=== PATIENT | male | born 1930 | race American Indian/Alaskan Native ===

== ENCOUNTER 2017-12-21 18:23 | Inpatient (IN) | payer MEDICARE ==
[2017-12-21] MEDS ORDERED: Sodium Chloride 0.9% 1,000 ML IV ONE ×2 (19:06→20:47)
--- NOTE | 2017-12-21 19:06 | C.PDOC ---
History Of Present Illness 87 year old male presents to the emergency department by his son, who reports that the patient has been more confused with a decreased appetite and not feeling well over the last few weeks. Son reports that he comes from [place] often to check on him. Time Seen by Provider: 12/21/17 19:05 Chief Complaint (Nursing): Altered Mental Status History Per: Patient, Family (son) History/Exam Limitations: None Onset/Duration Of Symptoms: Other (weeks) Current Symptoms Are (Timing): Still Present Usual Baseline: Alert Oriented Exacerbating Factor(s): Unknown Use Of Anticoag/Antiplatelets: No Decreased Ability To: Stand, Walk Severity: None Pain Scale Rating Of: 4 Recent travel outside of the [place]: No Additional History Per: Family Associated Symptoms: Confused (mildly), Not Eating, Dyspnea, Weakness ( generalized). denies: Fever, Chills, Sweating Past Medical History Reviewed: Historical Data, Nursing Documentation, Vital Signs Vital Signs: Last Vital Signs Temp 98.5 F 12/21/17 21:15 Pulse 85 12/21/17 21:15 Resp 22 12/21/17 21:15 BP 107/80 12/21/17 21:15 Pulse Ox 98 12/21/17 21:15 - Medical History PMH: Pneumothorax Surgical History: No Surg Hx Family History: States: No Known Family Hx - Social History Hx Alcohol Use: No Hx Substance Use: No - Immunization History Hx Tetanus Toxoid Vaccination: No Hx Influenza Vaccination: No Hx Pneumococcal Vaccination: No Review Of Systems Constitutional: Negative for: Fever, Chills Eyes: Negative for: Redness ENT: Negative for: Throat Pain Cardiovascular: Negative for: Chest Pain Respiratory: Positive for: Shortness of Breath, SOB with Excertion. Negative for: Wheezing Gastrointestinal: Positive for: Other (decreased appetite). Negative for: Nausea, Vomiting, Abdominal Pain, Diarrhea Genitourinary: Negative for: Dysuria Musculoskeletal: Negative for: Back Pain Neurological: Positive for: Weakness (generalized), Confusion (mild, and occasional) Psych: Negative for: Anxiety Physical Exam - Physical Exam Appears: Non-toxic, No Acute Distress, Other (cachectic, emaciated) Skin: Dry, Other (poor turgor) Head: Atraumatic, Other (buccal fat pad diminished) Eye(s): bilateral: Normal Inspection Oral Mucosa: Dry Throat: No Erythema, No Exudate Neck: Normal ROM, Supple Chest: Symmetrical, No Deformity, No Tenderness Cardiovascular: Rhythm Regular, No Murmur Respiratory: Decreased Breath Sounds, No Rales, Rhonchi (scattered, bilaterally) , No Wheezing Gastrointestinal/Abdominal: Soft, No Tenderness, No Guarding, No Rebound Back: Normal Inspection Extremity: No Tenderness, No Pedal Edema Extremity: Bilateral: Atraumatic, No Pedal Edema, Normal Color And Temperature Pulses: Left Dorsalis Pedis: Normal, Right Dorsalis Pedis: Normal Neurological/Psych: Oriented x3, Normal Speech, Normal Cognition Gait: Unsteady ED Course And Treatment - Laboratory Results Result Diagrams: 12/21/17 19:56 12/21/17 19:56 ECG: Interpreted By Me, Viewed By Me O2 Sat by Pulse Oximetry: 94 (RA) Pulse Ox Interpretation: Normal - Radiology CXR: Interpreted by Me, Viewed By Me CXR Interpretation: Yes: Infiltrates (? rll vs mass), COPD. No: Cardiomegaly, Pnemothorax Nexus Criteria: . Focal Neuro Deficit Progress Note: Plan: VBG. CT Head w/o Contrast. EKG. BNP. CMP. TSH. CBC. PTT. Prothrombin Time. CXR One View. NaCl IV Fluids. Blood Culture. Urinalysis Disposition Discussed With DrKenyon: Jesus Shea Comment: accepted the pt on his service and took over the care at 9:33 PM Doctor Will See Patient In The: Hospital Counseled Patient/Family Regarding: Studies Performed, Diagnosis - Disposition Disposition: HOSPITALIZED Disposition Time: 19:05 Condition: GUARDED Forms: [facility] (Sinhala) - POA Present On Arrival: Poor Glycemic Control - Clinical Impression Clinical Impression: Pneumonia, Severe dehydration, Hypernatremia, Cachexia, Bullous emphysema - Scribe Statement The provider has reviewed the documentation as recorded by the Scribe (Stanley Maycol) Provider Attestation: All medical record entries made by the Scribe were at my direction and personally dictated by me. I have reviewed the chart and agree that the record accurately reflects my personal performance of the history, physical exam, medical decision making, and the department course for this patient. I have also personally directed, reviewed, and agree with the discharge instructions and disposition. Decision To Admit - Pt Status Changed To: Hospital Disposition Of: Inpatient - Admit Certification Admit to Inpatient:: After my assessment, the patient will require hospitalization for at least two midnights. This is because of the severity of symptoms shown, intensity of services needed, and/or the medical risk in this patient being treated as an outpatient. - InPatient: Physician Admission Certification:: After my assessment, the patient will require hospitalization for at least two midnights. This is because of the severity of symptoms shown, intensity of services needed, and/or the medical risk in this patient being treated as an outpatient. - . Bed Request Type: Regular Patient Diagnosis: Pneumonia, Severe dehydration, Hypernatremia, Cachexia, Bullous emphysema
[2017-12-21] MEDS ORDERED: Sodium Chloride 0.9% 1,000 ML ONE ×2 (19:41→21:41)
[2017-12-21 19:55] LABS: VENOUS BLOOD GAS BASE EXCESS 3.5 mmol/L (0.0-2.0); VENOUS BLOOD GAS PCO2 47 mmHg (40-60); VENOUS BLOOD GAS PO2 21 mm/Hg (30-55)
[2017-12-21 19:59] LABS: BASO # 0.1 K/uL (0.0-0.2); BASO % 0.4 % (0.0-2.0); HEMOGLOBIN 15.3 g/dL (12.0-18.0); LYMPH # 0.4 K/uL (1.0-4.3); LYMPH % 3.2 % (20.0-40.0); MEAN CELL VOLUME 87.8 fL (80.0-94.0); MEAN CORPUSCULAR HEMOGLOBIN 28.6 pg (27.0-31.0); MEAN CORPUSCULAR HGB CONC 32.5 g/dL (33.0-37.0); MEAN PLATELET VOLUME 9.2 fL (7.2-11.7); MONO # 0.5 K/uL (0.0-0.8); NEUT # 11.9 K/uL (1.8-7.0); NEUT % 92.4 % (50.0-75.0); NRBC % 0.1 % (0.0-2.0); PLATELET COUNT 229 K/uL (130-400); RBC 5.37 Mil/uL (4.40-5.90); RED CELL DISTRIBUTION WIDTH 14.3 % (11.5-14.5); WHITE BLOOD COUNT 12.9 K/uL (4.8-10.8)
[2017-12-21 20:14] LABS: ALB/GLOB RATIO 0.8 (1.0-2.1); ALBUMIN 3.8 g/dL (3.5-5.0); CALCIUM 10.5 mg/dl (8.6-10.4)
[2017-12-21 20:35] LABS: ANISOCYTOSIS SLIGHT; BANDS 6 % (0-2); HYPOCHROMIC SLIGHT; LYMPHOCYTE 2 % (20-40); MONOCYTE 4 % (0-10); NEUTROPHIL 88 % (50-75); OVALOCYTES SLIGHT; PLATELET ESTIMATE NORMAL (NORMAL); POIKILOCYTOSIS SLIGHT; TOTAL CELLS COUNTED 100
[2017-12-21 20:40] LABS: LARGE PLATELETS PRESENT
[2017-12-21 20:47] LABS: INR 1.3; PROTHROMBIN TIME 14.2 SECONDS (9.7-12.2)
[2017-12-21] MEDS ORDERED: Piperacillin/Tazobact 3.375 gm 100 ML IVPB STA (21:27)
[2017-12-21] MEDS ORDERED: Piperacillin/Tazobact 3.375 gm 100 ML IVPB ONE (21:41)
[2017-12-21] MEDS ORDERED: Dextrose 5%/0.45% NS 1,000 ML IV SCH (23:15)
--- NOTE | 2017-12-22 06:04 | CT ---
Date of service: 12/21/2017 PROCEDURE: CT HEAD WITHOUT CONTRAST. HISTORY: change mental status COMPARISON: None available. TECHNIQUE: Axial computed tomography images were obtained through the head/brain without intravenous contrast. Radiation dose: Total exam DLP = 836.17 mGy-cm. This CT exam was performed using one or more of the following dose reduction techniques: Automated exposure control, adjustment of the mA and/or kV according to patient size, and/or use of iterative reconstruction technique. FINDINGS: HEMORRHAGE: No intracranial hemorrhage. BRAIN: No mass effect or edema. Moderate volume and moderate white matter changes likely due to chronic microvascular ischemic disease. VENTRICLES: Unremarkable. No hydrocephalus. CALVARIUM: Unremarkable. PARANASAL SINUSES: Unremarkable as visualized. No significant inflammatory changes. MASTOID AIR CELLS: Unremarkable as visualized. No inflammatory changes. OTHER FINDINGS: None. IMPRESSION: No evidence of acute intracranial hemorrhage intracranial collection mass effect or midline shift. Volume loss and chronic microvascular white matter ischemic disease. Preliminary report was submitted by virtual Radiology.
--- NOTE | 2017-12-22 06:35 | CT ---
Date of service: 12/21/2017 PROCEDURE: CT Chest without contrast HISTORY: poss rll mass COMPARISON: Comparison is made with the previous study dated 08/13/2012 TECHNIQUE: Contiguous axial images were obtained through the chest without intravenous contrast enhancement. Sagittal and coronal reconstructions were performed. Radiation dose (DLP): 187.98 mGy-cm. This CT exam was performed using one or more of the following dose reduction techniques: Automated exposure control, adjustment of the mA and/or kV according to patient size, and/or use of iterative reconstruction technique. FINDINGS: LUNGS: Severe tello lobar emphysema is noted. There are scattered nodular opacities in the right middle and lower lobe likely represent acute infectious process. There is focal airspace consolidation at the right lung base may represent a pneumonia. The possibility of neoplasm is less likely but not totally excluded. Again noted is left lung base nodule measures 8.5 millimeter likely benign. [id number] bronchiectasis at the lower lobes is again noted. Bilateral central bronchiectasis is also noted. 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 That aortic arch and descending aorta are also ectatic. Normal sized heart. The main pulmonary artery is enlarged. No lymphadenopathy. PLEURA: No evidence of pleural effusion or pneumothorax. BONES: No fracture. No destructive lesion. UPPER ABDOMEN: Grossly unremarkable. OTHER FINDINGS: Dilated mid and distal esophagus with diffuse wall thickening is also noted. IMPRESSION: Severe emphysema predominant in the upper lobe. Nodular opacities and airspace consolidation at the right middle and lower lobe likely represent infectious process and pneumonia. The possibility of neoplasm at the right lung base is less likely but not totally excluded and follow-up exam is recommended. Additional findings as described above.
[2017-12-22 07:32] LABS: BASO % 0.2 % (0.0-2.0); EOS % 0.2 % (0.0-4.0); HEMOGLOBIN 13.4 g/dL (12.0-18.0); LYMPH # 0.6 K/uL (1.0-4.3); LYMPH % 5.2 % (20.0-40.0); MEAN CELL VOLUME 87.4 fL (80.0-94.0); MEAN CORPUSCULAR HEMOGLOBIN 28.8 pg (27.0-31.0); MEAN CORPUSCULAR HGB CONC 32.9 g/dL (33.0-37.0); MEAN PLATELET VOLUME 9.3 fL (7.2-11.7); MONO # 0.5 K/uL (0.0-0.8); MONO % 4.3 % (0.0-10.0); NEUT # 9.9 K/uL (1.8-7.0); NEUT % 90.1 % (50.0-75.0); PLATELET COUNT 189 K/uL (130-400); RBC 4.64 Mil/uL (4.40-5.90); RED CELL DISTRIBUTION WIDTH 14.5 % (11.5-14.5)
[2017-12-22 07:40] LABS: ALB/GLOB RATIO 0.8 (1.0-2.1); ALBUMIN 3.4 g/dL (3.5-5.0); CALCIUM 9.9 mg/dl (8.6-10.4)
[2017-12-22 08:38] LABS: LYMPHOCYTE 5 % (20-40); MONOCYTE 4 % (0-10); NEUTROPHIL 91 % (50-75); TOTAL CELLS COUNTED 100
[2017-12-22 08:39] LABS: PLATELET ESTIMATE NORMAL (NORMAL)
--- NOTE | 2017-12-22 08:47 | RAD ---
Date of service: 12/21/2017 PROCEDURE: CHEST RADIOGRAPH, 1 VIEW HISTORY: AMS COMPARISON: 08/12/2012. FINDINGS: LUNGS: The lungs are hyperinflated and there is peribronchial thickening with chronic changes in both lungs. There is masslike consolidation in the right lower lobe. PLEURA: No pneumothorax or pleural fluid seen. CARDIOVASCULAR: Normal. OSSEOUS STRUCTURES: No significant abnormalities. VISUALIZED UPPER ABDOMEN: Normal. OTHER FINDINGS: None. IMPRESSION: Masslike consolidation in the right lower lobe which may represent pneumonia however mass cannot be excluded. Follow-up to resolution is advised. COPD.
[2017-12-22] MEDS: Albuterol-Ipratrop 3 mg / 0.5 (3 ml) UD INH SCH ×4 (10:17→19:00)
--- NOTE | 2017-12-22 11:43 | CP.PCM.CON ---
History of Present Illness - History of Present Illness History of Present Illness: 87 year old male presents to the emergency department by his son, who reports that the patient has been more confused with a decreased appetite and not feeling well over the last few weeks. Lives alone, has lost unspecified amount of weight. Afebrile but has had dry chronic cough x few weeks Poor historian, unclear about meds Has chronic hypotension Being treated for right pneumonia, dehydration. Has hypernatremia No known CKD Review of Systems - Constitutional Constitutional: Lethargy, Weight Loss, Weakness - EENT Eyes: absent: As Per HPI, Blind Spots, Blurred Vision, Change in Vision, Decreased Night Vision, Diplopia, Discharge, Dry Eye, Exophthalmos, Floaters, Irritation, Itchy Eyes, Loss of Peripheral Vision, Pain, Photophobia, Requires Corrective Lenses, Sees Flashes, Spots in Vision, Tunnel Vision, Other Visual Disturbances, Loss of Vision, Other Ears: absent: As Per HPI, Decreased Hearing, Ear Discharge, Ear Pain, Tinnitus, Abnormal Hearing, Disequilibrium, Dizziness, Other Nose/Mouth/Throat: absent: As Per HPI, Epistaxis, Nasal Congestion, Nasal Discharge, Nasal Obstruction, Nasal Trauma, Nose Pain, Post Nasal Drip, Sinus Pain, Sinus Pressure, Bleeding Gums, Change in Voice, Dental Pain, Dry Mouth, Dysphagia, Halitosis, Hoarsness, Lip Swelling, Mouth Lesions, Mouth Pain, Odynophagia, Sore Throat, Throat Swelling, Tongue Swelling, Facial Pain, Neck Pain, Neck Mass, Other - Cardiovascular Cardiovascular: Dyspnea on Exertion - Respiratory Respiratory: Cough, Dyspnea on Exertion - Gastrointestinal Gastrointestinal: Early Satiety, Nausea - Genitourinary Genitourinary: Change in Urinary Stream, Voiding Freq/Small Amts - Musculoskeletal Musculoskeletal: Muscle Cramps, Muscle Weakness, Myalgias - Neurological Neurological: Confusion, Weakness Past Patient History - Past Medical History & Family History Past Medical History?: Yes Past Family History: Reviewed and not pertinent - Past Social History Smoking Status: Former Smoker Chewing Tobacco Use: No Cigar Use: No Drugs: Denies Home Situation {Lives}: Alone - CARDIAC Hx Cardiac Disorders: Yes Hx Hypotension: Yes - PULMONARY Hx Respiratory Disorders: Yes Other/Comment: hx pneumothorax - NEUROLOGICAL Hx Neurological Disorder: No - HEENT Hx HEENT Problems: No - RENAL Hx Chronic Kidney Disease: No - ENDOCRINE/METABOLIC Hx Endocrine Disorders: No - HEMATOLOGICAL/ONCOLOGICAL Hx Blood Disorders: No - INTEGUMENTARY Hx Dermatological Problems: No - MUSCULOSKELETAL/RHEUMATOLOGICAL Hx Musculoskeletal Disorders: No Hx Falls: Yes (june 2014) - GASTROINTESTINAL Hx Gastrointestinal Disorders: No - GENITOURINARY/GYNECOLOGICAL Hx Genitourinary Disorders: No - PSYCHIATRIC Hx Psychophysiologic Disorder: No Hx Substance Use: No - SURGICAL HISTORY Hx Surgeries: No - ANESTHESIA Hx Anesthesia: No Hx Anesthesia Reactions: No Hx Malignant Hyperthermia: No Has any member of the family had a problem w/ anesthesia?: No Meds Allergies/Adverse Reactions: Allergies Allergy/AdvReac Type Severity Reaction Status Date / Time No Known Allergies Allergy Unverified 12/21/17 18:48 - Medications Medications: Current Medications Albuterol/Ipratropium (Duoneb 3 Mg/0.5 Mg (3 Ml) Ud) 3 ml INH RQ4 GAURANG Last Admin: 12/22/17 10:17 Dose: 3 ml Heparin Sodium (Porcine) (Heparin) 5,000 units SC Q8 GAURANG Ceftriaxone Sodium 1 gm/ (Sodium Chloride) 100 mls @ 100 mls/hr IVPB DAILY GAURANG PRN Reason: Protocol Last Admin: 12/22/17 09:08 Dose: 100 mls/hr Dextrose/Sodium Chloride (Dextrose 5%/0.45% Ns 1000 Ml) 1,000 mls @ 80 mls/hr IV .[id number] GAURANG Montelukast Sodium (Singulair) 10 mg PO HS GAURANG Physical Exam - Constitutional Appears: No Acute Distress, Confused, Chronically Ill - Head Exam Head Exam: ATRAUMATIC, NORMAL INSPECTION - Eye Exam Eye Exam: EOMI, Normal appearance - Neck Exam Neck exam: Positive for: Normal Inspection. Negative for: Tenderness - Respiratory Exam Respiratory Exam: Clear to Auscultation Bilateral, NORMAL BREATHING PATTERN - Cardiovascular Exam Cardiovascular Exam: REGULAR RHYTHM, +S1 - GI/Abdominal Exam GI & Abdominal Exam: Soft. absent: Tenderness - Extremities Exam Extremities exam: Positive for: normal inspection. Negative for: tenderness - Neurological Exam Neurological exam: Altered, CN II-XII Intact - Skin Skin Exam: Dry, Warm Results - Vital Signs Recent Vital Signs: Last Vital Signs Temp 98.5 F 12/22/17 08:11 Pulse 65 12/22/17 10:20 Resp 18 12/22/17 08:11 BP 107/74 12/22/17 08:11 Pulse Ox 97 12/22/17 08:11 - Labs Result Diagrams: 12/22/17 07:01 12/22/17 07:01 Labs: Laboratory Results - last 24 hr 12/21/17 12/21/17 12/21/17 19:50 19:56 19:56 WBC 12.9 H RBC 5.37 Hgb 15.3 Hct 47.2 MCV 87.8 MCH 28.6 MCHC 32.5 L RDW 14.3 Plt Count 229 MPV 9.2 Neut % (Auto) 92.4 H Lymph % (Auto) 3.2 L Drew % (Auto) 4.0 Eos % (Auto) 0.0 Baso % (Auto) 0.4 Neut # (Auto) 11.9 H Lymph # (Auto) 0.4 L Drew # (Auto) 0.5 Eos # (Auto) 0.0 Baso # (Auto) 0.1 Neutrophils % (Manual) 88 H Band Neutrophils % 6 H Lymphocytes % (Manual) 2 L Monocytes % (Manual) 4 Platelet Estimate Normal Large Platelets Present RBC Morphology Hypochromasia (manual) Slight Poikilocytosis (manual Slight Anisocytosis (manual) Slight Ovalocytes Slight PT INR APTT pO2 21 L VBG pH 7.40 VBG pCO2 47 VBG HCO3 26.0 VBG Total CO2 30.5 H VBG O2 Sat (Calc) 35.2 L VBG Base Excess 3.5 H VBG Potassium 5.4 H Sodium 154.0 H 158 H Chloride 114.0 H 111 H Glucose 129 H Lactate 3.5 H Liter Flow 3.0 FiO2 33.0 Potassium 3.9 Carbon Dioxide 29 Anion Gap 22 H BUN 66 H Creatinine 1.5 Est GFR ( Amer) 54 Est GFR (Non-Af Amer) 44 Random Glucose 141 H Calcium 10.5 H Total Bilirubin 1.4 H AST 36 ALT 33 Alkaline Phosphatase 93 NT-Pro-B Natriuret Pep 478 Total Protein 8.5 H Albumin 3.8 Globulin 4.7 H Albumin/Globulin Ratio 0.8 L TSH 3rd Generation 2.71 Venous Blood Potassium 5.4 H 12/21/17 12/22/17 12/22/17 20:23 07:01 07:01 WBC 11.0 H RBC 4.64 Hgb 13.4 Hct 40.6 MCV 87.4 MCH 28.8 MCHC 32.9 L RDW 14.5 Plt Count 189 MPV 9.3 Neut % (Auto) 90.1 H Lymph % (Auto) 5.2 L Drew % (Auto) 4.3 Eos % (Auto) 0.2 Baso % (Auto) 0.2 Neut # (Auto) 9.9 H Lymph # (Auto) 0.6 L Drew # (Auto) 0.5 Eos # (Auto) 0.0 Baso # (Auto) 0.0 Neutrophils % (Manual) 91 H Band Neutrophils % Lymphocytes % (Manual) 5 L Monocytes % (Manual) 4 Platelet Estimate Normal Large Platelets RBC Morphology Normal Hypochromasia (manual) Poikilocytosis (manual Anisocytosis (manual) Ovalocytes PT 14.2 H INR 1.3 APTT 36 H pO2 VBG pH VBG pCO2 VBG HCO3 VBG Total CO2 VBG O2 Sat (Calc) VBG Base Excess VBG Potassium Sodium 158 H Chloride 115 H Glucose Lactate Liter Flow FiO2 Potassium 4.2 Carbon Dioxide 30 Anion Gap 17 BUN 59 H Creatinine 1.5 Est GFR ( Amer) 54 Est GFR (Non-Af Amer) 44 Random Glucose 151 H Calcium 9.9 Total Bilirubin 1.1 AST 28 ALT 29 Alkaline Phosphatase 80 NT-Pro-B Natriuret Pep Total Protein 7.8 Albumin 3.4 L Globulin 4.4 H Albumin/Globulin Ratio 0.8 L TSH 3rd Generation Venous Blood Potassium Assessment & Plan (1) Acute pneumonia Status: Acute (2) Emphysema lung Status: Acute (3) Prerenal azotemia Status: Acute (4) Hypernatremia Status: Acute (5) Pneumonia Status: Acute (6) Severe dehydration Status: Acute - Assessment and Plan (Free Text) Plan: Would correct hypernatremia with D5W fluids as BP stable check urine lytes IV ABs for pneumonia Eventually repeat imaging to evaluate for underlying malignancy Repeat chemistries Renal US
[2017-12-22] MEDS ORDERED: Dextrose 5%/0.45% NS 1,000 ML IV SCH (11:45)
--- NOTE | 2017-12-22 11:55 | CT ---
Date of service: 12/22/2017 PROCEDURE: CT Chest without contrast HISTORY: infiltrate COMPARISON: CT chest dated 12/21/2017. TECHNIQUE: Contiguous axial images were obtained through the chest without intravenous contrast enhancement. Sagittal and coronal reconstructions were performed. Radiation dose (DLP): 180.2 mGy-cm. This CT exam was performed using one or more of the following dose reduction techniques: Automated exposure control, adjustment of the mA and/or kV according to patient size, and/or use of iterative reconstruction technique. FINDINGS: LUNGS: Severe tello lobar emphysema with scattered large bullae. Scattered nodular densities in the right upper, middle and lower lobe pulmonary grossly similar distribution. Slight worsening of right lower lobe atelectatic/ consolidative changes with similar superimposed scarring/fibrotic changes. Slight worsening of left lower lobe atelectatic changes. Stable 5 mm left lower lobe nodule. Visualized airway clear. MEDIASTINUM: Stable ectasia of the ascending thoracic aorta measuring up to 4.2 cm at the level of the pulmonary artery. Normal sized heart. Coronary arterial and valvular calcifications. Main pulmonary artery unremarkable. No vascular congestion. No lymphadenopathy. PLEURA: No pleural fluid. No pneumothorax. BONES: No fracture. No destructive lesion. UPPER ABDOMEN: Distended gallbladder with minimal cholelithiasis. Punctate left upper pole calculus. Left renal parapelvic cysts redemonstrated. OTHER FINDINGS: None. IMPRESSION: Slight worsening of right lower lobe atelectatic/consolidative changes with similar superimposed scarring/fibrotic changes. Slight worsening of left lower lobe atelectatic changes. No other significant interval changes.
--- NOTE | 2017-12-22 14:55 | CP.PCM.HP ---
History of Present Illness - History of Present Illness History of Present Illness: 87 year old male admitted thru the [facility] ER complaining of cough, shortness of breath, weight loss, and confusion. Evaluation in the Er reveals pneumonia, dehyration, and hypernatremia. Patient is somewhat confured in all three spheres. Present on Admission - Present on Admission Any Indicators Present on Admission: No History of DVT/PE: No History of Uncontrolled Diabetes: No Urinary Catheter: No Decubitus Ulcer Present: No History Surgical Site Infection Following: None Review of Systems - Review of Systems Systems not reviewed;Unavailable: Altered Mental Status - Constitutional Constitutional: Fatigue, Weakness - EENT Ears: Tinnitus Nose/Mouth/Throat: Dry Mouth - Cardiovascular Cardiovascular: Rapid Heart Rate - Respiratory Respiratory: Cough, Chest Congestion - Gastrointestinal Gastrointestinal: Constipation - Musculoskeletal Musculoskeletal: Arthralgias - Integumentary Integumentary: Dry Skin - Neurological Neurological: Numbness, Memory Loss - Psychiatric Psychiatric: Change in Appetite Past Patient History - Tetanus Immunizations Tetanus Immunization: >10 years Ago - Past Medical History & Family History Past Medical History?: Yes Past Family History: Reviewed and not pertinent - Past Social History Smoking Status: Former Smoker Chewing Tobacco Use: No Cigar Use: No Drugs: Denies Home Situation {Lives}: Alone - CARDIAC Hx Cardiac Disorders: Yes Hx Hypotension: Yes - PULMONARY Hx Respiratory Disorders: Yes Hx Emphysema: Yes Hx Pulmonary Embolism: Yes Other/Comment: hx pneumothorax - NEUROLOGICAL Hx Neurological Disorder: No Hx Dizziness: Yes - HEENT Hx HEENT Problems: No Hx Sinusitis: Yes - RENAL Hx Chronic Kidney Disease: No - ENDOCRINE/METABOLIC Hx Endocrine Disorders: No - HEMATOLOGICAL/ONCOLOGICAL Hx Blood Disorders: No - INTEGUMENTARY Hx Dermatological Problems: No - MUSCULOSKELETAL/RHEUMATOLOGICAL Hx Musculoskeletal Disorders: Yes Hx Arthritis: Yes Hx Back Pain: Yes Hx Falls: Yes (june 2014) - GASTROINTESTINAL Hx Gastrointestinal Disorders: Yes Hx Constipation: Yes - GENITOURINARY/GYNECOLOGICAL Hx Genitourinary Disorders: No - PSYCHIATRIC Hx Psychophysiologic Disorder: No Hx Substance Use: No - SURGICAL HISTORY Hx Surgeries: No - ANESTHESIA Hx Anesthesia: No Hx Anesthesia Reactions: No Hx Malignant Hyperthermia: No Has any member of the family had a problem w/ anesthesia?: No Meds Allergies/Adverse Reactions: Allergies Allergy/AdvReac Type Severity Reaction Status Date / Time No Known Allergies Allergy Unverified 12/21/17 18:48 Physical Exam - Constitutional Appears: Cachectic - Head Exam Head Exam: NORMOCEPHALIC - Eye Exam Eye Exam: PERRL Pupil Exam: NORMAL ACCOMODATION - ENT Exam ENT Exam: Mucous Membranes Dry - Neck Exam Neck exam: Positive for: Normal Inspection - Respiratory Exam Respiratory Exam: Decreased Breath Sounds - Cardiovascular Exam Cardiovascular Exam: Tachycardia - GI/Abdominal Exam GI & Abdominal Exam: Normal Bowel Sounds - Rectal Exam Rectal Exam: Deferred - Exam Exam: NORMAL INSPECTION - Extremities Exam Extremities exam: Positive for: pedal pulses present - Back Exam Back exam: vertebral tenderness - Neurological Exam Neurological exam: Altered - Psychiatric Exam Psychiatric exam: Depressed - Skin Skin Exam: Dry Results - Vital Signs Recent Vital Signs: Last Vital Signs Temp 98.5 F 12/22/17 08:11 Pulse 65 12/22/17 10:20 Resp 18 12/22/17 08:11 BP 107/74 12/22/17 08:11 Pulse Ox 97 12/22/17 08:11 - Labs Result Diagrams: 12/22/17 07:01 12/22/17 07:01 Labs: Laboratory Results - last 24 hr 12/21/17 12/21/17 12/21/17 18:40 19:50 19:56 WBC RBC Hgb Hct MCV MCH MCHC RDW Plt Count MPV Neut % (Auto) Lymph % (Auto) [place] % (Auto) Eos % (Auto) Baso % (Auto) Neut # (Auto) Lymph # (Auto) [place] # (Auto) Eos # (Auto) Baso # (Auto) Neutrophils % (Manual) Band Neutrophils % Lymphocytes % (Manual) Monocytes % (Manual) Platelet Estimate Large Platelets RBC Morphology Hypochromasia (manual) Poikilocytosis (manual Anisocytosis (manual) Ovalocytes PT INR APTT pO2 21 L VBG pH 7.40 VBG pCO2 47 VBG HCO3 26.0 VBG Total CO2 30.5 H VBG O2 Sat (Calc) 35.2 L VBG Base Excess 3.5 H VBG Potassium 5.4 H Sodium 154.0 H 158 H Chloride 114.0 H 111 H Glucose 129 H Lactate 3.5 H Liter Flow 3.0 FiO2 33.0 Potassium 3.9 Carbon Dioxide 29 Anion Gap 22 H BUN 66 H Creatinine 1.5 Est GFR ( Amer) 54 Est GFR (Non-Af Amer) 44 POC Glucose (mg/dL) 155 H Random Glucose 141 H Calcium 10.5 H Total Bilirubin 1.4 H AST 36 ALT 33 Alkaline Phosphatase 93 NT-Pro-B Natriuret Pep 478 Total Protein 8.5 H Albumin 3.8 Globulin 4.7 H Albumin/Globulin Ratio 0.8 L TSH 3rd Generation 2.71 Venous Blood Potassium 5.4 H 12/21/17 12/21/17 12/22/17 19:56 20:23 07:01 WBC 12.9 H 11.0 H RBC 5.37 4.64 Hgb 15.3 13.4 Hct 47.2 40.6 MCV 87.8 87.4 MCH 28.6 28.8 MCHC 32.5 L 32.9 L RDW 14.3 14.5 Plt Count 229 189 MPV 9.2 9.3 Neut % (Auto) 92.4 H 90.1 H Lymph % (Auto) 3.2 L 5.2 L [place] % (Auto) 4.0 4.3 Eos % (Auto) 0.0 0.2 Baso % (Auto) 0.4 0.2 Neut # (Auto) 11.9 H 9.9 H Lymph # (Auto) 0.4 L 0.6 L [place] # (Auto) 0.5 0.5 Eos # (Auto) 0.0 0.0 Baso # (Auto) 0.1 0.0 Neutrophils % (Manual) 88 H 91 H Band Neutrophils % 6 H Lymphocytes % (Manual) 2 L 5 L Monocytes % (Manual) 4 4 Platelet Estimate Normal Normal Large Platelets Present RBC Morphology Normal Hypochromasia (manual) Slight Poikilocytosis (manual Slight Anisocytosis (manual) Slight Ovalocytes Slight PT 14.2 H INR 1.3 APTT 36 H pO2 VBG pH VBG pCO2 VBG HCO3 VBG Total CO2 VBG O2 Sat (Calc) VBG Base Excess VBG Potassium Sodium Chloride Glucose Lactate Liter Flow FiO2 Potassium Carbon Dioxide Anion Gap BUN Creatinine Est GFR ( Amer) Est GFR (Non-Af Amer) POC Glucose (mg/dL) Random Glucose Calcium Total Bilirubin AST ALT Alkaline Phosphatase NT-Pro-B Natriuret Pep Total Protein Albumin Globulin Albumin/Globulin Ratio TSH 3rd Generation Venous Blood Potassium 12/22/17 07:01 WBC RBC Hgb Hct MCV MCH MCHC RDW Plt Count MPV Neut % (Auto) Lymph % (Auto) [place] % (Auto) Eos % (Auto) Baso % (Auto) Neut # (Auto) Lymph # (Auto) [place] # (Auto) Eos # (Auto) Baso # (Auto) Neutrophils % (Manual) Band Neutrophils % Lymphocytes % (Manual) Monocytes % (Manual) Platelet Estimate Large Platelets RBC Morphology Hypochromasia (manual) Poikilocytosis (manual Anisocytosis (manual) Ovalocytes PT INR APTT pO2 VBG pH VBG pCO2 VBG HCO3 VBG Total CO2 VBG O2 Sat (Calc) VBG Base Excess VBG Potassium Sodium 158 H Chloride 115 H Glucose Lactate Liter Flow FiO2 Potassium 4.2 Carbon Dioxide 30 Anion Gap 17 BUN 59 H Creatinine 1.5 Est GFR ( Amer) 54 Est GFR (Non-Af Amer) 44 POC Glucose (mg/dL) Random Glucose 151 H Calcium 9.9 Total Bilirubin 1.1 AST 28 ALT 29 Alkaline Phosphatase 80 NT-Pro-B Natriuret Pep Total Protein 7.8 Albumin 3.4 L Globulin 4.4 H Albumin/Globulin Ratio 0.8 L TSH 3rd Generation Venous Blood Potassium Assessment & Plan (1) Acute pneumonia Status: Acute (2) Cachexia Status: Acute (3) Emphysema lung Status: Acute (4) Hypernatremia Status: Acute (5) Prerenal azotemia Status: Acute (6) Severe dehydration Status: Acute
--- NOTE | 2017-12-22 15:04 | US ---
Date of service: 12/22/2017 PROCEDURE: Ultrasound of the Kidneys HISTORY: adia COMPARISON: Correlation is made to CT scan of the chest performed earlier the same day. TECHNIQUE: Sonogram of the kidneys. FINDINGS: RIGHT KIDNEY: Measures: 9.6 x 3.5 x 3.5 cm. Normal in size, contour and echogenicity. No stone, solid mass lesion or hydronephrosis visualized. LEFT KIDNEY: Measures: 9.8 x 5.2 x 5.3 cm. Cystic structures near the renal hilum that do not appear to connect to the renal pelvis. Normal in size, contour and echogenicity. No stone, solid mass lesion or hydronephrosis visualized. OTHER FINDINGS: Cholelithiasis without gallbladder wall thickening/edema or pericholecystic. IMPRESSION: Unremarkable renal sonogram. Probable left parapelvic cysts. Cholelithiasis without evidence of acute cholecystitis as seen on recent CT scan.
[2017-12-22] MEDS: Digoxin 250 mcg (0.25 mg) Tab PO SCH (17:19)
[2017-12-22 17:29] LABS: ABG ALLEN TEST P; ARTERIAL BLOOD GAS HCO3 21.7 mmol/L (21-28); ARTERIAL BLOOD GAS O2 SAT 99.9 % (95-98); ARTERIAL BLOOD GAS PCO2 27 mm/Hg (35-45); ARTERIAL BLOOD GAS PH 7.45 (7.35-7.45); ARTERIAL BLOOD GAS PO2 123 mm/Hg (80-100); ARTERIAL BLOOD GAS TCO2 19.6 mmol/L (22-28)
[2017-12-22 21:40] LABS: URINE BILIRUBIN NEGATIVE (NEGATIVE); URINE BLOOD NEGATIVE (NEGATIVE); URINE CLARITY Hazy (Clear); URINE COLOR Yellow (YELLOW); URINE GLUCOSE (UA) NORMAL (Normal); URINE LEUKOCYTE ESTERASE NEG Leu/uL (Negative); URINE PROTEIN NEGATIVE (NEGATIVE); URINE UROBILINOGEN NORMAL mg/dL (0.2-1.0)
--- NOTE | 2017-12-22 23:12 | CP.PCM.PN ---
Subjective - Date & Time of Evaluation Date of Evaluation: 12/22/17 Time of Evaluation: 18:35 - Subjective Subjective: Patient more responsive. He is on antibiotic therapy. Patient being followed by Dr Wilson. Abdominal ultrasound requested. Objective - Vital Signs/Intake and Output Vital Signs (last 24 hours): Temp Pulse Resp BP Pulse Ox 97.5 F L 77 20 101/68 100 12/22/17 15:00 12/22/17 15:00 12/22/17 15:00 12/22/17 15:00 12/22/17 15:00 Intake and Output: 12/22/17 12/23/17 18:59 06:59 Intake Total 620 Balance 620 - Medications Medications: Current Medications Albuterol Sulfate (Albuterol 0.083% Inhal Martha (2.5 Mg/3 Ml) Ud) 2.5 mg INH RQ6 [facility] Albuterol/Ipratropium (Duoneb 3 Mg/0.5 Mg (3 Ml) Ud) 3 ml INH RQ4 [facility] Last Admin: 12/22/17 19:00 Dose: 3 ml Digoxin (Lanoxin) 0.25 mg PO DAILY@1800 [facility] Last Admin: 12/22/17 17:19 Dose: 0.25 mg Heparin Sodium (Porcine) (Heparin) 5,000 units SC Q8 [facility] Last Admin: 12/22/17 21:39 Dose: 5,000 units Ceftriaxone Sodium 1 gm/ (Sodium Chloride) 100 mls @ 100 mls/hr IVPB DAILY [facility] PRN Reason: Protocol Last Admin: 12/22/17 09:08 Dose: 100 mls/hr Dextrose (Dextrose 5% In Water) 500 mls @ 125 mls/hr IV .Q4H [facility] Last Admin: 12/22/17 19:30 Dose: 125 mls/hr Montelukast Sodium (Singulair) 10 mg PO HS [facility] Last Admin: 12/22/17 21:39 Dose: 10 mg - Labs Labs: 12/22/17 07:01 12/22/17 07:01 PT 14.2 SECONDS (9.7-12.2) H 12/21/17 20:23 INR 1.3 12/21/17 20:23 APTT 36 SECONDS (21-34) H 12/21/17 20:23 - Constitutional Appears: Cachectic - Head Exam Head Exam: NORMAL INSPECTION - Eye Exam Eye Exam: Normal appearance Pupil Exam: NORMAL ACCOMODATION - ENT Exam ENT Exam: Mucous Membranes Dry - Neck Exam Neck Exam: Normal Inspection - Respiratory Exam Respiratory Exam: Decreased Breath Sounds - Cardiovascular Exam Cardiovascular Exam: REGULAR RHYTHM - GI/Abdominal Exam GI & Abdominal Exam: Normal Bowel Sounds - Rectal Exam Rectal Exam: Deferred - Exam Exam: NORMAL INSPECTION - Back Exam Back Exam: NORMAL INSPECTION - Neurological Exam Neurological Exam: Awake - Psychiatric Exam Psychiatric exam: Depressed - Skin Skin Exam: Dry Assessment and Plan (1) Acute pneumonia Status: Acute (2) Cachexia Status: Acute (3) Emphysema lung Status: Acute (4) Hypernatremia Status: Acute (5) Prerenal azotemia Status: Acute (6) Severe dehydration Status: Acute
--- NOTE | 2017-12-22 23:58 | CP.PCM.CON ---
History of Present Illness - History of Present Illness History of Present Illness: 87 years old male was brought to the ED because he was found to be lethargic by his son. The patient has a poor appetite for the past one week. There no history of fever, cough, diarrhea. He is known to have a COPD. He is a former heavy cigarette smoker. In the ED, a CXR and chest CT revealed a RLL consolidation. A CT scan of the brain was essentially unremarkable. His serum Na +, Cl-, BUN and creatinine were elevated, compatible with a severe dehydration. His ECG revealed a sinus tachycardia, with non-specific ST-T wave change. He was given IV Rocephin and IV fluid with improvement of his mental status. He is now alert, oriented, and in no respiratory distress. Review of Systems - Constitutional Constitutional: Anorexia, Lethargy, Weakness - Musculoskeletal Musculoskeletal: Muscle Weakness - Neurological Neurological: Confusion, Weakness Past Patient History - Tetanus Immunizations Tetanus Immunization: >10 years Ago - Past Medical History & Family History Past Medical History?: Yes Past Family History: Reviewed and not pertinent - Past Social History Smoking Status: Former Smoker Chewing Tobacco Use: No Cigar Use: No Drugs: Denies Home Situation {Lives}: Alone - CARDIAC Hx Cardiac Disorders: Yes Hx Hypotension: Yes - PULMONARY Hx Respiratory Disorders: Yes Hx Emphysema: Yes Hx Pulmonary Embolism: Yes Other/Comment: hx pneumothorax - NEUROLOGICAL Hx Neurological Disorder: No Hx Dizziness: Yes - HEENT Hx HEENT Problems: No Hx Sinusitis: Yes - RENAL Hx Chronic Kidney Disease: No - ENDOCRINE/METABOLIC Hx Endocrine Disorders: No - HEMATOLOGICAL/ONCOLOGICAL Hx Blood Disorders: No - INTEGUMENTARY Hx Dermatological Problems: No - MUSCULOSKELETAL/RHEUMATOLOGICAL Hx Musculoskeletal Disorders: Yes Hx Arthritis: Yes Hx Back Pain: Yes Hx Falls: Yes (june 2014) - GASTROINTESTINAL Hx Gastrointestinal Disorders: Yes Hx Constipation: Yes - GENITOURINARY/GYNECOLOGICAL Hx Genitourinary Disorders: No - PSYCHIATRIC Hx Psychophysiologic Disorder: No Hx Substance Use: No - SURGICAL HISTORY Hx Surgeries: No - ANESTHESIA Hx Anesthesia: No Hx Anesthesia Reactions: No Hx Malignant Hyperthermia: No Has any member of the family had a problem w/ anesthesia?: No Meds Allergies/Adverse Reactions: Allergies Allergy/AdvReac Type Severity Reaction Status Date / Time No Known Allergies Allergy Unverified 12/21/17 18:48 - Medications Medications: Current Medications Albuterol Sulfate (Albuterol 0.083% Inhal Martha (2.5 Mg/3 Ml) Ud) 2.5 mg INH RQ6 [facility] Albuterol/Ipratropium (Duoneb 3 Mg/0.5 Mg (3 Ml) Ud) 3 ml INH RQ4 [facility] Last Admin: 12/22/17 19:00 Dose: 3 ml Digoxin (Lanoxin) 0.25 mg PO DAILY@1800 [facility] Last Admin: 12/22/17 17:19 Dose: 0.25 mg Heparin Sodium (Porcine) (Heparin) 5,000 units SC Q8 [facility] Last Admin: 12/22/17 21:39 Dose: 5,000 units Ceftriaxone Sodium 1 gm/ (Sodium Chloride) 100 mls @ 100 mls/hr IVPB DAILY [facility] PRN Reason: Protocol Last Admin: 12/22/17 09:08 Dose: 100 mls/hr Dextrose (Dextrose 5% In Water) 500 mls @ 125 mls/hr IV .Q4H [facility] Last Admin: 12/22/17 19:30 Dose: 125 mls/hr Montelukast Sodium (Singulair) 10 mg PO HS [facility] Last Admin: 12/22/17 21:39 Dose: 10 mg Physical Exam - Constitutional Appears: No Acute Distress, Chronically Ill - Head Exam Head Exam: NORMAL INSPECTION - Eye Exam Eye Exam: Normal appearance Pupil Exam: NORMAL ACCOMODATION - ENT Exam ENT Exam: Normal Exam - Neck Exam Neck exam: Positive for: Normal Inspection - Respiratory Exam Respiratory Exam: Rhonchi Additional comments: Rhonchi heard at the right base. - Cardiovascular Exam Cardiovascular Exam: Tachycardia, REGULAR RHYTHM - GI/Abdominal Exam GI & Abdominal Exam: Normal Bowel Sounds, Soft - Rectal Exam Rectal Exam: Deferred - Exam External exam: NORMAL EXTERNAL EXAM - Extremities Exam Extremities exam: Positive for: normal inspection - Back Exam Back exam: NORMAL INSPECTION - Neurological Exam Neurological exam: Alert, Oriented x3 - Psychiatric Exam Psychiatric exam: Anxious - Skin Skin Exam: Dry, Intact, Warm Results - Vital Signs Recent Vital Signs: Last Vital Signs Temp 97.5 F L 12/22/17 15:00 Pulse 77 12/22/17 15:00 Resp 20 12/22/17 15:00 BP 101/68 12/22/17 15:00 Pulse Ox 100 12/22/17 15:00 - Labs Result Diagrams: 12/22/17 07:01 12/22/17 07:01 Labs: Laboratory Results - last 24 hr 12/21/17 12/22/17 12/22/17 18:40 07:01 07:01 WBC 11.0 H RBC 4.64 Hgb 13.4 Hct 40.6 MCV 87.4 MCH 28.8 MCHC 32.9 L RDW 14.5 Plt Count 189 MPV 9.3 Neut % (Auto) 90.1 H Lymph % (Auto) 5.2 L [place] % (Auto) 4.3 Eos % (Auto) 0.2 Baso % (Auto) 0.2 Neut # (Auto) 9.9 H Lymph # (Auto) 0.6 L [place] # (Auto) 0.5 Eos # (Auto) 0.0 Baso # (Auto) 0.0 Neutrophils % (Manual) 91 H Lymphocytes % (Manual) 5 L Monocytes % (Manual) 4 Platelet Estimate Normal RBC Morphology Normal Puncture Site pCO2 pO2 HCO3 ABG pH ABG Total CO2 ABG O2 Saturation ABG Base Excess ABG Hemoglobin ABG Carboxyhemoglobin POC ABG HHb (Measured) ABG Methemoglobin Jakob Test Hgb O2 Saturation Liter Flow Sodium 158 H Potassium 4.2 Chloride 115 H Carbon Dioxide 30 Anion Gap 17 BUN 59 H Creatinine 1.5 Est GFR ( Amer) 54 Est GFR (Non-Af Amer) 44 POC Glucose (mg/dL) 155 H Random Glucose 151 H Calcium 9.9 Total Bilirubin 1.1 AST 28 ALT 29 Alkaline Phosphatase 80 Total Protein 7.8 Albumin 3.4 L Globulin 4.4 H Albumin/Globulin Ratio 0.8 L Urine Color Urine Clarity Urine pH Ur Specific [place] Urine Protein Urine Glucose (UA) Urine Ketones Urine Blood Urine Nitrate Urine Bilirubin Urine Urobilinogen Ur Leukocyte Esterase Urine WBC (Auto) Urine RBC (Auto) 12/22/17 12/22/17 17:25 21:26 WBC RBC Hgb Hct MCV MCH MCHC RDW Plt Count MPV Neut % (Auto) Lymph % (Auto) [place] % (Auto) Eos % (Auto) Baso % (Auto) Neut # (Auto) Lymph # (Auto) [place] # (Auto) Eos # (Auto) Baso # (Auto) Neutrophils % (Manual) Lymphocytes % (Manual) Monocytes % (Manual) Platelet Estimate RBC Morphology Puncture Site /lr pCO2 27 L pO2 123 H HCO3 21.7 ABG pH 7.45 ABG Total CO2 19.6 L ABG O2 Saturation 99.9 H ABG Base Excess -4.1 L ABG Hemoglobin 11.0 L ABG Carboxyhemoglobin 2.0 H POC ABG HHb (Measured) 0.1 ABG Methemoglobin 1.1 Jakob Test P Hgb O2 Saturation 96.8 Liter Flow 2.0 Sodium Potassium Chloride Carbon Dioxide Anion Gap BUN Creatinine Est GFR ( Amer) Est GFR (Non-Af Amer) POC Glucose (mg/dL) Random Glucose Calcium Total Bilirubin AST ALT Alkaline Phosphatase Total Protein Albumin Globulin Albumin/Globulin Ratio Urine Color Yellow Urine Clarity Hazy Urine pH 5.0 Ur Specific [place] 1.018 Urine Protein Negative Urine Glucose (UA) Normal Urine Ketones Negative Urine Blood Negative Urine Nitrate Negative Urine Bilirubin Negative Urine Urobilinogen Normal Ur Leukocyte Esterase Neg Urine WBC (Auto) 1 Urine RBC (Auto) 3 Assessment & Plan (1) Acute pneumonia Assessment and Plan: To continue IV antibiotics. Status: Acute (2) Severe dehydration Assessment and Plan: With Hypernatremia and prerenal azotemia. To continue IV hydration with D5W. Status: Acute (3) Sinus tachycardia Assessment and Plan: secondary to pneumonia and severe dehydration. Status: Acute
[2017-12-23] MEDS: Albuterol 0.083% Inhal Sol (2.5 mg/3 mL) UD INH SCH ×4 (01:15→19:51)
[2017-12-23] MEDS: Albuterol-Ipratrop 3 mg / 0.5 (3 ml) UD INH SCH (01:16)
--- NOTE | 2017-12-23 07:28 | CP.PCM.CON ---
History of Present Illness - History of Present Illness History of Present Illness: CONSULTR DICTATED B/L CEREBRAL DYSFUNCTION - ELECTROLYTE IMBALANCE DEHYDRATION BLOOD WORK UP HYDRATION EMPIRICAL ANTIBIOTICS EEG/ECHO/MRI BRAIN DVT PROPHYLAXIS Past Patient History - Tetanus Immunizations Tetanus Immunization: >10 years Ago - Past Medical History & Family History Past Medical History?: Yes Past Family History: Reviewed and not pertinent - Past Social History Smoking Status: Former Smoker Chewing Tobacco Use: No Cigar Use: No Drugs: Denies Home Situation {Lives}: Alone - CARDIAC Hx Cardiac Disorders: Yes Hx Hypotension: Yes - PULMONARY Hx Respiratory Disorders: Yes Hx Emphysema: Yes Hx Pulmonary Embolism: Yes Other/Comment: hx pneumothorax - NEUROLOGICAL Hx Neurological Disorder: No Hx Dizziness: Yes - HEENT Hx HEENT Problems: No Hx Sinusitis: Yes - RENAL Hx Chronic Kidney Disease: No - ENDOCRINE/METABOLIC Hx Endocrine Disorders: No - HEMATOLOGICAL/ONCOLOGICAL Hx Blood Disorders: No - INTEGUMENTARY Hx Dermatological Problems: No - MUSCULOSKELETAL/RHEUMATOLOGICAL Hx Musculoskeletal Disorders: Yes Hx Arthritis: Yes Hx Back Pain: Yes Hx Falls: Yes (june 2014) - GASTROINTESTINAL Hx Gastrointestinal Disorders: Yes Hx Constipation: Yes - GENITOURINARY/GYNECOLOGICAL Hx Genitourinary Disorders: No - PSYCHIATRIC Hx Psychophysiologic Disorder: No Hx Substance Use: No - SURGICAL HISTORY Hx Surgeries: No - ANESTHESIA Hx Anesthesia: No Hx Anesthesia Reactions: No Hx Malignant Hyperthermia: No Has any member of the family had a problem w/ anesthesia?: No Meds Allergies/Adverse Reactions: Allergies Allergy/AdvReac Type Severity Reaction Status Date / Time No Known Allergies Allergy Unverified 12/21/17 18:48 - Medications Medications: Current Medications Albuterol Sulfate (Albuterol 0.083% Inhal Martha (2.5 Mg/3 Ml) Ud) 2.5 mg INH RQ6 [facility] Last Admin: 12/23/17 01:15 Dose: 2.5 mg Digoxin (Lanoxin) 0.25 mg PO DAILY@1800 [facility] Last Admin: 12/22/17 17:19 Dose: 0.25 mg Heparin Sodium (Porcine) (Heparin) 5,000 units SC Q8 [facility] Last Admin: 12/23/17 05:38 Dose: 5,000 units Ceftriaxone Sodium 1 gm/ (Sodium Chloride) 100 mls @ 100 mls/hr IVPB DAILY [facility] PRN Reason: Protocol Last Admin: 12/22/17 09:08 Dose: 100 mls/hr Dextrose (Dextrose 5% In Water) 500 mls @ 125 mls/hr IV .Q4H [facility] Last Admin: 12/23/17 03:41 Dose: 125 mls/hr Montelukast Sodium (Singulair) 10 mg PO HS [facility] Last Admin: 12/22/17 21:39 Dose: 10 mg Results - Vital Signs Recent Vital Signs: Last Vital Signs Temp 97.8 F 12/23/17 00:06 Pulse 73 12/23/17 00:06 Resp 20 12/23/17 00:06 BP 100/64 12/23/17 00:06 Pulse Ox 99 12/23/17 00:06 - Labs Result Diagrams: 12/22/17 07:01 12/22/17 07:01 Labs: Laboratory Results - last 24 hr 12/21/17 12/22/17 12/22/17 18:40 07:01 07:01 WBC 11.0 H RBC 4.64 Hgb 13.4 Hct 40.6 MCV 87.4 MCH 28.8 MCHC 32.9 L RDW 14.5 Plt Count 189 MPV 9.3 Neut % (Auto) 90.1 H Lymph % (Auto) 5.2 L [place] % (Auto) 4.3 Eos % (Auto) 0.2 Baso % (Auto) 0.2 Neut # (Auto) 9.9 H Lymph # (Auto) 0.6 L [place] # (Auto) 0.5 Eos # (Auto) 0.0 Baso # (Auto) 0.0 Neutrophils % (Manual) 91 H Lymphocytes % (Manual) 5 L Monocytes % (Manual) 4 Platelet Estimate Normal RBC Morphology Normal Puncture Site pCO2 pO2 HCO3 ABG pH ABG Total CO2 ABG O2 Saturation ABG Base Excess ABG Hemoglobin ABG Carboxyhemoglobin POC ABG HHb (Measured) ABG Methemoglobin Jakob Test Hgb O2 Saturation Liter Flow Sodium 158 H Potassium 4.2 Chloride 115 H Carbon Dioxide 30 Anion Gap 17 BUN 59 H Creatinine 1.5 Est GFR ( Amer) 54 Est GFR (Non-Af Amer) 44 POC Glucose (mg/dL) 155 H Random Glucose 151 H Calcium 9.9 Total Bilirubin 1.1 AST 28 ALT 29 Alkaline Phosphatase 80 Total Protein 7.8 Albumin 3.4 L Globulin 4.4 H Albumin/Globulin Ratio 0.8 L Urine Color Urine Clarity Urine pH Ur Specific [place] Urine Protein Urine Glucose (UA) Urine Ketones Urine Blood Urine Nitrate Urine Bilirubin Urine Urobilinogen Ur Leukocyte Esterase Urine WBC (Auto) Urine RBC (Auto) 12/22/17 12/22/17 17:25 21:26 WBC RBC Hgb Hct MCV MCH MCHC RDW Plt Count MPV Neut % (Auto) Lymph % (Auto) [place] % (Auto) Eos % (Auto) Baso % (Auto) Neut # (Auto) Lymph # (Auto) [place] # (Auto) Eos # (Auto) Baso # (Auto) Neutrophils % (Manual) Lymphocytes % (Manual) Monocytes % (Manual) Platelet Estimate RBC Morphology Puncture Site /lr pCO2 27 L pO2 123 H HCO3 21.7 ABG pH 7.45 ABG Total CO2 19.6 L ABG O2 Saturation 99.9 H ABG Base Excess -4.1 L ABG Hemoglobin 11.0 L ABG Carboxyhemoglobin 2.0 H POC ABG HHb (Measured) 0.1 ABG Methemoglobin 1.1 Jakob Test P Hgb O2 Saturation 96.8 Liter Flow 2.0 Sodium Potassium Chloride Carbon Dioxide Anion Gap BUN Creatinine Est GFR ( Amer) Est GFR (Non-Af Amer) POC Glucose (mg/dL) Random Glucose Calcium Total Bilirubin AST ALT Alkaline Phosphatase Total Protein Albumin Globulin Albumin/Globulin Ratio Urine Color Yellow Urine Clarity Hazy Urine pH 5.0 Ur Specific [place] 1.018 Urine Protein Negative Urine Glucose (UA) Normal Urine Ketones Negative Urine Blood Negative Urine Nitrate Negative Urine Bilirubin Negative Urine Urobilinogen Normal Ur Leukocyte Esterase Neg Urine WBC (Auto) 1 Urine RBC (Auto) 3
[2017-12-23 07:29] LABS: BASO % 0.4 % (0.0-2.0); EOS # 0.1 K/uL (0.0-0.7); EOS % 1.3 % (0.0-4.0); HEMOGLOBIN 12.3 g/dL (12.0-18.0); LYMPH # 0.5 K/uL (1.0-4.3); LYMPH % 5.3 % (20.0-40.0); MEAN CELL VOLUME 87.2 fL (80.0-94.0); MEAN CORPUSCULAR HGB CONC 33.2 g/dL (33.0-37.0); MEAN PLATELET VOLUME 10.2 fL (7.2-11.7); MONO # 0.3 K/uL (0.0-0.8); MONO % 3.8 % (0.0-10.0); NEUT % 89.2 % (50.0-75.0); NRBC % 0.2 % (0.0-2.0); PLATELET COUNT 158 K/uL (130-400); RBC 4.26 Mil/uL (4.40-5.90); RED CELL DISTRIBUTION WIDTH 14.2 % (11.5-14.5)
--- NOTE | 2017-12-23 07:43 | CP.PCM.PN ---
Subjective - Date & Time of Evaluation Date of Evaluation: 12/23/17 Time of Evaluation: 07:42 - Subjective Subjective: seen and examined. chart reviewed renal US unremarkable son at bedside, discussed pt's condition with him poor appetite and intake also c/o "spitting out black stuff" periodically over the last month no n/v/d/sob/cp/dizziness/headache/f/c Objective - Vital Signs/Intake and Output Vital Signs (last 24 hours): Temp Pulse Resp BP Pulse Ox 97.7 F 60 20 109/74 99 12/23/17 07:00 12/23/17 07:00 12/23/17 07:00 12/23/17 07:00 12/23/17 07:00 - Medications Medications: Current Medications Albuterol Sulfate (Albuterol 0.083% Inhal Martha (2.5 Mg/3 Ml) Ud) 2.5 mg INH RQ6 [facility] Last Admin: 12/23/17 07:28 Dose: 2.5 mg Digoxin (Lanoxin) 0.25 mg PO DAILY@1800 [facility] Last Admin: 12/22/17 17:19 Dose: 0.25 mg Heparin Sodium (Porcine) (Heparin) 5,000 units SC Q8 [facility] Last Admin: 12/23/17 05:38 Dose: 5,000 units Ceftriaxone Sodium 1 gm/ (Sodium Chloride) 100 mls @ 100 mls/hr IVPB DAILY [facility] PRN Reason: Protocol Last Admin: 12/22/17 09:08 Dose: 100 mls/hr Dextrose (Dextrose 5% In Water) 500 mls @ 125 mls/hr IV .Q4H [facility] Last Admin: 12/23/17 03:41 Dose: 125 mls/hr Montelukast Sodium (Singulair) 10 mg PO HS [facility] Last Admin: 12/22/17 21:39 Dose: 10 mg - Labs Labs: 12/23/17 07:04 12/22/17 07:01 PT 14.2 SECONDS (9.7-12.2) H 12/21/17 20:23 INR 1.3 12/21/17 20:23 APTT 36 SECONDS (21-34) H 12/21/17 20:23 - Constitutional Appears: Non-toxic, No Acute Distress, Unkempt, Cachectic, Chronically Ill - Head Exam Head Exam: NORMAL INSPECTION - Eye Exam Eye Exam: Normal appearance, PERRL - ENT Exam ENT Exam: Mucous Membranes Dry, Normal Exam - Neck Exam Neck Exam: Normal Inspection - Respiratory Exam Respiratory Exam: Clear to Ausculation Bilateral, NORMAL BREATHING PATTERN - Cardiovascular Exam Cardiovascular Exam: REGULAR RHYTHM, RRR - GI/Abdominal Exam GI & Abdominal Exam: Soft, Normal Bowel Sounds - Extremities Exam Extremities Exam: Normal Inspection - Neurological Exam Neurological Exam: Alert, Awake, Oriented x3 - Psychiatric Exam Psychiatric exam: Normal Affect, Normal Mood - Skin Skin Exam: Dry, Warm Assessment and Plan (1) Acute pneumonia Status: Acute (2) Hypernatremia Status: Acute (3) Prerenal azotemia Status: Acute (4) Severe dehydration Status: Acute - Assessment and Plan (Free Text) Assessment: maintain hypotonic fluids encourage po intake consider GI eval antibiotics and supportive care
[2017-12-23 08:07] LABS: ALB/GLOB RATIO 0.8 (1.0-2.1); ALT/SGPT 22 U/L (21-72); AST/SGOT 18 U/L (17-59); BLOOD UREA NITROGEN 37 mg/dL (9-20); CALCIUM 9.3 mg/dl (8.6-10.4); GFR AFRICAN-AMERICAN > 60; GFR NON-AFRICAN AMERICAN > 60
--- NOTE | 2017-12-23 08:38 | CON ---
DATE: 12/22/2017 HISTORY OF PRESENT ILLNESS: This is an 87-year-old male, an ex-smoker with history of ASHD and poor nutrition, now admitted with altered mental status. He was confused and has not been feeling well over the last week or so. He was now admitted with fever, chills, weakness, cough, poor eating, shortness of breath, mucoid sputum, and weakness. There has been no hemoptysis, no seizures but he has lost considerable amount of weight and his mobility has been poor. He lives alone and used walker for walking at home. SOCIAL HISTORY: He is an ex-smoker and has used alcohol . ALLERGIES: NO HISTORY OF REPORTED ALLERGY TO MEDICATION. PAST MEDICAL HISTORY: No past history of TB on skin testing. His past history includes respiratory insufficiency, pneumonia, pneumothorax, renal impairment, and periods of confusional states. FAMILY HISTORY: Unremarkable reported. REVIEW OF SYSTEMS: GASTROINTESTINAL: Poor eating and weight loss. NEUROLOGY: AMS. CARDIORESPIRATORY: Dyspnea and weakness, and not feeling well. No significant chest pain but history of pneumothorax in the past. RENAL: History of renal insufficiency. MUSCULOSKELETAL: General weakness and arthralgia. MEDICATION: He has been on antiplatelet agent at home in addition to his medications. PHYSICAL EXAMINATION: GENERAL: He is emaciated and weak. There is no active distress. There is diminished muscle mass. He is alert, speaks slowly and confoundingly. VITAL SIGNS: He is now afebrile with blood pressure of 101/68, pulse 77, respirations 20, hemoglobin oxygen saturations 100% on nasal cannula of 2 liters of oxygen. HEENT: Unremarkable. NECK: Supple and wasting of the muscles. Lymph nodes, nil. Thyroid unremarkable. Trachea, fair. HEART: Regular. No gallop rhythm. LUNGS: Diminished breath sounds over the lung bases, more so over the right lung base and occasional rhonchi bilaterally. ABDOMEN: Soft. EXTREMITIES: Legs, no edema. Deep tendon reflexes present. Motor: General weakness present. LABORATORY DATA: White count is 12,900, hemoglobin 15.3, platelet count 229,000. Neutrophils 88 yesterday and 91 today and . INR is 1.3. Venous blood culture . Serum sodium 158, potassium 3.9, chloride 111. Carbon dioxide 29, anion gap 22, BUN 66, creatinine 1.5. Glucose 155, calcium 10.5, total protein 8.5, albumin 3.8. Chest x-ray shows hyperinflation and emphysematous changes on both sides with prominent bronchovascular markings and hyperaeration over both lung laughlin with streaky shadows and infiltrate of the right lobe. There is no pneumothorax or pleural fluid on chest x-ray. IMPRESSION: Respiratory insufficiency, emphysema, possible pneumonitis, dehydration, hypernatremia, and hypercalcemia. PLAN: The patient was previously seen by Renal, Cardiology, and Infectious Disease consult. Agree with the current plan and recommend no IV fluids, bronchodilators, DVT prophylaxis, and antibiotics. Further testing to evaluate hypercalcemia and sputum testing for cultural stands as well as cytology and radiological testing from bronchodilators. Orders have been written for inhalation therapy and follow with [facility] and radiology contract consultant. Jaya Pettit MD
[2017-12-23 08:53] LABS: TOTAL CELLS COUNTED 100
[2017-12-23 09:05] LABS: MONOCYTE 3 % (0-10); NEUTROPHIL 90 % (50-75); PLATELET ESTIMATE NORMAL (NORMAL)
[2017-12-23 09:06] LABS: EOSINOPHIL 1 % (0-4); LYMPHOCYTE 6 % (20-40)
[2017-12-23 09:07] LABS: GIANT PLATELETS PRESENT; LARGE PLATELETS PRESENT
[2017-12-23] MEDS ORDERED: Potassium Chloride 20 mEq/15 ml LIQ UD PO ONE (12:00)
[2017-12-23 12:10] LABS: PROLACTIN 8.8 ng/mL (3.7-17.9)
[2017-12-23 12:23] LABS: FREE T4 1.76 ng/dL (0.78-2.19)
--- NOTE | 2017-12-23 12:35 | CP.PCM.CON ---
History of Present Illness - History of Present Illness History of Present Illness: 87 year old male presents to the emergency department by his son, who reports that the patient has been more confused with a decreased appetite and not feeling well over the last few weeks. Lives alone, has lost unspecified amount of weight. appears severely cachectic NAD Afebrile but has had dry chronic cough x few weeks Has chronic hypotension Being treated for right pneumonia, dehydration. Has hypernatremia No known CKD Review of Systems - Constitutional Constitutional: Lethargy, Weight Loss, Weakness - EENT Eyes: absent: As Per HPI, Blind Spots, Blurred Vision, Change in Vision, Decreased Night Vision, Diplopia, Discharge, Dry Eye, Exophthalmos, Floaters, Irritation, Itchy Eyes, Loss of Peripheral Vision, Pain, Photophobia, Requires Corrective Lenses, Sees Flashes, Spots in Vision, Tunnel Vision, Other Visual Disturbances, Loss of Vision, Other Ears: absent: As Per HPI, Decreased Hearing, Ear Discharge, Ear Pain, Tinnitus, Abnormal Hearing, Disequilibrium, Dizziness, Other Nose/Mouth/Throat: absent: As Per HPI, Epistaxis, Nasal Congestion, Nasal Discharge, Nasal Obstruction, Nasal Trauma, Nose Pain, Post Nasal Drip, Sinus Pain, Sinus Pressure, Bleeding Gums, Change in Voice, Dental Pain, Dry Mouth, Dysphagia, Halitosis, Hoarsness, Lip Swelling, Mouth Lesions, Mouth Pain, Odynophagia, Sore Throat, Throat Swelling, Tongue Swelling, Facial Pain, Neck Pain, Neck Mass, Other - Cardiovascular Cardiovascular: Dyspnea on Exertion - Respiratory Respiratory: Cough, Dyspnea on Exertion - Gastrointestinal Gastrointestinal: Early Satiety, Nausea - Genitourinary Genitourinary: Change in Urinary Stream, Voiding Freq/Small Amts - Musculoskeletal Musculoskeletal: Muscle Cramps, Muscle Weakness, Myalgias - Neurological Neurological: Confusion, Weakness Past Patient History - Tetanus Immunizations Tetanus Immunization: >10 years Ago - Past Medical History & Family History Past Medical History?: Yes Past Family History: Reviewed and not pertinent - Past Social History Smoking Status: Former Smoker Chewing Tobacco Use: No Cigar Use: No Drugs: Denies Home Situation {Lives}: Alone - CARDIAC Hx Cardiac Disorders: Yes Hx Hypotension: Yes - PULMONARY Hx Chronic Obstructive Pulmonary Disease (COPD): Yes - NEUROLOGICAL Hx Neurological Disorder: No Hx Dizziness: Yes - HEENT Hx HEENT Problems: No Hx Sinusitis: Yes - RENAL Hx Chronic Kidney Disease: No - ENDOCRINE/METABOLIC Hx Endocrine Disorders: No - HEMATOLOGICAL/ONCOLOGICAL Hx Blood Disorders: No - INTEGUMENTARY Hx Dermatological Problems: No - MUSCULOSKELETAL/RHEUMATOLOGICAL Hx Musculoskeletal Disorders: Yes Hx Arthritis: Yes Hx Back Pain: Yes Hx Falls: Yes (june 2014) - GASTROINTESTINAL Hx Gastrointestinal Disorders: Yes Hx Constipation: Yes - GENITOURINARY/GYNECOLOGICAL Hx Genitourinary Disorders: No - PSYCHIATRIC Hx Psychophysiologic Disorder: No Hx Substance Use: No - SURGICAL HISTORY Hx Surgeries: No - ANESTHESIA Hx Anesthesia: No Hx Anesthesia Reactions: No Hx Malignant Hyperthermia: No Has any member of the family had a problem w/ anesthesia?: No Meds Allergies/Adverse Reactions: Allergies Allergy/AdvReac Type Severity Reaction Status Date / Time No Known Allergies Allergy Unverified 12/21/17 18:48 - Medications Medications: Current Medications Albuterol Sulfate (Albuterol 0.083% Inhal Martha (2.5 Mg/3 Ml) Ud) 2.5 mg INH RQ6 [facility] Last Admin: 12/23/17 07:28 Dose: 2.5 mg Digoxin (Lanoxin) 0.25 mg PO DAILY@1800 [facility] Last Admin: 12/22/17 17:19 Dose: 0.25 mg Heparin Sodium (Porcine) (Heparin) 5,000 units SC Q8 [facility] Last Admin: 12/23/17 05:38 Dose: 5,000 units Ceftriaxone Sodium 1 gm/ (Sodium Chloride) 100 mls @ 100 mls/hr IVPB DAILY [facility] PRN Reason: Protocol Last Admin: 12/23/17 09:40 Dose: 100 mls/hr Dextrose (Dextrose 5% In Water) 500 mls @ 125 mls/hr IV .Q4H [facility] Last Admin: 12/23/17 07:45 Dose: 125 mls/hr Montelukast Sodium (Singulair) 10 mg PO HS [facility] Last Admin: 12/22/17 21:39 Dose: 10 mg Physical Exam - Constitutional Appears: Confused, Cachectic, Chronically Ill - Head Exam Head Exam: NORMOCEPHALIC - Eye Exam Eye Exam: PERRL. absent: Scleral icterus - ENT Exam ENT Exam: Mucous Membranes Dry - Neck Exam Neck exam: Negative for: Lymphadenopathy - Respiratory Exam Respiratory Exam: Decreased Breath Sounds - Cardiovascular Exam Cardiovascular Exam: REGULAR RHYTHM, +S1, +S2 - GI/Abdominal Exam GI & Abdominal Exam: Diminished Bowel Sounds, Soft. absent: Tenderness - Rectal Exam Rectal Exam: Deferred - Exam Exam: NORMAL INSPECTION - Extremities Exam Extremities exam: Positive for: pedal pulses present. Negative for: calf tenderness, pedal edema, tenderness - Back Exam Back exam: absent: CVA tenderness (L), CVA tenderness (R) - Neurological Exam Neurological exam: Alert, Altered, CN II-XII Intact, Motor Sensory Deficit - Psychiatric Exam Psychiatric exam: Depressed - Skin Skin Exam: Dry Results - Vital Signs Recent Vital Signs: Last Vital Signs Temp 97.7 F 12/23/17 07:00 Pulse 60 12/23/17 07:00 Resp 20 12/23/17 07:00 BP 109/74 12/23/17 07:00 Pulse Ox 99 12/23/17 07:00 - Labs Result Diagrams: 12/23/17 07:04 12/23/17 07:04 Labs: Laboratory Results - last 24 hr 12/22/17 12/22/17 12/23/17 17:25 21:26 06:24 WBC RBC Hgb Hct MCV MCH MCHC RDW Plt Count MPV Neut % (Auto) Lymph % (Auto) [place] % (Auto) Eos % (Auto) Baso % (Auto) Neut # (Auto) Lymph # (Auto) [place] # (Auto) Eos # (Auto) Baso # (Auto) Neutrophils % (Manual) Lymphocytes % (Manual) Monocytes % (Manual) Eosinophils % (Manual) Platelet Estimate Large Platelets Giant Platelets ESR Puncture Site /lr pCO2 27 L pO2 123 H HCO3 21.7 ABG pH 7.45 ABG Total CO2 19.6 L ABG O2 Saturation 99.9 H ABG Base Excess -4.1 L ABG Hemoglobin 11.0 L ABG Carboxyhemoglobin 2.0 H POC ABG HHb (Measured) 0.1 ABG Methemoglobin 1.1 Jakob Test P Hgb O2 Saturation 96.8 Liter Flow 2.0 Sodium Potassium Chloride Carbon Dioxide Anion Gap BUN Creatinine Est GFR ( Amer) Est GFR (Non-Af Amer) Random Glucose Hemoglobin A1c 6.0 Calcium Phosphorus Magnesium Total Bilirubin AST ALT Alkaline Phosphatase Ammonia Total Protein Albumin Globulin Albumin/Globulin Ratio Carcinoembryonic Ag Prostate Specific Ag Free T4 Prolactin Urine Color Yellow Urine Clarity Hazy Urine pH 5.0 Ur Specific [place] 1.018 Urine Protein Negative Urine Glucose (UA) Normal Urine Ketones Negative Urine Blood Negative Urine Nitrate Negative Urine Bilirubin Negative Urine Urobilinogen Normal Ur Leukocyte Esterase Neg Urine WBC (Auto) 1 Urine RBC (Auto) 3 12/23/17 12/23/17 12/23/17 07:04 07:04 11:27 WBC 9.0 RBC 4.26 L Hgb 12.3 Hct 37.1 MCV 87.2 MCH 29.0 MCHC 33.2 RDW 14.2 Plt Count 158 MPV 10.2 Neut % (Auto) 89.2 H Lymph % (Auto) 5.3 L [place] % (Auto) 3.8 Eos % (Auto) 1.3 Baso % (Auto) 0.4 Neut # (Auto) 8.0 H Lymph # (Auto) 0.5 L [place] # (Auto) 0.3 Eos # (Auto) 0.1 Baso # (Auto) 0.0 Neutrophils % (Manual) 90 H Lymphocytes % (Manual) 6 L Monocytes % (Manual) 3 Eosinophils % (Manual) 1 Platelet Estimate Normal Large Platelets Present Giant Platelets Present ESR 73 H Puncture Site pCO2 pO2 HCO3 ABG pH ABG Total CO2 ABG O2 Saturation ABG Base Excess ABG Hemoglobin ABG Carboxyhemoglobin POC ABG HHb (Measured) ABG Methemoglobin Jakob Test Hgb O2 Saturation Liter Flow Sodium 149 H Potassium 3.1 L Chloride 109 H Carbon Dioxide 29 Anion Gap 14 BUN 37 H Creatinine 1.0 Est GFR ( Amer) > 60 Est GFR (Non-Af Amer) > 60 Random Glucose 158 H Hemoglobin A1c Calcium 9.3 Phosphorus 2.5 Magnesium 2.4 H Total Bilirubin 0.6 AST 18 ALT 22 Alkaline Phosphatase 74 Ammonia < 9 L Total Protein 6.9 Albumin 3.0 L Globulin 3.9 Albumin/Globulin Ratio 0.8 L Carcinoembryonic Ag Prostate Specific Ag Free T4 Prolactin Urine Color Urine Clarity Urine pH Ur Specific [place] Urine Protein Urine Glucose (UA) Urine Ketones Urine Blood Urine Nitrate Urine Bilirubin Urine Urobilinogen Ur Leukocyte Esterase Urine WBC (Auto) Urine RBC (Auto) 12/23/17 12/23/17 11:27 11:27 WBC RBC Hgb Hct MCV MCH MCHC RDW Plt Count MPV Neut % (Auto) Lymph % (Auto) [place] % (Auto) Eos % (Auto) Baso % (Auto) Neut # (Auto) Lymph # (Auto) [place] # (Auto) Eos # (Auto) Baso # (Auto) Neutrophils % (Manual) Lymphocytes % (Manual) Monocytes % (Manual) Eosinophils % (Manual) Platelet Estimate Large Platelets Giant Platelets ESR Puncture Site pCO2 pO2 HCO3 ABG pH ABG Total CO2 ABG O2 Saturation ABG Base Excess ABG Hemoglobin ABG Carboxyhemoglobin POC ABG HHb (Measured) ABG Methemoglobin Jakob Test Hgb O2 Saturation Liter Flow Sodium Potassium Chloride Carbon Dioxide Anion Gap BUN Creatinine Est GFR ( Amer) Est GFR (Non-Af Amer) Random Glucose Hemoglobin A1c Calcium Phosphorus Magnesium Total Bilirubin AST ALT Alkaline Phosphatase Ammonia Total Protein Albumin Globulin Albumin/Globulin Ratio Carcinoembryonic Ag 3.5 H Prostate Specific Ag 2.01 Free T4 1.76 Prolactin 8.8 Urine Color Urine Clarity Urine pH Ur Specific [place] Urine Protein Urine Glucose (UA) Urine Ketones Urine Blood Urine Nitrate Urine Bilirubin Urine Urobilinogen Ur Leukocyte Esterase Urine WBC (Auto) Urine RBC (Auto) Assessment & Plan (1) Acute pneumonia Status: Acute (2) Bullous emphysema Status: Acute (3) Cachexia Status: Acute (4) Emphysema lung Status: Acute (5) Hypernatremia Status: Acute (6) Pneumonia Status: Acute (7) Prerenal azotemia Status: Acute (8) Severe dehydration Status: Acute - Assessment and Plan (Free Text) Assessment: await cultures malignancy work up IV antibiotics ordered
--- NOTE | 2017-12-23 12:44 | MRI ---
Date of service: 12/23/2017 PROCEDURE: MRI BRAIN WITHOUT CONTRAST HISTORY: structural Vs Vascular COMPARISON: Noncontrast head CT from 12/21/2017. TECHNIQUE: Multiplanar, multisequence MR images of the brain were obtained without intravenous contrast enhancement. FINDINGS: HEMORRHAGE: None DWI: No evidence of an acute or early subacute infarction. BRAIN PARENCHYMA: There are moderate chronic microangiopathic changes. There are prominent perivascular spaces in the basal ganglia the There is no mass, mass effect or abnormal extra-axial fluid collection. There is no territorial infarction. The midline sagittal structures are normal. VENTRICLES: There is moderate age-related global parenchymal volume loss and proportionate enlargement of the ventricles and cortical sulci. CRANIUM: There is normal bone marrow signal pattern. ORBITS: Grossly unremarkable. PARANASAL SINUSES/MASTOIDS: Predominantly clear. VASCULAR SYSTEM: There are normal signal voids in the larger intracranial arteries. OTHER FINDINGS: None. IMPRESSION: No acute intracranial abnormality. Moderate chronic microangiopathic changes and moderate age-related global parenchymal volume loss.
[2017-12-23 13:37] LABS: HEPATITIS B SURFACE AG Negative (NEGATIVE)
[2017-12-23 13:43] LABS: HEPATITIS A IGM NEGATIVE (NEGATIVE); HEPATITIS B CORE AB NEGATIVE (NEGATIVE)
[2017-12-23 13:55] LABS: HEPATITIS C ANTIBODY NEGATIVE (NEGATIVE)
--- NOTE | 2017-12-23 15:45 | CP.PCM.CON ---
History of Present Illness - History of Present Illness History of Present Illness: GI Fellow PGY4, Consult note. Jesus Pierre is a very pleasant AAM with history of COPD presenting with RLL PNA and we have been asked to see the patient for upper GI problems. Patient is with family at bedside in NAD and HDS. Patients appears very thin and weak. Family reports he has had significant weightloss over the last month. He is not eating much and complains of early satiety with only a few ounces of food. They deny that he has difficulty swallowing food or that he is vomiting, however, they do say he has been having coughing fits that lead to a "black" sputum production. PMHx - see above PSHx - Bowel surgery ~40yrs ago FMHx - unknown SocHx - Previous smoker. Rarely uses EtOH. Lives at home with . Son, Jesus , is POA. 12pt ROS completed and negative except for above. Past Patient History - Tetanus Immunizations Tetanus Immunization: >10 years Ago - Past Medical History & Family History Past Medical History?: Yes Past Family History: Reviewed and not pertinent - Past Social History Smoking Status: Former Smoker Chewing Tobacco Use: No Cigar Use: No Drugs: Denies Home Situation {Lives}: Alone - CARDIAC Hx Cardiac Disorders: Yes - PULMONARY Hx Chronic Obstructive Pulmonary Disease (COPD): Yes - NEUROLOGICAL Hx Neurological Disorder: No Hx Dizziness: Yes - HEENT Hx HEENT Problems: No Hx Sinusitis: Yes - RENAL Hx Chronic Kidney Disease: No - ENDOCRINE/METABOLIC Hx Endocrine Disorders: No - HEMATOLOGICAL/ONCOLOGICAL Hx Blood Disorders: No - INTEGUMENTARY Hx Dermatological Problems: No - MUSCULOSKELETAL/RHEUMATOLOGICAL Hx Arthritis: Yes - GASTROINTESTINAL Hx Gastrointestinal Disorders: Yes Hx Constipation: Yes - GENITOURINARY/GYNECOLOGICAL Hx Genitourinary Disorders: No - PSYCHIATRIC Hx Psychophysiologic Disorder: No Hx Substance Use: No - SURGICAL HISTORY Hx Surgeries: No - ANESTHESIA Hx Anesthesia: No Hx Anesthesia Reactions: No Hx Malignant Hyperthermia: No Has any member of the family had a problem w/ anesthesia?: No Meds Allergies/Adverse Reactions: Allergies Allergy/AdvReac Type Severity Reaction Status Date / Time No Known Allergies Allergy Unverified 12/21/17 18:48 - Medications Medications: Current Medications Albuterol Sulfate (Albuterol 0.083% Inhal Martha (2.5 Mg/3 Ml) Ud) 2.5 mg INH RQ6 [facility] Last Admin: 12/23/17 13:47 Dose: Not Given Digoxin (Lanoxin) 0.25 mg PO DAILY@1800 [facility] Last Admin: 12/22/17 17:19 Dose: 0.25 mg Heparin Sodium (Porcine) (Heparin) 5,000 units SC Q8 [facility] Last Admin: 12/23/17 14:24 Dose: 5,000 units Ceftriaxone Sodium 1 gm/ (Sodium Chloride) 100 mls @ 100 mls/hr IVPB DAILY [facility] PRN Reason: Protocol Last Admin: 12/23/17 09:40 Dose: 100 mls/hr Dextrose (Dextrose 5% In Water) 500 mls @ 125 mls/hr IV .Q4H [facility] Last Admin: 12/23/17 15:28 Dose: 125 mls/hr Montelukast Sodium (Singulair) 10 mg PO HS [facility] Last Admin: 12/22/17 21:39 Dose: 10 mg Physical Exam - Constitutional Appears: Non-toxic, No Acute Distress, Cachectic, Chronically Ill - Head Exam Head Exam: ATRAUMATIC Additional comments: Temporal wasting - Eye Exam Eye Exam: EOMI, Normal appearance - ENT Exam ENT Exam: Mucous Membranes Moist, Normal Exam - Respiratory Exam Respiratory Exam: Clear to Auscultation Bilateral, Rhonchi, NORMAL BREATHING PATTERN. absent: Wheezes - Cardiovascular Exam Cardiovascular Exam: REGULAR RHYTHM, +S1, +S2 - GI/Abdominal Exam GI & Abdominal Exam: Normal Bowel Sounds, Soft. absent: Distended, Organomegaly , Tenderness - Rectal Exam Rectal Exam: NORMAL INSPECTION - Extremities Exam Extremities exam: Positive for: normal inspection - Neurological Exam Neurological exam: Alert, CN II-XII Intact, Oriented x3 - Psychiatric Exam Psychiatric exam: Depressed, Flat Affect, Normal Mood - Skin Skin Exam: Dry, Intact Results - Vital Signs Recent Vital Signs: Last Vital Signs Temp 97.7 F 12/23/17 07:00 Pulse 60 12/23/17 07:00 Resp 20 12/23/17 07:00 BP 109/74 12/23/17 07:00 Pulse Ox 99 12/23/17 07:00 - Labs Result Diagrams: 12/23/17 07:04 12/23/17 07:04 Labs: Laboratory Results - last 24 hr 12/22/17 12/22/17 12/23/17 17:25 21:26 06:24 WBC RBC Hgb Hct MCV MCH MCHC RDW Plt Count MPV Neut % (Auto) Lymph % (Auto) [place] % (Auto) Eos % (Auto) Baso % (Auto) Neut # (Auto) Lymph # (Auto) [place] # (Auto) Eos # (Auto) Baso # (Auto) Neutrophils % (Manual) Lymphocytes % (Manual) Monocytes % (Manual) Eosinophils % (Manual) Platelet Estimate Large Platelets Giant Platelets ESR Puncture Site /lr pCO2 27 L pO2 123 H HCO3 21.7 ABG pH 7.45 ABG Total CO2 19.6 L ABG O2 Saturation 99.9 H ABG Base Excess -4.1 L ABG Hemoglobin 11.0 L ABG Carboxyhemoglobin 2.0 H POC ABG HHb (Measured) 0.1 ABG Methemoglobin 1.1 Jakob Test P Hgb O2 Saturation 96.8 Liter Flow 2.0 Sodium Potassium Chloride Carbon Dioxide Anion Gap BUN Creatinine Est GFR ( Amer) Est GFR (Non-Af Amer) Random Glucose Hemoglobin A1c 6.0 Calcium Phosphorus Magnesium Total Bilirubin AST ALT Alkaline Phosphatase Ammonia Total Protein Albumin Globulin Albumin/Globulin Ratio Carcinoembryonic Ag Prostate Specific Ag Homocysteine Free T4 TSH 3rd Generation Prolactin Urine Color Yellow Urine Clarity Hazy Urine pH 5.0 Ur Specific [place] 1.018 Urine Protein Negative Urine Glucose (UA) Normal Urine Ketones Negative Urine Blood Negative Urine Nitrate Negative Urine Bilirubin Negative Urine Urobilinogen Normal Ur Leukocyte Esterase Neg Urine WBC (Auto) 1 Urine RBC (Auto) 3 Hepatitis A IgM Ab Hep Bs Antigen Hep B Core IgM Ab Hepatitis C Antibody HIV 1&2 Antibody Screen 12/23/17 12/23/17 12/23/17 07:04 07:04 11:27 WBC 9.0 RBC 4.26 L Hgb 12.3 Hct 37.1 MCV 87.2 MCH 29.0 MCHC 33.2 RDW 14.2 Plt Count 158 MPV 10.2 Neut % (Auto) 89.2 H Lymph % (Auto) 5.3 L [place] % (Auto) 3.8 Eos % (Auto) 1.3 Baso % (Auto) 0.4 Neut # (Auto) 8.0 H Lymph # (Auto) 0.5 L [place] # (Auto) 0.3 Eos # (Auto) 0.1 Baso # (Auto) 0.0 Neutrophils % (Manual) 90 H Lymphocytes % (Manual) 6 L Monocytes % (Manual) 3 Eosinophils % (Manual) 1 Platelet Estimate Normal Large Platelets Present Giant Platelets Present ESR 73 H Puncture Site pCO2 pO2 HCO3 ABG pH ABG Total CO2 ABG O2 Saturation ABG Base Excess ABG Hemoglobin ABG Carboxyhemoglobin POC ABG HHb (Measured) ABG Methemoglobin Jakob Test Hgb O2 Saturation Liter Flow Sodium 149 H Potassium 3.1 L Chloride 109 H Carbon Dioxide 29 Anion Gap 14 BUN 37 H Creatinine 1.0 Est GFR ( Amer) > 60 Est GFR (Non-Af Amer) > 60 Random Glucose 158 H Hemoglobin A1c Calcium 9.3 Phosphorus 2.5 Magnesium 2.4 H Total Bilirubin 0.6 AST 18 ALT 22 Alkaline Phosphatase 74 Ammonia < 9 L Total Protein 6.9 Albumin 3.0 L Globulin 3.9 Albumin/Globulin Ratio 0.8 L Carcinoembryonic Ag Prostate Specific Ag Homocysteine Free T4 TSH 3rd Generation Prolactin Urine Color Urine Clarity Urine pH Ur Specific [place] Urine Protein Urine Glucose (UA) Urine Ketones Urine Blood Urine Nitrate Urine Bilirubin Urine Urobilinogen Ur Leukocyte Esterase Urine WBC (Auto) Urine RBC (Auto) Hepatitis A IgM Ab Hep Bs Antigen Hep B Core IgM Ab Hepatitis C Antibody HIV 1&2 Antibody Screen 12/23/17 12/23/17 12/23/17 11:27 11:27 12:52 WBC RBC Hgb Hct MCV MCH MCHC RDW Plt Count MPV Neut % (Auto) Lymph % (Auto) [place] % (Auto) Eos % (Auto) Baso % (Auto) Neut # (Auto) Lymph # (Auto) [place] # (Auto) Eos # (Auto) Baso # (Auto) Neutrophils % (Manual) Lymphocytes % (Manual) Monocytes % (Manual) Eosinophils % (Manual) Platelet Estimate Large Platelets Giant Platelets ESR Puncture Site pCO2 pO2 HCO3 ABG pH ABG Total CO2 ABG O2 Saturation ABG Base Excess ABG Hemoglobin ABG Carboxyhemoglobin POC ABG HHb (Measured) ABG Methemoglobin Jakob Test Hgb O2 Saturation Liter Flow Sodium Potassium Chloride Carbon Dioxide Anion Gap BUN Creatinine Est GFR ( Amer) Est GFR (Non-Af Amer) Random Glucose Hemoglobin A1c Calcium Phosphorus Magnesium Total Bilirubin AST ALT Alkaline Phosphatase Ammonia Total Protein Albumin Globulin Albumin/Globulin Ratio Carcinoembryonic Ag 3.5 H Prostate Specific Ag 2.01 Homocysteine 9.1 Free T4 1.76 TSH 3rd Generation 2.34 Prolactin 8.8 Urine Color Urine Clarity Urine pH Ur Specific [place] Urine Protein Urine Glucose (UA) Urine Ketones Urine Blood Urine Nitrate Urine Bilirubin Urine Urobilinogen Ur Leukocyte Esterase Urine WBC (Auto) Urine RBC (Auto) Hepatitis A IgM Ab Hep Bs Antigen Hep B Core IgM Ab Hepatitis C Antibody HIV 1&2 Antibody Screen Negative 12/23/17 12:52 WBC RBC Hgb Hct MCV MCH MCHC RDW Plt Count MPV Neut % (Auto) Lymph % (Auto) [place] % (Auto) Eos % (Auto) Baso % (Auto) Neut # (Auto) Lymph # (Auto) [place] # (Auto) Eos # (Auto) Baso # (Auto) Neutrophils % (Manual) Lymphocytes % (Manual) Monocytes % (Manual) Eosinophils % (Manual) Platelet Estimate Large Platelets Giant Platelets ESR Puncture Site pCO2 pO2 HCO3 ABG pH ABG Total CO2 ABG O2 Saturation ABG Base Excess ABG Hemoglobin ABG Carboxyhemoglobin POC ABG HHb (Measured) ABG Methemoglobin Jakob Test Hgb O2 Saturation Liter Flow Sodium Potassium Chloride Carbon Dioxide Anion Gap BUN Creatinine Est GFR ( Amer) Est GFR (Non-Af Amer) Random Glucose Hemoglobin A1c Calcium Phosphorus Magnesium Total Bilirubin AST ALT Alkaline Phosphatase Ammonia Total Protein Albumin Globulin Albumin/Globulin Ratio Carcinoembryonic Ag Prostate Specific Ag Homocysteine Free T4 TSH 3rd Generation Prolactin Urine Color Urine Clarity Urine pH Ur Specific [place] Urine Protein Urine Glucose (UA) Urine Ketones Urine Blood Urine Nitrate Urine Bilirubin Urine Urobilinogen Ur Leukocyte Esterase Urine WBC (Auto) Urine RBC (Auto) Hepatitis A IgM Ab Negative Hep Bs Antigen Negative Hep B Core IgM Ab Negative Hepatitis C Antibody Negative HIV 1&2 Antibody Screen Assessment & Plan - Assessment and Plan (Free Text) Assessment: 87M with history of COPD presenting with RLL PNA and progressive weightloss. #Weight loss #Severe Malnutrition #RLL PNA #COPD Plan: -Afeb, HDS -Continue supportive care -CT imaging reviewed, noted diffuse thickening of distal esophagus. -Concern for malignancy is high especially lung CA given smoking history, emphysema, ?hemoptysis. -Obtain AFP, CA-199 -Defer further malignancy work up to primary, i.e. CT abd/pelv -EGD in AM to assess for cause of early satiety, weight loss. -NPO past midnight -Possibility of PEG tube in the future if needed, defer to primary team on guiding discussions. - Date & Time Date: 12/23/17 Time: 16:07
--- NOTE | 2017-12-23 16:00 | NM ---
Date of service: 12/23/2017 PROCEDURE: Whole Body Bone Scan HISTORY: underlying malignancy COMPARISON: None available. TECHNIQUE: Following administration of 23.5 Mi of Tc MDP multiplanar whole body images were obtained. FINDINGS: Evidence for bony metastatic disease: Not identified, however, prominent retained radiodense at extend within the urinary bladder obscures the inferior and mid sacrum as well as the bilateral superior pubic rami. Degenerative uptake: None. Physiologic uptake: Normal physiologic activity in the kidneys. Other findings: Inferior dextroscoliotic lumbar spinal deformity. IMPRESSION: No nuclear evidence of bony metastatic disease.
[2017-12-23] MEDS: Digoxin 250 mcg (0.25 mg) Tab PO SCH (17:22)
--- NOTE | 2017-12-23 19:07 | CON ---
PROCEDURE DATE: 12/23/2017 PATIENT'S ROOM NO: 357, bed B. ATTENDING PHYSICIAN: Jesus Shea MD. REASON FOR THE CONSULTATION: Change in mental status. CHIEF COMPLAINT: The patient was brought in by his son stating that he is confused and poor intake of fluid and food. From a neurological point of view, I was called in to evaluate him for his change in mental status. HISTORY OF PRESENT ILLNESS: Mr. Jesus Pierre is an 87-year-old right-handed -[place] male who was brought in to [facility] by his son stating he is confused at home and poor intake of food. No history of fall. No history of trauma. No history of involuntary movement have been documented as far as history from the patient. PAST MEDICAL HISTORY: Hypertension, cardiac arrhythmias, COPD. ALLERGIES: NO KNOWN ALLERGIES. PERSONAL HISTORY: Not available at present. REVIEW OF SYSTEMS: A 12-point system being reviewed from neuro, change in mental status. MEDICATION: Albuterol, ceftriaxone, IV fluid, heparin, Lanoxin, Singulair. PHYSICAL EXAMINATION: VITAL SIGNS: Blood pressure 100/64, mean arterial pressure of 76, respiratory rate 18, temperature 97.8, pulse rate 73 and regular. NECK: Supple. No carotid bruits. HEART: Sounds regular. CHEST: Fair air entry. EXTREMITIES: No edema in legs. NEUROLOGICAL EXAMINATION: Mental status examination: He is awake, alert, oriented to person and place, stating he is in the hospital. He does not know the name of the hospital. He does not know the year. However, he knows the name of the President. He follows one-step command with significant right and left confusion. He could not able to follow three-step commands. Speech is intact. Cranial nerve examination: Responds to visual threat. Pupils reactive to light. Extraocular movement markedly decreased in all direction. No facial sensory deficit. No facial asymmetry. Hearing is normal. Tongue is midline. Good gag. Motor examination: He could able to lift both upper extremities against gravity. No asterixis. Mild sensory tremor noted. He was able to lift both the lower extremities against gravity. The patient shows significant distal more than proximal muscle atrophy. No fasciculation noted at rest. Deep tendon reflexes are absent. Plantars are upgoing on both sides. Sensory examination. The patient was not able to appreciate position sense in his feet. Coordination: [id number] test, he tried to reach his target. Gait is deferred at this time. WORKUP: CT of the head significant atrophy with small vessel disease. BLOOD WORKUP: WBC 11, hemoglobin 13.4, hematocrit 40.6, platelets 189. PT 14.2, INR 1.3, PTT 36. ABG, pH 7.45, pO2 of 123 with a pCO2 of 27, bicarbonate 19.6, oxygen saturation 19.9, sodium 158, potassium 4.2, chloride 115, bicarbonate 30, anion gap 17, BUN 59, creatinine 1.5, glucose 151, total protein 3.4, globulin 4.4, TSH 2.71, urine negative. CONCLUSION: Mr. Jesus Pierre has been presenting with, as per neurological examination, bilateral cerebral dysfunction, which probably his baseline, which may be superimposed with significant electrolyte imbalance consistent with metabolic encephalopathy. 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 However, other possible causes including new stroke process versus seizures should be ruled out. RECOMMENDATION: 1. MRI of the brain to rule out any structural cause. 2. EEG to rule out any electrographic seizures. 3. Cardiac cath to rule out any vegetation. 4. Correct the electrolytes. 5. Correct the hydration. 6. Blood workup also recommended for his dementia. The patient will be followed closely with you. Elian Kyle MD
--- NOTE | 2017-12-23 21:30 | PN ---
DATE: 12/23/2017 SUBJECTIVE: The patient is in bed. His family is by his bedside. The patient is alert. PHYSICAL EXAMINATION: GENERAL: The patient is not in acute distress at rest. VITAL SIGNS: Afebrile with blood pressure 108/74, pulse 60, respirations 20, hemoglobin oxygen saturation of 99% on O2 via nasal cannula at 2 L per minute. HEART: Regular. There is no gallop rhythm. LUNGS: Diminished breath sounds over the lung bases. Rhonchi decreased. ABDOMEN: Soft. EXTREMITIES: Legs, no edema. LABORATORY DATA: CEA is 3.5. White count is 9000, hemoglobin 12.3, platelet count 158,000, neutrophils 90%. Sed rate is 73. ABGs on FiO2 of 2 L per minute via nasal cannula shows pH of 7.45, pCO2 of 27, pO2 of 123, bicarb 22. Hemoglobin oxygen saturation of 100%. Serum sodium now 149, potassium 3.1, chloride 109, BUN 37, creatinine 1, blood glucose 158, magnesium 2.4, ammonia level less than 9. Homocysteine level is 9.1. Free thyroxine 1.76 and TSH . Prolactin 8.8. The patient was seen by Dr. Olivo, the Infectious Disease specialist; Dr. Momin, Renal specialist; Dr. Stinson, the tuber machine operator helper; and Dr. Kyle, the neurologist. IMPRESSION: Respiratory insufficiency, exacerbation of chronic obstructive pulmonary disease, pneumonitis, arthritis, cachexia with weight loss and anorexia, sepsis on admission with history of fever. PLAN: To continue with the current management including bronchodilators, hydration to improve renal insufficiency, and continue with antibiotics and oxygen therapy. Jaya Pettit MD
--- NOTE | 2017-12-23 21:33 | CARD ---
APPROVED REPORT Date of service: 12/21/2017 EKG Measurement Heart [id number] <Conclusion> Sinus tachycardia Right atrial enlargement T wave abnormality, consider inferior ischemia Abnormal ECG
--- NOTE | 2017-12-23 23:07 | CP.PCM.PN ---
Subjective - Date & Time of Evaluation Date of Evaluation: 12/23/17 Time of Evaluation: 19:25 - Subjective Subjective: Patient more responsive and less confused. Patient evaluated by Dr Olivo. Diagnosis of pneumonia. Patient also evaluated by Wilver. GI consult requested with Dr Paez. Objective - Vital Signs/Intake and Output Vital Signs (last 24 hours): Temp Pulse Resp BP Pulse Ox 97.9 F 66 20 98/63 L 97 12/23/17 15:00 12/23/17 15:00 12/23/17 15:00 12/23/17 15:00 12/23/17 15:00 Intake and Output: 12/23/17 12/24/17 18:59 06:59 Intake Total 800 Balance 800 - Medications Medications: Current Medications Albuterol Sulfate (Albuterol 0.083% Inhal Martha (2.5 Mg/3 Ml) Ud) 2.5 mg INH RQ6 [facility] Last Admin: 12/23/17 19:51 Dose: 2.5 mg Digoxin (Lanoxin) 0.25 mg PO DAILY@1800 [facility] Last Admin: 12/23/17 17:22 Dose: 0.25 mg Heparin Sodium (Porcine) (Heparin) 5,000 units SC Q8 [facility] Last Admin: 12/23/17 21:52 Dose: 5,000 units Ceftriaxone Sodium 1 gm/ (Sodium Chloride) 100 mls @ 100 mls/hr IVPB DAILY [facility] PRN Reason: Protocol Last Admin: 12/23/17 09:40 Dose: 100 mls/hr Dextrose (Dextrose 5% In Water) 500 mls @ 125 mls/hr IV .Q4H [facility] Last Admin: 12/23/17 20:00 Dose: 125 mls/hr Montelukast Sodium (Singulair) 10 mg PO HS [facility] Last Admin: 12/23/17 21:53 Dose: 10 mg Potassium Chloride (Potassium Chloride Oral Soln) 20 meq PO DAILY [facility] - Labs Labs: 12/23/17 07:04 12/23/17 07:04 PT 14.2 SECONDS (9.7-12.2) H 12/21/17 20:23 INR 1.3 12/21/17 20:23 APTT 36 SECONDS (21-34) H 12/21/17 20:23 - Constitutional Appears: Cachectic - Head Exam Head Exam: NORMOCEPHALIC - Eye Exam Eye Exam: Normal appearance Pupil Exam: NORMAL ACCOMODATION - ENT Exam ENT Exam: Normal Exam - Neck Exam Neck Exam: Normal Inspection - Respiratory Exam Respiratory Exam: Decreased Breath Sounds - Cardiovascular Exam Cardiovascular Exam: REGULAR RHYTHM - GI/Abdominal Exam GI & Abdominal Exam: Normal Bowel Sounds - Rectal Exam Rectal Exam: Deferred - Exam Exam: NORMAL INSPECTION - Extremities Exam Extremities Exam: Tenderness - Back Exam Back Exam: NORMAL INSPECTION - Neurological Exam Neurological Exam: Awake - Psychiatric Exam Psychiatric exam: Depressed - Skin Skin Exam: Dry Assessment and Plan (1) Acute pneumonia Status: Acute (2) Cachexia Status: Acute (3) Emphysema lung Status: Acute (4) Hypernatremia Status: Acute (5) Prerenal azotemia Status: Acute (6) Severe dehydration Status: Acute
--- NOTE | 2017-12-23 23:55 | CP.PCM.PN ---
Subjective - Date & Time of Evaluation Date of Evaluation: 12/23/17 Time of Evaluation: 13:00 - Subjective Subjective: Patient feels better, with less productive cough, no fever, but still with a poor appetite. Being evaluated by GI for dysphagia, Hypernatremia and pre-renal azotemia improves. Objective - Vital Signs/Intake and Output Vital Signs (last 24 hours): Temp Pulse Resp BP Pulse Ox 98.1 F 67 20 114/73 99 12/23/17 23:47 12/23/17 23:47 12/23/17 23:47 12/23/17 23:47 12/23/17 23:47 Intake and Output: 12/23/17 12/24/17 18:59 06:59 Intake Total 800 Balance 800 - Medications Medications: Current Medications Albuterol Sulfate (Albuterol 0.083% Inhal Martha (2.5 Mg/3 Ml) Ud) 2.5 mg INH RQ6 [facility] Last Admin: 12/23/17 19:51 Dose: 2.5 mg Digoxin (Lanoxin) 0.25 mg PO DAILY@1800 [facility] Last Admin: 12/23/17 17:22 Dose: 0.25 mg Heparin Sodium (Porcine) (Heparin) 5,000 units SC Q8 [facility] Last Admin: 12/23/17 21:52 Dose: 5,000 units Ceftriaxone Sodium 1 gm/ (Sodium Chloride) 100 mls @ 100 mls/hr IVPB DAILY [facility] PRN Reason: Protocol Last Admin: 12/23/17 09:40 Dose: 100 mls/hr Dextrose (Dextrose 5% In Water) 500 mls @ 125 mls/hr IV .Q4H [facility] Last Admin: 12/23/17 20:00 Dose: 125 mls/hr Montelukast Sodium (Singulair) 10 mg PO HS [facility] Last Admin: 12/23/17 21:53 Dose: 10 mg Potassium Chloride (Potassium Chloride Oral Soln) 20 meq PO DAILY [facility] - Labs Labs: 12/23/17 07:04 12/23/17 07:04 PT 14.2 SECONDS (9.7-12.2) H 12/21/17 20:23 INR 1.3 12/21/17 20:23 APTT 36 SECONDS (21-34) H 12/21/17 20:23 - Constitutional Appears: No Acute Distress, Cachectic, Chronically Ill - Head Exam Head Exam: NORMOCEPHALIC - Eye Exam Eye Exam: Normal appearance Pupil Exam: NORMAL ACCOMODATION - ENT Exam ENT Exam: Normal Exam - Neck Exam Neck Exam: Normal Inspection - Respiratory Exam Respiratory Exam: Rhonchi - Cardiovascular Exam Cardiovascular Exam: REGULAR RHYTHM - GI/Abdominal Exam GI & Abdominal Exam: Soft, Normal Bowel Sounds - Rectal Exam Rectal Exam: Deferred - Extremities Exam Extremities Exam: Normal Inspection - Back Exam Back Exam: NORMAL INSPECTION - Neurological Exam Neurological Exam: Alert, Awake, Oriented x3 - Psychiatric Exam Psychiatric exam: Anxious - Skin Skin Exam: Dry, Intact, Normal Color, Warm Assessment and Plan (1) Acute pneumonia Assessment & Plan: To continue IV antibiotic Status: Acute (2) Severe dehydration Assessment & Plan: To continue IV and PO hydration. Status: Acute (3) Sinus tachycardia Status: Resolved
[2017-12-24] MEDS: Albuterol 0.083% Inhal Sol (2.5 mg/3 mL) UD INH SCH ×4 (01:23→19:45)
[2017-12-24 06:44] LABS: BASO % 0.1 % (0.0-2.0); EOS # 0.2 K/uL (0.0-0.7); EOS % 1.8 % (0.0-4.0); HEMOGLOBIN 12.1 g/dL (12.0-18.0); LYMPH # 0.4 K/uL (1.0-4.3); LYMPH % 4.1 % (20.0-40.0); MEAN CELL VOLUME 86.8 fL (80.0-94.0); MEAN CORPUSCULAR HEMOGLOBIN 28.5 pg (27.0-31.0); MEAN CORPUSCULAR HGB CONC 32.8 g/dL (33.0-37.0); MEAN PLATELET VOLUME 9.7 fL (7.2-11.7); MONO # 0.4 K/uL (0.0-0.8); NEUT # 7.9 K/uL (1.8-7.0); NRBC % 0.1 % (0.0-2.0); PLATELET COUNT 164 K/uL (130-400); RBC 4.24 Mil/uL (4.40-5.90); WHITE BLOOD COUNT 8.8 K/uL (4.8-10.8)
[2017-12-24 08:37] LABS: ANISOCYTOSIS SLIGHT; BANDS 1 % (0-2); BASOPHIL 1 % (0-2); EOSINOPHIL 3 % (0-4); LYMPHOCYTE 5 % (20-40); MONOCYTE 1 % (0-10); NEUTROPHIL 89 % (50-75); PLATELET ESTIMATE NORMAL (NORMAL); TOTAL CELLS COUNTED 100
[2017-12-24 08:38] LABS: BURR CELLS SLIGHT; LARGE PLATELETS PRESENT; OVALOCYTES SLIGHT; POIKILOCYTOSIS SLIGHT
--- NOTE | 2017-12-24 09:38 | PN ---
DATE: 12/24/2017 TIME OF EVALUATION: 7 o'clock a.m. 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 PHYSICAL EXAMINATION: GENERAL: The patient is sleepy, arousable calling his name. He moves all four extremities. His examination is not changed compared to my yesterday's exam. VITAL SIGNS: Blood pressure 114/73, mean arterial pressure of 86, respiratory rate 18, temperature of 98.1. The patient's MRI has been reviewed showed significant small vessel disease, all related to his increasing risk factors. The patient was seen by other consultants. The patient is under workup for his underlying disease. The patient should be evaluated by regional coordinator and his regional coordinator status should be improved by diet. The patient will be followed closely with you. Elian Kyle MD
[2017-12-24] MEDS ORDERED: Potassium Chloride 20 mEq/15 ml LIQ UD PO SCH (10:00)
[2017-12-24] MEDS ORDERED: Propofol 10 mg/ml Inj (20 ML) ONE (10:10)
--- NOTE | 2017-12-24 12:09 | CARD ---
APPROVED REPORT Date of service: 12/24/2017 EXAM: Two-dimensional and M-mode echocardiogram with Doppler and color Doppler. Other Information Quality : Technically LimitedRhythm : NSR INDICATION PNEUMONIA RISK FACTORS Hyperlipidemia M-Mode DIMENSIONS RVDd2.19 (2.1-3.2cm)Left Atrium (MM)4.14 (2.5-4.0cm) IVSd1.13 (0.7-1.1cm)Aortic Root3.75 (2.2-3.7cm) LVDd3.63 (4.0-5.6cm)Aortic Cusp Exc.2.54 (1.5-2.0cm) PWd1.09 (0.7-1.1cm)FS (%) 42 % LVDs2.11 (2.0-3.8cm)LVEF (%)74 (>50%) Mitral Valve E/A ratio0.0 TDI E/Lateral E'0.0E/Medial E'0.0 Tricuspid Valve TR Peak [id number] Peak Gr.[id number] LEFT VENTRICLE The left ventricle is normal size. There is borderline concentric left ventricular hypertrophy. Left ventricle systolic function is normal. The Ejection Fraction is 65-70%. There is normal LV segmental wall motion. No inflow Doppler of the mitral valve There is no ventricular septal defect visualized. RIGHT VENTRICLE The right ventricle is normal size. The right ventricular systolic function is normal. ATRIA The left atrium is mildly dilated. The right atrium size is normal. AORTIC VALVE The aortic valve is tri-cuspid. The aortic valve is normal in structure. No aortic regurgitation is present. There is no aortic valvular stenosis. MITRAL VALVE The mitral valve is normal in structure. There is no evidence of mitral valve prolapse. There is no mitral valve regurgitation noted. TRICUSPID VALVE The tricuspid valve is normal in structure. There is trace tricuspid regurgitation. Right ventricular systolic pressure is estimated at less than 30 mmHg. There is no pulmonary hypertension. PULMONIC VALVE The pulmonic valve is not well visualized. GREAT VESSELS The aortic root is normal in size. The ascending aorta is normal in size. The IVC is normal in size and collapses >50% with inspiration. PERICARDIAL EFFUSION There is no pericardial effusion. <Conclusion> There is borderline concentric left ventricular hypertrophy. Left ventricle systolic function is normal. The Ejection Fraction is 65-70%. Technically difficult and incomplete study.
--- NOTE | 2017-12-24 13:11 | CP.PCM.PN ---
Subjective - Date & Time of Evaluation Date of Evaluation: 12/24/17 Time of Evaluation: 13:06 - Subjective Subjective: Trying to eat more no nausea, vomiting, CPs, SOB, diarrhea, HAs Hypernatremia , azotemia improved bone scan neg for mets renal US- no hydro Objective - Vital Signs/Intake and Output Vital Signs (last 24 hours): Temp Pulse Resp BP Pulse Ox 98.4 F 64 12 99/69 L 100 12/24/17 10:45 12/24/17 11:15 12/24/17 11:15 12/24/17 11:15 12/24/17 11:15 Intake and Output: 12/24/17 12/24/17 06:59 18:59 Intake Total 1100 Balance 1100 - Medications Medications: Current Medications Albuterol Sulfate (Albuterol 0.083% Inhal Martha (2.5 Mg/3 Ml) Ud) 2.5 mg INH RQ6 [facility] Last Admin: 12/24/17 07:29 Dose: 2.5 mg Digoxin (Lanoxin) 0.25 mg PO DAILY@1800 [facility] Last Admin: 12/23/17 17:22 Dose: 0.25 mg Heparin Sodium (Porcine) (Heparin) 5,000 units SC Q8 [facility] Last Admin: 12/24/17 07:09 Dose: Not Given Ceftriaxone Sodium 1 gm/ (Sodium Chloride) 100 mls @ 100 mls/hr IVPB DAILY [facility] PRN Reason: Protocol Last Admin: 12/24/17 11:39 Dose: 100 mls/hr Dextrose (Dextrose 5% In Water) 500 mls @ 125 mls/hr IV .Q4H [facility] Last Admin: 12/24/17 11:39 Dose: Not Given Montelukast Sodium (Singulair) 10 mg PO HS [facility] Last Admin: 12/23/17 21:53 Dose: 10 mg Potassium Chloride (Potassium Chloride Oral Soln) 20 meq PO DAILY [facility] Last Admin: 12/24/17 09:18 Dose: Not Given - Labs Labs: 12/24/17 06:34 12/24/17 06:34 PT 14.2 SECONDS (9.7-12.2) H 12/21/17 20:23 INR 1.3 12/21/17 20:23 APTT 36 SECONDS (21-34) H 12/21/17 20:23 - Constitutional Appears: Cachectic, Chronically Ill - Head Exam Head Exam: ATRAUMATIC, NORMAL INSPECTION - Eye Exam Eye Exam: EOMI, Normal appearance - Neck Exam Neck Exam: Normal Inspection. absent: Tenderness - Respiratory Exam Respiratory Exam: Clear to Ausculation Bilateral, NORMAL BREATHING PATTERN - Cardiovascular Exam Cardiovascular Exam: REGULAR RHYTHM, +S1 - GI/Abdominal Exam GI & Abdominal Exam: Soft. absent: Tenderness - Extremities Exam Extremities Exam: Normal Inspection. absent: Tenderness - Neurological Exam Neurological Exam: Alert, CN II-XII Intact - Skin Skin Exam: Dry, Warm Assessment and Plan (1) Acute pneumonia Status: Acute (2) Emphysema lung Status: Acute (3) Prerenal azotemia Status: Resolved (4) Hypernatremia Status: Resolved (5) Pneumonia Status: Acute (6) Severe dehydration Status: Acute - Assessment and Plan (Free Text) Plan: Change to d51/2NS with KCL Continue GI workup follow up katherin
[2017-12-24] MEDS: Potassium Ch 20mEq in D5-1/2NS 1,000 ML IV SCH (13:38)
[2017-12-24] MEDS ORDERED: Iohexol 240 (50 ml) PO ONE (14:00)
[2017-12-24] MEDS ORDERED: Iodixanol 320 MG/ML 100 ML BOTTLE IV ONE (15:17)
--- NOTE | 2017-12-24 16:47 | CT ---
Date of service: 12/24/2017 PROCEDURE: CT Abdomen and Pelvis with contrast HISTORY: Elevated CA19-9, excessive wt loss. COMPARISON: None. TECHNIQUE: Contrast dose: 100 mL Visipaque 320 Radiation dose: Total exam DLP = 343.1 mGy-cm. This CT exam was performed using one or more of the following dose reduction techniques: Automated exposure control, adjustment of the mA and/or kV according to patient size, and/or use of iterative reconstruction technique. FINDINGS: LOWER THORAX: Bilateral lower lobe infiltrates. LIVER: Too small to characterize hypodensities. For example, 1.0 cm left hepatic dome hypodensity (series 3, image 18), 5 mm left hepatic dome hypodensity series 3, image 20) and 4 mm right hepatic lobe hypodensity (series 3, image 34). No gross lesion or ductal dilatation. GALLBLADDER AND BILE DUCTS: Unremarkable. PANCREAS: Unremarkable. No gross lesion or ductal dilatation. SPLEEN: Unremarkable. ADRENALS: Unremarkable. No mass. KIDNEYS AND URETERS: Unremarkable. No hydronephrosis. No solid mass. 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 No aortic aneurysm. BOWEL: Prominent amount of retained colonic stool with dilated, thick walled rectum measuring up to 9.5 cm. No obstruction. No gross mural thickening. APPENDIX: No findings to suggest acute appendicitis. PERITONEUM: Unremarkable. No free fluid. No free air. LYMPH NODES: Unremarkable. No enlarged lymph nodes. BLADDER: Unremarkable. REPRODUCTIVE: Unremarkable. BONES: No acute fracture. Multilevel degenerative changes. OTHER FINDINGS: None. IMPRESSION: Bilateral lower lobe infiltrates. Prominent amount of retained colonic stool with dilated, thick walled rectum measuring 9.5 cm consistent with fecal impaction. Given thick-walled appearance, stercoral colitis cannot be excluded. Nonspecific hypodensities in the liver, the largest of which measures up to 1.0 cm and is seen in the left hepatic dome. 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 Additional findings as above.
--- NOTE | 2017-12-24 17:18 | CP.PCM.PN ---
Subjective - Date & Time of Evaluation Date of Evaluation: 12/24/17 Time of Evaluation: 09:00 - Subjective Subjective: weak and cachectic afeb nad Objective - Vital Signs/Intake and Output Vital Signs (last 24 hours): Temp Pulse Resp BP Pulse Ox 98.4 F 64 12 99/69 L 100 12/24/17 10:45 12/24/17 11:15 12/24/17 11:15 12/24/17 11:15 12/24/17 11:15 Intake and Output: 12/24/17 12/24/17 06:59 18:59 Intake Total 1575 Balance 1575 - Medications Medications: Current Medications Albuterol Sulfate (Albuterol 0.083% Inhal Martha (2.5 Mg/3 Ml) Ud) 2.5 mg INH RQ6 [facility] Last Admin: 12/24/17 13:31 Dose: 2.5 mg Digoxin (Lanoxin) 0.25 mg PO DAILY@1800 [facility] Last Admin: 12/23/17 17:22 Dose: 0.25 mg Heparin Sodium (Porcine) (Heparin) 5,000 units SC Q8 [facility] Last Admin: 12/24/17 13:27 Dose: Not Given Ceftriaxone Sodium 1 gm/ (Sodium Chloride) 100 mls @ 100 mls/hr IVPB DAILY [facility] PRN Reason: Protocol Last Admin: 12/24/17 11:39 Dose: 100 mls/hr Potassium Chloride/Dextrose/Sod Cl (Potassium Chl 20 Meq In D5-1/2ns) 1,000 mls @ 75 mls/hr IV .[id number] [facility] Last Admin: 12/24/17 13:38 Dose: 75 mls/hr Montelukast Sodium (Singulair) 10 mg PO HS [facility] Last Admin: 12/23/17 21:53 Dose: 10 mg - Labs Labs: 12/24/17 06:34 12/24/17 06:34 PT 14.2 SECONDS (9.7-12.2) H 12/21/17 20:23 INR 1.3 12/21/17 20:23 APTT 36 SECONDS (21-34) H 12/21/17 20:23 - Constitutional Appears: Non-toxic, Cachectic, Chronically Ill - Head Exam Head Exam: NORMOCEPHALIC - Eye Exam Eye Exam: PERRL - ENT Exam ENT Exam: Mucous Membranes Dry - Neck Exam Neck Exam: absent: Lymphadenopathy - Respiratory Exam Respiratory Exam: Decreased Breath Sounds, Prolonged Expiratory Phase, Rhonchi - Cardiovascular Exam Cardiovascular Exam: REGULAR RHYTHM - GI/Abdominal Exam GI & Abdominal Exam: Distended, Soft - Rectal Exam Rectal Exam: Deferred - Exam Exam: NORMAL INSPECTION Assessment and Plan (1) Acute pneumonia Status: Acute (2) Bullous emphysema Status: Acute (3) Cachexia Status: Acute (4) Emphysema lung Status: Acute (5) Hypernatremia Status: Resolved (6) Pneumonia Status: Acute (7) Prerenal azotemia Status: Resolved (8) Severe dehydration Status: Acute - Assessment and Plan (Free Text) Assessment: IV rx reordered
[2017-12-24] MEDS: Digoxin 250 mcg (0.25 mg) Tab PO SCH (17:19)
[2017-12-24 17:20] VITALS: PULSE 78
--- NOTE | 2017-12-24 18:18 | PN ---
DATE: 12/24/2017 SUBJECTIVE: The patient is alert and oriented. Feels much better today. PHYSICAL EXAMINATION: VITAL SIGNS: He is afebrile with blood pressure 100/68, pulse 64, respirations 12, hemoglobin oxygen saturation on FiO2 of 2 L via nasal cannula is 100%. GENERAL: He is not in acute distress. HEART: Regular. There is no gallop rhythm. LUNGS: Diminished breath sounds. Rhonchi decreased. Diminished breath sounds over the lung bases are improving. ABDOMEN: Soft. EXTREMITIES: Legs, no edema. LABORATORY DATA: White count is now 8800, hemoglobin 12.1, and platelet count of 164. Neutrophils are 89%. Serum sodium 144, potassium 3.7, chloride 106, carbon dioxide 29, BUN 19, magnesium 2.2. CA19-9 antigen is 58.8. PSA 2. Homocysteine 9.1. Workup is in progress. The patient was seen by Infectious Disease, Neurology, Cardiology and bone density technician as well as renal specialist. IMPRESSION: Respiratory insufficiency, exacerbation of chronic obstructive pulmonary disease, emphysema, sepsis, electrolyte imbalance and dehydration with renal insufficiency, arthritis. PLAN: To continue with the current medications and improve nutrition. Jaya Pettit MD
--- NOTE | 2017-12-24 22:50 | CP.PCM.PN ---
Subjective - Date & Time of Evaluation Date of Evaluation: 12/24/17 Time of Evaluation: 13:25 - Subjective Subjective: Patient more responsive, He underwent endoscopy which could not br completed because of difficulty with passing the scope. Will request ENT consult. Objective - Vital Signs/Intake and Output Vital Signs (last 24 hours): Temp Pulse Resp BP Pulse Ox 98.4 F 64 12 99/69 L 100 12/24/17 10:45 12/24/17 11:15 12/24/17 11:15 12/24/17 11:15 12/24/17 11:15 Intake and Output: 12/24/17 12/25/17 18:59 06:59 Intake Total 1575 Balance 1575 - Medications Medications: Current Medications Albuterol Sulfate (Albuterol 0.083% Inhal Martha (2.5 Mg/3 Ml) Ud) 2.5 mg INH RQ6 [facility] Last Admin: 12/24/17 19:45 Dose: 2.5 mg Digoxin (Lanoxin) 0.25 mg PO DAILY@1800 [facility] Last Admin: 12/24/17 17:19 Dose: 0.25 mg Heparin Sodium (Porcine) (Heparin) 5,000 units SC Q8 [facility] Last Admin: 12/24/17 21:23 Dose: 5,000 units Ceftriaxone Sodium 1 gm/ (Sodium Chloride) 100 mls @ 100 mls/hr IVPB DAILY [facility] PRN Reason: Protocol Last Admin: 12/24/17 11:39 Dose: 100 mls/hr Potassium Chloride/Dextrose/Sod Cl (Potassium Chl 20 Meq In D5-1/2ns) 1,000 mls @ 75 mls/hr IV .[id number] [facility] Last Admin: 12/24/17 13:38 Dose: 75 mls/hr Montelukast Sodium (Singulair) 10 mg PO HS [facility] Last Admin: 12/24/17 21:23 Dose: 10 mg - Labs Labs: 12/24/17 06:34 12/24/17 06:34 PT 14.2 SECONDS (9.7-12.2) H 12/21/17 20:23 INR 1.3 12/21/17 20:23 APTT 36 SECONDS (21-34) H 12/21/17 20:23 - Constitutional Appears: Chronically Ill - Head Exam Head Exam: NORMOCEPHALIC - Eye Exam Eye Exam: Normal appearance Pupil Exam: NORMAL ACCOMODATION - ENT Exam ENT Exam: Normal Exam - Neck Exam Neck Exam: Normal Inspection - Respiratory Exam Respiratory Exam: Decreased Breath Sounds - Cardiovascular Exam Cardiovascular Exam: Tachycardia - GI/Abdominal Exam GI & Abdominal Exam: Hyperactive Bowel Sounds - Rectal Exam Rectal Exam: Deferred - Exam Exam: NORMAL INSPECTION - Back Exam Back Exam: NORMAL INSPECTION - Neurological Exam Neurological Exam: Oriented x3 - Psychiatric Exam Psychiatric exam: Depressed - Skin Skin Exam: Dry Assessment and Plan (1) Acute pneumonia Status: Acute (2) Cachexia Status: Acute (3) Emphysema lung Status: Acute (4) Hypernatremia Status: Resolved (5) Prerenal azotemia Status: Resolved (6) Severe dehydration Status: Acute
--- NOTE | 2017-12-25 00:08 | CP.PCM.PN ---
Subjective - Date & Time of Evaluation Date of Evaluation: 12/24/17 Time of Evaluation: 20:30 - Subjective Subjective: Upper endoscopy was unsuccessful because of inability to pass the scope. Patient remains weak, with poor appetite. Objective - Vital Signs/Intake and Output Vital Signs (last 24 hours): Temp Pulse Resp BP Pulse Ox 98.4 F 64 12 99/69 L 100 12/24/17 10:45 12/24/17 11:15 12/24/17 11:15 12/24/17 11:15 12/24/17 11:15 Intake and Output: 12/24/17 12/25/17 18:59 06:59 Intake Total 1575 600 Balance 1575 600 - Medications Medications: Current Medications Albuterol Sulfate (Albuterol 0.083% Inhal Martha (2.5 Mg/3 Ml) Ud) 2.5 mg INH RQ6 [facility] Last Admin: 12/24/17 19:45 Dose: 2.5 mg Digoxin (Lanoxin) 0.25 mg PO DAILY@1800 [facility] Last Admin: 12/24/17 17:19 Dose: 0.25 mg Heparin Sodium (Porcine) (Heparin) 5,000 units SC Q8 [facility] Last Admin: 12/24/17 21:23 Dose: 5,000 units Ceftriaxone Sodium 1 gm/ (Sodium Chloride) 100 mls @ 100 mls/hr IVPB DAILY [facility] PRN Reason: Protocol Last Admin: 12/24/17 11:39 Dose: 100 mls/hr Potassium Chloride/Dextrose/Sod Cl (Potassium Chl 20 Meq In D5-1/2ns) 1,000 mls @ 75 mls/hr IV .[id number] [facility] Last Admin: 12/24/17 13:38 Dose: 75 mls/hr Montelukast Sodium (Singulair) 10 mg PO HS [facility] Last Admin: 12/24/17 21:23 Dose: 10 mg - Labs Labs: 12/24/17 06:34 12/24/17 06:34 PT 14.2 SECONDS (9.7-12.2) H 12/21/17 20:23 INR 1.3 12/21/17 20:23 APTT 36 SECONDS (21-34) H 12/21/17 20:23 - Constitutional Appears: No Acute Distress, Chronically Ill - Head Exam Head Exam: NORMOCEPHALIC - Eye Exam Eye Exam: Normal appearance Pupil Exam: NORMAL ACCOMODATION - ENT Exam ENT Exam: Normal Exam - Neck Exam Neck Exam: Normal Inspection - Respiratory Exam Respiratory Exam: Rhonchi - Cardiovascular Exam Cardiovascular Exam: REGULAR RHYTHM - GI/Abdominal Exam GI & Abdominal Exam: Soft, Normal Bowel Sounds - Rectal Exam Rectal Exam: Deferred - Exam Exam: NORMAL INSPECTION - Extremities Exam Extremities Exam: Normal Inspection - Back Exam Back Exam: NORMAL INSPECTION - Neurological Exam Neurological Exam: Alert, Awake - Psychiatric Exam Psychiatric exam: Anxious - Skin Skin Exam: Dry, Intact, Warm Assessment and Plan (1) Acute pneumonia Assessment & Plan: To continue IV antibiotic. Status: Acute (2) Severe dehydration Assessment & Plan: Improving with IV hydration. Status: Acute (3) Sinus tachycardia Status: Resolved (4) Dysphagia Assessment & Plan: ENT evaluation. Status: Acute
[2017-12-25] MEDS: Albuterol 0.083% Inhal Sol (2.5 mg/3 mL) UD INH SCH ×4 (01:06→19:21)
[2017-12-25] MEDS: Potassium Ch 20mEq in D5-1/2NS 1,000 ML IV SCH ×3 (02:35→16:16)
[2017-12-25 07:34] LABS: BASO % 0.1 % (0.0-2.0); EOS # 0.1 K/uL (0.0-0.7); HEMOGLOBIN 11.5 g/dL (12.0-18.0); LYMPH # 0.3 K/uL (1.0-4.3); LYMPH % 3.8 % (20.0-40.0); MEAN CELL VOLUME 85.9 fL (80.0-94.0); MEAN CORPUSCULAR HGB CONC 33.8 g/dL (33.0-37.0); MEAN PLATELET VOLUME 9.4 fL (7.2-11.7); MONO # 0.2 K/uL (0.0-0.8); MONO % 2.9 % (0.0-10.0); NEUT # 7.4 K/uL (1.8-7.0); NEUT % 92.2 % (50.0-75.0); PLATELET COUNT 174 K/uL (130-400); RBC 3.96 Mil/uL (4.40-5.90); RED CELL DISTRIBUTION WIDTH 14.3 % (11.5-14.5); WHITE BLOOD COUNT 8.1 K/uL (4.8-10.8)
--- NOTE | 2017-12-25 07:54 | CP.PCM.PN ---
Subjective - Date & Time of Evaluation Date of Evaluation: 12/25/17 Time of Evaluation: 07:52 - Subjective Subjective: GI Fellow PGY4, Progress note. No complaints. Denies abdominal pain, chest pain, BMs, N/V. 12pt ROS completed and negative except for above. Objective - Vital Signs/Intake and Output Vital Signs (last 24 hours): Temp Pulse Resp BP Pulse Ox 98.5 F 65 20 96/63 L 100 12/25/17 00:00 12/25/17 00:00 12/25/17 00:00 12/25/17 00:00 12/25/17 00:00 Intake and Output: 12/25/17 12/25/17 06:59 18:59 Intake Total 1200 Output Total 300 Balance 900 - Medications Medications: Current Medications Albuterol Sulfate (Albuterol 0.083% Inhal Martha (2.5 Mg/3 Ml) Ud) 2.5 mg INH RQ6 [facility] Last Admin: 12/25/17 07:26 Dose: 2.5 mg Digoxin (Lanoxin) 0.25 mg PO DAILY@1800 [facility] Last Admin: 12/24/17 17:19 Dose: 0.25 mg Heparin Sodium (Porcine) (Heparin) 5,000 units SC Q8 [facility] Last Admin: 12/25/17 05:35 Dose: 5,000 units Ceftriaxone Sodium 1 gm/ (Sodium Chloride) 100 mls @ 100 mls/hr IVPB DAILY [facility] PRN Reason: Protocol Last Admin: 12/24/17 11:39 Dose: 100 mls/hr Potassium Chloride/Dextrose/Sod Cl (Potassium Chl 20 Meq In D5-1/2ns) 1,000 mls @ 75 mls/hr IV .[id number] [facility] Last Admin: 12/25/17 04:55 Dose: 75 mls/hr Montelukast Sodium (Singulair) 10 mg PO HS [facility] Last Admin: 12/24/17 21:23 Dose: 10 mg - Labs Labs: 12/25/17 07:20 12/24/17 06:34 PT 14.2 SECONDS (9.7-12.2) H 12/21/17 20:23 INR 1.3 12/21/17 20:23 APTT 36 SECONDS (21-34) H 12/21/17 20:23 - Constitutional Appears: Non-toxic, No Acute Distress, Cachectic, Chronically Ill - Head Exam Head Exam: ATRAUMATIC - Eye Exam Eye Exam: Normal appearance - ENT Exam ENT Exam: Mucous Membranes Moist - Respiratory Exam Respiratory Exam: Clear to Ausculation Bilateral, NORMAL BREATHING PATTERN. absent: Wheezes - Cardiovascular Exam Cardiovascular Exam: REGULAR RHYTHM, +S1, +S2 - GI/Abdominal Exam GI & Abdominal Exam: Soft, Diminished Bowel Sounds. absent: Tenderness - Extremities Exam Extremities Exam: Normal Inspection - Neurological Exam Neurological Exam: Alert, Awake, Oriented x3 - Psychiatric Exam Psychiatric exam: Depressed, Flat Affect, Normal Mood - Skin Skin Exam: Dry, Normal Color Assessment and Plan - Assessment and Plan (Free Text) Assessment: 87M with history of COPD presenting with RLL PNA and progressive weightloss. #Weight loss #Severe Malnutrition #RLL PNA #Celiac artery stenosis #Fecal impaction #Liver mass, unspecified #COPD Plan: -Afeb, HDS -Continue supportive care -CT imaging reviewed, noted diffuse thickening of distal esophagus. -CT abd/pelv noted for ?fecal impaction with dilated rectum and thickened wall. Also, ?arcuate ligament syndrome. Liver masses noted. No obvious pancreatic mass. -EGD 12/24 aborted due to significant upper esophageal stricture -Concern for malignancy is high. CEA mildly elevated. CA199 55. -Recommend ENT for upper esophageal stenosis for better visualization of lesion. -Recommend Vascular surgery consult for celiac stenosis. -Barium swallow eval today. -Colonoscopy tomorrow. -Bowel prep and enema today. -Clear liquids for now. NPO past midnight -Possibility of PEG tube in the future if needed, defer to primary team on guiding discussions.
[2017-12-25] MEDS ORDERED: Bisacodyl 5mg EC Tab PO ONE ×3 (07:57→18:00)
[2017-12-25] MEDS ORDERED: Peg-Electrolyte Oral Soln 4L (Golytely) PO ONE (08:00)
[2017-12-25 08:01] LABS: COMPLEMENT C4 32.1 mg/dL (14.0-44.0)
[2017-12-25 08:08] LABS: ALB/GLOB RATIO 0.8 (1.0-2.1); ALBUMIN 2.7 g/dL (3.5-5.0); ALT/SGPT 19 U/L (21-72); AST/SGOT 16 U/L (17-59); BLOOD UREA NITROGEN 11 mg/dL (9-20); CALCIUM 8.9 mg/dl (8.6-10.4); GFR AFRICAN-AMERICAN > 60; GFR NON-AFRICAN AMERICAN > 60
[2017-12-25 08:54] LABS: LYMPHOCYTE 2 % (20-40); MONOCYTE 1 % (0-10); NEUTROPHIL 97 % (50-75); TOTAL CELLS COUNTED 100
[2017-12-25 08:55] LABS: PLATELET ESTIMATE NORMAL (NORMAL)
--- NOTE | 2017-12-25 09:05 | EEG ---
DATE: 12/24/2017 This is a 16-channel electroencephalogram of awake and drowsy adult. During the study, photic stimulation was performed. Hyperventilation was not performed. The resting electroencephalogram consists of 20 to 30 microvolt low-amplitude 7 to 8 Hz low alpha mixed with high theta activities noted. Intermittent frontal and temporal muscle artifact contaminated the background rhythm. This activity is followed with generalized 2 to 3 Hz delta activities seen, which is consistent with early drowsiness. The photic stimulation did not evoke driving response noted at 2 to 20 Hz. IMPRESSION: This is a normal electroencephalogram for his age. During the study, neither electroencephalographic paroxysmal activities nor focal slowing noted. Elian Kyle MD
--- NOTE | 2017-12-25 09:29 | CP.PCM.PN ---
Subjective - Date & Time of Evaluation Date of Evaluation: 12/25/17 Time of Evaluation: 09:26 - Subjective Subjective: c/o dry cough EGD unsuccessful Lytes acceptable but phos low CT abdomen, pelvis not diagnostic still eating poorly Objective - Vital Signs/Intake and Output Vital Signs (last 24 hours): Temp Pulse Resp BP Pulse Ox 97.8 F 68 20 98/65 L 98 12/25/17 08:00 12/25/17 08:00 12/25/17 08:00 12/25/17 08:00 12/25/17 08:00 Intake and Output: 12/25/17 12/25/17 06:59 18:59 Intake Total 1200 Output Total 300 Balance 900 - Medications Medications: Current Medications Albuterol Sulfate (Albuterol 0.083% Inhal Martha (2.5 Mg/3 Ml) Ud) 2.5 mg INH RQ6 [facility] Last Admin: 12/25/17 07:26 Dose: 2.5 mg Bisacodyl (Dulcolax) 10 mg PO ONCE ONE Stop: 12/25/17 14:01 Digoxin (Lanoxin) 0.25 mg PO DAILY@1800 [facility] Last Admin: 12/24/17 17:19 Dose: 0.25 mg Heparin Sodium (Porcine) (Heparin) 5,000 units SC Q8 [facility] Last Admin: 12/25/17 05:35 Dose: 5,000 units Ceftriaxone Sodium 1 gm/ (Sodium Chloride) 100 mls @ 100 mls/hr IVPB DAILY [facility] PRN Reason: Protocol Last Admin: 12/24/17 11:39 Dose: 100 mls/hr Potassium Chloride/Dextrose/Sod Cl (Potassium Chl 20 Meq In D5-1/2ns) 1,000 mls @ 75 mls/hr IV .[id number] [facility] Last Admin: 12/25/17 04:55 Dose: 75 mls/hr Montelukast Sodium (Singulair) 10 mg PO HS [facility] Last Admin: 12/24/17 21:23 Dose: 10 mg - Labs Labs: 12/25/17 07:20 12/25/17 07:20 PT 14.2 SECONDS (9.7-12.2) H 12/21/17 20:23 INR 1.3 12/21/17 20:23 APTT 36 SECONDS (21-34) H 07/22/18 20:23 - Constitutional Appears: No Acute Distress, Cachectic, Chronically Ill - Head Exam Head Exam: ATRAUMATIC, NORMAL INSPECTION - Eye Exam Eye Exam: EOMI, Normal appearance - Neck Exam Neck Exam: Normal Inspection. absent: Tenderness - Respiratory Exam Respiratory Exam: Clear to Ausculation Bilateral, NORMAL BREATHING PATTERN - Cardiovascular Exam Cardiovascular Exam: REGULAR RHYTHM, +S1 - GI/Abdominal Exam GI & Abdominal Exam: Soft. absent: Tenderness - Extremities Exam Extremities Exam: Normal Inspection. absent: Tenderness - Neurological Exam Neurological Exam: Awake, CN II-XII Intact - Skin Skin Exam: Dry, Warm Assessment and Plan (1) Acute pneumonia Status: Acute (2) Emphysema lung Status: Acute (3) Prerenal azotemia Status: Resolved (4) Hypernatremia Status: Resolved (5) Pneumonia Status: Acute (6) Severe dehydration Status: Acute - Assessment and Plan (Free Text) Plan: continue IV fluids replete phos GI workup
[2017-12-25] MEDS: Potassium & Sodium Phosphate PO SCH ×3 (10:15→17:50)
--- NOTE | 2017-12-25 14:00 | CT ---
Date of service: 12/25/2017 PROCEDURE: CT NECK WITHOUT CONTRAST HISTORY: stenosis during endoscopy COMPARISON: None. TECHNIQUE: CT of the neck without intravenous contrast. Coronal and sagittal reformats generated. Radiation dose: DLP 402.21 mGy-cm This CT exam was performed using one or more of the following dose reduction techniques: Automated exposure control, adjustment of the mA and/or kV according to patient size, and/or use of iterative reconstruction technique. FINDINGS: Please note this examination is limited in the absence of intravenous contrast. NASOPHARYNX: Within normal limits. SUPRAHYOID NECK: There is no bulky mass in the oropharynx, oral cavity, parapharyngeal space and retropharyngeal space. INFRAHYOID NECK: Unremarkable larynx, hypopharynx, and supraglottic space. Vocal cords intact.There is layering debris in the posterior hypopharynx. MASS: None. GLANDS: Parotid and submandibular glands unremarkable. Normal size thyroid gland, without nodule. LYMPH NODES: Normal. No lymphadenopathy. CERVICAL SPINE: No fracture or focal lesion. OTHER FINDINGS: Extensive centrilobular emphysema in the visualized lungs. There is layering debris in the trachea. IMPRESSION: Limited examination in the absence of intravenous contrast. Please note evaluation of the esophagus not possible in the absence of oral contrast on CT examination. Allowing for this, layering debris identified in the hypopharynx. No other significant abnormality.
[2017-12-25] MEDS ORDERED: Lidocaine 2% Jelly (Uro-Jet) TOP ONE ×2 (15:00→15:15)
[2017-12-25] MEDS ORDERED: Lidocaine 4% (Laryng-O-Jet) Kit MM ONE (15:15)
[2017-12-25] MEDS: Digoxin 250 mcg (0.25 mg) Tab PO SCH (17:49)
--- NOTE | 2017-12-25 18:04 | PN ---
DATE: 12/25/2017 SUBJECTIVE: The patient is alert this morning, oriented, afebrile. PHYSICAL EXAMINATION: VITAL SIGNS: Blood pressure 98/64, pulse 58, respirations 20, hemoglobin oxygen saturation of 98%. GENERAL: The patient is not in distress. HEART: Regular. There is no gallop rhythm. LUNGS: Diminished breath sounds over lung bases. Rhonchi decreased. ABDOMEN: Soft. EXTREMITIES: Legs, no edema. I have ordered serum protein electrophoresis and discussed with the renal specialist to exclude the possibility of paraproteinemia or myeloma in view of low back pain, renal insufficiency, and anemia. IMPRESSION: Respiratory insufficiency, emphysema, chronic obstructive pulmonary disease exacerbation, pneumonitis, arthralgia, poor nutritional status, electrolyte imbalance, dehydration. PLAN: To continue with the current medication and follow up with the consultants. Serum protein electrophoresis ordered. aJya Pettit MD
--- NOTE | 2017-12-25 18:25 | CP.PCM.PN ---
Subjective - Date & Time of Evaluation Date of Evaluation: 12/25/17 Time of Evaluation: 08:00 - Subjective Subjective: No complaints. Denies abdominal pain, chest pain, BMs, N/V. 12pt ROS completed and negative except for above. Objective - Vital Signs/Intake and Output Vital Signs (last 24 hours): Temp Pulse Resp BP Pulse Ox 98.3 F 83 20 110/78 96 12/25/17 16:00 12/25/17 16:00 12/25/17 16:00 12/25/17 16:00 12/25/17 16:00 Intake and Output: 12/25/17 12/25/17 06:59 18:59 Intake Total 1200 525 Output Total 300 Balance 900 525 - Medications Medications: Current Medications Albuterol Sulfate (Albuterol 0.083% Inhal Martha (2.5 Mg/3 Ml) Ud) 2.5 mg INH RQ6 [facility] Last Admin: 12/25/17 13:20 Dose: 2.5 mg Digoxin (Lanoxin) 0.25 mg PO DAILY@1800 [facility] Last Admin: 12/25/17 17:49 Dose: Not Given Ceftriaxone Sodium 1 gm/ (Sodium Chloride) 100 mls @ 100 mls/hr IVPB DAILY [facility] PRN Reason: Protocol Last Admin: 12/25/17 10:12 Dose: 100 mls/hr Potassium Chloride/Dextrose/Sod Cl (Potassium Chl 20 Meq In D5-1/2ns) 1,000 mls @ 75 mls/hr IV .[id number] [facility] Last Admin: 12/25/17 16:16 Dose: Not Given Montelukast Sodium (Singulair) 10 mg PO HS [facility] Last Admin: 12/24/17 21:23 Dose: 10 mg Nystatin (Nystatin Oral Susp) 5 ml PO QID [facility] Potassium Phos/Sodium Phos (Neutra-Phos) 1 pkt PO TID [facility] Stop: 12/27/17 23:59 Last Admin: 12/25/17 17:50 Dose: Not Given - Labs Labs: 12/25/17 07:20 12/25/17 07:20 PT 14.2 SECONDS (9.7-12.2) H 12/21/17 20:23 INR 1.3 12/21/17 20:23 APTT 36 SECONDS (21-34) H 12/21/17 20:23 - Constitutional Appears: Non-toxic, Cachectic, Chronically Ill - Head Exam Head Exam: NORMOCEPHALIC - Eye Exam Eye Exam: PERRL - ENT Exam ENT Exam: Mucous Membranes Dry - Neck Exam Neck Exam: absent: Lymphadenopathy - Respiratory Exam Respiratory Exam: Decreased Breath Sounds - Cardiovascular Exam Cardiovascular Exam: REGULAR RHYTHM - GI/Abdominal Exam GI & Abdominal Exam: Distended - Rectal Exam Rectal Exam: Deferred - Exam Exam: NORMAL INSPECTION Assessment and Plan (1) Acute pneumonia Status: Acute (2) Bullous emphysema Status: Acute (3) Cachexia Status: Acute (4) Emphysema lung Status: Acute (5) Hypernatremia Status: Resolved (6) Pneumonia Status: Acute (7) Prerenal azotemia Status: Resolved (8) Severe dehydration Status: Acute - Assessment and Plan (Free Text) Assessment: cont rx as per Dr Montanez IV rx no new positive cultures
[2017-12-25] MEDS: Nystatin 100,000 Units/ml Oral Susp 5 ml UD PO SCH ×2 (19:16→22:35)
--- NOTE | 2017-12-25 22:10 | CP.PCM.CON ---
History of Present Illness - History of Present Illness History of Present Illness: Cardiothoracic Surgery Consult Note for Dr. Pearson 87M w/ PMH of COPD and tobacco abuse, came into the ED with the son because of increased weakness, decreased appetite, and weight loss >10 pounds over the last few weeks. He is tolerating a liquid diet. Pt complained of cough with black sputum production that was further worked up by GI. CT scan of head and neck showed esophageal thickening and CT of the Abd/Pel showed possible liver mass. EGD was attempted but aborted due to an upper esophageal stricture. He is currently stable with no complaints. Denies any f/c, n/v/d, SOB, CP, dysphagia, rectal bleeding, or abdominal pain. PMH: see above PSH: Perforated ulcer 40 years ago ALL: NKDA Soc: social alcohol drinker, smokes cigarettes, denies ilicit drug usage Review of Systems - Constitutional Constitutional: Weight Loss, Weakness. absent: Chills, Fever - EENT Eyes: absent: Blurred Vision, Change in Vision Ears: absent: Ear Discharge, Ear Pain Nose/Mouth/Throat: Dysphagia, Sore Throat. absent: Hoarsness, Odynophagia, Throat Swelling, Neck Pain, Neck Mass - Cardiovascular Cardiovascular: absent: Chest Pain, Dyspnea - Respiratory Respiratory: Cough, Chest Congestion, Change in Mucous Color. absent: Dyspnea - Gastrointestinal Gastrointestinal: absent: Abdominal Pain, Diarrhea, Nausea, Vomiting - Genitourinary Genitourinary: absent: Difficulty Urinating, Dysuria - Musculoskeletal Musculoskeletal: absent: Back Pain, Neck Pain - Integumentary Integumentary: absent: Bleeding Lesions, Changing Lesions - Neurological Neurological: absent: Confusion, Dizziness - Psychiatric Psychiatric: absent: Anxiety, Depression Past Patient History - Tetanus Immunizations Tetanus Immunization: >10 years Ago - Past Medical History & Family History Past Medical History?: Yes Past Family History: Reviewed and not pertinent - Past Social History Smoking Status: Former Smoker Chewing Tobacco Use: No Cigar Use: No Drugs: Denies Home Situation {Lives}: Alone - CARDIAC Hx Cardiac Disorders: Yes - PULMONARY Hx Chronic Obstructive Pulmonary Disease (COPD): Yes - NEUROLOGICAL Hx Neurological Disorder: No Hx Dizziness: Yes - HEENT Hx HEENT Problems: No Hx Sinusitis: Yes - RENAL Hx Chronic Kidney Disease: No - ENDOCRINE/METABOLIC Hx Endocrine Disorders: No - HEMATOLOGICAL/ONCOLOGICAL Hx Blood Disorders: No - INTEGUMENTARY Hx Dermatological Problems: No - MUSCULOSKELETAL/RHEUMATOLOGICAL Hx Arthritis: Yes - GASTROINTESTINAL Hx Gastrointestinal Disorders: Yes Hx Constipation: Yes - GENITOURINARY/GYNECOLOGICAL Hx Genitourinary Disorders: No - PSYCHIATRIC Hx Psychophysiologic Disorder: No Hx Substance Use: No - SURGICAL HISTORY Hx Surgeries: No - ANESTHESIA Hx Anesthesia: No Hx Anesthesia Reactions: No Hx Malignant Hyperthermia: No Has any member of the family had a problem w/ anesthesia?: No Meds Allergies/Adverse Reactions: Allergies Allergy/AdvReac Type Severity Reaction Status Date / Time No Known Allergies Allergy Unverified 12/21/17 18:48 - Medications Medications: Current Medications Albuterol Sulfate (Albuterol 0.083% Inhal Martha (2.5 Mg/3 Ml) Ud) 2.5 mg INH RQ6 [facility] Last Admin: 12/25/17 19:21 Dose: 2.5 mg Ceftriaxone Sodium 1 gm/ (Sodium Chloride) 100 mls @ 100 mls/hr IVPB DAILY [facility] PRN Reason: Protocol Last Admin: 12/25/17 10:12 Dose: 100 mls/hr Potassium Chloride/Dextrose/Sod Cl (Potassium Chl 20 Meq In D5-1/2ns) 1,000 mls @ 75 mls/hr IV .[id number] [facility] Last Admin: 12/25/17 16:16 Dose: Not Given Montelukast Sodium (Singulair) 10 mg PO HS [facility] Last Admin: 12/24/17 21:23 Dose: 10 mg Nystatin (Nystatin Oral Susp) 5 ml PO QID [facility] Last Admin: 12/25/17 19:16 Dose: Not Given Potassium Phos/Sodium Phos (Neutra-Phos) 1 pkt PO TID [facility] Stop: 12/27/17 23:59 Last Admin: 12/25/17 17:50 Dose: Not Given Physical Exam - Constitutional Appears: No Acute Distress, Cachectic - Head Exam Head Exam: ATRAUMATIC, NORMAL INSPECTION, NORMOCEPHALIC - ENT Exam ENT Exam: Mucous Membranes Dry - Neck Exam Neck exam: Negative for: Tenderness - Respiratory Exam Respiratory Exam: Clear to Auscultation Bilateral, NORMAL BREATHING PATTERN - Cardiovascular Exam Cardiovascular Exam: REGULAR RHYTHM, +S1, +S2 - GI/Abdominal Exam GI & Abdominal Exam: Normal Bowel Sounds, Soft. absent: Tenderness - Rectal Exam Rectal Exam: Deferred - Neurological Exam Neurological exam: Alert - Psychiatric Exam Psychiatric exam: Normal Affect, Normal Mood - Skin Skin Exam: Dry, Intact, Normal Color, Warm Results - Vital Signs Recent Vital Signs: Last Vital Signs Temp 98.3 F 12/25/17 16:00 Pulse 83 12/25/17 16:00 Resp 20 12/25/17 16:00 BP 110/78 12/25/17 16:00 Pulse Ox 96 12/25/17 16:00 - Labs Result Diagrams: 12/25/17 07:20 12/25/17 07:20 Labs: Laboratory Results - last 24 hr 12/23/17 12/25/17 12/25/17 11:27 05:19 07:20 WBC 8.1 RBC 3.96 L Hgb 11.5 L Hct 34.0 L MCV 85.9 MCH 29.0 MCHC 33.8 RDW 14.3 Plt Count 174 MPV 9.4 Neut % (Auto) 92.2 H Lymph % (Auto) 3.8 L Gonzales % (Auto) 2.9 Eos % (Auto) 1.0 Baso % (Auto) 0.1 Neut # (Auto) 7.4 H Lymph # (Auto) 0.3 L Gonzales # (Auto) 0.2 Eos # (Auto) 0.1 Baso # (Auto) 0.0 Neutrophils % (Manual) 97 H Lymphocytes % (Manual) 2 L Monocytes % (Manual) 1 Platelet Estimate Normal RBC Morphology Normal ESR 47 H Sodium Potassium Chloride Carbon Dioxide Anion Gap BUN Creatinine Est GFR ( Amer) Est GFR (Non-Af Amer) Random Glucose Calcium Phosphorus Magnesium Total Bilirubin AST ALT Alkaline Phosphatase Total Protein Albumin Globulin Albumin/Globulin Ratio Serum Immunofixation Not detected Rheumatoid Arth Interp Complement C3 Complement C4 Ur L.pneumophila Ag Negative 12/25/17 12/25/17 12/25/17 07:20 07:20 07:20 WBC RBC Hgb Hct MCV MCH MCHC RDW Plt Count MPV Neut % (Auto) Lymph % (Auto) Gonzales % (Auto) Eos % (Auto) Baso % (Auto) Neut # (Auto) Lymph # (Auto) Gonzales # (Auto) Eos # (Auto) Baso # (Auto) Neutrophils % (Manual) Lymphocytes % (Manual) Monocytes % (Manual) Platelet Estimate RBC Morphology ESR Sodium 141 Potassium 4.1 Chloride 106 Carbon Dioxide 27 Anion Gap 12 BUN 11 Creatinine 0.7 L Est GFR ( Amer) > 60 Est GFR (Non-Af Amer) > 60 Random Glucose 83 Calcium 8.9 Phosphorus 2.3 L Magnesium 2.1 Total Bilirubin 0.5 AST 16 L ALT 19 L Alkaline Phosphatase 71 Total Protein 6.0 L Albumin 2.7 L Globulin 3.3 Albumin/Globulin Ratio 0.8 L Serum Immunofixation Rheumatoid Arth Interp Negative Complement C3 90.0 Complement C4 32.1 Ur L.pneumophila Ag Assessment & Plan - Assessment and Plan (Free Text) Assessment: 87M w/ possible esophageal mass/malignancy 2/2 weakness, weight loss, early satiety Plan: Continue following GI recommendations - pending colonoscopy, barium swallow, evaluation of liver mass Investigate etiology of esophageal stricture to determine further work up Will f/u with ENT regarding any type of surgical intervention Further recs per Dr. Lili Christina PGY1
--- NOTE | 2017-12-25 22:15 | CP.PCM.PN ---
Subjective - Date & Time of Evaluation Date of Evaluation: 12/25/17 Time of Evaluation: 15:10 - Subjective Subjective: Patient has cough after infestion of food or liquids. He was evaluated by Dr Llanos who feels patient has some form of esophogeal stricture. Consult requested with Dr Pearson. Objective - Vital Signs/Intake and Output Vital Signs (last 24 hours): Temp Pulse Resp BP Pulse Ox 98.3 F 83 20 110/78 96 12/25/17 16:00 12/25/17 16:00 12/25/17 16:00 12/25/17 16:00 12/25/17 16:00 Intake and Output: 12/25/17 12/26/17 18:59 06:59 Intake Total 525 Balance 525 - Medications Medications: Current Medications Albuterol Sulfate (Albuterol 0.083% Inhal Martha (2.5 Mg/3 Ml) Ud) 2.5 mg INH RQ6 [facility] Last Admin: 12/25/17 19:21 Dose: 2.5 mg Ceftriaxone Sodium 1 gm/ (Sodium Chloride) 100 mls @ 100 mls/hr IVPB DAILY [facility] PRN Reason: Protocol Last Admin: 12/25/17 10:12 Dose: 100 mls/hr Potassium Chloride/Dextrose/Sod Cl (Potassium Chl 20 Meq In D5-1/2ns) 1,000 mls @ 75 mls/hr IV .[id number] [facility] Last Admin: 12/25/17 16:16 Dose: Not Given Montelukast Sodium (Singulair) 10 mg PO HS [facility] Last Admin: 12/24/17 21:23 Dose: 10 mg Nystatin (Nystatin Oral Susp) 5 ml PO QID [facility] Last Admin: 12/25/17 19:16 Dose: Not Given Potassium Phos/Sodium Phos (Neutra-Phos) 1 pkt PO TID [facility] Stop: 12/27/17 23:59 Last Admin: 12/25/17 17:50 Dose: Not Given - Labs Labs: 12/25/17 07:20 12/25/17 07:20 PT 14.2 SECONDS (9.7-12.2) H 12/21/17 20:23 INR 1.3 12/21/17 20:23 APTT 36 SECONDS (21-34) H 12/21/17 20:23 - Constitutional Appears: Chronically Ill - Head Exam Head Exam: NORMOCEPHALIC - Eye Exam Eye Exam: Normal appearance Pupil Exam: NORMAL ACCOMODATION - ENT Exam ENT Exam: Normal Exam - Neck Exam Neck Exam: Normal Inspection - Respiratory Exam Respiratory Exam: Decreased Breath Sounds - Cardiovascular Exam Cardiovascular Exam: REGULAR RHYTHM - GI/Abdominal Exam GI & Abdominal Exam: Normal Bowel Sounds - Rectal Exam Rectal Exam: Deferred - Exam Exam: NORMAL INSPECTION - Extremities Exam Extremities Exam: Normal Inspection - Back Exam Back Exam: NORMAL INSPECTION - Neurological Exam Neurological Exam: Awake - Psychiatric Exam Psychiatric exam: Depressed - Skin Skin Exam: Dry Assessment and Plan (1) Acute pneumonia Status: Acute (2) Cachexia Status: Acute (3) Emphysema lung Status: Acute (4) Hypernatremia Status: Resolved (5) Prerenal azotemia Status: Resolved (6) Severe dehydration Status: Acute
[2017-12-26] MEDS: Albuterol 0.083% Inhal Sol (2.5 mg/3 mL) UD INH SCH ×4 (02:37→20:12)
[2017-12-26] MEDS: Potassium Ch 20mEq in D5-1/2NS 1,000 ML IV SCH ×2 (05:00→09:32)
--- NOTE | 2017-12-26 07:22 | CP.PCM.PN ---
Subjective - Date & Time of Evaluation Date of Evaluation: 12/26/17 Time of Evaluation: :18 - Subjective Subjective: Cardiothoracic Surgery Progress Note for Dr. Pearson 87M seen and evaluated this morning at bedside. No acute events overnight. Patient has been refusing NGT and when asked about possible PEG tube, patient refused that as well. He is tolerating liquids but complains of dysphagia with liquids. No BM or passing flatus. Admits to weakness. Needs help getting out of bed. Denies f/c, n/v/d, SOB, CP, or urinary symptoms. Objective - Vital Signs/Intake and Output Vital Signs (last 24 hours): Temp Pulse Resp BP Pulse Ox 97.9 F 117 H 20 108/70 95 12/26/17 00:00 12/26/17 00:00 12/26/17 00:00 12/26/17 00:00 12/26/17 00:00 Intake and Output: 12/26/17 12/26/17 06:59 18:59 Intake Total 1270 Output Total 1 Balance 1269 - Medications Medications: Current Medications Albuterol Sulfate (Albuterol 0.083% Inhal Martha (2.5 Mg/3 Ml) Ud) 2.5 mg INH RQ6 [facility] Last Admin: 12/26/17 02:37 Dose: 2.5 mg Ceftriaxone Sodium 1 gm/ (Sodium Chloride) 100 mls @ 100 mls/hr IVPB DAILY [facility] PRN Reason: Protocol Last Admin: 12/25/17 10:12 Dose: 100 mls/hr Potassium Chloride/Dextrose/Sod Cl (Potassium Chl 20 Meq In D5-1/2ns) 1,000 mls @ 75 mls/hr IV .[id number] [facility] Last Admin: 12/25/17 16:16 Dose: Not Given Montelukast Sodium (Singulair) 10 mg PO HS [facility] Last Admin: 12/25/17 22:35 Dose: 10 mg Nystatin (Nystatin Oral Susp) 5 ml PO QID [facility] Last Admin: 12/25/17 22:35 Dose: 5 ml Potassium Phos/Sodium Phos (Neutra-Phos) 1 pkt PO TID [facility] Stop: 12/27/17 23:59 Last Admin: 12/25/17 17:50 Dose: Not Given - Labs Labs: 12/25/17 07:20 12/25/17 07:20 PT 14.2 SECONDS (9.7-12.2) H 12/21/17 20:23 INR 1.3 12/21/17 20:23 APTT 36 SECONDS (21-34) H 12/21/17 20:23 - Constitutional Appears: Non-toxic, No Acute Distress, Cachectic - Head Exam Head Exam: ATRAUMATIC, NORMAL INSPECTION, NORMOCEPHALIC - Respiratory Exam Respiratory Exam: Clear to Ausculation Bilateral, NORMAL BREATHING PATTERN - Cardiovascular Exam Cardiovascular Exam: REGULAR RHYTHM, +S1, +S2. absent: Murmur - GI/Abdominal Exam GI & Abdominal Exam: Soft, Normal Bowel Sounds. 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 Lili Christina PGY1
--- NOTE | 2017-12-26 08:16 | CP.PCM.PN ---
Subjective - Date & Time of Evaluation Date of Evaluation: 12/26/17 Time of Evaluation: 08:13 - Subjective Subjective: GI Fellow PGY4, progress note. No complaints this AM. No overnight events. Unable to pass NGT, patient very intolerant of procedure after only a few cm passed in the nose. Admits passing gas. Denies abdominal pain. Refusing enema. 12pt ROS completed and negative except for above. Objective - Vital Signs/Intake and Output Vital Signs (last 24 hours): Temp Pulse Resp BP Pulse Ox 97.9 F 117 H 20 108/70 95 12/26/17 00:00 12/26/17 00:00 12/26/17 00:00 12/26/17 00:00 12/26/17 00:00 Intake and Output: 12/26/17 12/26/17 06:59 18:59 Intake Total 1270 Output Total 1 Balance 1269 - Medications Medications: Current Medications Albuterol Sulfate (Albuterol 0.083% Inhal Martha (2.5 Mg/3 Ml) Ud) 2.5 mg INH RQ6 [facility] Last Admin: 12/26/17 07:40 Dose: 2.5 mg Ceftriaxone Sodium 1 gm/ (Sodium Chloride) 100 mls @ 100 mls/hr IVPB DAILY [facility] PRN Reason: Protocol Last Admin: 12/25/17 10:12 Dose: 100 mls/hr Potassium Chloride/Dextrose/Sod Cl (Potassium Chl 20 Meq In D5-1/2ns) 1,000 mls @ 75 mls/hr IV .[id number] [facility] Last Admin: 12/25/17 16:16 Dose: Not Given Montelukast Sodium (Singulair) 10 mg PO HS [facility] Last Admin: 12/25/17 22:35 Dose: 10 mg Nystatin (Nystatin Oral Susp) 5 ml PO QID [facility] Last Admin: 12/25/17 22:35 Dose: 5 ml Potassium Phos/Sodium Phos (Neutra-Phos) 1 pkt PO TID [facility] Stop: 12/27/17 23:59 Last Admin: 12/25/17 17:50 Dose: Not Given - Labs Labs: 12/25/17 07:20 12/25/17 07:20 PT 14.2 SECONDS (9.7-12.2) H 12/21/17 20:23 INR 1.3 12/21/17 20:23 APTT 36 SECONDS (21-34) H 12/21/17 20:23 - Constitutional Appears: Non-toxic, No Acute Distress, Cachectic, Chronically Ill - Head Exam Head Exam: ATRAUMATIC - Eye Exam Eye Exam: Normal appearance - ENT Exam ENT Exam: Mucous Membranes Moist, Normal Exam - Respiratory Exam Respiratory Exam: Rhonchi, NORMAL BREATHING PATTERN. absent: Wheezes Additional comments: Crackling cough - Cardiovascular Exam Cardiovascular Exam: REGULAR RHYTHM, +S1, +S2 - GI/Abdominal Exam GI & Abdominal Exam: Soft, Normal Bowel Sounds. absent: Tenderness - Extremities Exam Extremities Exam: Normal Inspection - Neurological Exam Neurological Exam: Alert, Awake, CN II-XII Intact - Psychiatric Exam Psychiatric exam: Flat Affect, Normal Mood - Skin Skin Exam: Dry, Normal Color Assessment and Plan - Assessment and Plan (Free Text) Assessment: 87M with history of COPD presenting with RLL PNA and progressive weightloss. #Weight loss - likely multifactorial (Esophageal stricture, ?underlying malignancy, median arcuate ligament syndrome?) #Esophageal stricture #Severe Malnutrition #RLL PNA, aspiration #Celiac artery stenosis #Fecal impaction #Liver mass, unspecified #COPD #Thrush Plan: -Afeb, HDS -Continue supportive care -CT imaging reviewed, noted diffuse thickening of distal esophagus. -CT abd/pelv noted for ?fecal impaction with dilated rectum and thickened wall. Also, ?arcuate ligament syndrome. Liver masses noted. No obvious pancreatic mass. -EGD 12/24 aborted due to significant upper esophageal stricture -Flex laryngoscopy 12/25/17 did not show obvious mass, but secretion pooling observed. -Concern for malignancy is high. CEA mildly elevated. [id number]. -Recommend Vascular surgery consult for celiac stenosis. -Barium swallow eval today. -Nystatin swish and spit for thrush -Patient is unable to tolerate PO diet and so far unable to place NG tube. -Possibility of PEG tube in the future if needed, defer to primary team on guiding discussions. This would likely have to be surgical as we cannot traverse the esophageal stricture. -Patient is resistant to treatment and son is adamant about all treatments pursued. -Overall poor prognosis
[2017-12-26 08:33] LABS: ALB/GLOB RATIO 0.7 (1.0-2.1); ALBUMIN 2.6 g/dL (3.5-5.0); ALT/SGPT 24 U/L (21-72); AST/SGOT 19 U/L (17-59); BLOOD UREA NITROGEN 11 mg/dL (9-20); CALCIUM 8.9 mg/dl (8.6-10.4); GFR AFRICAN-AMERICAN > 60; GFR NON-AFRICAN AMERICAN > 60
[2017-12-26] MEDS: Nystatin 100,000 Units/ml Oral Susp 5 ml UD PO SCH ×4 (10:30→21:08)
[2017-12-26] MEDS: Potassium & Sodium Phosphate PO SCH ×3 (10:30→17:50)
--- NOTE | 2017-12-26 11:47 | PROCN ---
DATE OF PROCEDURE: 12/25/2017 DESCRIPTION OF PROCEDURE: The patient was placed in seated position. Nose was decongested using Afrin. Flexible laryngoscope was inserted into the nasal cavity, passed through the nasopharynx, oropharynx and hypopharynx. The pharyngeal pan, base of tongue, vallecula, epiglottis, AE folds, false cords, true cords, arytenoids were brought into view, pulling of secretion was noted posteriorly. No other masses or lesions were noted. No erythema was noted. The scope was removed. The patient tolerated the procedure well. The patient was noted to have an EGD attempted; however, the scope could not get passed the level of the cricopharyngeus secondary to possible stenosis. At this point, the patient is coughing every time he takes any kind of p.o. There is chance that he may be aspirating. My recommendations is a cardiothoracic consult to check to see if we can do direct esophagoscopy and address any kind of stenosis possibly that he may have. If no one in the hospital can do that, then he needs an open G-tube in order to get nutrition and have his dysphagia addressed as an outpatient by Cardiothoracic Surgery. He has a CT neck pending to make sure there is no masses or lesions in the neck causing this problem. Anjel Llanos MD [facility]
[2017-12-26 11:53] LABS: BASO % 0.1 % (0.0-2.0); EOS % 0.1 % (0.0-4.0); LYMPH # 0.3 K/uL (1.0-4.3); LYMPH % 1.9 % (20.0-40.0); MEAN CELL VOLUME 86.4 fL (80.0-94.0); MEAN CORPUSCULAR HEMOGLOBIN 28.6 pg (27.0-31.0); MEAN CORPUSCULAR HGB CONC 33.1 g/dL (33.0-37.0); MONO # 0.6 K/uL (0.0-0.8); MONO % 3.1 % (0.0-10.0); NEUT # 17.1 K/uL (1.8-7.0); NEUT % 94.8 % (50.0-75.0); PLATELET COUNT 185 K/uL (130-400); RBC 4.18 Mil/uL (4.40-5.90); RED CELL DISTRIBUTION WIDTH 14.3 % (11.5-14.5)
[2017-12-26] MEDS ORDERED: Barium Sulfate for Susp 96% w/w 176g Bottle PR ONE (12:18)
[2017-12-26 12:27] LABS: ANISOCYTOSIS SLIGHT; BANDS 8 % (0-2); LYMPHOCYTE 1 % (20-40); MONOCYTE 2 % (0-10); NEUTROPHIL 89 % (50-75); PLATELET ESTIMATE NORMAL (NORMAL); POIKILOCYTOSIS SLIGHT; TOTAL CELLS COUNTED 100
[2017-12-26 12:34] LABS: FREE T4 1.38 ng/dL (0.78-2.19)
--- NOTE | 2017-12-26 13:08 | CP.PCM.PN ---
Subjective - Date & Time of Evaluation Date of Evaluation: 12/26/17 Time of Evaluation: 13:05 - Subjective Subjective: Went for barium swallow- patient intolerant of procedure Still eats poorly Lytes improved with IV fluids Phos repleted HTN low- maintained with fluids Objective - Vital Signs/Intake and Output Vital Signs (last 24 hours): Temp Pulse Resp BP Pulse Ox 100.2 F H 89 20 86/62 L 100 12/26/17 08:32 12/26/17 08:32 12/26/17 08:32 12/26/17 08:32 12/26/17 08:32 Intake and Output: 12/26/17 12/26/17 06:59 18:59 Intake Total 1270 Output Total 1 Balance 1269 - Medications Medications: Current Medications Albuterol Sulfate (Albuterol 0.083% Inhal Martha (2.5 Mg/3 Ml) Ud) 2.5 mg INH RQ6 [facility] Last Admin: 12/26/17 07:40 Dose: 2.5 mg Ceftriaxone Sodium 1 gm/ (Sodium Chloride) 100 mls @ 100 mls/hr IVPB DAILY [facility] PRN Reason: Protocol Last Admin: 12/26/17 10:30 Dose: 100 mls/hr Potassium Chloride/Dextrose/Sod Cl (Potassium Chl 20 Meq In D5-1/2ns) 1,000 mls @ 75 mls/hr IV .[id number] [facility] Last Admin: 12/26/17 09:32 Dose: 75 mls/hr Montelukast Sodium (Singulair) 10 mg PO HS [facility] Last Admin: 12/25/17 22:35 Dose: 10 mg Nystatin (Nystatin Oral Susp) 5 ml PO QID [facility] Last Admin: 12/26/17 10:30 Dose: 5 ml Potassium Phos/Sodium Phos (Neutra-Phos) 1 pkt PO TID [facility] Stop: 12/27/17 23:59 Last Admin: 12/26/17 10:30 Dose: 1 pkt - Labs Labs: 12/26/17 11:46 12/26/17 06:36 PT 14.2 SECONDS (9.7-12.2) H 12/21/17 20:23 INR 1.3 12/21/17 20:23 APTT 36 SECONDS (21-34) H 12/21/17 20:23 - Constitutional Appears: No Acute Distress, Cachectic, Chronically Ill - Head Exam Head Exam: ATRAUMATIC, NORMAL INSPECTION - Eye Exam Eye Exam: EOMI, Normal appearance - Neck Exam Neck Exam: Normal Inspection. absent: Tenderness - Respiratory Exam Respiratory Exam: Clear to Ausculation Bilateral, NORMAL BREATHING PATTERN - Cardiovascular Exam Cardiovascular Exam: REGULAR RHYTHM, +S1 - GI/Abdominal Exam GI & Abdominal Exam: Soft. absent: Tenderness - Extremities Exam Extremities Exam: Normal Inspection. absent: Tenderness - Neurological Exam Neurological Exam: Awake, CN II-XII Intact - Skin Skin Exam: Dry, Warm Assessment and Plan (1) Acute pneumonia Status: Acute (2) Emphysema lung Status: Acute (3) Prerenal azotemia Status: Resolved (4) Hypernatremia Status: Resolved (5) Pneumonia Status: Acute (6) Severe dehydration Status: Acute - Assessment and Plan (Free Text) Plan: treat pneumonia Same IV fluids periodically follow up lytes GI workup as allowed
--- NOTE | 2017-12-26 13:49 | RAD ---
Date of service: 12/26/2017 PROCEDURE: Esophagram HISTORY: Esophageal stricture COMPARISON: Not available TECHNIQUE: A front desk worker radiograph of the chest demonstrates extensive bilateral pulmonary opacities. There is a localized air-filled structure just beneath the aortic arch measuring roughly 2.5 cm in diameter. This corresponds to a distended portion of the esophagus seen on CT chest examination of 12/22/2017. FINDINGS: An attempt at esophagography was unsuccessful. The patient was unable to drank barium suspension through a straw for the examination. An esophagram could not be performed. IMPRESSION: Unsuccessful attempt at esophagram.
--- NOTE | 2017-12-26 14:11 | CP.PCM.PN ---
Subjective - Date & Time of Evaluation Date of Evaluation: 12/26/17 Time of Evaluation: 14:04 - Subjective Subjective: Progress note-Thoracic surgery consultation: Reason for consultation": Dysphagia(food sticking to upper chest) and mirta loss (?) Requested by Progress notes and imging studies reviewed(ct chest without contrast, ct abd and pelvis). I have discussed with his son from [place] in terms of w/u plan. 87 yo male smoker admitted with hx of recent wt loss associated with dysphagia. He is maasively emaciated with severe temporal wasting and is mostly skin. However, he is alert and able to give hx of his illness. W/U so far: ct of abd and pelvis: some live nodules. Ba swallow this am: unstatisfactory-aborted study due to inability to swallow. Ct of head and neck: basically negitve other than some layering of debis in the hypophaynx. ct of chset: Esophageal lesion at tracheal bifuracation area with dialted proximal esophagus,-poor study due to lack of conibtrast materials. Endoscopy by gi: no able to negotiate proximal stenosis at 25 cm. Ca-19.9 and CEA levels- elevated. 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 Repeat ct of chest with contrast material(IV+Oral)-Have the pt swallow before scheduled study on the floor(d/w Iva). Repeat enodscopy with pediatirc scope after dilitation and bx of masss. TPN Will consider open feeding gastrostomy tube. Staging w/u including PET. d/w Dr Colbert and Iva. Objective - Vital Signs/Intake and Output Vital Signs (last 24 hours): Temp Pulse Resp BP Pulse Ox 100.2 F H 89 20 86/62 L 100 12/26/17 08:32 12/26/17 08:32 12/26/17 08:32 12/26/17 08:32 12/26/17 08:32 Intake and Output: 12/26/17 12/26/17 06:59 18:59 Intake Total 1270 Output Total 1 Balance 1269 - Medications Medications: Current Medications Albuterol Sulfate (Albuterol 0.083% Inhal Martha (2.5 Mg/3 Ml) Ud) 2.5 mg INH RQ6 GAURANG Last Admin: 12/26/17 13:31 Dose: Not Given Ceftriaxone Sodium 1 gm/ (Sodium Chloride) 100 mls @ 100 mls/hr IVPB DAILY [facility]ANG PRN Reason: Protocol Last Admin: 12/26/17 10:30 Dose: 100 mls/hr Potassium Chloride/Dextrose/Sod Cl (Potassium Chl 20 Meq In D5-1/2ns) 1,000 mls @ 75 mls/hr IV .[id number] [facility]ANG Last Admin: 12/26/17 09:32 Dose: 75 mls/hr Montelukast Sodium (Singulair) 10 mg PO HS [facility] Last Admin: 12/25/17 22:35 Dose: 10 mg Nystatin (Nystatin Oral Susp) 5 ml PO QID [facility]ANG Last Admin: 12/26/17 10:30 Dose: 5 ml Potassium Phos/Sodium Phos (Neutra-Phos) 1 pkt PO TID [facility] Stop: 12/27/17 23:59 Last Admin: 12/26/17 10:30 Dose: 1 pkt - Labs Labs: 12/26/17 11:46 12/26/17 06:36 PT 14.2 SECONDS (9.7-12.2) H 12/21/17 20:23 INR 1.3 12/21/17 20:23 APTT 36 SECONDS (21-34) H 12/21/17 20:23
--- NOTE | 2017-12-26 15:37 | RAD ---
Date of service: 12/26/2017 HISTORY: verify right PICC COMPARISON: Chest radiograph dated 12/21/2017. FINDINGS: LUNGS: New in left perihilar and left basilar infiltrates. Stable right midlung and right basilar patchy opacities. Diffuse emphysematous changes. PLEURA: No significant pleural effusion identified, no pneumothorax apparent. CARDIOVASCULAR: Normal. OSSEOUS STRUCTURES: Unchanged. VISUALIZED UPPER ABDOMEN: Normal. OTHER FINDINGS: Right upper extremity PICC with catheter tip in the SVC. IMPRESSION: New right upper extremity PICC in satisfactory position. New left perihilar and left basilar infiltrates. No other significant interval change.
[2017-12-26] MEDS ORDERED: Vancomycin 500mg/D5W 100 ml 500 MG/100 ML BAG IVPB SCH (16:15)
--- NOTE | 2017-12-26 16:17 | CP.PCM.PN ---
Subjective - Date & Time of Evaluation Date of Evaluation: 12/26/17 Time of Evaluation: 08:00 - Subjective Subjective: events noted discussed on rounds Objective - Vital Signs/Intake and Output Vital Signs (last 24 hours): Temp Pulse Resp BP Pulse Ox 100.2 F H 89 20 86/62 L 100 12/26/17 08:32 12/26/17 08:32 12/26/17 08:32 12/26/17 08:32 12/26/17 08:32 Intake and Output: 12/26/17 12/26/17 06:59 18:59 Intake Total 1270 Output Total 1 Balance 1269 - Medications Medications: Current Medications Albuterol Sulfate (Albuterol 0.083% Inhal Martha (2.5 Mg/3 Ml) Ud) 2.5 mg INH RQ6 [facility]ANG Last Admin: 12/26/17 13:31 Dose: Not Given Potassium Chloride/Dextrose/Sod Cl (Potassium Chl 20 Meq In D5-1/2ns) 1,000 mls @ 75 mls/hr IV .[id number] [facility] Last Admin: 12/26/17 09:32 Dose: 75 mls/hr Piperacillin Sod/Tazobactam (Sod 3.375 gm/ Sodium Chloride) 100 mls @ 200 mls/ hr IVPB Q8H [facility] PRN Reason: Protocol Vancomycin HCl/Dextrose (Vancocin) 500 mg in 100 mls @ 100 mls/hr IVPB Q12H [facility] PRN Reason: Protocol Stop: 12/31/17 16:16 Montelukast Sodium (Singulair) 10 mg PO HS [facility] Last Admin: 12/25/17 22:35 Dose: 10 mg Nystatin (Nystatin Oral Susp) 5 ml PO QID [facility] Last Admin: 12/26/17 14:24 Dose: 5 ml Potassium Phos/Sodium Phos (Neutra-Phos) 1 pkt PO TID [facility] Stop: 12/27/17 23:59 Last Admin: 12/26/17 14:25 Dose: 1 pkt - Labs Labs: 12/26/17 11:46 12/26/17 06:36 PT 14.2 SECONDS (9.7-12.2) H 12/21/17 20:23 INR 1.3 12/21/17 20:23 APTT 36 SECONDS (21-34) H 12/21/17 20:23 - Constitutional Appears: Non-toxic, Chronically Ill - Head Exam Head Exam: NORMOCEPHALIC - Eye Exam Eye Exam: PERRL - ENT Exam ENT Exam: Normal External Ear Exam - Neck Exam Neck Exam: absent: Lymphadenopathy - Respiratory Exam Respiratory Exam: Decreased Breath Sounds - Cardiovascular Exam Cardiovascular Exam: REGULAR RHYTHM - GI/Abdominal Exam GI & Abdominal Exam: Distended, Soft Assessment and Plan (1) Acute pneumonia Status: Acute (2) Bullous emphysema Status: Acute (3) Cachexia Status: Acute (4) Emphysema lung Status: Acute (5) Hypernatremia Status: Resolved (6) Pneumonia Status: Acute (7) Prerenal azotemia Status: Resolved (8) Severe dehydration Status: Acute - Assessment and Plan (Free Text) Assessment: ct of chset: Esophageal lesion at tracheal bifuracation area with dialted proximal esophagus,-poor study due to lack of conibtrast materials. Endoscopy by gi: no able to negotiate proximal stenosis at 25 cm. Ca-19.9 and CEA levels- elevated. 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 renew iv rx
--- NOTE | 2017-12-26 16:25 | CP.PCM.PN ---
Subjective - Date & Time of Evaluation Date of Evaluation: 12/26/17 Time of Evaluation: 08:00 - Subjective Subjective: fever tachy congested iv antibiotics changed iv fluids increased sen by surgery overall poor prognosis Objective - Vital Signs/Intake and Output Vital Signs (last 24 hours): Temp Pulse Resp BP Pulse Ox 100.2 F H 89 20 86/62 L 100 12/26/17 08:32 12/26/17 08:32 12/26/17 08:32 12/26/17 08:32 12/26/17 08:32 Intake and Output: 12/26/17 12/26/17 06:59 18:59 Intake Total 1270 Output Total 1 Balance 1269 - Medications Medications: Current Medications Albuterol Sulfate (Albuterol 0.083% Inhal Martha (2.5 Mg/3 Ml) Ud) 2.5 mg INH RQ6 GAURANG Last Admin: 12/26/17 13:31 Dose: Not Given Potassium Chloride/Dextrose/Sod Cl (Potassium Chl 20 Meq In D5-1/2ns) 1,000 mls @ 75 mls/hr IV .[id number] [facility]ANG Last Admin: 12/26/17 09:32 Dose: 75 mls/hr Piperacillin Sod/Tazobactam (Sod 3.375 gm/ Sodium Chloride) 100 mls @ 200 mls/ hr IVPB Q8H [facility]ANG PRN Reason: Protocol Vancomycin HCl/Dextrose (Vancocin) 500 mg in 100 mls @ 100 mls/hr IVPB Q12H [facility] PRN Reason: Protocol Stop: 12/31/17 16:16 Montelukast Sodium (Singulair) 10 mg PO HS [facility] Last Admin: 12/25/17 22:35 Dose: 10 mg Nystatin (Nystatin Oral Susp) 5 ml PO QID [facility] Last Admin: 12/26/17 14:24 Dose: 5 ml Potassium Phos/Sodium Phos (Neutra-Phos) 1 pkt PO TID [facility] Stop: 12/27/17 23:59 Last Admin: 12/26/17 14:25 Dose: 1 pkt - Labs Labs: 12/26/17 11:46 12/26/17 06:36 PT 14.2 SECONDS (9.7-12.2) H 12/21/17 20:23 INR 1.3 12/21/17 20:23 APTT 36 SECONDS (21-34) H 12/21/17 20:23 Assessment and Plan (1) Acute pneumonia Status: Acute (2) Bullous emphysema Status: Acute (3) Cachexia Status: Acute (4) Emphysema lung Status: Acute (5) Hypernatremia Status: Resolved (6) Pneumonia Status: Acute (7) Prerenal azotemia Status: Resolved (8) Severe dehydration Status: Acute
--- NOTE | 2017-12-26 16:48 | RAD ---
Date of service: 12/26/2017 HISTORY: febrile r/o aspiration pneumonia COMPARISON: Chest radiograph performed approximately a 1.5 hours prior. FINDINGS: LUNGS: Stable bilateral perihilar and bibasilar opacities. Diffuse, extensive emphysematous changes with bullous changes in the upper/mid lungs. PLEURA: No significant pleural effusion identified, no pneumothorax apparent. CARDIOVASCULAR: Cardiomediastinal silhouette unchanged. OSSEOUS STRUCTURES: Unchanged. VISUALIZED UPPER ABDOMEN: Normal. OTHER FINDINGS: Right upper extremity PICC, unchanged. IMPRESSION: No active disease.
[2017-12-26] MEDS: Piperacillin/Tazobact 3.375 GM in Sodium Chloride 100 ML IVPB SCH (17:52)
[2017-12-26] MEDS: Vancomycin 1 gm/NS 200 ml 1 GM/200 ML BAG IVPB SCH (18:41)
[2017-12-26] MEDS ORDERED: Iohexol 240 (50 ml) PO ONE (18:45)
[2017-12-26] MEDS ORDERED: Iodixanol 320 mg/ml 150 ml Bottle IV ONE (18:46)
--- NOTE | 2017-12-26 21:47 | PN ---
DATE: 12/26/2017 SUBJECTIVE: The patient is alert and oriented. He is afebrile. PHYSICAL EXAMINATION: VITAL SIGNS: He was afebrile in the morning with a temperature of 98 and now axillary temperature is 102 Fahrenheit. In the morning, temperature was taken orally. Pulse 88, respiration 20, blood pressure 108/70. Hemoglobin oxygen saturation of 100%. GENERAL: The patient is not in acute distress. HEART: Regular with no gallop rhythm. LUNGS: Diminished breath sounds over the lung bases. Rhonchi decreased. ABDOMEN: Soft. EXTREMITIES: Legs, no edema. LABORATORY DATA: White count is 18,000, hemoglobin 12, and platelet count 185,000; neutrophils 95%. Serum sodium 141, potassium 4, chloride 105, CO2 of 27, BUN 11, and creatinine 0.9. Serum albumin is 2.6, total protein is 6.1. Complement C3 is 90, C4 is 32. Urine legionella antigen was negative. Chest x-ray shows hyperinflation and now shows bilateral infiltrates consistent with pneumonia, most likely aspiration pneumonia because thorax was much more clearer. The patient has trouble swallowing. 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 PLAN: To continue with the current medications. We will treat the patient in terms of antibiotic therapy and IV fluids for correction of electrolyte imbalance and to maintain her blood pressure. We will discuss with ID. Jaya Pettit MD
--- NOTE | 2017-12-26 22:24 | CP.PCM.PN ---
Subjective - Date & Time of Evaluation Date of Evaluation: 12/26/17 Time of Evaluation: 13:25 - Subjective Subjective: Patient is alert and responsive. With Dr Pearson and Mr Ignacio's son present, I explained to the patient our finding of an esophageal lesion which is causing recurrent cough when he eats or drinks. We feel he needs a peg to support nourishment. He will also need an endoscopy with a pediatric scope in an attempt to releave the stricture. i will also order a PET scan. Objective - Vital Signs/Intake and Output Vital Signs (last 24 hours): Temp Pulse Resp BP Pulse Ox 97.5 F L 68 20 105/64 94 L 12/26/17 16:37 12/26/17 16:37 12/26/17 16:37 12/26/17 16:37 12/26/17 16:37 Intake and Output: 12/26/17 12/27/17 18:59 06:59 Intake Total 675 Balance 675 - Medications Medications: Current Medications Albuterol Sulfate (Albuterol 0.083% Inhal Martha (2.5 Mg/3 Ml) Ud) 2.5 mg INH RQ6 [facility]ANG Last Admin: 12/26/17 20:12 Dose: Not Given Potassium Chloride/Dextrose/Sod Cl (Potassium Chl 20 Meq In D5-1/2ns) 1,000 mls @ 75 mls/hr IV .[id number] [facility] Last Admin: 12/26/17 09:32 Dose: 75 mls/hr Piperacillin Sod/Tazobactam (Sod 3.375 gm/ Sodium Chloride) 100 mls @ 200 mls/ hr IVPB Q8H [facility] PRN Reason: Protocol Last Admin: 12/26/17 17:52 Dose: 200 mls/hr Vancomycin/Sodium Chloride (Vancomycin 1 Gm/Ns 200 Ml) 1 gm in 200 mls @ 166.6 mls/hr IVPB Q12H [facility]ANG PRN Reason: Protocol Stop: 12/31/17 18:01 Last Admin: 12/26/17 18:41 Dose: 166.6 mls/hr Montelukast Sodium (Singulair) 10 mg PO HS [facility] Last Admin: 12/26/17 21:08 Dose: 10 mg Nystatin (Nystatin Oral Susp) 5 ml PO QID [facility] Last Admin: 12/26/17 21:08 Dose: 5 ml Potassium Phos/Sodium Phos (Neutra-Phos) 1 pkt PO TID [facility]ANG Stop: 12/27/17 23:59 Last Admin: 12/26/17 17:50 Dose: 1 pkt - Labs Labs: 12/26/17 11:46 12/26/17 06:36 PT 14.2 SECONDS (9.7-12.2) H 12/21/17 20:23 INR 1.3 12/21/17 20:23 APTT 36 SECONDS (21-34) H 12/21/17 20:23 - Constitutional Appears: Cachectic - Head Exam Head Exam: NORMAL INSPECTION - Eye Exam Eye Exam: Normal appearance Pupil Exam: NORMAL ACCOMODATION - ENT Exam ENT Exam: Normal Exam - Neck Exam Neck Exam: Normal Inspection - Respiratory Exam Respiratory Exam: Decreased Breath Sounds - Cardiovascular Exam Cardiovascular Exam: REGULAR RHYTHM - GI/Abdominal Exam GI & Abdominal Exam: Normal Bowel Sounds - Rectal Exam Rectal Exam: Deferred - Exam Exam: NORMAL INSPECTION - Extremities Exam Extremities Exam: Normal Inspection - Back Exam Back Exam: NORMAL INSPECTION - Neurological Exam Neurological Exam: Oriented x3 - Psychiatric Exam Psychiatric exam: Depressed - Skin Skin Exam: Dry Assessment and Plan (1) Acute pneumonia Status: Acute (2) Cachexia Status: Acute (3) Emphysema lung Status: Acute (4) Hypernatremia Status: Resolved (5) Prerenal azotemia Status: Resolved (6) Severe dehydration Status: Acute
[2017-12-27] MEDS: Piperacillin/Tazobact 3.375 GM in Sodium Chloride 100 ML IVPB SCH ×3 (01:30→17:30)
[2017-12-27] MEDS: Albuterol 0.083% Inhal Sol (2.5 mg/3 mL) UD INH SCH ×4 (02:34→20:19)
[2017-12-27] MEDS: Potassium Ch 20mEq in D5-1/2NS 1,000 ML IV SCH ×2 (03:30→07:55)
[2017-12-27] MEDS: Vancomycin 1 gm/NS 200 ml 1 GM/200 ML BAG IVPB SCH ×2 (05:00→18:44)
[2017-12-27 07:00] LABS: BASO % 0.2 % (0.0-2.0); EOS # 0.1 K/uL (0.0-0.7); EOS % 0.5 % (0.0-4.0); HEMOGLOBIN 11.1 g/dL (12.0-18.0); LYMPH # 0.3 K/uL (1.0-4.3); LYMPH % 1.8 % (20.0-40.0); MEAN CELL VOLUME 86.5 fL (80.0-94.0); MEAN CORPUSCULAR HEMOGLOBIN 28.5 pg (27.0-31.0); MEAN CORPUSCULAR HGB CONC 32.9 g/dL (33.0-37.0); MONO # 0.4 K/uL (0.0-0.8); MONO % 2.4 % (0.0-10.0); NEUT % 95.1 % (50.0-75.0); PLATELET COUNT 168 K/uL (130-400); RBC 3.91 Mil/uL (4.40-5.90); RED CELL DISTRIBUTION WIDTH 14.3 % (11.5-14.5); WHITE BLOOD COUNT 15.8 K/uL (4.8-10.8)
[2017-12-27 07:53] LABS: BLOOD UREA NITROGEN 12 mg/dL (9-20); CALCIUM 8.8 mg/dl (8.6-10.4); GFR AFRICAN-AMERICAN > 60; GFR NON-AFRICAN AMERICAN > 60; URIC ACID 3.7 mg/dL (3.5-8.5)
[2017-12-27 08:59] LABS: ANISOCYTOSIS SLIGHT; BANDS 5 % (0-2); BURR CELLS SLIGHT; EOSINOPHIL 1 % (0-4); HYPOCHROMIC SLIGHT; LYMPHOCYTE 1 % (20-40); MONOCYTE 2 % (0-10); NEUTROPHIL 91 % (50-75); PLATELET ESTIMATE NORMAL (NORMAL); POIKILOCYTOSIS SLIGHT; POLYCHROMIC SLIGHT; TOTAL CELLS COUNTED 100
[2017-12-27 09:00] LABS: LARGE PLATELETS PRESENT; OVALOCYTES SLIGHT; TOXIC GRANULATION PRESENT
--- NOTE | 2017-12-27 09:28 | CT ---
Date of service: 12/26/2017 PROCEDURE: CT NECK WITH CONTRAST HISTORY: DIFFICULTY SWALLOWING COMPARISON: Comparison is made with the previous noncontrast study dated 12/25/2017 TECHNIQUE: CT of the neck with intravenous contrast. Coronal and sagittal reformats generated. Intravenous contrast dose: 100 cc of Visipaque 320 Radiation dose: DLP 3002.82 mGy-cm This CT exam was performed using one or more of the following dose reduction techniques: Automated exposure control, adjustment of the mA and/or kV according to patient size, and/or use of iterative reconstruction technique. FINDINGS: NASOPHARYNX: Distended nasopharynx noted without CT evidence of discrete mass or acute pathology. SUPRAHYOID NECK: Fluid and food debris is noted in the upper payroll digestive tract especially in the hypopharynx and piriform sinuses as well as in the supraglottic region. No definite evidence of mass lesion in the suprahyoid neck. INFRAHYOID NECK: No evidence of mass lesion larynx, hypopharynx, and supraglottic space. Vocal cords intact. Distended the air or digestive tract in the infrahyoid neck. Distended proximal esophagus. Fluid and food debris is also noted in the mildly distended proximal trachea. MASS: Suspicious for focal stricture or mass at the mid esophagus. GLANDS: Parotid and submandibular glands unremarkable. Normal size thyroid gland, without nodule. LYMPH NODES: Normal. No lymphadenopathy. CERVICAL SPINE: No fracture or focal lesion. VASCULAR STRUCTURES: Unremarkable. OTHER FINDINGS: Severe emphysematous changes at the lung apices There is questionable filling defect in the left subclavian and axillary vein and the possibility of DVT cannot be excluded. IMPRESSION: Moderately distended upper aerodigestive tract contains fluid and food debris . The possibility of mass or stricture in the mid or distal esophagus should be excluded. Fluid and debris in the trachea noted and the possibility of fistula and/or recent aspiration should be also considered. Further assessment and correlation with video functional swallow study and esophagram is suggested. Additional findings as described above. Preliminary report was submitted by [facility].
[2017-12-27] MEDS: Potassium & Sodium Phosphate PO SCH ×4 (10:00→19:24)
[2017-12-27] MEDS: Nystatin 100,000 Units/ml Oral Susp 5 ml UD PO SCH ×5 (10:00→22:40)
--- NOTE | 2017-12-27 10:29 | CT ---
Date of service: 12/26/2017 PROCEDURE: CT Chest, Abdomen and Pelvis with intravenous contrast HISTORY: R/O esophageal tumor COMPARISON: Comparison is made with the previous CT of the chest without contrast dated 12/22/[address] of the abdomen dated 12/24/2017. Comparison is also made to the previous CT of the chest with contrast dated 08/13/2012 TECHNIQUE: IV dose administered: 100 cc of Visipaque 320. The same dose of IV contrast was used for the CT of the neck which was obtained concurrently and reported separately. Radiation dose: Total exam DLP = 325.48 mGy-cm. This CT exam was performed using one or more of the following dose reduction techniques: Automated exposure control, adjustment of the mA and/or kV according to patient size, and/or use of iterative reconstruction technique. FINDINGS: CT CHEST WITH CONTRAST: LUNGS: There are severe emphysematous changes. There are foci of airspace consolidation at the lingula and in both lower lobes and small opacities also noted at the right middle lobe associated with nodular opacities. Findings likely represent aspiration. The differential consideration includes less likely multifocal pneumonia. There is a fluid and food debris is noted in the trachea and main bronchus likely from recent aspiration. MEDIASTINUM: There is right-sided PICC line in place. . The thoracic aorta is tortuous and ectatic. 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 The main pulmonary artery is mildly enlarged. The heart is mildly enlarged. Mildly dilated mid esophagus noted. The possibility of distal esophageal stricture or mass cannot be excluded. Given the patient's finding of fluid and debris in the airway and large aspiration in the lungs the possibility of gastroesophageal reflux or mass or stricture in the esophagus should be excluded. Further assessment of the esophagus is recommended. LYMPH NODES: Mild mediastinal lymphadenopathy is noted more prominent at the pre terri and AP window PLEURA: Small left and trace right pleural effusions BONES: Unremarkable. OTHER FINDINGS: The thyroid gland is normal in size. CT ABDOMEN AND PELVIS: LIVER: Unremarkable. No gross lesion or ductal dilatation. GALLBLADDER AND BILE DUCTS: Unremarkable. PANCREAS: Unremarkable. No gross lesion or ductal dilatation. SPLEEN: Unremarkable. ADRENALS: Unremarkable. No mass. KIDNEYS AND URETERS: Unremarkable. No hydronephrosis. No solid mass. 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 BOWEL: Diffuse colonic diverticulosis are seen without evidence of diverticulitis. No evidence of high-grade bowel obstruction. No evidence of intestinal pneumatosis. APPENDIX: No evidence of appendicitis. PERITONEUM: Unremarkable. No free fluid. No free air. LYMPH NODES: No evidence of significant retroperitoneal lymphadenopathy. BLADDER: The urinary bladder is mildly displaced anteriorly by enlarged prostate and distended rectum. REPRODUCTIVE: Moderately enlarged prostate. BONES: No acute fracture. Advanced degenerative changes are noted. OTHER FINDINGS: None. IMPRESSION: Findings highly suspicious for aspiration as described above. The possibility of stricture or mass at the mid esophagus should be excluded. Further assessment of the esophagus and swallow function is suggested. 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 Scattered airspace consolidation and infiltrates in the mid and lower lungs highly suspicious for aspiration. Severe emphysematous changes. No CT evidence of acute pathology in the abdomen and pelvis. 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 Preliminary report was submitted by [facility].
[2017-12-27] MEDS ORDERED: Potassium Ch 20mEq in D5-1/2NS 1,000 ML IV SCH (11:23)
--- NOTE | 2017-12-27 11:48 | PN ---
DATE: 12/27/2017 LOCATION: 357 SUBJECTIVE: This is an 87-year-old male seen and examined in rounds early this morning without significant clinical changes with very poor oral intake with intermittent period of cough and choking on fluid intake. The entire chart is reviewed including but not limited to the most recent lab and radiology study results, current and the previous medication list, current and the previous medical events. Case discussed with the staff at length. Today's labs still pending, but the patient reported to have leukocytosis with normal hemoglobin and hematocrit with low albumin and low total protein with increased CEA level to 55.8. Official CT scan of the neck, abdomen, chest, and pelvis still pending. This case was discussed at length with Dr. Llanos, the solutions consultant on the case. The patient denied any actual chest pain but intermittent period of shortness of breath. No reported chills or fever. PHYSICAL EXAMINATION: GENERAL: An 87-year-old male, afebrile with pulse of 90, respiratory rate 20-22 with blood pressure of 110/64. HEENT: Showed pale dry oral mucous membranes. Nonicteric sclerae. LUNGS: A few scattered crepitation. Decreased air entry at bases. HEART: Positive S1 and S2. ABDOMEN: Soft with mild generalized tenderness. No mass or organomegaly. No rebound tenderness or guarding. EXTREMITIES: Without significant clubbing, cyanosis, or edema. NEUROLOGIC: No reported new neurological deficits, sensory or motor. No reported focal deficits. IMPRESSION: 1. Partial proximal esophageal web with obstruction. 2. Pneumonia. 3. Known history of emphysema. 4. Malnutrition with hypoalbuminemia, hypoproteinemia. 5. Electrolyte imbalance. 6. Excessive with elevated CA19-9. The possibility of pancreatic cancer was raised. 7. 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 SUGGESTIONS: 1. Agree with your plan. 2. workup. 3. Antireflux measure. 4. The patient may need surgically inserted gastrostomy tube. Vasquez Orourke MD
[2017-12-27 15:58] LABS: ABG ALLEN TEST PO; ARTERIAL BLOOD GAS HCO3 25.6 mmol/L (21-28); ARTERIAL BLOOD GAS PCO2 33 mm/Hg (35-45); ARTERIAL BLOOD GAS PH 7.48 (7.35-7.45); ARTERIAL BLOOD GAS PO2 38 mm/Hg (80-100); ARTERIAL BLOOD GAS TCO2 25.6 mmol/L (22-28)
--- NOTE | 2017-12-27 17:56 | CP.PCM.PN ---
Subjective - Date & Time of Evaluation Date of Evaluation: 12/27/17 Time of Evaluation: 17:53 - Subjective Subjective: Surgery: Dr. Pearson Pt seen and examined. No acute events overnight. Unable to tolerate PO intake Objective - Vital Signs/Intake and Output Vital Signs (last 24 hours): Temp Pulse Resp BP Pulse Ox 99.6 F 92 H 20 106/67 98 12/27/17 17:04 12/27/17 17:20 12/27/17 17:04 12/27/17 17:04 12/27/17 17:04 Intake and Output: 12/27/17 12/27/17 06:59 18:59 Intake Total 710 625 Output Total 1 Balance 709 625 - Medications Medications: Current Medications Albuterol Sulfate (Albuterol 0.083% Inhal Martha (2.5 Mg/3 Ml) Ud) 2.5 mg INH RQ6 [facility] Last Admin: 12/27/17 02:34 Dose: 2.5 mg Budesonide (Pulmicort Respules) 0.5 mg INH RQ12 [facility] Piperacillin Sod/Tazobactam (Sod 3.375 gm/ Sodium Chloride) 100 mls @ 200 mls/ hr IVPB Q8H [facility] PRN Reason: Protocol Last Admin: 12/27/17 08:04 Dose: 200 mls/hr Vancomycin/Sodium Chloride (Vancomycin 1 Gm/Ns 200 Ml) 1 gm in 200 mls @ 166.6 mls/hr IVPB Q12H [facility] PRN Reason: Protocol Stop: 12/31/17 18:01 Last Admin: 12/27/17 05:00 Dose: 166.6 mls/hr Potassium Chloride/Dextrose/Sod Cl (Potassium Chl 20 Meq In D5-1/2ns) 1,000 mls @ 75 mls/hr IV .[id number] [facility] Stop: 12/27/17 18:30 Last Admin: 12/27/17 11:23 Dose: 75 mls/hr Multivitamins/Vitamin C 10 ml/Chromium/Copper/Manganese/Zinc 1 ml/ Amino Acids 1,011 mls @ 65 mls/hr IV .[id number] ONE Stop: 12/28/17 09:33 Chromium/Copper/Manganese/Zinc (1 ml/ Amino Acids) 1,001 mls @ 65 mls/hr IV .[id number] ONE Stop: 12/29/17 00:53 Methylprednisolone (Solu-Medrol) 40 mg IVP QID [facility] Montelukast Sodium (Singulair) 10 mg PO HS [facility] Last Admin: 12/26/17 21:08 Dose: 10 mg Nystatin (Nystatin Oral Susp) 5 ml PO QID [facility] Last Admin: 12/27/17 14:35 Dose: 5 ml Potassium Phos/Sodium Phos (Neutra-Phos) 1 pkt PO TID [facility] Stop: 12/27/17 23:59 Last Admin: 12/27/17 14:35 Dose: 1 pkt - Labs Labs: 12/27/17 06:46 12/27/17 06:46 PT 14.2 SECONDS (9.7-12.2) H 12/21/17 20:23 INR 1.3 12/21/17 20:23 APTT 36 SECONDS (21-34) H 12/21/17 20:23 - Constitutional Appears: Non-toxic, Cachectic, Chronically Ill - Head Exam Head Exam: ATRAUMATIC, NORMOCEPHALIC - Eye Exam Eye Exam: EOMI - Neck Exam Neck Exam: Full ROM - Respiratory Exam Respiratory Exam: NORMAL BREATHING PATTERN. absent: Accessory Muscle Use, Respiratory Distress - GI/Abdominal Exam GI & Abdominal Exam: Soft. absent: Tenderness - Extremities Exam Extremities Exam: absent: Calf Tenderness, Pedal Edema - Neurological Exam Neurological Exam: Alert, Awake, Oriented x3 Assessment and Plan - Assessment and Plan (Free Text) Assessment: 87M w. esophageal mass -ABGs noted -recommend PFTs -will need PET scan -will continue to follow closely -d/w attending Billitis PGY4
[2017-12-27] MEDS ORDERED: PPN #1 IV ONE (18:00)
[2017-12-27] MEDS ORDERED: MethylPREDNISolone 40 mg Vial IVP SCH (18:00)
--- NOTE | 2017-12-27 18:02 | CT ---
Date of service: 12/27/2017 PROCEDURE: CT Chest without contrast HISTORY: acute hypoxia COMPARISON: Comparison is made to the previous study dated 12/26/2017 TECHNIQUE: Contiguous axial images were obtained through the chest without intravenous contrast enhancement. Sagittal and coronal reconstructions were performed. Radiation dose (DLP): mGy-cm. This CT exam was performed using one or more of the following dose reduction techniques: Automated exposure control, adjustment of the mA and/or kV according to patient size, and/or use of iterative reconstruction technique. FINDINGS: LUNGS: Again noted is severe emphysema. Again seen are large opacities at the left lower lobe left lingula and right lower lobe suspicious for aspiration. The right lower lobe opacity appears smaller compared to the previous exam. Scattered nodular opacities are also noted. MEDIASTINUM: No significant interval change in the thoracic aorta since the previous exam. 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 The heart is mildly enlarged. Mildly enlarged main pulmonary artery. PLEURA: Trace bilateral pleural effusion is again noted. BONES: No significant interval change in the osseous structures. UPPER ABDOMEN: Grossly unremarkable. OTHER FINDINGS: None. IMPRESSION: Interval decrease in the size of the right lower lobe opacities since the previous exam. Otherwise no significant interval change. Findings are again suspicious for aspiration.
--- NOTE | 2017-12-27 18:18 | RAD ---
Date of service: 12/27/2017 HISTORY: r/o pneumo COMPARISON: Comparison is made with 12/26/2017 FINDINGS: LUNGS: Severe emphysema is again noted. Patchy opacities at the lungs have improved since the previous exam. PLEURA: No significant pleural effusion identified, no pneumothorax apparent. CARDIOVASCULAR: Normal. OSSEOUS STRUCTURES: No significant abnormalities. VISUALIZED UPPER ABDOMEN: Normal. OTHER FINDINGS: Right-sided PICC line is again seen in place. IMPRESSION: Severe emphysema. No definite evidence of large pneumothorax. However if clinically warranted further assessment by CT may be obtained. Interval improvement in the bilateral lung opacities.
--- NOTE | 2017-12-27 18:27 | PCM.RRT ---
INTERPRETIVE PROGRAM COORDINATOR Nurses Assessment - Situation Date: 12/27/17 Time INTERPRETIVE PROGRAM COORDINATOR was called: 15:38 INTERPRETIVE PROGRAM COORDINATOR Responder Arrival Time:: 15:42 INTERPRETIVE PROGRAM COORDINATOR Location:: 3T Med/Oncology Room Number: 357B INTERPRETIVE PROGRAM COORDINATOR Reason for Call: O2 Saturation below 90% INTERPRETIVE PROGRAM COORDINATOR Called By: RN - IV IV Inserted during INTERPRETIVE PROGRAM COORDINATOR?: No IV Fluids Initiated During INTERPRETIVE PROGRAM COORDINATOR?: NO. patient has ongoing D5 0.45 NS with 20 meq potassium chloride at 75 ml/hr through right upper arm picc line - Respiratory INTERPRETIVE PROGRAM COORDINATOR Delivery Method: Non Rebreather @% Oxygen Flow Rate: 15 Received Nebulizer Treatments: No Was the Patient Ventilated with Bag/Mask 100% O2?: (no, patient placed on BIPAP 12/6 60% FIO2) Secretions Suctioned?: No Was the Patient Intubated?: No Was the Patient Placed on a Ventilator?: No - Ventilator Settings FIO2 (% Oxygen): 80 - Medication Medications Administered During INTERPRETIVE PROGRAM COORDINATOR: Solumedrol 125mg IVP STAT - Diagnostic Test Ordered EKG: No Chest X-Ray: Yes (PORTABLE STAT) CT Scan: Yes (chest w/o contrast) CPR started during INTERPRETIVE PROGRAM COORDINATOR?: No - Vital Signs Vital Signs: Rapid Response Vital Sign Blood Pressure 107/75 Pulse Rate 92 Respiratory Rate 22 Temperature 98.0 F Oxygen Saturation 77 - Nitish Coma Scale Coma Scale Eye Opening: Spontaneous Coma Scale Motor: Obeys Commands Movement Coma Scale Verbal: Oriented Coma Scale Total: 15 - Time INTERPRETIVE PROGRAM COORDINATOR Ended Time INTERPRETIVE PROGRAM COORDINATOR Ended: 16:27 - Vital Signs at end of INTERPRETIVE PROGRAM COORDINATOR Vital Signs at end of INTERPRETIVE PROGRAM COORDINATOR: Rapid Response End Vital Sign Blood Pressure 110/77 Pulse Rate 92 Respiratory Rate 18 Temperature 97.9 F O2 Sat by Pulse Oximetry 98 - Recommendations Notifications: Attending Physician, Consultations, Family or Designated Caregiver - Respiratory Oxygen Delivery Method: Non Rebreather @% Oxygen Flow Rate: 15 - Constitutional Appears: Cachectic, Chronically Ill - Head Head Exam: ATRAUMATIC, NORMAL INSPECTION, NORMOCEPHALIC - Eyes Eye Exam: EOMI, Normal appearance, PERRL - Respiratory Exam Respiratory Exam: Accessory Muscle Use, Wheezes - Cardiovascular Exam Cardiovascular Exam: REGULAR RHYTHM, +S1, +S2 - GI/Abdominal Exam GI & Abdominal Exam: Soft, Normal Bowel Sounds. absent: Hyperactive Bowel Sounds - Neurological Exam Neurological Exam: Alert, Awake, CN II-XII Intact, Normal Gait, Oriented x3 - Extremities Exam Extremities Exam: Full ROM Plan - Assessment of Findings&Treatment Plan 87 year old male with a past medical history of COPD and right lower lobe pneumonia who was admitted for Pneumonia, Severe dehydration, Hypernatremia, Cachexia, Bullous emphysema. INTERPRETIVE PROGRAM COORDINATOR was called due to low oxygen saturation the 70' s. Plan: -IV solumedrol 125mg STAT( given during the INTERPRETIVE PROGRAM COORDINATOR) -ABG (shock panel) -Bipap -Accucheck -ICU consulted. -IV Solumedrol 40 mg QID Disposition: Patient was initially placed on BIPAP 12/6 with FiO2 OF 60% with oxygen saturation at 80. Bipap settings changed to 16/6 with FiO2:80%. Patient 's O2 Saturation increased to 94%. PMD Dr. Shea was made aware of the INTERPRETIVE PROGRAM COORDINATOR by Dr. Helen Loza. [employer] Dr. Pettit was made aware of the INTERPRETIVE PROGRAM COORDINATOR by Resident Dr. Lennon Patient was stabilized.
--- NOTE | 2017-12-27 18:35 | CP.PCM.CON ---
History of Present Illness - History of Present Illness History of Present Illness: 87 y/o male w/ PMH of COPD and tobacco abuse presents to [facility] with increased weakness, decreased appetite, and weight loss, (+)dysphagia with liquid diet, CT chest reveals (+) esophageal thickening and liver mass. Recent EGD was attempted but aborted due to an upper esophageal stricture. Today, patient developed acute hypoxic respiratory failure with oxygen requirement of more than 80% place don bi-pap. PMH: as above PSH: Perforated ulcer 40 years ago ALL: NKDA Soc: social alcohol drinker, smokes cigarettes, denies ilicit drug usage Review of Systems - Review of Systems Review of Systems: dyspnea Past Patient History - Tetanus Immunizations Tetanus Immunization: >10 years Ago - Past Medical History & Family History Past Medical History?: Yes Past Family History: Reviewed and not pertinent - Past Social History Smoking Status: Former Smoker Chewing Tobacco Use: No Cigar Use: No Drugs: Denies Home Situation {Lives}: Alone - CARDIAC Hx Cardiac Disorders: Yes - PULMONARY Hx Chronic Obstructive Pulmonary Disease (COPD): Yes - NEUROLOGICAL Hx Neurological Disorder: No Hx Dizziness: Yes - HEENT Hx HEENT Problems: No Hx Sinusitis: Yes - RENAL Hx Chronic Kidney Disease: No - ENDOCRINE/METABOLIC Hx Endocrine Disorders: No - HEMATOLOGICAL/ONCOLOGICAL Hx Blood Disorders: No - INTEGUMENTARY Hx Dermatological Problems: No - MUSCULOSKELETAL/RHEUMATOLOGICAL Hx Arthritis: Yes - GASTROINTESTINAL Hx Gastrointestinal Disorders: Yes Hx Constipation: Yes - GENITOURINARY/GYNECOLOGICAL Hx Genitourinary Disorders: No - PSYCHIATRIC Hx Psychophysiologic Disorder: No Hx Substance Use: No - SURGICAL HISTORY Hx Surgeries: No - ANESTHESIA Hx Anesthesia: No Hx Anesthesia Reactions: No Hx Malignant Hyperthermia: No Has any member of the family had a problem w/ anesthesia?: No Meds Allergies/Adverse Reactions: Allergies Allergy/AdvReac Type Severity Reaction Status Date / Time No Known Allergies Allergy Unverified 12/21/17 18:48 - Medications Medications: Current Medications Albuterol Sulfate (Albuterol 0.083% Inhal Martha (2.5 Mg/3 Ml) Ud) 2.5 mg INH RQ6 [facility] Last Admin: 12/27/17 02:34 Dose: 2.5 mg Budesonide (Pulmicort Respules) 0.5 mg INH RQ12 [facility] Piperacillin Sod/Tazobactam (Sod 3.375 gm/ Sodium Chloride) 100 mls @ 200 mls/ hr IVPB Q8H [facility] PRN Reason: Protocol Last Admin: 12/27/17 17:30 Dose: 200 mls/hr Vancomycin/Sodium Chloride (Vancomycin 1 Gm/Ns 200 Ml) 1 gm in 200 mls @ 166.6 mls/hr IVPB Q12H [facility] PRN Reason: Protocol Stop: 12/31/17 18:01 Last Admin: 12/27/17 05:00 Dose: 166.6 mls/hr Multivitamins/Vitamin C 10 ml/Chromium/Copper/Manganese/Zinc 1 ml/ Amino Acids 1,011 mls @ 65 mls/hr IV .[id number] ONE Stop: 12/28/17 09:33 Chromium/Copper/Manganese/Zinc (1 ml/ Amino Acids) 1,001 mls @ 65 mls/hr IV .[id number] ONE Stop: 12/29/17 00:53 Methylprednisolone (Solu-Medrol) 40 mg IVP QID [facility] Last Admin: 12/27/17 17:54 Dose: 40 mg Montelukast Sodium (Singulair) 10 mg PO HS [facility] Last Admin: 12/26/17 21:08 Dose: 10 mg Nystatin (Nystatin Oral Susp) 5 ml PO QID [facility] Last Admin: 12/27/17 17:54 Dose: 5 ml Potassium Phos/Sodium Phos (Neutra-Phos) 1 pkt PO TID [facility] Stop: 12/27/17 23:59 Last Admin: 12/27/17 18:18 Dose: 1 pkt Physical Exam - Constitutional Appears: In Acute Distress, Cachectic, Chronically Ill - Head Exam Head Exam: ATRAUMATIC, NORMAL INSPECTION - Eye Exam Pupil Exam: NORMAL ACCOMODATION - ENT Exam ENT Exam: Mucous Membranes Dry - Respiratory Exam Respiratory Exam: Rhonchi, NORMAL BREATHING PATTERN - Cardiovascular Exam Cardiovascular Exam: REGULAR RHYTHM, +S1, +S2, +S4, Systolic Murmur - GI/Abdominal Exam GI & Abdominal Exam: Normal Bowel Sounds, Soft - Extremities Exam Extremities exam: Positive for: normal inspection Results - Vital Signs Recent Vital Signs: Last Vital Signs Temp 99.6 F 12/27/17 17:04 Pulse 92 H 12/27/17 17:20 Resp 20 12/27/17 17:04 BP 106/67 12/27/17 17:04 Pulse Ox 98 12/27/17 17:04 - Labs Result Diagrams: 12/27/17 06:46 12/27/17 06:46 Labs: Laboratory Results - last 24 hr 12/26/17 12/27/17 12/27/17 06:36 06:46 06:46 WBC 15.8 H RBC 3.91 L Hgb 11.1 L Hct 33.8 L MCV 86.5 MCH 28.5 MCHC 32.9 L RDW 14.3 Plt Count 168 MPV 10.0 Neut % (Auto) 95.1 H Lymph % (Auto) 1.8 L [place] % (Auto) 2.4 Eos % (Auto) 0.5 Baso % (Auto) 0.2 Neut # (Auto) 15.0 H Lymph # (Auto) 0.3 L [place] # (Auto) 0.4 Eos # (Auto) 0.1 Baso # (Auto) 0.0 Neutrophils % (Manual) 91 H Band Neutrophils % 5 H Lymphocytes % (Manual) 1 L Monocytes % (Manual) 2 Eosinophils % (Manual) 1 Toxic Granulation Present Platelet Estimate Normal Large Platelets Present Polychromasia Slight Hypochromasia (manual) Slight Poikilocytosis (manual Slight Anisocytosis (manual) Slight Ovalocytes Slight Marcial Cells Slight Puncture Site pCO2 pO2 HCO3 ABG pH ABG Total CO2 ABG O2 Saturation ABG Base Excess Jakob Test ABG Potassium A-a O2 Difference Respiratory Index Glucose Lactate FiO2 Crit Value Called To Crit Value Called By Crit Value Read Back Blood Gas Notified Time Sodium 140 Potassium 3.9 Chloride 106 Carbon Dioxide 26 Anion Gap 12 BUN 12 Creatinine 0.7 L Est GFR ( Amer) > 60 Est GFR (Non-Af Amer) > 60 POC Glucose (mg/dL) Random Glucose 81 Uric Acid 3.7 Calcium 8.8 Total Protein (PEP) 5.7 L Arterial Blood Potassium Vancomycin Trough 12/27/17 12/27/17 12/27/17 15:45 15:57 17:51 WBC RBC Hgb Hct MCV MCH MCHC RDW Plt Count MPV Neut % (Auto) Lymph % (Auto) [place] % (Auto) Eos % (Auto) Baso % (Auto) Neut # (Auto) Lymph # (Auto) [place] # (Auto) Eos # (Auto) Baso # (Auto) Neutrophils % (Manual) Band Neutrophils % Lymphocytes % (Manual) Monocytes % (Manual) Eosinophils % (Manual) Toxic Granulation Platelet Estimate Large Platelets Polychromasia Hypochromasia (manual) Poikilocytosis (manual Anisocytosis (manual) Ovalocytes [place] Cells Puncture Site Lr pCO2 33 L pO2 38 L* HCO3 25.6 ABG pH 7.48 H ABG Total CO2 25.6 ABG O2 Saturation 81.0 L ABG Base Excess 1.6 Jakob Test Po ABG Potassium 3.7 A-a O2 Difference 634.0 Respiratory Index 16.7 Glucose 91 Lactate 1.4 FiO2 100.0 Crit Value Called To Dr marcos Crit Value Called By Chauncey Crit Value Read Back Y Blood Gas Notified Time 1556 Sodium 139.0 Potassium Chloride 107.0 Carbon Dioxide Anion Gap BUN Creatinine Est GFR ( Amer) Est GFR (Non-Af Amer) POC Glucose (mg/dL) 100 Random Glucose Uric Acid Calcium Total Protein (PEP) Arterial Blood Potassium 3.7 Vancomycin Trough 11.3 H Assessment & Plan - Assessment and Plan (Free Text) Assessment: -Severe emphysematous lung disease with large bullae: continue bronchodilators, solumedrol and xoygen supplementation to keep spo2 b/w 89-92% -Acute hypoxia: suspect patient had acute VQ mismatch 2nd atelectasis 2nd aspiration: consider high flow with pulmonary toilet, continue empirical abx --NPO -continue dvt/pud ppx Prognosis: Patient's prognosis is poor given esopageal stricture, and severe emphysematous lung disease with large bullae and poor lung reserve. -PAtient will benefit from close monitoring until FiO2 requirement decreases to less than 50% -d/w medicine resident assembly person. - Date & Time Date: 12/27/17 Time: 18:40
[2017-12-27] MEDS: Budesonide 0.5 mg/2 ml Inhal Susp UD INH SCH (20:19)
--- NOTE | 2017-12-27 21:33 | CP.PCM.PN ---
Subjective - Date & Time of Evaluation Date of Evaluation: 12/27/17 Time of Evaluation: 16:05 - Subjective Subjective: Patient PO2 fell to the 72 and an MACHINE MADE SHOE UNIT WORKER was called and patient was placed on BIPAP which help him respond. He was transfered to ICU. Patient develops cough afer ingesting any liquid . Will ask Dr Paez to repeat endoscopy with pediatric scope. Objective - Vital Signs/Intake and Output Vital Signs (last 24 hours): Temp Pulse Resp BP Pulse Ox 99.6 F 93 H 24 106/67 98 12/27/17 17:04 12/27/17 20:20 12/27/17 21:04 12/27/17 17:04 12/27/17 17:04 Intake and Output: 12/27/17 12/28/17 18:59 06:59 Intake Total 625 Balance 625 - Medications Medications: Current Medications Albuterol Sulfate (Albuterol 0.083% Inhal Martha (2.5 Mg/3 Ml) Ud) 2.5 mg INH RQ6 [facility] Last Admin: 12/27/17 20:19 Dose: 2.5 mg Budesonide (Pulmicort Respules) 0.5 mg INH RQ12 [facility] Last Admin: 12/27/17 20:19 Dose: Not Given Piperacillin Sod/Tazobactam (Sod 3.375 gm/ Sodium Chloride) 100 mls @ 200 mls/ hr IVPB Q8H [facility] PRN Reason: Protocol Last Admin: 12/27/17 17:30 Dose: 200 mls/hr Vancomycin/Sodium Chloride (Vancomycin 1 Gm/Ns 200 Ml) 1 gm in 200 mls @ 166.6 mls/hr IVPB Q12H [facility] PRN Reason: Protocol Stop: 12/31/17 18:01 Last Admin: 12/27/17 18:44 Dose: 166.6 mls/hr Multivitamins/Vitamin C 10 ml/Chromium/Copper/Manganese/Zinc 1 ml/ Amino Acids 1,011 mls @ 65 mls/hr IV .[id number] ONE Stop: 12/28/17 09:33 Last Admin: 12/27/17 18:50 Dose: 65 mls/hr Chromium/Copper/Manganese/Zinc (1 ml/ Amino Acids) 1,001 mls @ 65 mls/hr IV .[id number] ONE Stop: 12/29/17 00:53 Methylprednisolone (Solu-Medrol) 40 mg IVP Q12 [facility] Montelukast Sodium (Singulair) 10 mg PO HS [facility] Last Admin: 12/26/17 21:08 Dose: 10 mg Nystatin (Nystatin Oral Susp) 5 ml PO QID [facility] Last Admin: 12/27/17 19:25 Dose: Not Given Potassium Phos/Sodium Phos (Neutra-Phos) 1 pkt PO TID [facility] Stop: 12/27/17 23:59 Last Admin: 12/27/17 19:24 Dose: Not Given - Labs Labs: 12/27/17 06:46 12/27/17 06:46 PT 14.2 SECONDS (9.7-12.2) H 12/21/17 20:23 INR 1.3 12/21/17 20:23 APTT 36 SECONDS (21-34) H 12/21/17 20:23 - Constitutional Appears: In Acute Distress - Head Exam Head Exam: NORMOCEPHALIC - Eye Exam Eye Exam: Normal appearance Pupil Exam: NORMAL ACCOMODATION - ENT Exam ENT Exam: Normal Exam - Neck Exam Neck Exam: Normal Inspection - Respiratory Exam Respiratory Exam: Decreased Breath Sounds - Cardiovascular Exam Cardiovascular Exam: REGULAR RHYTHM - GI/Abdominal Exam GI & Abdominal Exam: Normal Bowel Sounds - Rectal Exam Rectal Exam: Deferred - Exam Exam: NORMAL INSPECTION - Extremities Exam Extremities Exam: Normal Inspection - Back Exam Back Exam: NORMAL INSPECTION - Neurological Exam Neurological Exam: Awake - Psychiatric Exam Psychiatric exam: Depressed - Skin Skin Exam: Dry Assessment and Plan (1) Acute pneumonia Status: Acute (2) Cachexia Status: Acute (3) Emphysema lung Status: Acute (4) Hypernatremia Status: Resolved (5) Prerenal azotemia Status: Resolved (6) Severe dehydration Status: Acute
[2017-12-27] MEDS: MethylPREDNISolone 40 mg Vial IVP SCH (22:13)
[2017-12-28] MEDS: Piperacillin/Tazobact 3.375 GM in Sodium Chloride 100 ML IVPB SCH ×3 (00:40→17:54)
[2017-12-28] MEDS: Albuterol 0.083% Inhal Sol (2.5 mg/3 mL) UD INH SCH ×4 (01:03→19:42)
[2017-12-28 06:43] LABS: HEMOGLOBIN 12.3 g/dL (12.0-18.0); MEAN CELL VOLUME 86.6 fL (80.0-94.0); MEAN CORPUSCULAR HEMOGLOBIN 28.8 pg (27.0-31.0); MEAN CORPUSCULAR HGB CONC 33.3 g/dL (33.0-37.0); RBC 4.27 Mil/uL (4.40-5.90); RED CELL DISTRIBUTION WIDTH 14.2 % (11.5-14.5); WHITE BLOOD COUNT 10.5 K/uL (4.8-10.8)
[2017-12-28] MEDS: Vancomycin 1 gm/NS 200 ml 1 GM/200 ML BAG IVPB SCH ×2 (07:40→19:33)
[2017-12-28 07:51] LABS: BLOOD UREA NITROGEN 19 mg/dL (9-20); CALCIUM 8.8 mg/dl (8.6-10.4); GFR AFRICAN-AMERICAN > 60; GFR NON-AFRICAN AMERICAN > 60
--- NOTE | 2017-12-28 08:36 | CP.PCM.PN ---
Subjective - Date & Time of Evaluation Date of Evaluation: 12/28/17 Time of Evaluation: 08:34 - Subjective Subjective: Patient seen and examined at bedside. Patient encouraged to cough (unable to expectorate). tolerating high flow Objective - Vital Signs/Intake and Output Vital Signs (last 24 hours): Temp Pulse Resp BP Pulse Ox 97.4 F L 89 30 H 122/82 93 L 12/28/17 05:00 12/28/17 07:30 12/28/17 07:30 12/28/17 07:27 12/28/17 07:30 Intake and Output: 12/28/17 12/28/17 06:59 18:59 Intake Total 455 65 Output Total 450 50 Balance 5 15 - Medications Medications: Current Medications Albuterol Sulfate (Albuterol 0.083% Inhal Martha (2.5 Mg/3 Ml) Ud) 2.5 mg INH RQ6 [facility] Last Admin: 12/28/17 07:20 Dose: 2.5 mg Budesonide (Pulmicort Respules) 0.5 mg INH RQ12 [facility] Last Admin: 12/27/17 20:19 Dose: Not Given Piperacillin Sod/Tazobactam (Sod 3.375 gm/ Sodium Chloride) 100 mls @ 200 mls/ hr IVPB Q8H [facility] PRN Reason: Protocol Last Admin: 12/28/17 00:40 Dose: 200 mls/hr Vancomycin/Sodium Chloride (Vancomycin 1 Gm/Ns 200 Ml) 1 gm in 200 mls @ 166.6 mls/hr IVPB Q12H [facility] PRN Reason: Protocol Stop: 12/31/17 18:01 Last Admin: 12/28/17 07:40 Dose: 166.6 mls/hr Multivitamins/Vitamin C 10 ml/Chromium/Copper/Manganese/Zinc 1 ml/ Amino Acids 1,011 mls @ 65 mls/hr IV .[id number] ONE Stop: 12/28/17 09:33 Last Admin: 12/27/17 18:50 Dose: 65 mls/hr Chromium/Copper/Manganese/Zinc (1 ml/ Amino Acids) 1,001 mls @ 65 mls/hr IV .[id number] ONE Stop: 12/29/17 00:53 Methylprednisolone (Solu-Medrol) 40 mg IVP Q12 [facility] Last Admin: 12/27/17 22:13 Dose: 40 mg Montelukast Sodium (Singulair) 10 mg PO HS [facility] Last Admin: 12/27/17 22:44 Dose: Not Given Nystatin (Nystatin Oral Susp) 5 ml PO QID [facility] Last Admin: 12/27/17 22:40 Dose: 5 ml - Labs Labs: 12/28/17 06:38 12/28/17 06:37 PT 14.2 SECONDS (9.7-12.2) H 12/21/17 20:23 INR 1.3 12/21/17 20:23 APTT 36 SECONDS (21-34) H 12/21/17 20:23 Assessment and Plan - Assessment and Plan (Free Text) Assessment: -Severe emphysematous lung disease with large bullae: continue bronchodilators, solumedrol and xoygen supplementation to keep spo2 b/w 89-92% -Acute hypoxia: suspect patient had acute VQ mismatch 2nd atelectasis 2nd aspiration: continue high flow with pulmonary toilet, continue empirical abx --NPO, dysphagia eval, PPN -continue dvt/pud ppx -continue to monitor
[2017-12-28 08:55] LABS: ALB/GLOB RATIO 0.8 (1.0-2.1); ALBUMIN 2.7 g/dL (3.5-5.0); ALT/SGPT 22 U/L (21-72); AST/SGOT 33 U/L (17-59); BILIRUBIN,DIRECT 0.4 mg/dL (0.0-0.4)
--- NOTE | 2017-12-28 09:08 | CP.PCM.PN ---
Subjective - Date & Time of Evaluation Date of Evaluation: 12/28/17 Time of Evaluation: 09:02 - Subjective Subjective: Cardiothoracic Surgery Progress Note for Dr. Pearson 87M seen and evaluated this morning at bedside. Pt was satting in the 70s% on floors and transferred to ICU. Currently satting 92% on nonrebreather. Unable to tolerate PO. States he is feeling better now. No current complaints. Denies f /c, n/v/d, CP. Objective - Vital Signs/Intake and Output Vital Signs (last 24 hours): Temp Pulse Resp BP Pulse Ox 97.4 F L 89 30 H 122/82 93 L 12/28/17 05:00 12/28/17 07:30 12/28/17 07:30 12/28/17 07:27 12/28/17 07:30 Intake and Output: 12/28/17 12/28/17 06:59 18:59 Intake Total 455 65 Output Total 450 50 Balance 5 15 - Medications Medications: Current Medications Albuterol Sulfate (Albuterol 0.083% Inhal Martha (2.5 Mg/3 Ml) Ud) 2.5 mg INH RQ6 [facility] Last Admin: 12/28/17 07:20 Dose: 2.5 mg Budesonide (Pulmicort Respules) 0.5 mg INH RQ12 [facility] Last Admin: 12/27/17 20:19 Dose: Not Given Piperacillin Sod/Tazobactam (Sod 3.375 gm/ Sodium Chloride) 100 mls @ 200 mls/ hr IVPB Q8H [facility] PRN Reason: Protocol Last Admin: 12/28/17 00:40 Dose: 200 mls/hr Vancomycin/Sodium Chloride (Vancomycin 1 Gm/Ns 200 Ml) 1 gm in 200 mls @ 166.6 mls/hr IVPB Q12H [facility] PRN Reason: Protocol Stop: 12/31/17 18:01 Last Admin: 12/28/17 07:40 Dose: 166.6 mls/hr Multivitamins/Vitamin C 10 ml/Chromium/Copper/Manganese/Zinc 1 ml/ Amino Acids 1,011 mls @ 65 mls/hr IV .[id number] ONE Stop: 12/28/17 09:33 Last Admin: 12/27/17 18:50 Dose: 65 mls/hr Chromium/Copper/Manganese/Zinc (1 ml/ Amino Acids) 1,001 mls @ 65 mls/hr IV .[id number] ONE Stop: 12/29/17 00:53 Methylprednisolone (Solu-Medrol) 40 mg IVP Q12 ON LICENSE OF [facility] Last Admin: 12/27/17 22:13 Dose: 40 mg Montelukast Sodium (Singulair) 10 mg PO HS [facility] Last Admin: 12/27/17 22:44 Dose: Not Given Nystatin (Nystatin Oral Susp) 5 ml PO QID [facility] Last Admin: 12/27/17 22:40 Dose: 5 ml - Labs Labs: 12/28/17 06:38 12/28/17 06:37 PT 14.2 SECONDS (9.7-12.2) H 12/21/17 20:23 INR 1.3 12/21/17 20:23 APTT 36 SECONDS (21-34) H 12/21/17 20:23 - Constitutional Appears: Non-toxic, Cachectic - Head Exam Head Exam: ATRAUMATIC, NORMAL INSPECTION, NORMOCEPHALIC - Respiratory Exam Respiratory Exam: Prolonged Expiratory Phase. absent: Accessory Muscle Use, Wheezes - Cardiovascular Exam Cardiovascular Exam: REGULAR RHYTHM, +S1, +S2. absent: Murmur - GI/Abdominal Exam GI & Abdominal Exam: Soft, Normal Bowel Sounds. absent: Tenderness - Neurological Exam Neurological Exam: Alert, Awake Assessment and Plan - Assessment and Plan (Free Text) Assessment: 87M w/ upper esophageal mass/stricture Plan: Continue following GI recs - pending repeat EGD w/ pediatric scope and to determine etiology of malignancy Will need PET scan Recommend PFTs Pt refusing open G-tube Will continue to follow Further recs per Dr. Lili Christina PGY1
[2017-12-28] MEDS ORDERED: PPN #2 IV ONE (09:30)
[2017-12-28] MEDS: MethylPREDNISolone 40 mg Vial IVP SCH ×2 (09:56→21:20)
[2017-12-28] MEDS: Nystatin 100,000 Units/ml Oral Susp 5 ml UD PO SCH ×4 (10:06→21:23)
[2017-12-28] MEDS: Budesonide 0.5 mg/2 ml Inhal Susp UD INH SCH ×2 (10:14→19:42)
--- NOTE | 2017-12-28 13:53 | PN ---
DATE: 12/28/2017 LOCATION: ICU 21. SUBJECTIVE: This is an 87-year-old male seen and examined in the intensive care unit, was on nonbreathers at L per minute, without reported active bleeding, significant chest pain, chills, or fever. No reported palpitation this morning. The entire chart is reviewed including but not limited to the most recent lab and radiology study results, current and the previous medication list, current and the previous medical events. Today's lab showed normal CBC with blood glucose level of 154. The patient had yesterday chest CAT scan, official report and films were reviewed. PHYSICAL EXAMINATION: GENERAL: An 87-year-old male. VITAL SIGNS: Afebrile with pulse of 86, respiratory rate of 20 to 24 with blood pressure of 124/78. HEENT: Showed pale, dry oral mucous membrane. Nonicteric sclerae. LUNGS: A few scattered crepitation. Decreased air entry at bases. HEART: Positive S1 and S2. ABDOMEN: Soft. Bowel sounds are present but hypoactive with slight generalized tenderness. No mass or organomegaly. No rebound tenderness. EXTREMITIES: Without significant clubbing or cyanosis but edematous mild changes in the lower extremities. NEUROLOGIC: No new reported neurological deficits, sensory or motor. IMPRESSION: 1. 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 2. Aspiration pneumonia. 3. Known history of emphysema. 4. Malnutrition with hypoalbuminemia. 5. Increased CA19-9 raising the possibility of possible pancreatic cancer. 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 7. Possible fecal impaction by radiology study results. 8. Respiratory insufficiency, most likely secondary to above. SUGGESTIONS: 1. Agree with your plan. 2. Surgically inserted gastrostomy tube for nutritional support and avoid any high risk of recurrent aspiration. 3. Proton pump inhibitors IV. 4. The patient will need thoracic surgical consultation. Further recommendation to follow. Vasquez Orourke MD
--- NOTE | 2017-12-28 14:18 | CP.PCM.PN ---
Subjective - Date & Time of Evaluation Date of Evaluation: 12/28/17 Time of Evaluation: 09:00 - Subjective Subjective: transferred to ICU for hypoxemia satting better now in NAD Objective - Vital Signs/Intake and Output Vital Signs (last 24 hours): Temp Pulse Resp BP Pulse Ox 97.4 F L 67 27 H 116/83 100 12/28/17 05:00 12/28/17 13:30 12/28/17 13:53 12/28/17 13:27 12/28/17 13:30 Intake and Output: 12/28/17 12/28/17 06:59 18:59 Intake Total 455 65 Output Total 450 50 Balance 5 15 - Medications Medications: Current Medications Albuterol Sulfate (Albuterol 0.083% Inhal Martha (2.5 Mg/3 Ml) Ud) 2.5 mg INH RQ6 [facility] Last Admin: 12/28/17 13:53 Dose: 2.5 mg Budesonide (Pulmicort Respules) 0.5 mg INH RQ12 [facility] Last Admin: 12/28/17 10:14 Dose: 0.5 mg Heparin Sodium (Porcine) (Heparin) 5,000 units SC Q12 [facility] Last Admin: 12/28/17 10:22 Dose: 5,000 units Piperacillin Sod/Tazobactam (Sod 3.375 gm/ Sodium Chloride) 100 mls @ 200 mls/ hr IVPB Q8H [facility] PRN Reason: Protocol Last Admin: 12/28/17 09:23 Dose: 200 mls/hr Vancomycin/Sodium Chloride (Vancomycin 1 Gm/Ns 200 Ml) 1 gm in 200 mls @ 166.6 mls/hr IVPB Q12H [facility] PRN Reason: Protocol Stop: 12/31/17 18:01 Last Admin: 12/28/17 07:40 Dose: 166.6 mls/hr Chromium/Copper/Manganese/Zinc (1 ml/ Amino Acids) 1,001 mls @ 65 mls/hr IV .[id number] ONE Stop: 12/29/17 00:53 Last Admin: 12/28/17 09:23 Dose: 65 mls/hr Chromium/Copper/Manganese/Zinc (1 ml/ Amino Acids) 1,001 mls @ 65 mls/hr IV .[id number] ONE Stop: 12/29/17 09:23 Chromium/Copper/Manganese/ (Seleni/Zn 1 ml/ Amino Acids) 1,001 mls @ 65 mls/hr IV .[id number] [facility] Stop: 12/29/17 18:00 Fat Emulsion Intravenous (Intralipid 20%) 500 mls @ 48 mls/hr IV MWF@1800 [facility] Stop: 01/03/18 18:01 Methylprednisolone (Solu-Medrol) 40 mg IVP Q12 [facility] Last Admin: 12/28/17 09:56 Dose: 40 mg Montelukast Sodium (Singulair) 10 mg PO HS [facility] Last Admin: 12/27/17 22:44 Dose: Not Given Nystatin (Nystatin Oral Susp) 5 ml PO QID [facility] Last Admin: 12/28/17 10:06 Dose: 5 ml Pantoprazole Sodium (Protonix Inj) 40 mg IVP DAILY [facility] Last Admin: 12/28/17 10:21 Dose: 40 mg - Labs Labs: 12/28/17 06:38 12/28/17 06:37 PT 14.2 SECONDS (9.7-12.2) H 12/21/17 20:23 INR 1.3 12/21/17 20:23 APTT 36 SECONDS (21-34) H 12/21/17 20:23 - Constitutional Appears: Cachectic, Chronically Ill - Head Exam Head Exam: NORMOCEPHALIC - Eye Exam Eye Exam: absent: Scleral icterus - ENT Exam ENT Exam: Mucous Membranes Dry - Neck Exam Neck Exam: absent: Lymphadenopathy - Respiratory Exam Respiratory Exam: Decreased Breath Sounds - Cardiovascular Exam Cardiovascular Exam: REGULAR RHYTHM - GI/Abdominal Exam GI & Abdominal Exam: Distended - Rectal Exam Rectal Exam: Deferred - Exam Exam: NORMAL INSPECTION - Extremities Exam Extremities Exam: absent: Pedal Edema - Back Exam Back Exam: absent: CVA tenderness (L), CVA tenderness (R) - Neurological Exam Neurological Exam: Awake Assessment and Plan (1) Acute pneumonia Status: Acute (2) Bullous emphysema Status: Acute (3) Cachexia Status: Acute (4) Emphysema lung Status: Acute (5) Hypernatremia Status: Resolved (6) Pneumonia Status: Acute (7) Prerenal azotemia Status: Resolved (8) Severe dehydration Status: Acute (9) MRSA (methicillin resistant staph aureus) culture positive Status: Acute - Assessment and Plan (Free Text) Assessment: cont iv antibiotics + MRSA sputum supportive care thoracic surg following
[2017-12-28] MEDS ORDERED: PPN #3 IV ONE (18:00)
[2017-12-29] MEDS: Albuterol 0.083% Inhal Sol (2.5 mg/3 mL) UD INH SCH ×4 (01:12→19:33)
[2017-12-29] MEDS: Piperacillin/Tazobact 3.375 GM in Sodium Chloride 100 ML IVPB SCH ×3 (01:35→16:08)
[2017-12-29 05:44] LABS: BASO % 0.2 % (0.0-2.0); HEMOGLOBIN 10.4 g/dL (12.0-18.0); LYMPH # 0.2 K/uL (1.0-4.3); LYMPH % 1.1 % (20.0-40.0); MEAN CELL VOLUME 85.8 fL (80.0-94.0); MEAN CORPUSCULAR HGB CONC 33.8 g/dL (33.0-37.0); MEAN PLATELET VOLUME 9.4 fL (7.2-11.7); MONO # 0.4 K/uL (0.0-0.8); MONO % 2.4 % (0.0-10.0); NEUT # 15.8 K/uL (1.8-7.0); NEUT % 96.3 % (50.0-75.0); PLATELET COUNT 202 K/uL (130-400); RBC 3.59 Mil/uL (4.40-5.90); WHITE BLOOD COUNT 16.4 K/uL (4.8-10.8)
[2017-12-29] MEDS: Vancomycin 1 gm/NS 200 ml 1 GM/200 ML BAG IVPB SCH (06:00)
[2017-12-29 06:20] LABS: ALB/GLOB RATIO 0.7 (1.0-2.1); ALBUMIN 2.3 g/dL (3.5-5.0); ALT/SGPT 42 U/L (21-72); AST/SGOT 48 U/L (17-59); BLOOD UREA NITROGEN 27 mg/dL (9-20); CALCIUM 8.4 mg/dl (8.6-10.4); GFR AFRICAN-AMERICAN > 60; GFR NON-AFRICAN AMERICAN > 60
[2017-12-29] MEDS: Budesonide 0.5 mg/2 ml Inhal Susp UD INH SCH ×2 (07:25→19:33)
[2017-12-29 08:14] LABS: ABG ALLEN TEST PO; ARTERIAL BLOOD GAS HCO3 23.5 mmol/L (21-28); ARTERIAL BLOOD GAS HEMOGLOBIN 10.4 g/dL (11.7-17.4); ARTERIAL BLOOD GAS O2 SAT 97.1 % (95-98); ARTERIAL BLOOD GAS PCO2 29 mm/Hg (35-45); ARTERIAL BLOOD GAS PH 7.47 (7.35-7.45); ARTERIAL BLOOD GAS PO2 69 mm/Hg (80-100)
[2017-12-29 08:23] LABS: ANISOCYTOSIS SLIGHT; BANDS 3 % (0-2); HYPOCHROMIC SLIGHT; LYMPHOCYTE 2 % (20-40); MONOCYTE 1 % (0-10); NEUTROPHIL 94 % (50-75); PLATELET ESTIMATE NORMAL (NORMAL); POIKILOCYTOSIS SLIGHT; TOTAL CELLS COUNTED 100
[2017-12-29 08:24] LABS: BURR CELLS SLIGHT; OVALOCYTES SLIGHT
--- NOTE | 2017-12-29 08:38 | RAD ---
Date of service: 12/29/2017 HISTORY: eval left lung COMPARISON: 12/27/2017 FINDINGS: The right PICC line terminates at the cavoatrial junction. LUNGS: The right lung is well inflated and clear. There is persistent low long lung volume on the left with no significant interval change in airspace disease in the upper lobe and lingula. The shift of mediastinal to the left. PLEURA: No significant pleural effusion identified, no pneumothorax apparent. CARDIOVASCULAR: Persistent moderate cardiomegaly. OSSEOUS STRUCTURES: No significant abnormalities. VISUALIZED UPPER ABDOMEN: Normal. OTHER FINDINGS: None. IMPRESSION: No change in persistent low lung volume on the left with airspace disease in the left lung which may represent pneumonia. Clear right lung.
[2017-12-29] MEDS: MethylPREDNISolone 40 mg Vial IVP SCH (09:30)
[2017-12-29] MEDS: Nystatin 100,000 Units/ml Oral Susp 5 ml UD PO SCH ×4 (09:30→21:29)
[2017-12-29] MEDS ORDERED: PPN#4 IV SCH (09:30)
--- NOTE | 2017-12-29 09:57 | CP.PCM.PN ---
Subjective - Date & Time of Evaluation Date of Evaluation: 12/29/17 Time of Evaluation: 09:54 - Subjective Subjective: events noted; transferred to ICU; possibly had aspirated UO- 980 ml renal function stable K, phos low- to get Kphos IV supplements possible candidate for PEG lethargic now, cannot obtain ROS Objective - Vital Signs/Intake and Output Vital Signs (last 24 hours): Temp Pulse Resp BP Pulse Ox 97.4 F L 51 L 20 101/64 100 12/29/17 04:00 12/29/17 06:09 12/29/17 08:01 12/29/17 06:09 12/29/17 06:09 Intake and Output: 12/29/17 12/29/17 06:59 18:59 Intake Total 915 Output Total 500 Balance 415 - Medications Medications: Current Medications Albuterol Sulfate (Albuterol 0.083% Inhal Martha (2.5 Mg/3 Ml) Ud) 2.5 mg INH RQ6 [facility] Last Admin: 12/29/17 07:26 Dose: 2.5 mg Budesonide (Pulmicort Respules) 0.5 mg INH RQ12 [facility] Last Admin: 12/29/17 07:25 Dose: 0.5 mg Heparin Sodium (Porcine) (Heparin) 5,000 units SC Q12 [facility] Last Admin: 12/29/17 09:29 Dose: 5,000 units Piperacillin Sod/Tazobactam (Sod 3.375 gm/ Sodium Chloride) 100 mls @ 200 mls/ hr IVPB Q8H [facility] PRN Reason: Protocol Last Admin: 12/29/17 09:30 Dose: 200 mls/hr Vancomycin/Sodium Chloride (Vancomycin 1 Gm/Ns 200 Ml) 1 gm in 200 mls @ 166.6 mls/hr IVPB Q12H [facility] PRN Reason: Protocol Stop: 12/31/17 18:01 Last Admin: 12/29/17 06:00 Dose: 166.6 mls/hr Chromium/Copper/Manganese/ (Seleni/Zn 1 ml/ Amino Acids) 1,001 mls @ 65 mls/hr IV .[id number] [facility] Stop: 12/29/17 18:00 Last Admin: 12/29/17 09:30 Dose: 65 mls/hr Fat Emulsion Intravenous (Intralipid 20%) 500 mls @ 48 mls/hr IV MWF@1800 [facility] Stop: 01/03/18 18:01 Multivitamins/Vitamin C 10 ml/Chromium/Copper/Manganese/Zinc 1 ml/ Amino Acids 1,011 mls @ 65 mls/hr IV .[id number] ONE Stop: 12/30/17 09:33 Chromium/Copper/Manganese/Zinc (1 ml/ Amino Acids) 1,001 mls @ 65 mls/hr IV .[id number] ONE Stop: 12/31/17 00:53 Methylprednisolone (Solu-Medrol) 40 mg IVP Q12 [facility] Last Admin: 12/29/17 09:30 Dose: 40 mg Montelukast Sodium (Singulair) 10 mg PO HS [facility] Last Admin: 12/28/17 21:23 Dose: Not Given Nystatin (Nystatin Oral Susp) 5 ml PO QID [facility] Last Admin: 12/29/17 09:30 Dose: 5 ml Pantoprazole Sodium (Protonix Inj) 40 mg IVP DAILY [facility] Last Admin: 12/29/17 09:30 Dose: 40 mg - Labs Labs: 12/29/17 05:35 12/29/17 05:35 PT 14.2 SECONDS (9.7-12.2) H 12/21/17 20:23 INR 1.3 12/21/17 20:23 APTT 36 SECONDS (21-34) H 12/21/17 20:23 - Constitutional Appears: Confused, Cachectic, Chronically Ill - Head Exam Head Exam: ATRAUMATIC, NORMAL INSPECTION - Eye Exam Eye Exam: EOMI, Normal appearance - Neck Exam Neck Exam: Normal Inspection. absent: Tenderness - Respiratory Exam Respiratory Exam: Rhonchi, NORMAL BREATHING PATTERN - Cardiovascular Exam Cardiovascular Exam: REGULAR RHYTHM, +S1 - GI/Abdominal Exam GI & Abdominal Exam: Soft. absent: Tenderness - Extremities Exam Extremities Exam: Normal Inspection. absent: Tenderness - Neurological Exam Neurological Exam: Altered - Skin Skin Exam: Dry, Warm Assessment and Plan (1) Acute pneumonia Status: Acute (2) Emphysema lung Status: Acute (3) Prerenal azotemia Status: Resolved (4) Hypernatremia Status: Resolved (5) Pneumonia Status: Acute (6) Severe dehydration Status: Acute - Assessment and Plan (Free Text) Plan: PPN Replete K , phos IV IV ABs Consider PEG
--- NOTE | 2017-12-29 10:39 | CP.PCM.PN ---
Subjective - Date & Time of Evaluation Date of Evaluation: 12/29/17 Time of Evaluation: 10:32 - Subjective Subjective: Pt s/e ct with contrast: 2cm long mass at the level of terri-with proximal dilatation of esophagus (reviewed with Dr. Donald). Awaiting endoscopy and bx. In ICU for probable aspiration. 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 Awaiting endoscopy and bx. Continue supportive care. Objective - Vital Signs/Intake and Output Vital Signs (last 24 hours): Temp Pulse Resp BP Pulse Ox 97.7 F 51 L 31 H 104/63 95 12/29/17 09:00 12/29/17 10:00 12/29/17 10:00 12/29/17 09:09 12/29/17 10:00 Intake and Output: 12/29/17 12/29/17 06:59 18:59 Intake Total 915 310 Output Total 500 Balance 415 310 - Medications Medications: Current Medications Albuterol Sulfate (Albuterol 0.083% Inhal Martha (2.5 Mg/3 Ml) Ud) 2.5 mg INH RQ6 [facility] Last Admin: 12/29/17 07:26 Dose: 2.5 mg Budesonide (Pulmicort Respules) 0.5 mg INH RQ12 [facility] Last Admin: 12/29/17 07:25 Dose: 0.5 mg Heparin Sodium (Porcine) (Heparin) 5,000 units SC Q12 [facility] Last Admin: 12/29/17 09:29 Dose: 5,000 units Piperacillin Sod/Tazobactam (Sod 3.375 gm/ Sodium Chloride) 100 mls @ 200 mls/ hr IVPB Q8H [facility] PRN Reason: Protocol Last Admin: 12/29/17 09:30 Dose: 200 mls/hr Vancomycin/Sodium Chloride (Vancomycin 1 Gm/Ns 200 Ml) 1 gm in 200 mls @ 166.6 mls/hr IVPB Q12H [facility] PRN Reason: Protocol Stop: 12/31/17 18:01 Last Admin: 12/29/17 06:00 Dose: 166.6 mls/hr Chromium/Copper/Manganese/ (Seleni/Zn 1 ml/ Amino Acids) 1,001 mls @ 65 mls/hr IV .[id number] [facility] Stop: 12/29/17 18:00 Last Admin: 12/29/17 09:30 Dose: 65 mls/hr Fat Emulsion Intravenous (Intralipid 20%) 500 mls @ 48 mls/hr IV MWF@1800 [facility] Stop: 01/03/18 18:01 Multivitamins/Vitamin C 10 ml/Chromium/Copper/Manganese/Zinc 1 ml/ Amino Acids 1,011 mls @ 65 mls/hr IV .[id number] ONE Stop: 12/30/17 09:33 Chromium/Copper/Manganese/Zinc (1 ml/ Amino Acids) 1,001 mls @ 65 mls/hr IV .[id number] [facility] Stop: 12/31/17 00:53 Potassium Phosphate 15 mmole/ (Sodium Chloride) 255 mls @ 63 mls/hr IV ONCE ONE Stop: 12/29/17 15:02 Methylprednisolone (Solu-Medrol) 40 mg IVP DAILY [facility] Montelukast Sodium (Singulair) 10 mg PO HS [facility] Last Admin: 12/28/17 21:23 Dose: Not Given Nystatin (Nystatin Oral Susp) 5 ml PO QID [facility] Last Admin: 12/29/17 09:30 Dose: 5 ml Pantoprazole Sodium (Protonix Inj) 40 mg IVP DAILY [facility] Last Admin: 12/29/17 09:30 Dose: 40 mg - Labs Labs: 12/29/17 05:35 12/29/17 05:35 PT 14.2 SECONDS (9.7-12.2) H 12/21/17 20:23 INR 1.3 12/21/17 20:23 APTT 36 SECONDS (21-34) H 12/21/17 20:23
[2017-12-29] MEDS ORDERED: Potassium Phosphate 15 MMOLE in Sodium Chloride 0.9% 250 ML IV ONE (11:00)
--- NOTE | 2017-12-29 11:10 | CP.CCUPN ---
<Booker Mcintosh - Last Filed: 12/29/17 17:24> CCU Subjective - Physician Review Subjective (Free Text): Booker Mcintosh DO PGY-1, ICU progress note for Dr. Magana Pt seen and examined at bedside. Pt reports that he feels like he cannot bring up the phlegm that he producing. No acute events overnight. Pt had a bowel movement yesterday, which was normal. Pt is produced 500 mL of clear urine via condom catheter. Pt was afebrile overnight. Pt denies fever, lightheadedness, dizziness, headache, visual changes, chest pain, sob, palpitations, abdominal pain, n/v/d. Pt is receiving high flow O2 (15L/min at 30% fio2) A 12-point ROS was reviewed and is otherwise unremarkable CCU Objective - Vital Signs / Intake & Output Vital Signs (Last 4 hours): Vital Signs Temp Pulse Resp BP Pulse Ox 12/29/17 11:00 49 L 20 95 12/29/17 10:09 49 L 23 95/56 L 93 L 12/29/17 10:00 51 L 31 H 95 12/29/17 09:09 53 L 25 H 104/63 100 12/29/17 09:00 97.7 F 50 L 21 99 12/29/17 08:09 107/69 12/29/17 08:01 20 12/29/17 08:00 47 L 20 97 Intake and Output (Last 8hrs): Intake & Output 12/28/17 12/29/17 12/29/17 22:59 06:59 14:59 Intake Total 520 655 375 Output Total 320 300 Balance 200 355 375 Weight 55.338 kg Intake: Intake, IV Amount 520 655 375 2nd port R PICC 200 50 Right PICC 520 455 325 Output: Urine 320 300 Condom 320 300 Other: # Voids Condom 1 1 - Physical Exam Head: Positive for: Atraumatic, Normocephalic, Other (temporal wasting) Pupils: Positive for: PERRL Extroacular Muscles: Positive for: EOMI Conjunctiva: Positive for: Normal Mouth: Positive for: Moist Mucous Membranes Neck: Positive for: Normal Range of Motion Respiratory/Chest: Positive for: Decreased Breath Sounds (bilaterally), Rhonchi (in lower lung bases). Negative for: Respiratory Distress, Accessory Muscle Use Cardiovascular: Positive for: Regular Rate and Rhythm, Normal S1, S2. Negative for: Murmurs, Rub, Gallop Abdomen: Positive for: Normal Bowel Sounds (in all 4 quadrants). Negative for: Tenderness, Distention Upper Extremity: Positive for: Normal Inspection, Other ((+) right picc line) Lower Extremity: Positive for: Normal Inspection Neurological: Positive for: GCS=15, CN II-XII Intact Skin: Positive for: Warm, Dry Psychiatric: Positive for: Alert. Negative for: Oriented x 3 (oriented to person, place, but not time.) Other physical findings (Free Text): (+) cachexia with temporal wasting - Medications Active Medications: Active Medications Generic Name Dose Route Start Last Admin Trade Name Freq PRN Reason Stop Dose Admin Albuterol Sulfate 2.5 mg 12/22/17 20:00 12/29/17 07:26 Albuterol 0.083% Inhal Martha (2.5 Mg/3 Ml) Ud INH 2.5 mg RQ6 GAURANG Administration Budesonide 0.5 mg 12/27/17 20:00 12/29/17 07:25 Pulmicort Respules INH 0.5 mg RQ12 GAURANG Administration Heparin Sodium (Porcine) 5,000 units 12/28/17 10:00 12/29/17 09:29 Heparin SC 5,000 units Q12 GAURANG Administration Piperacillin Sod/Tazobactam 100 mls @ 200 mls/hr 12/26/17 17:00 12/29/17 09: 30 Sod 3.375 gm/ Sodium Chloride IVPB 200 mls/hr Q8H GAURANG Administration Protocol Vancomycin/Sodium Chloride 1 gm in 200 mls @ 166.6 mls/hr 12/26/17 18:00 06:00 Vancomycin 1 Gm/Ns 200 Ml IVPB 12/31/17 18:01 166.6 mls/hr Q12H GAURANG Administration Protocol Chromium/Copper/Manganese/ 1,001 mls @ 65 mls/hr 12/29/17 09:30 12/29/17 09: 30 Seleni/Zn 1 ml/ Amino Acids IV 12/29/17 18:00 65 mls/hr .[id number] GAURANG Administration Fat Emulsion Intravenous 500 mls @ 48 mls/hr 12/29/17 18:00 Intralipid 20% IV 01/03/18 18:01 MWF@1800 GAURANG Multivitamins/Vitamin C 10 ml/ 1,011 mls @ 65 mls/hr 12/29/17 18:00 Chromium/Copper/Manganese/ IV 12/30/17 09:33 Zinc 1 ml/ Amino Acids .[id number] ONE Chromium/Copper/Manganese/Zinc 1,001 mls @ 65 mls/hr 12/30/17 09:30 1 ml/ Amino Acids IV 12/31/17 00:53 .[id number] ONE Potassium Phosphate 15 mmole/ 255 mls @ 63 mls/hr 12/29/17 11:00 Sodium Chloride IV 12/29/17 15:02 ONCE ONE Methylprednisolone 40 mg 12/30/17 10:00 Solu-Medrol IVP DAILY GAURANG Montelukast Sodium 10 mg 12/22/17 22:00 12/28/17 21:23 Singulair PO Not Given HS GAURANG Nystatin 5 ml 12/25/17 18:00 12/29/17 09:30 Nystatin Oral Susp PO 5 ml QID GAURANG Administration Pantoprazole Sodium 40 mg 12/28/17 10:00 12/29/17 09:30 Protonix Inj IVP 40 mg DAILY GAURANG Administration - Patient Studies Lab Studies: Microbiology Studies 12/27/17 Unknown MRSA Culture (Admit) - Final Nose MRSA DETECTED 12/26/17 08:46 Gram Stain - Final Sputum Sputum Culture - Final Methicillin Resistant S Aureus Lab Studies 12/29/17 12/29/17 12/29/17 Range/Units 09:27 08:11 05:35 WBC (4.8-10.8) K/uL RBC (4.40-5.90) Mil/uL Hgb (12.0-18.0) g/dL Hct (35.0-51.0) % MCV (80.0-94.0) fL MCH (27.0-31.0) pg MCHC (33.0-37.0) g/dL RDW (11.5-14.5) % Plt Count (130-400) K/uL MPV (7.2-11.7) fL Neut % (Auto) (50.0-75.0) % Lymph % (Auto) (20.0-40.0) % [place] % (Auto) (0.0-10.0) % Eos % (Auto) (0.0-4.0) % Baso % (Auto) (0.0-2.0) % Neut # (Auto) (1.8-7.0) K/uL Lymph # (Auto) (1.0-4.3) K/uL [place] # (Auto) (0.0-0.8) K/uL Eos # (Auto) (0.0-0.7) K/uL Baso # (Auto) (0.0-0.2) K/uL Neutrophils % (Manual) (50-75) % Band Neutrophils % (0-2) % Lymphocytes % (Manual) (20-40) % Monocytes % (Manual) (0-10) % Platelet Estimate (NORMAL) Hypochromasia (manual) Poikilocytosis (manual Anisocytosis (manual) Ovalocytes Marcial Cells Puncture Site Rra pCO2 29 L (35-45) mm/Hg pO2 69 L (80-100) mm/Hg HCO3 23.5 (21-28) mmol/L ABG pH 7.47 H (7.35-7.45) ABG Total CO2 22.0 (22-28) mmol/L ABG O2 Saturation 97.1 (95-98) % ABG Base Excess -1.8 (-2.0-3.0) mmol/L ABG Hemoglobin 10.4 L (11.7-17.4) g/dL ABG Carboxyhemoglobin 1.9 H (0.5-1.5) % POC ABG HHb (Measured) 2.8 (0.0-5.0) % ABG Methemoglobin 1.3 (0.0-3.0) % Jakob Test Po A-a O2 Difference 94.0 mm/Hg Respiratory Index 1.4 Hgb O2 Saturation 94.0 L (95.0-98.0) % FiO2 28.0 % Sodium 138 (132-148) mmol/L Potassium 3.5 L (3.6-5.2) mmol/L Chloride 107 (98-107) mmol/L Carbon Dioxide 22 (22-30) mmol/L Anion Gap 13 (10-20) BUN 27 H (9-20) mg/dL Creatinine 0.7 L (0.8-1.5) mg/dL Est GFR ( Amer) > 60 Est GFR (Non-Af Amer) > 60 POC Glucose (mg/dL) (65-110) mg/dL Random Glucose 145 H (75-110) mg/dL Calcium 8.4 L (8.6-10.4) mg/dl Phosphorus 2.2 L (2.5-4.5) mg/dL Magnesium 1.9 (1.6-2.3) mg/dL Total Bilirubin 0.4 (0.2-1.3) mg/dL AST 48 (17-59) U/L ALT 42 (21-72) U/L Alkaline Phosphatase 56 (38-126) U/L Total Protein 5.6 L (6.3-8.3) g/dL Albumin 2.3 L (3.5-5.0) g/dL Globulin 3.3 (2.2-3.9) gm/dL Albumin/Globulin Ratio 0.7 L (1.0-2.1) Vancomycin Peak 20.7 L (30.0-40.0) ug/mL Vancomycin Trough (5.0-10.0) ug/mL 12/29/17 12/29/17 12/28/17 Range/Units 05:35 05:35 23:46 WBC 16.4 H D (4.8-10.8) K/uL RBC 3.59 L (4.40-5.90) Mil/uL Hgb 10.4 L (12.0-18.0) g/dL Hct 30.8 L (35.0-51.0) % MCV 85.8 (80.0-94.0) fL MCH 29.0 (27.0-31.0) pg MCHC 33.8 (33.0-37.0) g/dL RDW 14.0 (11.5-14.5) % Plt Count 202 (130-400) K/uL MPV 9.4 (7.2-11.7) fL Neut % (Auto) 96.3 H (50.0-75.0) % Lymph % (Auto) 1.1 L (20.0-40.0) % [place] % (Auto) 2.4 (0.0-10.0) % Eos % (Auto) 0.0 (0.0-4.0) % Baso % (Auto) 0.2 (0.0-2.0) % Neut # (Auto) 15.8 H (1.8-7.0) K/uL Lymph # (Auto) 0.2 L (1.0-4.3) K/uL [place] # (Auto) 0.4 (0.0-0.8) K/uL Eos # (Auto) 0.0 (0.0-0.7) K/uL Baso # (Auto) 0.0 (0.0-0.2) K/uL Neutrophils % (Manual) 94 H (50-75) % Band Neutrophils % 3 H (0-2) % Lymphocytes % (Manual) 2 L (20-40) % Monocytes % (Manual) 1 (0-10) % Platelet Estimate Normal (NORMAL) Hypochromasia (manual) Slight Poikilocytosis (manual Slight Anisocytosis (manual) Slight Ovalocytes Slight Lyman Cells Slight Puncture Site pCO2 (35-45) mm/Hg pO2 (80-100) mm/Hg HCO3 (21-28) mmol/L ABG pH (7.35-7.45) ABG Total CO2 (22-28) mmol/L ABG O2 Saturation (95-98) % ABG Base Excess (-2.0-3.0) mmol/L ABG Hemoglobin (11.7-17.4) g/dL ABG Carboxyhemoglobin (0.5-1.5) % POC ABG HHb (Measured) (0.0-5.0) % ABG Methemoglobin (0.0-3.0) % Jakob Test A-a O2 Difference mm/Hg Respiratory Index Hgb O2 Saturation (95.0-98.0) % FiO2 % Sodium (132-148) mmol/L Potassium (3.6-5.2) mmol/L Chloride (98-107) mmol/L Carbon Dioxide (22-30) mmol/L Anion Gap (10-20) BUN (9-20) mg/dL Creatinine (0.8-1.5) mg/dL Est GFR ( Amer) Est GFR (Non-Af Amer) POC Glucose (mg/dL) 164 H (65-110) mg/dL Random Glucose (75-110) mg/dL Calcium (8.6-10.4) mg/dl Phosphorus (2.5-4.5) mg/dL Magnesium (1.6-2.3) mg/dL Total Bilirubin (0.2-1.3) mg/dL AST (17-59) U/L ALT (21-72) U/L Alkaline Phosphatase (38-126) U/L Total Protein (6.3-8.3) g/dL Albumin (3.5-5.0) g/dL Globulin (2.2-3.9) gm/dL Albumin/Globulin Ratio (1.0-2.1) Vancomycin Peak (30.0-40.0) ug/mL Vancomycin Trough 13.4 H (5.0-10.0) ug/mL 12/28/17 12/28/17 12/28/17 Range/Units 18:37 17:42 11:17 WBC (4.8-10.8) K/uL RBC (4.40-5.90) Mil/uL Hgb (12.0-18.0) g/dL Hct (35.0-51.0) % MCV (80.0-94.0) fL MCH (27.0-31.0) pg MCHC (33.0-37.0) g/dL RDW (11.5-14.5) % Plt Count (130-400) K/uL MPV (7.2-11.7) fL Neut % (Auto) (50.0-75.0) % Lymph % (Auto) (20.0-40.0) % [place] % (Auto) (0.0-10.0) % Eos % (Auto) (0.0-4.0) % Baso % (Auto) (0.0-2.0) % Neut # (Auto) (1.8-7.0) K/uL Lymph # (Auto) (1.0-4.3) K/uL [place] # (Auto) (0.0-0.8) K/uL Eos # (Auto) (0.0-0.7) K/uL Baso # (Auto) (0.0-0.2) K/uL Neutrophils % (Manual) (50-75) % Band Neutrophils % (0-2) % Lymphocytes % (Manual) (20-40) % Monocytes % (Manual) (0-10) % Platelet Estimate (NORMAL) Hypochromasia (manual) Poikilocytosis (manual Anisocytosis (manual) Ovalocytes Lyman Cells Puncture Site pCO2 (35-45) mm/Hg pO2 (80-100) mm/Hg HCO3 (21-28) mmol/L ABG pH (7.35-7.45) ABG Total CO2 (22-28) mmol/L ABG O2 Saturation (95-98) % ABG Base Excess (-2.0-3.0) mmol/L ABG Hemoglobin (11.7-17.4) g/dL ABG Carboxyhemoglobin (0.5-1.5) % POC ABG HHb (Measured) (0.0-5.0) % ABG Methemoglobin (0.0-3.0) % Jakob Test A-a O2 Difference mm/Hg Respiratory Index Hgb O2 Saturation (95.0-98.0) % FiO2 % Sodium (132-148) mmol/L Potassium (3.6-5.2) mmol/L Chloride (98-107) mmol/L Carbon Dioxide (22-30) mmol/L Anion Gap (10-20) BUN (9-20) mg/dL Creatinine (0.8-1.5) mg/dL Est GFR ( Amer) Est GFR (Non-Af Amer) POC Glucose (mg/dL) 161 H 149 H (65-110) mg/dL Random Glucose (75-110) mg/dL Calcium (8.6-10.4) mg/dl Phosphorus (2.5-4.5) mg/dL Magnesium (1.6-2.3) mg/dL Total Bilirubin (0.2-1.3) mg/dL AST (17-59) U/L ALT (21-72) U/L Alkaline Phosphatase (38-126) U/L Total Protein (6.3-8.3) g/dL Albumin (3.5-5.0) g/dL Globulin (2.2-3.9) gm/dL Albumin/Globulin Ratio (1.0-2.1) Vancomycin Peak (30.0-40.0) ug/mL Vancomycin Trough 18.4 H (5.0-10.0) ug/mL Laboratory Results - last 24 hr 12/28/17 12/28/1712/28/18 11:17 17:42 18:37 WBC RBC Hgb Hct MCV MCH MCHC RDW Plt Count MPV Neut % (Auto) Lymph % (Auto) [place] % (Auto) Eos % (Auto) Baso % (Auto) Neut # (Auto) Lymph # (Auto) [place] # (Auto) Eos # (Auto) Baso # (Auto) Neutrophils % (Manual) Band Neutrophils % Lymphocytes % (Manual) Monocytes % (Manual) Platelet Estimate Hypochromasia (manual) Poikilocytosis (manual Anisocytosis (manual) Ovalocytes Lyman Cells Puncture Site pCO2 pO2 HCO3 ABG pH ABG Total CO2 ABG O2 Saturation ABG Base Excess ABG Hemoglobin ABG Carboxyhemoglobin POC ABG HHb (Measured) ABG Methemoglobin Jakob Test A-a O2 Difference Respiratory Index Hgb O2 Saturation FiO2 Sodium Potassium Chloride Carbon Dioxide Anion Gap BUN Creatinine Est GFR ( Amer) Est GFR (Non-Af Amer) POC Glucose (mg/dL) 149 H 161 H Random Glucose Calcium Phosphorus Magnesium Total Bilirubin AST ALT Alkaline Phosphatase Total Protein Albumin Globulin Albumin/Globulin Ratio Vancomycin Peak Vancomycin Trough 18.4 H 12/28/17 12/29/17 12/29/17 23:46 05:35 05:35 WBC 16.4 H D RBC 3.59 L Hgb 10.4 L Hct 30.8 L MCV 85.8 MCH 29.0 MCHC 33.8 RDW 14.0 Plt Count 202 MPV 9.4 Neut % (Auto) 96.3 H Lymph % (Auto) 1.1 L [place] % (Auto) 2.4 Eos % (Auto) 0.0 Baso % (Auto) 0.2 Neut # (Auto) 15.8 H Lymph # (Auto) 0.2 L [place] # (Auto) 0.4 Eos # (Auto) 0.0 Baso # (Auto) 0.0 Neutrophils % (Manual) 94 H Band Neutrophils % 3 H Lymphocytes % (Manual) 2 L Monocytes % (Manual) 1 Platelet Estimate Normal Hypochromasia (manual) Slight Poikilocytosis (manual Slight Anisocytosis (manual) Slight Ovalocytes Slight Marcial Cells Slight Puncture Site pCO2 pO2 HCO3 ABG pH ABG Total CO2 ABG O2 Saturation ABG Base Excess ABG Hemoglobin ABG Carboxyhemoglobin POC ABG HHb (Measured) ABG Methemoglobin Jakob Test A-a O2 Difference Respiratory Index Hgb O2 Saturation FiO2 Sodium Potassium Chloride Carbon Dioxide Anion Gap BUN Creatinine Est GFR ( Amer) Est GFR (Non-Af Amer) POC Glucose (mg/dL) 164 H Random Glucose Calcium Phosphorus Magnesium Total Bilirubin AST ALT Alkaline Phosphatase Total Protein Albumin Globulin Albumin/Globulin Ratio Vancomycin Peak Vancomycin Trough 13.4 H 12/29/17 12/29/17 12/29/17 05:35 08:11 09:27 WBC RBC Hgb Hct MCV MCH MCHC RDW Plt Count MPV Neut % (Auto) Lymph % (Auto) [place] % (Auto) Eos % (Auto) Baso % (Auto) Neut # (Auto) Lymph # (Auto) [place] # (Auto) Eos # (Auto) Baso # (Auto) Neutrophils % (Manual) Band Neutrophils % Lymphocytes % (Manual) Monocytes % (Manual) Platelet Estimate Hypochromasia (manual) Poikilocytosis (manual Anisocytosis (manual) Ovalocytes Lyman Cells Puncture Site Rra pCO2 29 L pO2 69 L HCO3 23.5 ABG pH 7.47 H ABG Total CO2 22.0 ABG O2 Saturation 97.1 ABG Base Excess -1.8 ABG Hemoglobin 10.4 L ABG Carboxyhemoglobin 1.9 H POC ABG HHb (Measured) 2.8 ABG Methemoglobin 1.3 Jakob Test Po A-a O2 Difference 94.0 Respiratory Index 1.4 Hgb O2 Saturation 94.0 L FiO2 28.0 Sodium 138 Potassium 3.5 L Chloride 107 Carbon Dioxide 22 Anion Gap 13 BUN 27 H Creatinine 0.7 L Est GFR ( Amer) > 60 Est GFR (Non-Af Amer) > 60 POC Glucose (mg/dL) Random Glucose 145 H Calcium 8.4 L Phosphorus 2.2 L Magnesium 1.9 Total Bilirubin 0.4 AST 48 ALT 42 Alkaline Phosphatase 56 Total Protein 5.6 L Albumin 2.3 L Globulin 3.3 Albumin/Globulin Ratio 0.7 L Vancomycin Peak 20.7 L Vancomycin Trough Fingerstick Blood Sugar Results: 164 Review of Systems - Review of Systems All systems: reviewed and no additional remarkable complaints except (as per HPI ) Critical Care Progress Note - Extremities/Vascular Does the Patient have a Central Venous Catheter?: Yes Insertion Site: right upper arm picc line - Prophylaxis GI Prophylaxis GI: PPI - Prophylaxis DVT Prophylaxis DVT: Heparin SQ - Nutrition Nutrition: Nutrition Category Date Time Status NPO Diet [DIET] Diets 12/27/17 Breakfast Active Assessment/Plan - Assessment and Plan (Free Text) Assessment: This is an 87 year old AA male with PMHx of COPD, severe emphysematous disease with large bullae, RLL pneumonia who presented on 12/22 with complaints of cough , sob, weight loss, confusion and was found to have hypernatremia at 158, dehydration and pneumonia. Pt was admitted and treated on the medical floor for pneumonia and hypernatremia. On 12/27, SYSTEM DESIGNER was called for low oxygen saturations (in the 70s) and pt was placed on BPAP at 80 fio2, with increased of pulse oximetry to 94%. ABG showed hypoxia. ICU was consulted for hypoxia secondary to respiratory failure. Pt's is managed in the ICU with high flow oxygen (15 L/min at 30% Fio2), steroids, antibiotics, and bronchodilators. Plan: Neuro: - monitor for mental status changes - pt is AAox3 at baseline - palliative care consulted, f/u recs and assessment Cardio: - pt remains bradycardic; discontinue and avoid any betablockers and CCBs - Maintain MAP>65 mmHg - f/u cardiology recs Pulm: - Chest CT (12/27) shows interval decrease in the size of the right lower lobe opacities since previous exam. Trace pleural effusion. Findings are again suspicious for aspiration. - CXR (12/29) shows no change in persistent low lung volume on left with airspace disease on the left lung, maybe pneumonia. Clear right lung. - ABG shows shows chronic respiratory alkalosis; po2 69, Hgb o2 saturation is 94.0 - continue antibiotics as per ID - HoB>30 degrees - oral care - continue high flow o2 - maintain spo2 between 88 and 92% - continue bronchodilators, singulair, budesonide - taper steroids to daily from BID - f/u repeat ABG - acetylcysteine for expectorance as per pulm - f/u pulmonology recs GI: - NPO - continue IV fat emulsion - continue amino acid, multivitamin replacement therapy - f/u GI recs Renal: - maintain euvolemia - replete electrolytes as needed - f/u nephrology recs ID: - uptrending leukocytosis - pneumonia on cxr - BCx2 shows no growth after 5 days - (+) MRSA in sputum - continue zosyn, linezolid as per ID - f/u ID recs Endo: - maintain euglycemia Heme: - anemia of chronic disease (hgb 10.4) - f/u CBC PPx: protonix for GI; heparin for vte Dispo: Continue care in the ICU Case was reviewed and discussed with attending physician, Dr. Magana. <Earlene Magana - Last Filed: 12/30/17 11:42> CCU Objective - Vital Signs / Intake & Output Vital Signs (Last 4 hours): Vital Signs Temp Pulse Resp BP Pulse Ox 12/30/17 08:18 24 12/30/17 08:09 63 31 H 92/57 L 100 12/30/17 08:00 97.1 F L 61 24 100 Intake and Output (Last 8hrs): Intake & Output 12/29/17 12/30/17 12/30/17 22:59 06:59 14:59 Intake Total 1110 1208 295 Output Total 700 800 110 Balance 410 408 185 Intake: Intake, IV Amount 1110 1208 295 2nd port R PICC 350 400 100 Right PICC 520 520 195 Right PICC 2 240 288 Oral 0 Output: Urine 700 800 110 Condom 200 800 110 Urine, Voided 500 Emesis 0 Other: # Voids Condom 1 Urine, Voided 1 # Bowel Movements 0 - Medications Active Medications: Active Medications Generic Name Dose Route Start Last Admin Trade Name Freq PRN Reason Stop Dose Admin Acetylcysteine 4 ml 12/29/17 14:00 12/30/17 07:20 Acetylcysteine 20% INH 4 ml RQ6 GAURANG Administration Albuterol Sulfate 2.5 mg 12/22/17 20:00 12/30/17 07:19 Albuterol 0.083% Inhal Martha (2.5 Mg/3 Ml) Ud INH 2.5 mg RQ6 GAURANG Administration Budesonide 0.5 mg 12/27/17 20:00 12/30/17 07:20 Pulmicort Respules INH 0.5 mg RQ12 GAURANG Administration Heparin Sodium (Porcine) 5,000 units 12/28/17 10:00 12/30/17 09:35 Heparin SC 5,000 units Q12 GAURANG Administration Piperacillin Sod/Tazobactam 100 mls @ 200 mls/hr 12/26/17 17:00 12/30/17 08: 35 Sod 3.375 gm/ Sodium Chloride IVPB 200 mls/hr Q8H GAURANG Administration Protocol Fat Emulsion Intravenous 500 mls @ 48 mls/hr 12/29/17 18:00 12/29/17 17:17 Intralipid 20% IV 01/03/18 18:01 48 mls/hr MWF@1800 GAURANG Administration Chromium/Copper/Manganese/Zinc 1,001 mls @ 65 mls/hr 12/30/17 09:30 12/30/17 09:30 1 ml/ Amino Acids IV 12/31/17 00:53 65 mls/hr .[id number] ONE Administration Linezolid 600 mg in 300 mls @ 200 mls/hr 12/29/17 13:00 12/30/17 00:08 Zyvox 600mg/300ml D5w IVPB 200 mls/hr Q12H GAURANG Administration Protocol Potassium Phosphate 15 mmole/ 255 mls @ 63 mls/hr 12/30/17 09:00 12/30/17 09: 34 Sodium Chloride IV 12/30/17 13:02 63 mls/hr ONCE ONE Administration Potassium Chloride 20 meq in 100 mls @ 50 mls/hr 12/30/17 10:20 Potassium Chloride 20 Meq/100 Ml IVPB 12/30/17 12:19 ONCE ONE Multivitamins/Vitamin C 10 ml/ 1,011 mls @ 65 mls/hr 12/30/17 18:00 Chromium/Copper/Manganese/ IV 12/31/17 09:33 Zinc 1 ml/ Amino Acids .[id number] ONE Chromium/Copper/Manganese/Zinc 1,001 mls @ 65 mls/hr 12/31/17 09:30 1 ml/ Amino Acids IV 01/01/18 00:53 .[id number] ONE Methylprednisolone 40 mg 12/30/17 10:00 12/30/17 09:35 Solu-Medrol IVP 40 mg DAILY GAURANG Administration Montelukast Sodium 10 mg 12/22/17 22:00 12/29/17 21:19 Singulair PO Not Given HS GAURANG Nystatin 5 ml 12/25/17 18:00 12/30/17 09:35 Nystatin Oral Susp PO 5 ml QID GAURANG Administration Pantoprazole Sodium 40 mg 12/28/17 10:00 12/30/17 09:35 Protonix Inj IVP 40 mg DAILY GAURANG Administration - Patient Studies Lab Studies: Microbiology Studies 12/27/17 Unknown MRSA Culture (Admit) - Final Nose MRSA DETECTED Lab Studies 12/30/17 12/30/17 12/30/17 Range/Units 11:36 06:31 06:31 WBC 12.2 H (4.8-10.8) K/uL RBC 3.46 L (4.40-5.90) Mil/uL Hgb 9.7 L (12.0-18.0) g/dL Hct 29.8 L (35.0-51.0) % MCV 86.3 (80.0-94.0) fL MCH 28.1 (27.0-31.0) pg MCHC 32.5 L (33.0-37.0) g/dL RDW 14.1 (11.5-14.5) % Plt Count 196 (130-400) K/uL MPV 9.5 (7.2-11.7) fL Neut % (Auto) 93.6 H (50.0-75.0) % Lymph % (Auto) 2.1 L (20.0-40.0) % [place] % (Auto) 4.2 (0.0-10.0) % Eos % (Auto) 0.1 (0.0-4.0) % Baso % (Auto) 0.0 (0.0-2.0) % Neut # (Auto) 11.4 H (1.8-7.0) K/uL Lymph # (Auto) 0.3 L (1.0-4.3) K/uL [place] # (Auto) 0.5 (0.0-0.8) K/uL Eos # (Auto) 0.0 (0.0-0.7) K/uL Baso # (Auto) 0.0 (0.0-0.2) K/uL Neutrophils % (Manual) 87 H (50-75) % Band Neutrophils % 2 (0-2) % Lymphocytes % (Manual) 4 L (20-40) % Monocytes % (Manual) 6 (0-10) % Metamyelocytes % 1 H (0-0) % Platelet Estimate Normal (NORMAL) Hypochromasia (manual) Slight Poikilocytosis (manual Slight Ovalocytes Slight Marcial Cells Slight Puncture Site pCO2 (35-45) mm/Hg pO2 (80-100) mm/Hg HCO3 (21-28) mmol/L ABG pH (7.35-7.45) ABG Total CO2 (22-28) mmol/L ABG O2 Saturation (95-98) % ABG Base Excess (-2.0-3.0) mmol/L ABG Hemoglobin (11.7-17.4) g/dL ABG Carboxyhemoglobin (0.5-1.5) % POC ABG HHb (Measured) (0.0-5.0) % ABG Methemoglobin (0.0-3.0) % Jakob Test A-a O2 Difference mm/Hg Respiratory Index Hgb O2 Saturation (95.0-98.0) % Liter Flow FiO2 % Sodium 136 (132-148) mmol/L Potassium 2.9 L (3.6-5.2) mmol/L Chloride 107 (98-107) mmol/L Carbon Dioxide 21 L (22-30) mmol/L Anion Gap 11 (10-20) BUN 25 H (9-20) mg/dL Creatinine 0.7 L (0.8-1.5) mg/dL Est GFR ( Amer) > 60 Est GFR (Non-Af Amer) > 60 POC Glucose (mg/dL) 98 (65-110) mg/dL Random Glucose 104 (75-110) mg/dL Calcium 8.4 L (8.6-10.4) mg/dl Phosphorus 1.7 L (2.5-4.5) mg/dL Magnesium 1.8 (1.6-2.3) mg/dL Total Bilirubin 0.3 (0.2-1.3) mg/dL AST 74 H D (17-59) U/L ALT 79 H D (21-72) U/L Alkaline Phosphatase 59 (38-126) U/L Total Protein 5.3 L (6.3-8.3) g/dL Albumin 2.2 L (3.5-5.0) g/dL Globulin 3.1 (2.2-3.9) gm/dL Albumin/Globulin Ratio 0.7 L (1.0-2.1) 12/30/17 12/30/1712/30/18 Range/Units 05:31 05:12 00:29 WBC (4.8-10.8) K/uL RBC (4.40-5.90) Mil/uL Hgb (12.0-18.0) g/dL Hct (35.0-51.0) % MCV (80.0-94.0) fL MCH (27.0-31.0) pg MCHC (33.0-37.0) g/dL RDW (11.5-14.5) % Plt Count (130-400) K/uL MPV (7.2-11.7) fL Neut % (Auto) (50.0-75.0) % Lymph % (Auto) (20.0-40.0) % [place] % (Auto) (0.0-10.0) % Eos % (Auto) (0.0-4.0) % Baso % (Auto) (0.0-2.0) % Neut # (Auto) (1.8-7.0) K/uL Lymph # (Auto) (1.0-4.3) K/uL [place] # (Auto) (0.0-0.8) K/uL Eos # (Auto) (0.0-0.7) K/uL Baso # (Auto) (0.0-0.2) K/uL Neutrophils % (Manual) (50-75) % Band Neutrophils % (0-2) % Lymphocytes % (Manual) (20-40) % Monocytes % (Manual) (0-10) % Metamyelocytes % (0-0) % Platelet Estimate (NORMAL) Hypochromasia (manual) Poikilocytosis (manual Ovalocytes Marcial Cells Puncture Site Rr pCO2 28 L (35-45) mm/Hg pO2 70 L (80-100) mm/Hg HCO3 24.4 (21-28) mmol/L ABG pH 7.50 H (7.35-7.45) ABG Total CO2 22.7 (22-28) mmol/L ABG O2 Saturation 97.8 (95-98) % ABG Base Excess -0.6 (-2.0-3.0) mmol/L ABG Hemoglobin 10.3 L (11.7-17.4) g/dL ABG Carboxyhemoglobin 1.8 H (0.5-1.5) % POC ABG HHb (Measured) 2.1 (0.0-5.0) % ABG Methemoglobin 1.4 (0.0-3.0) % Jakob Test Pos A-a O2 Difference 109.0 mm/Hg Respiratory Index 1.6 Hgb O2 Saturation 94.7 L (95.0-98.0) % Liter Flow 15.0 FiO2 30.0 % Sodium (132-148) mmol/L Potassium (3.6-5.2) mmol/L Chloride (98-107) mmol/L Carbon Dioxide (22-30) mmol/L Anion Gap (10-20) BUN (9-20) mg/dL Creatinine (0.8-1.5) mg/dL Est GFR ( Amer) Est GFR (Non-Af Amer) POC Glucose (mg/dL) 111 H 136 H (65-110) mg/dL Random Glucose (75-110) mg/dL Calcium (8.6-10.4) mg/dl Phosphorus (2.5-4.5) mg/dL Magnesium (1.6-2.3) mg/dL Total Bilirubin (0.2-1.3) mg/dL AST (17-59) U/L ALT (21-72) U/L Alkaline Phosphatase (38-126) U/L Total Protein (6.3-8.3) g/dL Albumin (3.5-5.0) g/dL Globulin (2.2-3.9) gm/dL Albumin/Globulin Ratio (1.0-2.1) 12/29/17 12/29/17 Range/Units 17:47 11:43 WBC (4.8-10.8) K/uL RBC (4.40-5.90) Mil/uL Hgb (12.0-18.0) g/dL Hct (35.0-51.0) % MCV (80.0-94.0) fL MCH (27.0-31.0) pg MCHC (33.0-37.0) g/dL RDW (11.5-14.5) % Plt Count (130-400) K/uL MPV (7.2-11.7) fL Neut % (Auto) (50.0-75.0) % Lymph % (Auto) (20.0-40.0) % [place] % (Auto) (0.0-10.0) % Eos % (Auto) (0.0-4.0) % Baso % (Auto) (0.0-2.0) % Neut # (Auto) (1.8-7.0) K/uL Lymph # (Auto) (1.0-4.3) K/uL [place] # (Auto) (0.0-0.8) K/uL Eos # (Auto) (0.0-0.7) K/uL Baso # (Auto) (0.0-0.2) K/uL Neutrophils % (Manual) (50-75) % Band Neutrophils % (0-2) % Lymphocytes % (Manual) (20-40) % Monocytes % (Manual) (0-10) % Metamyelocytes % (0-0) % Platelet Estimate (NORMAL) Hypochromasia (manual) Poikilocytosis (manual Ovalocytes Lyman Cells Puncture Site pCO2 (35-45) mm/Hg pO2 (80-100) mm/Hg HCO3 (21-28) mmol/L ABG pH (7.35-7.45) ABG Total CO2 (22-28) mmol/L ABG O2 Saturation (95-98) % ABG Base Excess (-2.0-3.0) mmol/L ABG Hemoglobin (11.7-17.4) g/dL ABG Carboxyhemoglobin (0.5-1.5) % POC ABG HHb (Measured) (0.0-5.0) % ABG Methemoglobin (0.0-3.0) % Jakob Test A-a O2 Difference mm/Hg Respiratory Index Hgb O2 Saturation (95.0-98.0) % Liter Flow FiO2 % Sodium (132-148) mmol/L Potassium (3.6-5.2) mmol/L Chloride (98-107) mmol/L Carbon Dioxide (22-30) mmol/L Anion Gap (10-20) BUN (9-20) mg/dL Creatinine (0.8-1.5) mg/dL Est GFR ( Amer) Est GFR (Non-Af Amer) POC Glucose (mg/dL) 183 H 129 H (65-110) mg/dL Random Glucose (75-110) mg/dL Calcium (8.6-10.4) mg/dl Phosphorus (2.5-4.5) mg/dL Magnesium (1.6-2.3) mg/dL Total Bilirubin (0.2-1.3) mg/dL AST (17-59) U/L ALT (21-72) U/L Alkaline Phosphatase (38-126) U/L Total Protein (6.3-8.3) g/dL Albumin (3.5-5.0) g/dL Globulin (2.2-3.9) gm/dL Albumin/Globulin Ratio (1.0-2.1) Laboratory Results - last 24 hr 12/29/17 12/29/17 12/30/17 11:43 17:47 00:29 WBC RBC Hgb Hct MCV MCH MCHC RDW Plt Count MPV Neut % (Auto) Lymph % (Auto) [place] % (Auto) Eos % (Auto) Baso % (Auto) Neut # (Auto) Lymph # (Auto) [place] # (Auto) Eos # (Auto) Baso # (Auto) Neutrophils % (Manual) Band Neutrophils % Lymphocytes % (Manual) Monocytes % (Manual) Metamyelocytes % Platelet Estimate Hypochromasia (manual) Poikilocytosis (manual Ovalocytes Marcial Cells Puncture Site pCO2 pO2 HCO3 ABG pH ABG Total CO2 ABG O2 Saturation ABG Base Excess ABG Hemoglobin ABG Carboxyhemoglobin POC ABG HHb (Measured) ABG Methemoglobin Jakob Test A-a O2 Difference Respiratory Index Hgb O2 Saturation Liter Flow FiO2 Sodium Potassium Chloride Carbon Dioxide Anion Gap BUN Creatinine Est GFR ( Amer) Est GFR (Non-Af Amer) POC Glucose (mg/dL) 129 H 183 H 136 H Random Glucose Calcium Phosphorus Magnesium Total Bilirubin AST ALT Alkaline Phosphatase Total Protein Albumin Globulin Albumin/Globulin Ratio 12/30/17 12/30/17 12/30/17 05:12 05:31 06:31 WBC 12.2 H RBC 3.46 L Hgb 9.7 L Hct 29.8 L MCV 86.3 MCH 28.1 MCHC 32.5 L RDW 14.1 Plt Count 196 MPV 9.5 Neut % (Auto) 93.6 H Lymph % (Auto) 2.1 L [place] % (Auto) 4.2 Eos % (Auto) 0.1 Baso % (Auto) 0.0 Neut # (Auto) 11.4 H Lymph # (Auto) 0.3 L [place] # (Auto) 0.5 Eos # (Auto) 0.0 Baso # (Auto) 0.0 Neutrophils % (Manual) 87 H Band Neutrophils % 2 Lymphocytes % (Manual) 4 L Monocytes % (Manual) 6 Metamyelocytes % 1 H Platelet Estimate Normal Hypochromasia (manual) Slight Poikilocytosis (manual Slight Ovalocytes Slight Marcial Cells Slight Puncture Site Rr pCO2 28 L pO2 70 L HCO3 24.4 ABG pH 7.50 H ABG Total CO2 22.7 ABG O2 Saturation 97.8 ABG Base Excess -0.6 ABG Hemoglobin 10.3 L ABG Carboxyhemoglobin 1.8 H POC ABG HHb (Measured) 2.1 ABG Methemoglobin 1.4 Jakob Test Pos A-a O2 Difference 109.0 Respiratory Index 1.6 Hgb O2 Saturation 94.7 L Liter Flow 15.0 FiO2 30.0 Sodium Potassium Chloride Carbon Dioxide Anion Gap BUN Creatinine Est GFR ( Amer) Est GFR (Non-Af Amer) POC Glucose (mg/dL) 111 H Random Glucose Calcium Phosphorus Magnesium Total Bilirubin AST ALT Alkaline Phosphatase Total Protein Albumin Globulin Albumin/Globulin Ratio 12/30/17 12/30/17 06:31 11:36 WBC RBC Hgb Hct MCV MCH MCHC RDW Plt Count MPV Neut % (Auto) Lymph % (Auto) [place] % (Auto) Eos % (Auto) Baso % (Auto) Neut # (Auto) Lymph # (Auto) [place] # (Auto) Eos # (Auto) Baso # (Auto) Neutrophils % (Manual) Band Neutrophils % Lymphocytes % (Manual) Monocytes % (Manual) Metamyelocytes % Platelet Estimate Hypochromasia (manual) Poikilocytosis (manual Ovalocytes Marcial Cells Puncture Site pCO2 pO2 HCO3 ABG pH ABG Total CO2 ABG O2 Saturation ABG Base Excess ABG Hemoglobin ABG Carboxyhemoglobin POC ABG HHb (Measured) ABG Methemoglobin Jakob Test A-a O2 Difference Respiratory Index Hgb O2 Saturation Liter Flow FiO2 Sodium 136 Potassium 2.9 L Chloride 107 Carbon Dioxide 21 L Anion Gap 11 BUN 25 H Creatinine 0.7 L Est GFR ( Amer) > 60 Est GFR (Non-Af Amer) > 60 POC Glucose (mg/dL) 98 Random Glucose 104 Calcium 8.4 L Phosphorus 1.7 L Magnesium 1.8 Total Bilirubin 0.3 AST 74 H D ALT 79 H D Alkaline Phosphatase 59 Total Protein 5.3 L Albumin 2.2 L Globulin 3.1 Albumin/Globulin Ratio 0.7 L Critical Care Progress Note - Nutrition Nutrition: Nutrition Category Date Time Status NPO Diet [DIET] Diets 12/27/17 Breakfast Active Attending/Attestation - Attestation I have personally seen and examined this patient.: Yes I have fully participated in the care of the patient.: Yes I have reviewed all pertinent clinical information: Yes Notes (Text): 12/30/17 11:42 Patient with the advanced lung disease. Patient also has advanced dysphagia. Currently improving with the nasal cannula. He will need to definitely PEG tube feeding with malnourishment. Family is currently refusing. We will continue the current supportive care, currently having possible MRSA pneumonia. On antibiotic.
--- NOTE | 2017-12-29 12:46 | CP.PCM.PN ---
Subjective - Date & Time of Evaluation Date of Evaluation: 12/29/17 Time of Evaluation: 10:00 - Subjective Subjective: events noted iv rx in progress prognosis guarded zyvoxx added for MRSA Objective - Vital Signs/Intake and Output Vital Signs (last 24 hours): Temp Pulse Resp BP Pulse Ox 97.7 F 49 L 22 95/56 L 95 12/29/17 09:00 12/29/17 11:00 12/29/17 11:20 12/29/17 10:09 12/29/17 11:00 Intake and Output: 12/29/17 12/29/17 06:59 18:59 Intake Total 915 375 Output Total 500 Balance 415 375 - Medications Medications: Current Medications Acetylcysteine (Acetylcysteine 20%) 4 ml INH Q6H [facility] Albuterol Sulfate (Albuterol 0.083% Inhal Martha (2.5 Mg/3 Ml) Ud) 2.5 mg INH RQ6 [facility] Last Admin: 12/29/17 07:26 Dose: 2.5 mg Budesonide (Pulmicort Respules) 0.5 mg INH RQ12 [facility] Last Admin: 12/29/17 07:25 Dose: 0.5 mg Heparin Sodium (Porcine) (Heparin) 5,000 units SC Q12 [facility] Last Admin: 12/29/17 09:29 Dose: 5,000 units Piperacillin Sod/Tazobactam (Sod 3.375 gm/ Sodium Chloride) 100 mls @ 200 mls/ hr IVPB Q8H [facility] PRN Reason: Protocol Last Admin: 12/29/17 09:30 Dose: 200 mls/hr Chromium/Copper/Manganese/ (Seleni/Zn 1 ml/ Amino Acids) 1,001 mls @ 65 mls/hr IV .[id number] [facility] Stop: 12/29/17 18:00 Last Admin: 12/29/17 09:30 Dose: 65 mls/hr Fat Emulsion Intravenous (Intralipid 20%) 500 mls @ 48 mls/hr IV MWF@1800 [facility] Stop: 01/03/18 18:01 Multivitamins/Vitamin C 10 ml/Chromium/Copper/Manganese/Zinc 1 ml/ Amino Acids 1,011 mls @ 65 mls/hr IV .[id number] ONE Stop: 12/30/17 09:33 Chromium/Copper/Manganese/Zinc (1 ml/ Amino Acids) 1,001 mls @ 65 mls/hr IV .[id number] ONE Stop: 12/31/17 00:53 Potassium Phosphate 15 mmole/ (Sodium Chloride) 255 mls @ 63 mls/hr IV ONCE ONE Stop: 12/29/17 15:02 Last Admin: 12/29/17 11:51 Dose: 63 mls/hr Linezolid (Zyvox 600mg/300ml D5w) 600 mg in 300 mls @ 200 mls/hr IVPB Q12H [facility] PRN Reason: Protocol Methylprednisolone (Solu-Medrol) 40 mg IVP DAILY [facility] Montelukast Sodium (Singulair) 10 mg PO HS [facility] Last Admin: 12/28/17 21:23 Dose: Not Given Nystatin (Nystatin Oral Susp) 5 ml PO QID [facility] Last Admin: 12/29/17 09:30 Dose: 5 ml Pantoprazole Sodium (Protonix Inj) 40 mg IVP DAILY [facility] Last Admin: 12/29/17 09:30 Dose: 40 mg - Labs Labs: 12/29/17 05:35 12/29/17 05:35 PT 14.2 SECONDS (9.7-12.2) H 12/21/17 20:23 INR 1.3 12/21/17 20:23 APTT 36 SECONDS (21-34) H 12/21/17 20:23 - Constitutional Appears: Non-toxic, Cachectic, Chronically Ill - Head Exam Head Exam: NORMOCEPHALIC - Eye Exam Eye Exam: PERRL - ENT Exam ENT Exam: Mucous Membranes Dry - Neck Exam Neck Exam: absent: Lymphadenopathy - Respiratory Exam Respiratory Exam: Decreased Breath Sounds, Rhonchi - Cardiovascular Exam Cardiovascular Exam: REGULAR RHYTHM, +S1, +S2 - GI/Abdominal Exam GI & Abdominal Exam: Distended, Soft Assessment and Plan (1) Acute pneumonia Status: Acute (2) Bullous emphysema Status: Acute (3) Cachexia Status: Acute (4) Emphysema lung Status: Acute (5) Hypernatremia Status: Resolved (6) Pneumonia Status: Acute (7) Prerenal azotemia Status: Resolved (8) Severe dehydration Status: Acute (9) MRSA (methicillin resistant staph aureus) culture positive Status: Acute
[2017-12-29] MEDS: Acetylcysteine 20% Inhal Soln (4ml) INH SCH ×2 (13:20→19:33)
--- NOTE | 2017-12-29 14:23 | CP.PCM.CON ---
History of Present Illness - History of Present Illness History of Present Illness: Palliative consult requested by Doctor Izzy for goals of care discussion Patient is brought to ED by his son who noticed patient being with very poor appetite, weight loss and increased confusion X 1 month. Patient was also with coughing fits and ' black" sputum. Patient reported early satiety after minimal clear liquids intake. patient's son Jesus, who lives in [place] noticed in talking to patient over the phone, that something was not right and flu right over. PMH: pneumothorax Soc. Hx: lives alone, , has close friend who cooks food for him, only son Jesus lives in [place] and visits often Ex smoker, no ETOH Fam. Hx: Denies significant fam Hx Review of Systems - Review of Systems All systems: reviewed and no additional remarkable complaints except Review of Systems: ROS unobtainable from patient due to assistance by high pressure O2. ROS obtained from son at bed side. Per son, patient responds well to O2 and Neb Tx Past Patient History - Tetanus Immunizations Tetanus Immunization: >10 years Ago - Past Medical History & Family History Past Medical History?: Yes Past Family History: Reviewed and not pertinent - Past Social History Smoking Status: Former Smoker Chewing Tobacco Use: No Cigar Use: No Drugs: Denies Home Situation {Lives}: Alone - CARDIAC Hx Cardiac Disorders: Yes - PULMONARY Hx Chronic Obstructive Pulmonary Disease (COPD): Yes - NEUROLOGICAL Hx Neurological Disorder: No Hx Dizziness: Yes - HEENT Hx HEENT Problems: No Hx Sinusitis: Yes - RENAL Hx Chronic Kidney Disease: No - ENDOCRINE/METABOLIC Hx Endocrine Disorders: No - HEMATOLOGICAL/ONCOLOGICAL Hx Blood Disorders: No - INTEGUMENTARY Hx Dermatological Problems: No - MUSCULOSKELETAL/RHEUMATOLOGICAL Hx Arthritis: Yes - GASTROINTESTINAL Hx Gastrointestinal Disorders: Yes Hx Constipation: Yes - GENITOURINARY/GYNECOLOGICAL Hx Genitourinary Disorders: No - PSYCHIATRIC Hx Psychophysiologic Disorder: No Hx Substance Use: No - SURGICAL HISTORY Hx Surgeries: No - ANESTHESIA Hx Anesthesia: No Hx Anesthesia Reactions: No Hx Malignant Hyperthermia: No Has any member of the family had a problem w/ anesthesia?: No Meds Allergies/Adverse Reactions: Allergies Allergy/AdvReac Type Severity Reaction Status Date / Time No Known Allergies Allergy Unverified 12/21/17 18:48 - Medications Medications: Current Medications Acetylcysteine (Acetylcysteine 20%) 4 ml INH RQ6 [facility] Last Admin: 12/29/17 13:20 Dose: 4 ml Albuterol Sulfate (Albuterol 0.083% Inhal Martha (2.5 Mg/3 Ml) Ud) 2.5 mg INH RQ6 [facility] Last Admin: 12/29/17 13:20 Dose: 2.5 mg Budesonide (Pulmicort Respules) 0.5 mg INH RQ12 [facility] Last Admin: 12/29/17 07:25 Dose: 0.5 mg Heparin Sodium (Porcine) (Heparin) 5,000 units SC Q12 [facility] Last Admin: 12/29/17 09:29 Dose: 5,000 units Piperacillin Sod/Tazobactam (Sod 3.375 gm/ Sodium Chloride) 100 mls @ 200 mls/ hr IVPB Q8H [facility] PRN Reason: Protocol Last Admin: 12/29/17 09:30 Dose: 200 mls/hr Chromium/Copper/Manganese/ (Seleni/Zn 1 ml/ Amino Acids) 1,001 mls @ 65 mls/hr IV .[id number] [facility] Stop: 12/29/17 18:00 Last Admin: 12/29/17 09:30 Dose: 65 mls/hr Fat Emulsion Intravenous (Intralipid 20%) 500 mls @ 48 mls/hr IV MWF@1800 [facility] Stop: 01/03/18 18:01 Multivitamins/Vitamin C 10 ml/Chromium/Copper/Manganese/Zinc 1 ml/ Amino Acids 1,011 mls @ 65 mls/hr IV .[id number] ONE Stop: 12/30/17 09:33 Chromium/Copper/Manganese/Zinc (1 ml/ Amino Acids) 1,001 mls @ 65 mls/hr IV .[id number] ONE Stop: 12/31/17 00:53 Potassium Phosphate 15 mmole/ (Sodium Chloride) 255 mls @ 63 mls/hr IV ONCE ONE Stop: 12/29/17 15:02 Last Admin: 12/29/17 11:51 Dose: 63 mls/hr Linezolid (Zyvox 600mg/300ml D5w) 600 mg in 300 mls @ 200 mls/hr IVPB Q12H [facility] PRN Reason: Protocol Methylprednisolone (Solu-Medrol) 40 mg IVP DAILY [facility] Montelukast Sodium (Singulair) 10 mg PO HS [facility] Last Admin: 12/28/17 21:23 Dose: Not Given Nystatin (Nystatin Oral Susp) 5 ml PO QID [facility] Last Admin: 12/29/17 13:34 Dose: 5 ml Pantoprazole Sodium (Protonix Inj) 40 mg IVP DAILY [facility] Last Admin: 12/29/17 09:30 Dose: 40 mg Physical Exam - Constitutional Appears: In Acute Distress, Chronically Ill - Head Exam Head Exam: ATRAUMATIC, NORMAL INSPECTION, NORMOCEPHALIC - Eye Exam Eye Exam: Normal appearance, PERRL Pupil Exam: NORMAL ACCOMODATION, PERRL - ENT Exam ENT Exam: Mucous Membranes Dry - Neck Exam Neck exam: Positive for: Normal Inspection - Respiratory Exam Respiratory Exam: Decreased Breath Sounds, Prolonged Expiratory Phase - Cardiovascular Exam Cardiovascular Exam: Tachycardia, Irregular Rhythm - GI/Abdominal Exam GI & Abdominal Exam: Hypoactive Bowel Sounds, Soft - Rectal Exam Rectal Exam: Deferred - Exam Exam: NORMAL INSPECTION - Extremities Exam Extremities exam: Positive for: normal inspection - Back Exam Back exam: NORMAL INSPECTION - Neurological Exam Neurological exam: Alert - Psychiatric Exam Psychiatric exam: Flat Affect - Skin Skin Exam: Normal Color, Warm Results - Vital Signs Recent Vital Signs: Last Vital Signs Temp 97.8 F 12/29/17 13:00 Pulse 57 L 12/29/17 13:09 Resp 14 12/29/17 13:09 BP 85/55 L 12/29/17 13:09 Pulse Ox 97 12/29/17 13:00 - Labs Result Diagrams: 12/29/17 05:35 12/29/17 05:35 Labs: Laboratory Results - last 24 hr 12/28/17 12/28/17 12/28/17 17:42 18:37 23:46 WBC RBC Hgb Hct MCV MCH MCHC RDW Plt Count MPV Neut % (Auto) Lymph % (Auto) [place] % (Auto) Eos % (Auto) Baso % (Auto) Neut # (Auto) Lymph # (Auto) [place] # (Auto) Eos # (Auto) Baso # (Auto) Neutrophils % (Manual) Band Neutrophils % Lymphocytes % (Manual) Monocytes % (Manual) Platelet Estimate Hypochromasia (manual) Poikilocytosis (manual Anisocytosis (manual) Ovalocytes [place] Cells Puncture Site pCO2 pO2 HCO3 ABG pH ABG Total CO2 ABG O2 Saturation ABG Base Excess ABG Hemoglobin ABG Carboxyhemoglobin POC ABG HHb (Measured) ABG Methemoglobin Jakob Test A-a O2 Difference Respiratory Index Hgb O2 Saturation FiO2 Sodium Potassium Chloride Carbon Dioxide Anion Gap BUN Creatinine Est GFR ( Amer) Est GFR (Non-Af Amer) POC Glucose (mg/dL) 161 H 164 H Random Glucose Calcium Phosphorus Magnesium Total Bilirubin AST ALT Alkaline Phosphatase Total Protein Albumin Globulin Albumin/Globulin Ratio Vancomycin Peak Vancomycin Trough 18.4 H 12/29/17 12/29/17 12/29/17 05:35 05:35 05:35 WBC 16.4 H D RBC 3.59 L Hgb 10.4 L Hct 30.8 L MCV 85.8 MCH 29.0 MCHC 33.8 RDW 14.0 Plt Count 202 MPV 9.4 Neut % (Auto) 96.3 H Lymph % (Auto) 1.1 L [place] % (Auto) 2.4 Eos % (Auto) 0.0 Baso % (Auto) 0.2 Neut # (Auto) 15.8 H Lymph # (Auto) 0.2 L [place] # (Auto) 0.4 Eos # (Auto) 0.0 Baso # (Auto) 0.0 Neutrophils % (Manual) 94 H Band Neutrophils % 3 H Lymphocytes % (Manual) 2 L Monocytes % (Manual) 1 Platelet Estimate Normal Hypochromasia (manual) Slight Poikilocytosis (manual Slight Anisocytosis (manual) Slight Ovalocytes Slight Marcial Cells Slight Puncture Site pCO2 pO2 HCO3 ABG pH ABG Total CO2 ABG O2 Saturation ABG Base Excess ABG Hemoglobin ABG Carboxyhemoglobin POC ABG HHb (Measured) ABG Methemoglobin Jakob Test A-a O2 Difference Respiratory Index Hgb O2 Saturation FiO2 Sodium 138 Potassium 3.5 L Chloride 107 Carbon Dioxide 22 Anion Gap 13 BUN 27 H Creatinine 0.7 L Est GFR ( Amer) > 60 Est GFR (Non-Af Amer) > 60 POC Glucose (mg/dL) Random Glucose 145 H Calcium 8.4 L Phosphorus 2.2 L Magnesium 1.9 Total Bilirubin 0.4 AST 48 ALT 42 Alkaline Phosphatase 56 Total Protein 5.6 L Albumin 2.3 L Globulin 3.3 Albumin/Globulin Ratio 0.7 L Vancomycin Peak Vancomycin Trough 13.4 H 12/29/17 12/29/17 12/29/17 06:28 08:11 09:27 WBC RBC Hgb Hct MCV MCH MCHC RDW Plt Count MPV Neut % (Auto) Lymph % (Auto) [place] % (Auto) Eos % (Auto) Baso % (Auto) Neut # (Auto) Lymph # (Auto) [place] # (Auto) Eos # (Auto) Baso # (Auto) Neutrophils % (Manual) Band Neutrophils % Lymphocytes % (Manual) Monocytes % (Manual) Platelet Estimate Hypochromasia (manual) Poikilocytosis (manual Anisocytosis (manual) Ovalocytes [place] Cells Puncture Site Rra pCO2 29 L pO2 69 L HCO3 23.5 ABG pH 7.47 H ABG Total CO2 22.0 ABG O2 Saturation 97.1 ABG Base Excess -1.8 ABG Hemoglobin 10.4 L ABG Carboxyhemoglobin 1.9 H POC ABG HHb (Measured) 2.8 ABG Methemoglobin 1.3 Jakob Test Po A-a O2 Difference 94.0 Respiratory Index 1.4 Hgb O2 Saturation 94.0 L FiO2 28.0 Sodium Potassium Chloride Carbon Dioxide Anion Gap BUN Creatinine Est GFR ( Amer) Est GFR (Non-Af Amer) POC Glucose (mg/dL) 114 H Random Glucose Calcium Phosphorus Magnesium Total Bilirubin AST ALT Alkaline Phosphatase Total Protein Albumin Globulin Albumin/Globulin Ratio Vancomycin Peak 20.7 L Vancomycin Trough 12/29/17 11:43 WBC RBC Hgb Hct MCV MCH MCHC RDW Plt Count MPV Neut % (Auto) Lymph % (Auto) [place] % (Auto) Eos % (Auto) Baso % (Auto) Neut # (Auto) Lymph # (Auto) [place] # (Auto) Eos # (Auto) Baso # (Auto) Neutrophils % (Manual) Band Neutrophils % Lymphocytes % (Manual) Monocytes % (Manual) Platelet Estimate Hypochromasia (manual) Poikilocytosis (manual Anisocytosis (manual) Ovalocytes Marcial Cells Puncture Site pCO2 pO2 HCO3 ABG pH ABG Total CO2 ABG O2 Saturation ABG Base Excess ABG Hemoglobin ABG Carboxyhemoglobin POC ABG HHb (Measured) ABG Methemoglobin Jakob Test A-a O2 Difference Respiratory Index Hgb O2 Saturation FiO2 Sodium Potassium Chloride Carbon Dioxide Anion Gap BUN Creatinine Est GFR ( Amer) Est GFR (Non-Af Amer) POC Glucose (mg/dL) 129 H Random Glucose Calcium Phosphorus Magnesium Total Bilirubin AST ALT Alkaline Phosphatase Total Protein Albumin Globulin Albumin/Globulin Ratio Vancomycin Peak Vancomycin Trough Assessment & Plan - Assessment and Plan (Free Text) Assessment: Palliative consult FULL CODE, there is no Advance directive on chart, PPS 10% I reviewed medical records, all diagnostic studies, examined patient in the bed Patient is alert, with high pressure O 2 mask on. Patient is able to fallow conversation but unable to communicate due to O2 assistance. O2Sat 97%. BP 88/55 , HR 57. IVF and TPN on board. CT chest in ED significant for severe emphysema to upper lobes and Pneumonia to right middle lobe. IV antibiotics and Neb Tx initiated. On 12/27/17 QUALITY IMPROVEMENT COORDINATOR called for O2Sat < 80 %. Patient admitted to ICU. GI consult called for difficulties swallowing. EGD procedure aborted due to esophageal stricture. Goals of care discussed with patient's son Jesus, away from the bed. Jesus visits daily and states being well informed about his father's condition. His concern is patient's inability to swallow due to esophagial stricture and anxious to learn the cause of it. Jesus understands that his father's condition needs to be more stable before the EGD attempted again. PEG possibility discussed again. Jesus admitted to be nervous about it but at the end if PEG becomes the last resort of providing nutrition for his father, he would go for it. Before any decision made, Jesus wants to discuss it with Doctor Shea first. I offered plenty of information about PEG. Jesus specifically asked about risks involved with PEG procedure. Code Status discussed. Concern about possible assistance with MV discussed. The son would want all aggressive interventions including CPR and assistance with MV to be applied if it should become a need. Impression * Respiratory distress due to pneumonia * Unwanted weight loss 2 nd to respiratory distress * Generalized weakness * patient's son Jesus, advocates for patient Suggestion * Continue O2 support and Nebulazer Tx * Continue artificial hydration and nutrition * Attempt EGD again with Doctor Montanez when patient more stable , * Assist with ADLs, turning and positioning for comfort * Full Code Palliative care will continue to fallow with patient and his son and offer support during decision making process Advance planing, 48 min
[2017-12-29] MEDS: Linezolid 600 mg in D5W 300 ml 600 MG/300 ML BAG IVPB SCH (15:16)
--- NOTE | 2017-12-29 16:22 | PN ---
DATE: 12/29/2017 LOCATION: ICU 12. SUBJECTIVE: This is an 87-year-old male seen and examined in rounds early this morning without reported significant changes, seen by the nephrology customer experience consultant on the case without reported chest pain, palpitation, but intermittent period of shortness of breath without reported active GI bleeding. The patient is still having poor oral intake and somewhat appeared to be lethargic this morning. The entire chart is reviewed including but not limited to most recent lab and radiology study results, current and the previous medication list, current and the previous medical events. LABORATORY DATA: Today's lab showed white blood cells of 16.4, hemoglobin 10.4, hematocrit 30.8 with normal platelet count and abnormal ABGs. Potassium 3.5, BUN 27, creatinine of 0.4. Blood glucose level 145, calcium 8.4, phosphorus 2.2, albumin 2.3, total protein 5.6. IMAGING STUDIES: Today's chest x-ray report and film is reviewed, indicative of no significant changes with left-sided pneumonia. PHYSICAL EXAMINATION: GENERAL: An 87-year-old male. VITAL SIGNS: Afebrile with pulse of , respiratory rate of 20 to 24 with blood pressure 110/66. HEENT: Showed pale dry, oral mucous membrane. Nonicteric sclerae. LUNGS: Scattered bilateral crepitation with decreased air entry especially in the left base. ABDOMEN: Soft with slight generalized tenderness. No mass or organomegaly. No rebound tenderness or guarding. EXTREMITIES: With evidence of muscle wasting syndrome and slight lower extremity edematous changes. No clubbing or cyanosis. NEUROLOGIC: No reported new neurological deficits, sensory or motor. IMPRESSION: 1. Malnutrition with hypoalbuminemia, . 2. Dysphagia. 3. 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 4. Aspiration pneumonia. 5. Known history of emphysema. 6. Increased CA 19-9 with possible pancreatic carcinoma. 7. Excessive body weight loss, most likely secondary to above. 8. Reported possible fecal impaction by radiology study results. 9. Respiratory insufficiency secondary to above. 10. Anemia, most likely secondary to above. SUGGESTIONS: 1. Continue current management. 2. The patient most likely will need colonoscopy when he is more stable clinically. This case discussed at length with Dr. Llanos, the weight loss sales consultant and thoracic surgery consultation should be kept in mind. 3. Case discussed with the patient's son at length. Vasquez Orourke MD
[2017-12-29] MEDS: Fat Emulsion 20% IV 500 ML IV SCH (17:17)
[2017-12-29] MEDS ORDERED: PPN #5 IV ONE (18:00)
--- NOTE | 2017-12-29 19:21 | PN ---
DATE: 12/29/2017 PHYSICAL EXAMINATION: GENERAL: The patient is awake, oriented, feels weak, There is no acute distress at this moment on oxygen of 28%. VITAL SIGNS: He is afebrile. Blood pressure 95/56, pulse 51, respirations 20, hemoglobin oxygen saturation of 95% on FiO2 of 30%. CARDIOPULMONARY: His heart is regular with no gallop rhythm. LUNGS: Diminished breath sounds over the lung bases, more so on the left side. Rhonchi decreased. ABDOMEN: Soft. EXTREMITIES: Legs, no edema. LABORATORY DATA: Chest x-ray shows hyperinflation seen, infiltrate on the right side has resolved entirely and there is an infiltrate in the left mid zone, which is slow to resolve. This area was clean on admission and a subsequent film couple of days later, but now after re-aspiration and bilateral infiltrates in the mid zone, the left one is slow to resolve and he is on antibiotic therapy and has been seen by infectious disease consult. His weakness persists. He has been given amino acids and intralipids. We will add acetylcysteine Mucomyst, aerosol, nebulizer and CPT to drain the left lower and mid zone to improve expectoration in this patient who has poorly effective cough. IMPRESSION: Respiratory insufficiency, sepsis, pneumonitis, aspiration pneumonia, renal insufficiency, electrolyte imbalance, malnutrition. PLAN: To continue with the current medication. We will give acetylcysteine Mucomyst via aerosol nebulizer and also chest physiotherapy to loosen the secretion in the lung bases so as to improve expectoration in this patient with poor effective cough. His white count is 16,400, hemoglobin 10.4, and platelet count is 2200, neutrophils are high at 94%. Arterial blood gas numbers are improving on FiO2 of 28% and pCO2 is 29, pO2 is 69, bicarb 24, and pH 7.47 with hemoglobin oxygen saturation of 94%. Serum sodium is 138, potassium of 3.5. chloride 107. BUN is 27 and creatinine 0.7. Blood sugar is 145 and phosphorus 2.2, magnesium 1.5 and calcium 8.4 with albumin of 2.3. Vanco trough today is 13.4. Action and plan as stated above. We will continue current regimen. Thank you very much. Jaya Pettit MD
--- NOTE | 2017-12-29 19:42 | CP.PCM.PN ---
Subjective - Date & Time of Evaluation Date of Evaluation: 12/29/17 Time of Evaluation: 15:35 - Subjective Subjective: Patient is somewhat lethargic today. He is in no acute distress. Will continue antibiotic therapy. Patient needs a Peg for caloric support. Will discuss condition with patient's son. Objective - Vital Signs/Intake and Output Vital Signs (last 24 hours): Temp Pulse Resp BP Pulse Ox 98.2 F 65 32 H 90/53 L 98 12/29/17 17:00 12/29/17 19:00 12/29/17 19:00 12/29/17 18:46 12/29/17 19:00 Intake and Output: 12/29/17 12/30/17 18:59 06:59 Intake Total 1480 113 Output Total 500 Balance 980 113 - Medications Medications: Current Medications Acetylcysteine (Acetylcysteine 20%) 4 ml INH RQ6 [facility] Last Admin: 12/29/17 19:33 Dose: 4 ml Albuterol Sulfate (Albuterol 0.083% Inhal Martha (2.5 Mg/3 Ml) Ud) 2.5 mg INH RQ6 [facility] Last Admin: 12/29/17 19:33 Dose: 2.5 mg Budesonide (Pulmicort Respules) 0.5 mg INH RQ12 [facility] Last Admin: 12/29/17 19:33 Dose: 0.5 mg Heparin Sodium (Porcine) (Heparin) 5,000 units SC Q12 [facility] Last Admin: 12/29/17 09:29 Dose: 5,000 units Piperacillin Sod/Tazobactam (Sod 3.375 gm/ Sodium Chloride) 100 mls @ 200 mls/ hr IVPB Q8H [facility] PRN Reason: Protocol Last Admin: 12/29/17 16:08 Dose: 200 mls/hr Fat Emulsion Intravenous (Intralipid 20%) 500 mls @ 48 mls/hr IV MWF@1800 [facility] Stop: 01/03/18 18:01 Last Admin: 12/29/17 17:17 Dose: 48 mls/hr Multivitamins/Vitamin C 10 ml/Chromium/Copper/Manganese/Zinc 1 ml/ Amino Acids 1,011 mls @ 65 mls/hr IV .[id number] ONE Stop: 12/30/17 09:33 Last Admin: 12/29/17 17:22 Dose: 65 mls/hr Chromium/Copper/Manganese/Zinc (1 ml/ Amino Acids) 1,001 mls @ 65 mls/hr IV .[id number] ONE Stop: 12/31/17 00:53 Linezolid (Zyvox 600mg/300ml D5w) 600 mg in 300 mls @ 200 mls/hr IVPB Q12H [facility] PRN Reason: Protocol Last Admin: 12/29/17 15:16 Dose: 200 mls/hr Methylprednisolone (Solu-Medrol) 40 mg IVP DAILY [facility] Montelukast Sodium (Singulair) 10 mg PO HS [facility] Last Admin: 12/28/17 21:23 Dose: Not Given Nystatin (Nystatin Oral Susp) 5 ml PO QID [facility] Last Admin: 12/29/17 17:31 Dose: 5 ml Pantoprazole Sodium (Protonix Inj) 40 mg IVP DAILY [facility] Last Admin: 12/29/17 09:30 Dose: 40 mg - Labs Labs: 12/29/17 05:35 12/29/17 05:35 PT 14.2 SECONDS (9.7-12.2) H 12/21/17 20:23 INR 1.3 12/21/17 20:23 APTT 36 SECONDS (21-34) H 12/21/17 20:23 - Constitutional Appears: Cachectic - Head Exam Head Exam: NORMOCEPHALIC - Eye Exam Eye Exam: Normal appearance Pupil Exam: NORMAL ACCOMODATION - ENT Exam ENT Exam: Normal Exam - Neck Exam Neck Exam: Normal Inspection - Respiratory Exam Respiratory Exam: Decreased Breath Sounds - Cardiovascular Exam Cardiovascular Exam: REGULAR RHYTHM - GI/Abdominal Exam GI & Abdominal Exam: Normal Bowel Sounds - Rectal Exam Rectal Exam: Deferred - Exam Exam: NORMAL INSPECTION - Neurological Exam Neurological Exam: Awake - Psychiatric Exam Psychiatric exam: Depressed Assessment and Plan (1) Acute pneumonia Status: Acute (2) Cachexia Status: Acute (3) Emphysema lung Status: Acute (4) Hypernatremia Status: Resolved (5) Prerenal azotemia Status: Resolved (6) Severe dehydration Status: Acute
[2017-12-30] MEDS: Piperacillin/Tazobact 3.375 GM in Sodium Chloride 100 ML IVPB SCH ×3 (00:05→17:18)
[2017-12-30] MEDS: Linezolid 600 mg in D5W 300 ml 600 MG/300 ML BAG IVPB SCH ×2 (00:08→12:56)
[2017-12-30] MEDS: Acetylcysteine 20% Inhal Soln (4ml) INH SCH ×4 (02:31→19:46)
[2017-12-30] MEDS: Albuterol 0.083% Inhal Sol (2.5 mg/3 mL) UD INH SCH ×4 (02:31→19:46)
[2017-12-30 05:22] LABS: ABG ALLEN TEST POS; ARTERIAL BLOOD GAS HCO3 24.4 mmol/L (21-28); ARTERIAL BLOOD GAS HEMOGLOBIN 10.3 g/dL (11.7-17.4); ARTERIAL BLOOD GAS O2 SAT 97.8 % (95-98); ARTERIAL BLOOD GAS PCO2 28 mm/Hg (35-45); ARTERIAL BLOOD GAS PO2 70 mm/Hg (80-100); ARTERIAL BLOOD GAS TCO2 22.7 mmol/L (22-28)
[2017-12-30 06:41] LABS: EOS % 0.1 % (0.0-4.0); HEMOGLOBIN 9.7 g/dL (12.0-18.0); LYMPH # 0.3 K/uL (1.0-4.3); LYMPH % 2.1 % (20.0-40.0); MEAN CELL VOLUME 86.3 fL (80.0-94.0); MEAN CORPUSCULAR HEMOGLOBIN 28.1 pg (27.0-31.0); MEAN CORPUSCULAR HGB CONC 32.5 g/dL (33.0-37.0); MEAN PLATELET VOLUME 9.5 fL (7.2-11.7); MONO # 0.5 K/uL (0.0-0.8); MONO % 4.2 % (0.0-10.0); NEUT # 11.4 K/uL (1.8-7.0); NEUT % 93.6 % (50.0-75.0); PLATELET COUNT 196 K/uL (130-400); RBC 3.46 Mil/uL (4.40-5.90); RED CELL DISTRIBUTION WIDTH 14.1 % (11.5-14.5); WHITE BLOOD COUNT 12.2 K/uL (4.8-10.8)
[2017-12-30 06:51] LABS: ALB/GLOB RATIO 0.7 (1.0-2.1); ALBUMIN 2.2 g/dL (3.5-5.0); ALT/SGPT 79 U/L (21-72); AST/SGOT 74 U/L (17-59); BLOOD UREA NITROGEN 25 mg/dL (9-20); CALCIUM 8.4 mg/dl (8.6-10.4); GFR AFRICAN-AMERICAN > 60; GFR NON-AFRICAN AMERICAN > 60
[2017-12-30] MEDS: Budesonide 0.5 mg/2 ml Inhal Susp UD INH SCH ×2 (07:20→19:46)
[2017-12-30 08:37] LABS: BANDS 2 % (0-2); LYMPHOCYTE 4 % (20-40); METAMYELOCYTE 1 % (0-0); MONOCYTE 6 % (0-10); NEUTROPHIL 87 % (50-75); TOTAL CELLS COUNTED 100
[2017-12-30 08:38] LABS: BURR CELLS SLIGHT; HYPOCHROMIC SLIGHT; OVALOCYTES SLIGHT; PLATELET ESTIMATE NORMAL (NORMAL); POIKILOCYTOSIS SLIGHT
[2017-12-30] MEDS ORDERED: Potassium & Sodium Phosphate PO ONE (08:45)
[2017-12-30] MEDS ORDERED: Potassium Phosphate 15 MMOLE in Sodium Chloride 0.9% 250 ML IV ONE (09:00)
[2017-12-30] MEDS ORDERED: PPN #6 IV ONE (09:30)
[2017-12-30] MEDS: Nystatin 100,000 Units/ml Oral Susp 5 ml UD PO SCH ×4 (09:35→22:33)
[2017-12-30] MEDS: MethylPREDNISolone 40 mg Vial IVP SCH (09:35)
[2017-12-30] MEDS ORDERED: Magnesium Sulfate 1 gm in D5W 1 GM/100 ML BAG IVPB ONE ×2 (10:21→13:00)
--- NOTE | 2017-12-30 10:25 | CP.PCM.PN ---
Subjective - Date & Time of Evaluation Date of Evaluation: 12/30/17 Time of Evaluation: 10:24 - Subjective Subjective: seen and examined on ppn good uop 1.5L labs noted denies any pain no n/v/d Objective - Vital Signs/Intake and Output Vital Signs (last 24 hours): Temp Pulse Resp BP Pulse Ox 97.1 F L 63 24 92/57 L 100 12/30/17 08:00 12/30/17 08:09 12/30/17 08:18 12/30/17 08:09 12/30/17 08:09 Intake and Output: 12/30/17 12/30/17 06:59 18:59 Intake Total 1660 295 Output Total 1000 110 Balance 660 185 - Medications Medications: Current Medications Acetylcysteine (Acetylcysteine 20%) 4 ml INH RQ6 [facility] Last Admin: 12/30/17 07:20 Dose: 4 ml Albuterol Sulfate (Albuterol 0.083% Inhal Martha (2.5 Mg/3 Ml) Ud) 2.5 mg INH RQ6 [facility] Last Admin: 12/30/17 07:19 Dose: 2.5 mg Budesonide (Pulmicort Respules) 0.5 mg INH RQ12 [facility] Last Admin: 12/30/17 07:20 Dose: 0.5 mg Heparin Sodium (Porcine) (Heparin) 5,000 units SC Q12 [facility] Last Admin: 12/30/17 09:35 Dose: 5,000 units Piperacillin Sod/Tazobactam (Sod 3.375 gm/ Sodium Chloride) 100 mls @ 200 mls/ hr IVPB Q8H [facility] PRN Reason: Protocol Last Admin: 12/30/17 08:35 Dose: 200 mls/hr Fat Emulsion Intravenous (Intralipid 20%) 500 mls @ 48 mls/hr IV MWF@1800 [facility] Stop: 01/03/18 18:01 Last Admin: 12/29/17 17:17 Dose: 48 mls/hr Chromium/Copper/Manganese/Zinc (1 ml/ Amino Acids) 1,001 mls @ 65 mls/hr IV .[id number] ONE Stop: 12/31/17 00:53 Last Admin: 12/30/17 09:30 Dose: 65 mls/hr Linezolid (Zyvox 600mg/300ml D5w) 600 mg in 300 mls @ 200 mls/hr IVPB Q12H [facility] PRN Reason: Protocol Last Admin: 12/30/17 00:08 Dose: 200 mls/hr Potassium Phosphate 15 mmole/ (Sodium Chloride) 255 mls @ 63 mls/hr IV ONCE ONE Stop: 12/30/17 13:02 Last Admin: 12/30/17 09:34 Dose: 63 mls/hr Potassium Chloride (Potassium Chloride 20 Meq/100 Ml) 20 meq in 100 mls @ 50 mls/hr IVPB ONCE ONE Stop: 12/30/17 12:19 Magnesium Sulfate/Dextrose (Magnesium Sulfate 1 Gm/100 Ml D5w) 1 gm in 100 mls @ 200 mls/hr IVPB ONCE ONE Stop: 12/30/17 10:50 Methylprednisolone (Solu-Medrol) 40 mg IVP DAILY [facility] Last Admin: 12/30/17 09:35 Dose: 40 mg Montelukast Sodium (Singulair) 10 mg PO HS [facility] Last Admin: 12/29/17 21:19 Dose: Not Given Nystatin (Nystatin Oral Susp) 5 ml PO QID [facility] Last Admin: 12/30/17 09:35 Dose: 5 ml Pantoprazole Sodium (Protonix Inj) 40 mg IVP DAILY [facility] Last Admin: 12/30/17 09:35 Dose: 40 mg - Labs Labs: 12/30/17 06:31 12/30/17 06:31 PT 14.2 SECONDS (9.7-12.2) H 12/21/17 20:23 INR 1.3 12/21/17 20:23 APTT 36 SECONDS (21-34) H 12/21/17 20:23 - Constitutional Appears: No Acute Distress, Chronically Ill (cachectic) - Head Exam Head Exam: NORMAL INSPECTION, NORMOCEPHALIC - Eye Exam Eye Exam: Normal appearance, PERRL - ENT Exam ENT Exam: Mucous Membranes Dry - Neck Exam Neck Exam: Normal Inspection - Respiratory Exam Respiratory Exam: Decreased Breath Sounds, NORMAL BREATHING PATTERN - Cardiovascular Exam Cardiovascular Exam: REGULAR RHYTHM, RRR - GI/Abdominal Exam GI & Abdominal Exam: Soft, Normal Bowel Sounds - Extremities Exam Extremities Exam: Normal Inspection - Neurological Exam Neurological Exam: Alert, Awake - Skin Skin Exam: Dry, Warm Assessment and Plan (1) Acute pneumonia Status: Acute (2) Hypernatremia Status: Resolved (3) Prerenal azotemia Status: Resolved (4) Severe dehydration Status: Acute - Assessment and Plan (Free Text) Assessment: stable renal function supplement potassium and magnesium consider PEG
--- NOTE | 2017-12-30 10:56 | CP.CCUPN ---
<Booker Mcintosh - Last Filed: 12/30/17 16:17> CCU Subjective - Physician Review Subjective (Free Text): Booker Mcintosh DO PGY-1, ICU progress note for Dr. Gibbons Pt seen and examined at bedside. Pt is still unable to expectorate his sputum. No acute events overnight. Pt had a bowel movement overnight, which was normal. Pt is produced 1500 mL of clear urine via condom catheter over the past 24 hours. Pt was afebrile overnight. Pt denies fever, lightheadedness, dizziness, headache, visual changes, chest pain, sob, palpitations, abdominal pain, n/v/d. Pt continues to receive high flow O2 (15L/min at 30% fio2) A 12-point ROS was reviewed and is otherwise unremarkable CCU Objective - Vital Signs / Intake & Output Vital Signs (Last 4 hours): Vital Signs Temp Pulse Resp BP Pulse Ox 12/30/17 08:18 24 12/30/17 08:09 63 31 H 92/57 L 100 12/30/17 08:00 97.1 F L 61 24 100 12/30/17 07:09 52 L 19 102/63 100 12/30/17 07:00 55 L 33 H 100 Intake and Output (Last 8hrs): Intake & Output 12/29/17 12/30/17 12/30/17 22:59 06:59 14:59 Intake Total 1110 1208 295 Output Total 700 800 110 Balance 410 408 185 Intake: Intake, IV Amount 1110 1208 295 2nd port R PICC 350 400 100 Right PICC 520 520 195 Right PICC 2 240 288 Oral 0 Output: Urine 700 800 110 Condom 200 800 110 Urine, Voided 500 Emesis 0 Other: # Voids Condom 1 Urine, Voided 1 # Bowel Movements 0 - Physical Exam Head: Positive for: Atraumatic, Normocephalic, Other (temporal wasting) Pupils: Positive for: PERRL Extroacular Muscles: Positive for: EOMI Conjunctiva: Positive for: Normal Mouth: Positive for: Moist Mucous Membranes Neck: Positive for: Normal Range of Motion Respiratory/Chest: Positive for: Decreased Breath Sounds (bilaterally), Rhonchi (in lower lung bases). Negative for: Respiratory Distress, Accessory Muscle Use Cardiovascular: Positive for: Regular Rate and Rhythm, Normal S1, S2. Negative for: Murmurs, Rub, Gallop Abdomen: Positive for: Normal Bowel Sounds (in all 4 quadrants). Negative for: Tenderness, Distention Upper Extremity: Positive for: Normal Inspection, Other ((+) right picc line) Lower Extremity: Positive for: Normal Inspection Neurological: Positive for: GCS=15, CN II-XII Intact Skin: Positive for: Warm, Dry Psychiatric: Positive for: Alert, Oriented x 3 - Medications Active Medications: Active Medications Generic Name Dose Route Start Last Admin Trade Name Freq PRN Reason Stop Dose Admin Acetylcysteine 4 ml 12/29/17 14:00 12/30/17 07:20 Acetylcysteine 20% INH 4 ml RQ6 GAURANG Administration Albuterol Sulfate 2.5 mg 12/22/17 20:00 12/30/17 07:19 Albuterol 0.083% Inhal Martha (2.5 Mg/3 Ml) Ud INH 2.5 mg RQ6 GAURANG Administration Budesonide 0.5 mg 12/27/17 20:00 12/30/17 07:20 Pulmicort Respules INH 0.5 mg RQ12 GAURANG Administration Heparin Sodium (Porcine) 5,000 units 12/28/17 10:00 12/30/17 09:35 Heparin SC 5,000 units Q12 GAURANG Administration Piperacillin Sod/Tazobactam 100 mls @ 200 mls/hr 12/26/17 17:00 12/30/17 08: 35 Sod 3.375 gm/ Sodium Chloride IVPB 200 mls/hr Q8H GAURANG Administration Protocol Fat Emulsion Intravenous 500 mls @ 48 mls/hr 12/29/17 18:00 12/29/17 17:17 Intralipid 20% IV 01/03/18 18:01 48 mls/hr MWF@1800 GAURANG Administration Chromium/Copper/Manganese/Zinc 1,001 mls @ 65 mls/hr 12/30/17 09:30 12/30/17 09:30 1 ml/ Amino Acids IV 12/31/17 00:53 65 mls/hr .[id number] ONE Administration Linezolid 600 mg in 300 mls @ 200 mls/hr 12/29/17 13:00 12/30/17 00:08 Zyvox 600mg/300ml D5w IVPB 200 mls/hr Q12H GAURANG Administration Protocol Potassium Phosphate 15 mmole/ 255 mls @ 63 mls/hr 12/30/17 09:00 12/30/17 09: 34 Sodium Chloride IV 12/30/17 13:02 63 mls/hr ONCE ONE Administration Potassium Chloride 20 meq in 100 mls @ 50 mls/hr 12/30/17 10:20 Potassium Chloride 20 Meq/100 Ml IVPB 12/30/17 12:19 ONCE ONE Multivitamins/Vitamin C 10 ml/ 1,011 mls @ 65 mls/hr 12/30/17 18:00 Chromium/Copper/Manganese/ IV 12/31/17 09:33 Zinc 1 ml/ Amino Acids .[id number] ONE Chromium/Copper/Manganese/Zinc 1,001 mls @ 65 mls/hr 12/31/17 09:30 1 ml/ Amino Acids IV 01/01/18 00:53 .[id number] ONE Methylprednisolone 40 mg 12/30/17 10:00 12/30/17 09:35 Solu-Medrol IVP 40 mg DAILY GAURANG Administration Montelukast Sodium 10 mg 12/22/17 22:00 12/29/17 21:19 Singulair PO Not Given HS GAURANG Nystatin 5 ml 12/25/17 18:00 12/30/17 09:35 Nystatin Oral Susp PO 5 ml QID GAURANG Administration Pantoprazole Sodium 40 mg 12/28/17 10:00 12/30/17 09:35 Protonix Inj IVP 40 mg DAILY GAURANG Administration - Patient Studies Lab Studies: Microbiology Studies 12/27/17 Unknown MRSA Culture (Admit) - Final Nose MRSA DETECTED Lab Studies 12/30/17 12/30/17 12/30/17 Range/Units 06:31 06:31 05:31 WBC 12.2 H (4.8-10.8) K/uL RBC 3.46 L (4.40-5.90) Mil/uL Hgb 9.7 L (12.0-18.0) g/dL Hct 29.8 L (35.0-51.0) % MCV 86.3 (80.0-94.0) fL MCH 28.1 (27.0-31.0) pg MCHC 32.5 L (33.0-37.0) g/dL RDW 14.1 (11.5-14.5) % Plt Count 196 (130-400) K/uL MPV 9.5 (7.2-11.7) fL Neut % (Auto) 93.6 H (50.0-75.0) % Lymph % (Auto) 2.1 L (20.0-40.0) % Borden % (Auto) 4.2 (0.0-10.0) % Eos % (Auto) 0.1 (0.0-4.0) % Baso % (Auto) 0.0 (0.0-2.0) % Neut # (Auto) 11.4 H (1.8-7.0) K/uL Lymph # (Auto) 0.3 L (1.0-4.3) K/uL Borden # (Auto) 0.5 (0.0-0.8) K/uL Eos # (Auto) 0.0 (0.0-0.7) K/uL Baso # (Auto) 0.0 (0.0-0.2) K/uL Neutrophils % (Manual) 87 H (50-75) % Band Neutrophils % 2 (0-2) % Lymphocytes % (Manual) 4 L (20-40) % Monocytes % (Manual) 6 (0-10) % Metamyelocytes % 1 H (0-0) % Platelet Estimate Normal (NORMAL) Hypochromasia (manual) Slight Poikilocytosis (manual Slight Ovalocytes Slight Marcial Cells Slight Puncture Site pCO2 (35-45) mm/Hg pO2 (80-100) mm/Hg HCO3 (21-28) mmol/L ABG pH (7.35-7.45) ABG Total CO2 (22-28) mmol/L ABG O2 Saturation (95-98) % ABG Base Excess (-2.0-3.0) mmol/L ABG Hemoglobin (11.7-17.4) g/dL ABG Carboxyhemoglobin (0.5-1.5) % POC ABG HHb (Measured) (0.0-5.0) % ABG Methemoglobin (0.0-3.0) % Jakob Test A-a O2 Difference mm/Hg Respiratory Index Hgb O2 Saturation (95.0-98.0) % Liter Flow FiO2 % Sodium 136 (132-148) mmol/L Potassium 2.9 L (3.6-5.2) mmol/L Chloride 107 (98-107) mmol/L Carbon Dioxide 21 L (22-30) mmol/L Anion Gap 11 (10-20) BUN 25 H (9-20) mg/dL Creatinine 0.7 L (0.8-1.5) mg/dL Est GFR ( Amer) > 60 Est GFR (Non-Af Amer) > 60 POC Glucose (mg/dL) 111 H (65-110) mg/dL Random Glucose 104 (75-110) mg/dL Calcium 8.4 L (8.6-10.4) mg/dl Phosphorus 1.7 L (2.5-4.5) mg/dL Magnesium 1.8 (1.6-2.3) mg/dL Total Bilirubin 0.3 (0.2-1.3) mg/dL AST 74 H D (17-59) U/L ALT 79 H D (21-72) U/L Alkaline Phosphatase 59 (38-126) U/L Total Protein 5.3 L (6.3-8.3) g/dL Albumin 2.2 L (3.5-5.0) g/dL Globulin 3.1 (2.2-3.9) gm/dL Albumin/Globulin Ratio 0.7 L (1.0-2.1) 12/30/17 12/30/17 12/29/17 Range/Units 05:12 00:29 17:47 WBC (4.8-10.8) K/uL RBC (4.40-5.90) Mil/uL Hgb (12.0-18.0) g/dL Hct (35.0-51.0) % MCV (80.0-94.0) fL MCH (27.0-31.0) pg MCHC (33.0-37.0) g/dL RDW (11.5-14.5) % Plt Count (130-400) K/uL MPV (7.2-11.7) fL Neut % (Auto) (50.0-75.0) % Lymph % (Auto) (20.0-40.0) % Borden % (Auto) (0.0-10.0) % Eos % (Auto) (0.0-4.0) % Baso % (Auto) (0.0-2.0) % Neut # (Auto) (1.8-7.0) K/uL Lymph # (Auto) (1.0-4.3) K/uL Borden # (Auto) (0.0-0.8) K/uL Eos # (Auto) (0.0-0.7) K/uL Baso # (Auto) (0.0-0.2) K/uL Neutrophils % (Manual) (50-75) % Band Neutrophils % (0-2) % Lymphocytes % (Manual) (20-40) % Monocytes % (Manual) (0-10) % Metamyelocytes % (0-0) % Platelet Estimate (NORMAL) Hypochromasia (manual) Poikilocytosis (manual Ovalocytes Marcial Cells Puncture Site Rr pCO2 28 L (35-45) mm/Hg pO2 70 L (80-100) mm/Hg HCO3 24.4 (21-28) mmol/L ABG pH 7.50 H (7.35-7.45) ABG Total CO2 22.7 (22-28) mmol/L ABG O2 Saturation 97.8 (95-98) % ABG Base Excess -0.6 (-2.0-3.0) mmol/L ABG Hemoglobin 10.3 L (11.7-17.4) g/dL ABG Carboxyhemoglobin 1.8 H (0.5-1.5) % POC ABG HHb (Measured) 2.1 (0.0-5.0) % ABG Methemoglobin 1.4 (0.0-3.0) % Jakob Test Pos A-a O2 Difference 109.0 mm/Hg Respiratory Index 1.6 Hgb O2 Saturation 94.7 L (95.0-98.0) % Liter Flow 15.0 FiO2 30.0 % Sodium (132-148) mmol/L Potassium (3.6-5.2) mmol/L Chloride (98-107) mmol/L Carbon Dioxide (22-30) mmol/L Anion Gap (10-20) BUN (9-20) mg/dL Creatinine (0.8-1.5) mg/dL Est GFR ( Amer) Est GFR (Non-Af Amer) POC Glucose (mg/dL) 136 H 183 H (65-110) mg/dL Random Glucose (75-110) mg/dL Calcium (8.6-10.4) mg/dl Phosphorus (2.5-4.5) mg/dL Magnesium (1.6-2.3) mg/dL Total Bilirubin (0.2-1.3) mg/dL AST (17-59) U/L ALT (21-72) U/L Alkaline Phosphatase (38-126) U/L Total Protein (6.3-8.3) g/dL Albumin (3.5-5.0) g/dL Globulin (2.2-3.9) gm/dL Albumin/Globulin Ratio (1.0-2.1) 12/29/17 12/29/17 Range/Units 11:43 06:28 WBC (4.8-10.8) K/uL RBC (4.40-5.90) Mil/uL Hgb (12.0-18.0) g/dL Hct (35.0-51.0) % MCV (80.0-94.0) fL MCH (27.0-31.0) pg MCHC (33.0-37.0) g/dL RDW (11.5-14.5) % Plt Count (130-400) K/uL MPV (7.2-11.7) fL Neut % (Auto) (50.0-75.0) % Lymph % (Auto) (20.0-40.0) % Borden % (Auto) (0.0-10.0) % Eos % (Auto) (0.0-4.0) % Baso % (Auto) (0.0-2.0) % Neut # (Auto) (1.8-7.0) K/uL Lymph # (Auto) (1.0-4.3) K/uL Borden # (Auto) (0.0-0.8) K/uL Eos # (Auto) (0.0-0.7) K/uL Baso # (Auto) (0.0-0.2) K/uL Neutrophils % (Manual) (50-75) % Band Neutrophils % (0-2) % Lymphocytes % (Manual) (20-40) % Monocytes % (Manual) (0-10) % Metamyelocytes % (0-0) % Platelet Estimate (NORMAL) Hypochromasia (manual) Poikilocytosis (manual Ovalocytes Marcial Cells Puncture Site pCO2 (35-45) mm/Hg pO2 (80-100) mm/Hg HCO3 (21-28) mmol/L ABG pH (7.35-7.45) ABG Total CO2 (22-28) mmol/L ABG O2 Saturation (95-98) % ABG Base Excess (-2.0-3.0) mmol/L ABG Hemoglobin (11.7-17.4) g/dL ABG Carboxyhemoglobin (0.5-1.5) % POC ABG HHb (Measured) (0.0-5.0) % ABG Methemoglobin (0.0-3.0) % Jakob Test A-a O2 Difference mm/Hg Respiratory Index Hgb O2 Saturation (95.0-98.0) % Liter Flow FiO2 % Sodium (132-148) mmol/L Potassium (3.6-5.2) mmol/L Chloride (98-107) mmol/L Carbon Dioxide (22-30) mmol/L Anion Gap (10-20) BUN (9-20) mg/dL Creatinine (0.8-1.5) mg/dL Est GFR ( Amer) Est GFR (Non-Af Amer) POC Glucose (mg/dL) 129 H 114 H (65-110) mg/dL Random Glucose (75-110) mg/dL Calcium (8.6-10.4) mg/dl Phosphorus (2.5-4.5) mg/dL Magnesium (1.6-2.3) mg/dL Total Bilirubin (0.2-1.3) mg/dL AST (17-59) U/L ALT (21-72) U/L Alkaline Phosphatase (38-126) U/L Total Protein (6.3-8.3) g/dL Albumin (3.5-5.0) g/dL Globulin (2.2-3.9) gm/dL Albumin/Globulin Ratio (1.0-2.1) Laboratory Results - last 24 hr 12/29/17 12/29/17 12/29/17 06:28 11:43 17:47 WBC RBC Hgb Hct MCV MCH MCHC RDW Plt Count MPV Neut % (Auto) Lymph % (Auto) Borden % (Auto) Eos % (Auto) Baso % (Auto) Neut # (Auto) Lymph # (Auto) Borden # (Auto) Eos # (Auto) Baso # (Auto) Neutrophils % (Manual) Band Neutrophils % Lymphocytes % (Manual) Monocytes % (Manual) Metamyelocytes % Platelet Estimate Hypochromasia (manual) Poikilocytosis (manual Ovalocytes [place] Cells Puncture Site pCO2 pO2 HCO3 ABG pH ABG Total CO2 ABG O2 Saturation ABG Base Excess ABG Hemoglobin ABG Carboxyhemoglobin POC ABG HHb (Measured) ABG Methemoglobin Jakob Test A-a O2 Difference Respiratory Index Hgb O2 Saturation Liter Flow FiO2 Sodium Potassium Chloride Carbon Dioxide Anion Gap BUN Creatinine Est GFR ( Amer) Est GFR (Non-Af Amer) POC Glucose (mg/dL) 114 H 129 H 183 H Random Glucose Calcium Phosphorus Magnesium Total Bilirubin AST ALT Alkaline Phosphatase Total Protein Albumin Globulin Albumin/Globulin Ratio 12/30/17 12/30/17 12/30/17 00:29 05:12 05:31 WBC RBC Hgb Hct MCV MCH MCHC RDW Plt Count MPV Neut % (Auto) Lymph % (Auto) Borden % (Auto) Eos % (Auto) Baso % (Auto) Neut # (Auto) Lymph # (Auto) Borden # (Auto) Eos # (Auto) Baso # (Auto) Neutrophils % (Manual) Band Neutrophils % Lymphocytes % (Manual) Monocytes % (Manual) Metamyelocytes % Platelet Estimate Hypochromasia (manual) Poikilocytosis (manual Ovalocytes [place] Cells Puncture Site Rr pCO2 28 L pO2 70 L HCO3 24.4 ABG pH 7.50 H ABG Total CO2 22.7 ABG O2 Saturation 97.8 ABG Base Excess -0.6 ABG Hemoglobin 10.3 L ABG Carboxyhemoglobin 1.8 H POC ABG HHb (Measured) 2.1 ABG Methemoglobin 1.4 Jakob Test Pos A-a O2 Difference 109.0 Respiratory Index 1.6 Hgb O2 Saturation 94.7 L Liter Flow 15.0 FiO2 30.0 Sodium Potassium Chloride Carbon Dioxide Anion Gap BUN Creatinine Est GFR ( Amer) Est GFR (Non-Af Amer) POC Glucose (mg/dL) 136 H 111 H Random Glucose Calcium Phosphorus Magnesium Total Bilirubin AST ALT Alkaline Phosphatase Total Protein Albumin Globulin Albumin/Globulin Ratio 12/30/17 12/30/17 06:31 06:31 WBC 12.2 H RBC 3.46 L Hgb 9.7 L Hct 29.8 L MCV 86.3 MCH 28.1 MCHC 32.5 L RDW 14.1 Plt Count 196 MPV 9.5 Neut % (Auto) 93.6 H Lymph % (Auto) 2.1 L Borden % (Auto) 4.2 Eos % (Auto) 0.1 Baso % (Auto) 0.0 Neut # (Auto) 11.4 H Lymph # (Auto) 0.3 L Borden # (Auto) 0.5 Eos # (Auto) 0.0 Baso # (Auto) 0.0 Neutrophils % (Manual) 87 H Band Neutrophils % 2 Lymphocytes % (Manual) 4 L Monocytes % (Manual) 6 Metamyelocytes % 1 H Platelet Estimate Normal Hypochromasia (manual) Slight Poikilocytosis (manual Slight Ovalocytes Slight Marcial Cells Slight Puncture Site pCO2 pO2 HCO3 ABG pH ABG Total CO2 ABG O2 Saturation ABG Base Excess ABG Hemoglobin ABG Carboxyhemoglobin POC ABG HHb (Measured) ABG Methemoglobin Jakob Test A-a O2 Difference Respiratory Index Hgb O2 Saturation Liter Flow FiO2 Sodium 136 Potassium 2.9 L Chloride 107 Carbon Dioxide 21 L Anion Gap 11 BUN 25 H Creatinine 0.7 L Est GFR ( Amer) > 60 Est GFR (Non-Af Amer) > 60 POC Glucose (mg/dL) Random Glucose 104 Calcium 8.4 L Phosphorus 1.7 L Magnesium 1.8 Total Bilirubin 0.3 AST 74 H D ALT 79 H D Alkaline Phosphatase 59 Total Protein 5.3 L Albumin 2.2 L Globulin 3.1 Albumin/Globulin Ratio 0.7 L Fingerstick Blood Sugar Results: 136 Review of Systems - Review of Systems All systems: reviewed and no additional remarkable complaints except (as per HPI ) Critical Care Progress Note - Extremities/Vascular Does the Patient have a Central Venous Catheter?: Yes - Prophylaxis GI Prophylaxis GI: PPI - Prophylaxis DVT Prophylaxis DVT: Heparin SQ - Nutrition Nutrition: Nutrition Category Date Time Status NPO Diet [DIET] Diets 12/27/17 Breakfast Active Assessment/Plan - Assessment and Plan (Free Text) Assessment: This is an 87 year old AA male with PMHx of COPD, severe emphysematous disease with large bullae, esophagela stricture, pneumonia, pneumothorax who presented on 12/22 with complaints of cough, sob, weight loss, confusion and was found to have hypernatremia at 158, dehydration and pneumonia. Pt was admitted and treated on the medical floor for pneumonia and hypernatremia. On 12/27, CATH LAB was called for low oxygen saturations (in the 70s) and pt was placed on BPAP at 80 fio2, with increased of pulse oximetry to 94%. ABG showed hypoxia. ICU was consulted for hypoxia secondary to respiratory failure. Pt's is managed in the ICU with high flow oxygen (15 L/min at 30% Fio2), steroids, antibiotics, and bronchodilators. Pt is NPO due to esophageal stricture, and receiving PPN. Plan: Neuro: - monitor for mental status changes - pt is AAox3 at baseline - palliative care consulted, f/u recs and assessment Cardio: - pt remains bradycardic; avoid any betablockers and CCBs - Maintain MAP>65 mmHg - f/u cardiology recs Pulm: - Chest CT (12/27) shows interval decrease in the size of the right lower lobe opacities since previous exam. Trace pleural effusion. Findings are again suspicious for aspiration. - CXR (12/30) is suspicious for bilateral pneumonia. Small left pleural effusion - ABG shows shows chronic respiratory alkalosis; po2 70, Hgb o2 saturation is 94.7 - continue antibiotics as per ID - HoB>30 degrees - oral care - continue high flow o2 - maintain spo2 between 88 and 92% - continue home bronchodilators, singulair, budesonide - taper steroids to daily from BID - f/u repeat ABG - continue acetylcysteine for expectorance as per pulm - f/u pulmonology recs GI: - NPO - continue PPN - transaminitis; AST/ALT/ALP is 74/79/59; likely due to linezolid, will monitor - as per GI, pt is unable to undergo PEG tube due to esophageal stricture, open gastrostomy tube placement recommended - surgery consulted for gastrostomy placement, who obtained consent from the pt - open g-tube placement scheduled for Friday01/02/18 Renal: - maintain euvolemia - replete electrolytes as needed - f/u nephrology recs ID: - leukocytosis downtrending - pneumonia on cxr - BCx2 final shows no growth after 5 days - (+) MRSA in sputum - continue zosyn, linezolid as per ID - f/u ID recs Endo: - maintain euglycemia Heme: - anemia of chronic disease (Hgb 9.7); no signs of bleeding - f/u CBC PPx: protonix for GI; heparin for vte Dispo: Pt is medically stable and safe for transfer to med/surg Case was reviewed and discussed with attending physician, Dr. Gibbons. <Ryan Gibbons - Last Filed: 12/30/17 18:41> CCU Objective - Vital Signs / Intake & Output Vital Signs (Last 4 hours): Vital Signs Temp Pulse Resp BP Pulse Ox 12/30/17 18:00 56 L 20 100 12/30/17 17:23 61 22 88/49 L 98 12/30/17 17:22 59 L 22 100 12/30/17 17:09 61 21 88/54 L 100 12/30/17 17:00 63 23 100 12/30/17 16:09 65 24 91/53 L 100 12/30/17 16:00 97.8 F 63 23 100 12/30/17 15:09 66 21 100 12/30/17 15:00 64 22 99 Intake and Output (Last 8hrs): Intake & Output 12/30/17 12/30/17 12/30/17 06:59 14:59 22:59 Intake Total 1208 1372 360 Output Total 800 300 0 Balance 408 1072 360 Intake: Intake, IV Amount 1208 1372 360 2nd port R PICC 400 600 100 Right PICC 520 520 260 Right PICC 2 288 252 Oral 0 0 Output: Urine 800 300 Condom 800 300 Emesis 0 0 Other: # Bowel Movements 0 0 - Medications Active Medications: Active Medications Generic Name Dose Route Start Last Admin Trade Name Freq PRN Reason Stop Dose Admin Acetylcysteine 4 ml 12/29/17 14:00 12/30/17 13:21 Acetylcysteine 20% INH 4 ml RQ6 GAURANG Administration Albuterol Sulfate 2.5 mg 12/22/17 20:00 12/30/17 13:21 Albuterol 0.083% Inhal Martha (2.5 Mg/3 Ml) Ud INH 2.5 mg RQ6 GAURANG Administration Budesonide 0.5 mg 12/27/17 20:00 12/30/17 07:20 Pulmicort Respules INH 0.5 mg RQ12 GAURANG Administration Heparin Sodium (Porcine) 5,000 units 12/28/17 10:00 12/30/17 09:35 Heparin SC 5,000 units Q12 GAURANG Administration Piperacillin Sod/Tazobactam 100 mls @ 200 mls/hr 12/26/17 17:00 12/30/17 17: 18 Sod 3.375 gm/ Sodium Chloride IVPB 200 mls/hr Q8H GAURANG Administration Protocol Fat Emulsion Intravenous 500 mls @ 48 mls/hr 12/29/17 18:00 12/29/17 17:17 Intralipid 20% IV 01/03/18 18:01 48 mls/hr MWF@1800 GAURANG Administration Chromium/Copper/Manganese/Zinc 1,001 mls @ 65 mls/hr 12/30/17 09:30 12/30/17 09:30 1 ml/ Amino Acids IV 12/31/17 00:53 65 mls/hr .[id number] ONE Administration Linezolid 600 mg in 300 mls @ 200 mls/hr 12/29/17 13:00 12/30/17 12:56 Zyvox 600mg/300ml D5w IVPB 200 mls/hr Q12H GAURANG Administration Protocol Multivitamins/Vitamin C 10 ml/ 1,011 mls @ 65 mls/hr 12/30/17 18:00 12/30/17 17:27 Chromium/Copper/Manganese/ IV 12/31/17 09:33 65 mls/hr Zinc 1 ml/ Amino Acids .[id number] ONE Administration Chromium/Copper/Manganese/Zinc 1,001 mls @ 65 mls/hr 12/31/17 09:30 1 ml/ Amino Acids IV 01/01/18 00:53 .[id number] ONE Methylprednisolone 40 mg 12/30/17 10:00 12/30/17 09:35 Solu-Medrol IVP 40 mg DAILY GAURANG Administration Montelukast Sodium 10 mg 12/22/17 22:00 12/29/17 21:19 Singulair PO Not Given HS GAURANG Nystatin 5 ml 12/25/17 18:00 12/30/17 17:18 Nystatin Oral Susp PO 5 ml QID GAURANG Administration Pantoprazole Sodium 40 mg 12/28/17 10:00 07/31/18 09:35 Protonix Inj IVP 40 mg DAILY GAURANG Administration - Patient Studies Lab Studies: Lab Studies 12/30/17 12/30/17 12/30/17 Range/Units 11:36 06:31 06:31 WBC 12.2 H (4.8-10.8) K/uL RBC 3.46 L (4.40-5.90) Mil/uL Hgb 9.7 L (12.0-18.0) g/dL Hct 29.8 L (35.0-51.0) % MCV 86.3 (80.0-94.0) fL MCH 28.1 (27.0-31.0) pg MCHC 32.5 L (33.0-37.0) g/dL RDW 14.1 (11.5-14.5) % Plt Count 196 (130-400) K/uL MPV 9.5 (7.2-11.7) fL Neut % (Auto) 93.6 H (50.0-75.0) % Lymph % (Auto) 2.1 L (20.0-40.0) % Borden % (Auto) 4.2 (0.0-10.0) % Eos % (Auto) 0.1 (0.0-4.0) % Baso % (Auto) 0.0 (0.0-2.0) % Neut # (Auto) 11.4 H (1.8-7.0) K/uL Lymph # (Auto) 0.3 L (1.0-4.3) K/uL Borden # (Auto) 0.5 (0.0-0.8) K/uL Eos # (Auto) 0.0 (0.0-0.7) K/uL Baso # (Auto) 0.0 (0.0-0.2) K/uL Neutrophils % (Manual) 87 H (50-75) % Band Neutrophils % 2 (0-2) % Lymphocytes % (Manual) 4 L (20-40) % Monocytes % (Manual) 6 (0-10) % Metamyelocytes % 1 H (0-0) % Platelet Estimate Normal (NORMAL) Hypochromasia (manual) Slight Poikilocytosis (manual Slight Ovalocytes Slight Marcial Cells Slight Puncture Site pCO2 (35-45) mm/Hg pO2 (80-100) mm/Hg HCO3 (21-28) mmol/L ABG pH (7.35-7.45) ABG Total CO2 (22-28) mmol/L ABG O2 Saturation (95-98) % ABG Base Excess (-2.0-3.0) mmol/L ABG Hemoglobin (11.7-17.4) g/dL ABG Carboxyhemoglobin (0.5-1.5) % POC ABG HHb (Measured) (0.0-5.0) % ABG Methemoglobin (0.0-3.0) % Jakob Test A-a O2 Difference mm/Hg Respiratory Index Hgb O2 Saturation (95.0-98.0) % Liter Flow FiO2 % Sodium 136 (132-148) mmol/L Potassium 2.9 L (3.6-5.2) mmol/L Chloride 107 (98-107) mmol/L Carbon Dioxide 21 L (22-30) mmol/L Anion Gap 11 (10-20) BUN 25 H (9-20) mg/dL Creatinine 0.7 L (0.8-1.5) mg/dL Est GFR ( Amer) > 60 Est GFR (Non-Af Amer) > 60 POC Glucose (mg/dL) 98 (65-110) mg/dL Random Glucose 104 (75-110) mg/dL Calcium 8.4 L (8.6-10.4) mg/dl Phosphorus 1.7 L (2.5-4.5) mg/dL Magnesium 1.8 (1.6-2.3) mg/dL Total Bilirubin 0.3 (0.2-1.3) mg/dL AST 74 H D (17-59) U/L ALT 79 H D (21-72) U/L Alkaline Phosphatase 59 (38-126) U/L Total Protein 5.3 L (6.3-8.3) g/dL Albumin 2.2 L (3.5-5.0) g/dL Globulin 3.1 (2.2-3.9) gm/dL Albumin/Globulin Ratio 0.7 L (1.0-2.1) 12/30/17 12/30/17 12/30/17 Range/Units 05:31 05:12 00:29 WBC (4.8-10.8) K/uL RBC (4.40-5.90) Mil/uL Hgb (12.0-18.0) g/dL Hct (35.0-51.0) % MCV (80.0-94.0) fL MCH (27.0-31.0) pg MCHC (33.0-37.0) g/dL RDW (11.5-14.5) % Plt Count (130-400) K/uL MPV (7.2-11.7) fL Neut % (Auto) (50.0-75.0) % Lymph % (Auto) (20.0-40.0) % Borden % (Auto) (0.0-10.0) % Eos % (Auto) (0.0-4.0) % Baso % (Auto) (0.0-2.0) % Neut # (Auto) (1.8-7.0) K/uL Lymph # (Auto) (1.0-4.3) K/uL Borden # (Auto) (0.0-0.8) K/uL Eos # (Auto) (0.0-0.7) K/uL Baso # (Auto) (0.0-0.2) K/uL Neutrophils % (Manual) (50-75) % Band Neutrophils % (0-2) % Lymphocytes % (Manual) (20-40) % Monocytes % (Manual) (0-10) % Metamyelocytes % (0-0) % Platelet Estimate (NORMAL) Hypochromasia (manual) Poikilocytosis (manual Ovalocytes [place] Cells Puncture Site Rr pCO2 28 L (35-45) mm/Hg pO2 70 L (80-100) mm/Hg HCO3 24.4 (21-28) mmol/L ABG pH 7.50 H (7.35-7.45) ABG Total CO2 22.7 (22-28) mmol/L ABG O2 Saturation 97.8 (95-98) % ABG Base Excess -0.6 (-2.0-3.0) mmol/L ABG Hemoglobin 10.3 L (11.7-17.4) g/dL ABG Carboxyhemoglobin 1.8 H (0.5-1.5) % POC ABG HHb (Measured) 2.1 (0.0-5.0) % ABG Methemoglobin 1.4 (0.0-3.0) % Jakob Test Pos A-a O2 Difference 109.0 mm/Hg Respiratory Index 1.6 Hgb O2 Saturation 94.7 L (95.0-98.0) % Liter Flow 15.0 FiO2 30.0 % Sodium (132-148) mmol/L Potassium (3.6-5.2) mmol/L Chloride (98-107) mmol/L Carbon Dioxide (22-30) mmol/L Anion Gap (10-20) BUN (9-20) mg/dL Creatinine (0.8-1.5) mg/dL Est GFR ( Amer) Est GFR (Non-Af Amer) POC Glucose (mg/dL) 111 H 136 H (65-110) mg/dL Random Glucose (75-110) mg/dL Calcium (8.6-10.4) mg/dl Phosphorus (2.5-4.5) mg/dL Magnesium (1.6-2.3) mg/dL Total Bilirubin (0.2-1.3) mg/dL AST (17-59) U/L ALT (21-72) U/L Alkaline Phosphatase (38-126) U/L Total Protein (6.3-8.3) g/dL Albumin (3.5-5.0) g/dL Globulin (2.2-3.9) gm/dL Albumin/Globulin Ratio (1.0-2.1) 12/29/17 Range/Units 17:47 WBC (4.8-10.8) K/uL RBC (4.40-5.90) Mil/uL Hgb (12.0-18.0) g/dL Hct (35.0-51.0) % MCV (80.0-94.0) fL MCH (27.0-31.0) pg MCHC (33.0-37.0) g/dL RDW (11.5-14.5) % Plt Count (130-400) K/uL MPV (7.2-11.7) fL Neut % (Auto) (50.0-75.0) % Lymph % (Auto) (20.0-40.0) % Borden % (Auto) (0.0-10.0) % Eos % (Auto) (0.0-4.0) % Baso % (Auto) (0.0-2.0) % Neut # (Auto) (1.8-7.0) K/uL Lymph # (Auto) (1.0-4.3) K/uL Borden # (Auto) (0.0-0.8) K/uL Eos # (Auto) (0.0-0.7) K/uL Baso # (Auto) (0.0-0.2) K/uL Neutrophils % (Manual) (50-75) % Band Neutrophils % (0-2) % Lymphocytes % (Manual) (20-40) % Monocytes % (Manual) (0-10) % Metamyelocytes % (0-0) % Platelet Estimate (NORMAL) Hypochromasia (manual) Poikilocytosis (manual Ovalocytes [place] Cells Puncture Site pCO2 (35-45) mm/Hg pO2 (80-100) mm/Hg HCO3 (21-28) mmol/L ABG pH (7.35-7.45) ABG Total CO2 (22-28) mmol/L ABG O2 Saturation (95-98) % ABG Base Excess (-2.0-3.0) mmol/L ABG Hemoglobin (11.7-17.4) g/dL ABG Carboxyhemoglobin (0.5-1.5) % POC ABG HHb (Measured) (0.0-5.0) % ABG Methemoglobin (0.0-3.0) % Jakob Test A-a O2 Difference mm/Hg Respiratory Index Hgb O2 Saturation (95.0-98.0) % Liter Flow FiO2 % Sodium (132-148) mmol/L Potassium (3.6-5.2) mmol/L Chloride (98-107) mmol/L Carbon Dioxide (22-30) mmol/L Anion Gap (10-20) BUN (9-20) mg/dL Creatinine (0.8-1.5) mg/dL Est GFR ( Amer) Est GFR (Non-Af Amer) POC Glucose (mg/dL) 183 H (65-110) mg/dL Random Glucose (75-110) mg/dL Calcium (8.6-10.4) mg/dl Phosphorus (2.5-4.5) mg/dL Magnesium (1.6-2.3) mg/dL Total Bilirubin (0.2-1.3) mg/dL AST (17-59) U/L ALT (21-72) U/L Alkaline Phosphatase (38-126) U/L Total Protein (6.3-8.3) g/dL Albumin (3.5-5.0) g/dL Globulin (2.2-3.9) gm/dL Albumin/Globulin Ratio (1.0-2.1) Laboratory Results - last 24 hr 12/29/17 12/30/17 12/30/17 17:47 00:29 05:12 WBC RBC Hgb Hct MCV MCH MCHC RDW Plt Count MPV Neut % (Auto) Lymph % (Auto) Borden % (Auto) Eos % (Auto) Baso % (Auto) Neut # (Auto) Lymph # (Auto) Borden # (Auto) Eos # (Auto) Baso # (Auto) Neutrophils % (Manual) Band Neutrophils % Lymphocytes % (Manual) Monocytes % (Manual) Metamyelocytes % Platelet Estimate Hypochromasia (manual) Poikilocytosis (manual Ovalocytes [place] Cells Puncture Site Rr pCO2 28 L pO2 70 L HCO3 24.4 ABG pH 7.50 H ABG Total CO2 22.7 ABG O2 Saturation 97.8 ABG Base Excess -0.6 ABG Hemoglobin 10.3 L ABG Carboxyhemoglobin 1.8 H POC ABG HHb (Measured) 2.1 ABG Methemoglobin 1.4 Jakob Test Pos A-a O2 Difference 109.0 Respiratory Index 1.6 Hgb O2 Saturation 94.7 L Liter Flow 15.0 FiO2 30.0 Sodium Potassium Chloride Carbon Dioxide Anion Gap BUN Creatinine Est GFR ( Amer) Est GFR (Non-Af Amer) POC Glucose (mg/dL) 183 H 136 H Random Glucose Calcium Phosphorus Magnesium Total Bilirubin AST ALT Alkaline Phosphatase Total Protein Albumin Globulin Albumin/Globulin Ratio 12/30/17 12/30/17 12/30/17 05:31 06:31 06:31 WBC 12.2 H RBC 3.46 L Hgb 9.7 L Hct 29.8 L MCV 86.3 MCH 28.1 MCHC 32.5 L RDW 14.1 Plt Count 196 MPV 9.5 Neut % (Auto) 93.6 H Lymph % (Auto) 2.1 L Borden % (Auto) 4.2 Eos % (Auto) 0.1 Baso % (Auto) 0.0 Neut # (Auto) 11.4 H Lymph # (Auto) 0.3 L Borden # (Auto) 0.5 Eos # (Auto) 0.0 Baso # (Auto) 0.0 Neutrophils % (Manual) 87 H Band Neutrophils % 2 Lymphocytes % (Manual) 4 L Monocytes % (Manual) 6 Metamyelocytes % 1 H Platelet Estimate Normal Hypochromasia (manual) Slight Poikilocytosis (manual Slight Ovalocytes Slight [place] Cells Slight Puncture Site pCO2 pO2 HCO3 ABG pH ABG Total CO2 ABG O2 Saturation ABG Base Excess ABG Hemoglobin ABG Carboxyhemoglobin POC ABG HHb (Measured) ABG Methemoglobin Jakob Test A-a O2 Difference Respiratory Index Hgb O2 Saturation Liter Flow FiO2 Sodium 136 Potassium 2.9 L Chloride 107 Carbon Dioxide 21 L Anion Gap 11 BUN 25 H Creatinine 0.7 L Est GFR ( Amer) > 60 Est GFR (Non-Af Amer) > 60 POC Glucose (mg/dL) 111 H Random Glucose 104 Calcium 8.4 L Phosphorus 1.7 L Magnesium 1.8 Total Bilirubin 0.3 AST 74 H D ALT 79 H D Alkaline Phosphatase 59 Total Protein 5.3 L Albumin 2.2 L Globulin 3.1 Albumin/Globulin Ratio 0.7 L 12/30/17 11:36 WBC RBC Hgb Hct MCV MCH MCHC RDW Plt Count MPV Neut % (Auto) Lymph % (Auto) Borden % (Auto) Eos % (Auto) Baso % (Auto) Neut # (Auto) Lymph # (Auto) Borden # (Auto) Eos # (Auto) Baso # (Auto) Neutrophils % (Manual) Band Neutrophils % Lymphocytes % (Manual) Monocytes % (Manual) Metamyelocytes % Platelet Estimate Hypochromasia (manual) Poikilocytosis (manual Ovalocytes Marcial Cells Puncture Site pCO2 pO2 HCO3 ABG pH ABG Total CO2 ABG O2 Saturation ABG Base Excess ABG Hemoglobin ABG Carboxyhemoglobin POC ABG HHb (Measured) ABG Methemoglobin Jakob Test A-a O2 Difference Respiratory Index Hgb O2 Saturation Liter Flow FiO2 Sodium Potassium Chloride Carbon Dioxide Anion Gap BUN Creatinine Est GFR ( Amer) Est GFR (Non-Af Amer) POC Glucose (mg/dL) 98 Random Glucose Calcium Phosphorus Magnesium Total Bilirubin AST ALT Alkaline Phosphatase Total Protein Albumin Globulin Albumin/Globulin Ratio Critical Care Progress Note - Nutrition Nutrition: Nutrition Category Date Time Status NPO Diet [DIET] Diets 12/27/17 Breakfast Active Attending/Attestation - Attestation I have personally seen and examined this patient.: Yes I have fully participated in the care of the patient.: Yes I have reviewed all pertinent clinical information: Yes
--- NOTE | 2017-12-30 13:02 | RAD ---
Date of service: 12/30/2017 PROCEDURE: CHEST RADIOGRAPH, 1 VIEW HISTORY: aspiration pneumonia COMPARISON: 12/29/2017 FINDINGS: LUNGS: Persistent left perihilar consolidation. New right basilar consolidation. Suspect bilateral pneumonia. PLEURA: Possible small left pleural effusion. No right pleural effusion. No pneumothorax. CARDIOVASCULAR: Normal heart size. Right PICC catheter unchanged. OSSEOUS STRUCTURES: No significant abnormalities. VISUALIZED UPPER ABDOMEN: Normal. OTHER FINDINGS: None. IMPRESSION: Suspect bilateral pneumonia. Small left pleural effusion.
--- NOTE | 2017-12-30 13:17 | CP.PCM.PN ---
Subjective - Date & Time of Evaluation Date of Evaluation: 12/30/17 Time of Evaluation: 07:00 - Subjective Subjective: Cardiothoracic Surgery Progress Note for Dr. Pearson 87M seen and evaluated this morning at bedside. Pt has no complaints. No acute events overnight. Sputum culture positive for MRSA. Objective - Vital Signs/Intake and Output Vital Signs (last 24 hours): Temp Pulse Resp BP Pulse Ox 98 F 62 22 92/56 L 100 12/30/17 12:00 12/30/17 12:09 12/30/17 12:09 12/30/17 12:09 12/30/17 12:09 Intake and Output: 12/30/17 12/30/17 06:59 18:59 Intake Total 1660 490 Output Total 1000 300 Balance 660 190 - Medications Medications: Current Medications Acetylcysteine (Acetylcysteine 20%) 4 ml INH RQ6 [facility] Last Admin: 12/30/17 07:20 Dose: 4 ml Albuterol Sulfate (Albuterol 0.083% Inhal Martha (2.5 Mg/3 Ml) Ud) 2.5 mg INH RQ6 [facility] Last Admin: 12/30/17 07:19 Dose: 2.5 mg Budesonide (Pulmicort Respules) 0.5 mg INH RQ12 [facility] Last Admin: 12/30/17 07:20 Dose: 0.5 mg Heparin Sodium (Porcine) (Heparin) 5,000 units SC Q12 [facility] Last Admin: 12/30/17 09:35 Dose: 5,000 units Piperacillin Sod/Tazobactam (Sod 3.375 gm/ Sodium Chloride) 100 mls @ 200 mls/ hr IVPB Q8H [facility] PRN Reason: Protocol Last Admin: 12/30/17 08:35 Dose: 200 mls/hr Fat Emulsion Intravenous (Intralipid 20%) 500 mls @ 48 mls/hr IV MWF@1800 [facility] Stop: 01/03/18 18:01 Last Admin: 12/29/17 17:17 Dose: 48 mls/hr Chromium/Copper/Manganese/Zinc (1 ml/ Amino Acids) 1,001 mls @ 65 mls/hr IV .[id number] ONE Stop: 12/31/17 00:53 Last Admin: 12/30/17 09:30 Dose: 65 mls/hr Linezolid (Zyvox 600mg/300ml D5w) 600 mg in 300 mls @ 200 mls/hr IVPB Q12H [facility] PRN Reason: Protocol Last Admin: 12/30/17 12:56 Dose: 200 mls/hr Multivitamins/Vitamin C 10 ml/Chromium/Copper/Manganese/Zinc 1 ml/ Amino Acids 1,011 mls @ 65 mls/hr IV .[id number] ONE Stop: 12/31/17 09:33 Chromium/Copper/Manganese/Zinc (1 ml/ Amino Acids) 1,001 mls @ 65 mls/hr IV .[id number] ONE Stop: 01/01/18 00:53 Potassium Chloride (Potassium Chloride 20 Meq/100 Ml) 20 meq in 100 mls @ 50 mls/hr IVPB ONCE ONE Stop: 12/30/17 14:59 Last Admin: 12/30/17 12:54 Dose: 50 mls/hr Magnesium Sulfate/Dextrose (Magnesium Sulfate 1 Gm/100 Ml D5w) 1 gm in 100 mls @ 200 mls/hr IVPB ONCE ONE Stop: 12/30/17 13:29 Last Admin: 12/30/17 12:55 Dose: 200 mls/hr Methylprednisolone (Solu-Medrol) 40 mg IVP DAILY [facility] Last Admin: 12/30/17 09:35 Dose: 40 mg Montelukast Sodium (Singulair) 10 mg PO HS [facility] Last Admin: 12/29/17 21:19 Dose: Not Given Nystatin (Nystatin Oral Susp) 5 ml PO QID [facility] Last Admin: 12/30/17 13:06 Dose: 5 ml Pantoprazole Sodium (Protonix Inj) 40 mg IVP DAILY [facility] Last Admin: 12/30/17 09:35 Dose: 40 mg - Labs Labs: 12/30/17 06:31 12/30/17 06:31 PT 14.2 SECONDS (9.7-12.2) H 12/21/17 20:23 INR 1.3 12/21/17 20:23 APTT 36 SECONDS (21-34) H 12/21/17 20:23 - Constitutional Appears: No Acute Distress, Older Than Stated Age, Cachectic - Head Exam Head Exam: ATRAUMATIC, NORMAL INSPECTION, NORMOCEPHALIC - Respiratory Exam Respiratory Exam: Clear to Ausculation Bilateral, NORMAL BREATHING PATTERN - Cardiovascular Exam Cardiovascular Exam: REGULAR RHYTHM, +S1, +S2. absent: Murmur - GI/Abdominal Exam GI & Abdominal Exam: Soft, Normal Bowel Sounds. absent: Tenderness - Neurological Exam Neurological Exam: Alert, Awake Assessment and Plan - Assessment and Plan (Free Text) Assessment: 87M w/ upper esophageal mass/stricture Plan: Pending further GI workup to determine pathology Plan for open G-tube Friday - son has agreed to the procedure after speaking with Dr. Shea and GI Will continue to follow Further recs per Dr. Lili Christina PGY1
--- NOTE | 2017-12-30 13:34 | CP.PCM.PN ---
Subjective - Date & Time of Evaluation Date of Evaluation: 12/30/17 Time of Evaluation: 07:00 - Subjective Subjective: seen in ICU with Dr Shea Objective - Vital Signs/Intake and Output Vital Signs (last 24 hours): Temp Pulse Resp BP Pulse Ox 98 F 62 22 92/56 L 100 12/30/17 12:00 12/30/17 12:09 12/30/17 12:09 12/30/17 12:09 12/30/17 12:09 Intake and Output: 12/30/17 12/30/17 06:59 18:59 Intake Total 1660 490 Output Total 1000 300 Balance 660 190 - Medications Medications: Current Medications Acetylcysteine (Acetylcysteine 20%) 4 ml INH RQ6 [facility] Last Admin: 12/30/17 13:21 Dose: 4 ml Albuterol Sulfate (Albuterol 0.083% Inhal Martha (2.5 Mg/3 Ml) Ud) 2.5 mg INH RQ6 [facility] Last Admin: 12/30/17 13:21 Dose: 2.5 mg Budesonide (Pulmicort Respules) 0.5 mg INH RQ12 [facility] Last Admin: 12/30/17 07:20 Dose: 0.5 mg Heparin Sodium (Porcine) (Heparin) 5,000 units SC Q12 [facility] Last Admin: 12/30/17 09:35 Dose: 5,000 units Piperacillin Sod/Tazobactam (Sod 3.375 gm/ Sodium Chloride) 100 mls @ 200 mls/ hr IVPB Q8H [facility] PRN Reason: Protocol Last Admin: 12/30/17 08:35 Dose: 200 mls/hr Fat Emulsion Intravenous (Intralipid 20%) 500 mls @ 48 mls/hr IV MWF@1800 [facility] Stop: 01/03/18 18:01 Last Admin: 12/29/17 17:17 Dose: 48 mls/hr Chromium/Copper/Manganese/Zinc (1 ml/ Amino Acids) 1,001 mls @ 65 mls/hr IV .[id number] ONE Stop: 12/31/17 00:53 Last Admin: 12/30/17 09:30 Dose: 65 mls/hr Linezolid (Zyvox 600mg/300ml D5w) 600 mg in 300 mls @ 200 mls/hr IVPB Q12H [facility] PRN Reason: Protocol Last Admin: 12/30/17 12:56 Dose: 200 mls/hr Multivitamins/Vitamin C 10 ml/Chromium/Copper/Manganese/Zinc 1 ml/ Amino Acids 1,011 mls @ 65 mls/hr IV .[id number] [facility] Stop: 12/31/17 09:33 Chromium/Copper/Manganese/Zinc (1 ml/ Amino Acids) 1,001 mls @ 65 mls/hr IV .[id number] [facility] Stop: 01/01/18 00:53 Potassium Chloride (Potassium Chloride 20 Meq/100 Ml) 20 meq in 100 mls @ 50 mls/hr IVPB ONCE [facility] Stop: 12/30/17 14:59 Last Admin: 12/30/17 12:54 Dose: 50 mls/hr Methylprednisolone (Solu-Medrol) 40 mg IVP DAILY [facility] Last Admin: 12/30/17 09:35 Dose: 40 mg Montelukast Sodium (Singulair) 10 mg PO HS [facility] Last Admin: 12/29/17 21:19 Dose: Not Given Nystatin (Nystatin Oral Susp) 5 ml PO QID [facility] Last Admin: 12/30/17 13:06 Dose: 5 ml Pantoprazole Sodium (Protonix Inj) 40 mg IVP DAILY [facility] Last Admin: 12/30/17 09:35 Dose: 40 mg - Labs Labs: 12/30/17 06:31 12/30/17 06:31 PT 14.2 SECONDS (9.7-12.2) H 12/21/17 20:23 INR 1.3 12/21/17 20:23 APTT 36 SECONDS (21-34) H 12/21/17 20:23 - Constitutional Appears: Non-toxic - Head Exam Head Exam: NORMOCEPHALIC - Eye Exam Eye Exam: PERRL - ENT Exam ENT Exam: Normal External Ear Exam - Neck Exam Neck Exam: absent: Lymphadenopathy - Respiratory Exam Respiratory Exam: Decreased Breath Sounds - Cardiovascular Exam Cardiovascular Exam: REGULAR RHYTHM - GI/Abdominal Exam GI & Abdominal Exam: Distended Assessment and Plan (1) Acute pneumonia Status: Acute (2) Bullous emphysema Status: Acute (3) Cachexia Status: Acute (4) Emphysema lung Status: Acute (5) Hypernatremia Status: Resolved (6) Pneumonia Status: Acute (7) Prerenal azotemia Status: Resolved (8) Severe dehydration Status: Acute (9) MRSA (methicillin resistant staph aureus) culture positive Status: Acute - Assessment and Plan (Free Text) Assessment: needs peg cont iv antibiotics
--- NOTE | 2017-12-30 15:47 | CP.PCM.PN ---
Subjective - Date & Time of Evaluation Date of Evaluation: 12/30/17 Time of Evaluation: 14:45 - Subjective Subjective: PGY-4 GI Fellow Prog Note Pt lying in bed, son at bedside. Pt without complaint. States moving bowels but unsure quality. Son states plan for surgically placed PEG after discussion with surgery. 5 point ROS negative other than stated above. Objective - Vital Signs/Intake and Output Vital Signs (last 24 hours): Temp Pulse Resp BP Pulse Ox 98 F 62 22 92/56 L 100 12/30/17 12:00 12/30/17 12:09 12/30/17 12:09 12/30/17 12:09 12/30/17 12:09 Intake and Output: 12/30/17 12/30/17 06:59 18:59 Intake Total 1660 490 Output Total 1000 300 Balance 660 190 - Medications Medications: Current Medications Acetylcysteine (Acetylcysteine 20%) 4 ml INH RQ6 [facility] Last Admin: 12/30/17 13:21 Dose: 4 ml Albuterol Sulfate (Albuterol 0.083% Inhal Martha (2.5 Mg/3 Ml) Ud) 2.5 mg INH RQ6 [facility] Last Admin: 12/30/17 13:21 Dose: 2.5 mg Budesonide (Pulmicort Respules) 0.5 mg INH RQ12 [facility] Last Admin: 12/30/17 07:20 Dose: 0.5 mg Heparin Sodium (Porcine) (Heparin) 5,000 units SC Q12 [facility] Last Admin: 12/30/17 09:35 Dose: 5,000 units Piperacillin Sod/Tazobactam (Sod 3.375 gm/ Sodium Chloride) 100 mls @ 200 mls/ hr IVPB Q8H [facility] PRN Reason: Protocol Last Admin: 12/30/17 08:35 Dose: 200 mls/hr Fat Emulsion Intravenous (Intralipid 20%) 500 mls @ 48 mls/hr IV MWF@1800 [facility] Stop: 01/03/18 18:01 Last Admin: 12/29/17 17:17 Dose: 48 mls/hr Chromium/Copper/Manganese/Zinc (1 ml/ Amino Acids) 1,001 mls @ 65 mls/hr IV .[id number] ONE Stop: 12/31/17 00:53 Last Admin: 12/30/17 09:30 Dose: 65 mls/hr Linezolid (Zyvox 600mg/300ml D5w) 600 mg in 300 mls @ 200 mls/hr IVPB Q12H [facility] PRN Reason: Protocol Last Admin: 12/30/17 12:56 Dose: 200 mls/hr Multivitamins/Vitamin C 10 ml/Chromium/Copper/Manganese/Zinc 1 ml/ Amino Acids 1,011 mls @ 65 mls/hr IV .[id number] [facility] Stop: 12/31/17 09:33 Chromium/Copper/Manganese/Zinc (1 ml/ Amino Acids) 1,001 mls @ 65 mls/hr IV .[id number] [facility] Stop: 01/01/18 00:53 Methylprednisolone (Solu-Medrol) 40 mg IVP DAILY [facility] Last Admin: 12/30/17 09:35 Dose: 40 mg Montelukast Sodium (Singulair) 10 mg PO HS [facility] Last Admin: 12/29/17 21:19 Dose: Not Given Nystatin (Nystatin Oral Susp) 5 ml PO QID [facility] Last Admin: 12/30/17 13:06 Dose: 5 ml Pantoprazole Sodium (Protonix Inj) 40 mg IVP DAILY [facility] Last Admin: 12/30/17 09:35 Dose: 40 mg - Labs Labs: 12/30/17 06:31 12/30/17 06:31 PT 14.2 SECONDS (9.7-12.2) H 12/21/17 20:23 INR 1.3 12/21/17 20:23 APTT 36 SECONDS (21-34) H 12/21/17 20:23 - Constitutional Appears: No Acute Distress, Cachectic, Chronically Ill - Eye Exam Eye Exam: EOMI. absent: Conjunctival injection, Scleral icterus - ENT Exam ENT Exam: Mucous Membranes Dry, Normal External Ear Exam - Respiratory Exam Respiratory Exam: Clear to Ausculation Bilateral, NORMAL BREATHING PATTERN. absent: Accessory Muscle Use, Respiratory Distress - Cardiovascular Exam Cardiovascular Exam: REGULAR RHYTHM, RRR. absent: Tachycardia - GI/Abdominal Exam GI & Abdominal Exam: Soft, Normal Bowel Sounds. absent: Bruit, Distended, Firm , Guarding, Rigid, Tenderness Assessment and Plan - Assessment and Plan (Free Text) Assessment: 87M with history of COPD presenting with RLL PNA and progressive weightloss. #Weight loss - likely multifactorial (Esophageal stricture, ?underlying malignancy, median arcuate ligament syndrome?) #Esophageal stricture #Severe Malnutrition #RLL PNA, aspiration, MRSA PNA #Celiac artery stenosis #Fecal impaction #Liver mass, unspecified #COPD #Thrush Plan: -EGD 12/24 aborted due to significant upper esophageal stricture, unable to place PEG -> plan for open G tube by surgery -Continue supportive care -CT imaging reviewed, noted diffuse thickening of distal esophagus. -CT abd/pelv noted for ?fecal impaction with dilated rectum and thickened wall. Also, ?arcuate ligament syndrome. Liver masses noted. No obvious pancreatic mass. -Flex laryngoscopy 12/25/17 did not show obvious mass, but secretion pooling observed -Concern for malignancy is high CEA mildly elevated. CA199 55. -Barium swallow eval not tolerated by pt -Nystatin swish and spit for thrush Pt to be discussed with Dr. Montanez, see his attestation for final recs
[2017-12-30] MEDS ORDERED: PPN #7 IV ONE (18:00)
--- NOTE | 2017-12-30 22:10 | CP.PCM.PN ---
Subjective - Date & Time of Evaluation Date of Evaluation: 12/30/17 Time of Evaluation: 13:25 - Subjective Subjective: Patient is responsive and oriented. Ispoke to the patient and to his son by telphone. He is in need of a Peg line. Patient agreed and a consult with Dr Cunningham was requested. Objective - Vital Signs/Intake and Output Vital Signs (last 24 hours): Temp Pulse Resp BP Pulse Ox 97.7 F 55 L 20 95/59 L 99 12/30/17 20:00 12/30/17 20:00 12/30/17 20:00 12/30/17 20:00 12/30/17 20:00 Intake and Output: 12/30/17 12/31/17 18:59 06:59 Intake Total 1732 195 Output Total 300 600 Balance 1432 -405 - Medications Medications: Current Medications Acetylcysteine (Acetylcysteine 20%) 4 ml INH RQ6 [facility] Last Admin: 12/30/17 19:46 Dose: 4 ml Albuterol Sulfate (Albuterol 0.083% Inhal Martha (2.5 Mg/3 Ml) Ud) 2.5 mg INH RQ6 [facility] Last Admin: 12/30/17 19:46 Dose: 2.5 mg Budesonide (Pulmicort Respules) 0.5 mg INH RQ12 [facility] Last Admin: 12/30/17 19:46 Dose: 0.5 mg Heparin Sodium (Porcine) (Heparin) 5,000 units SC Q12 [facility] Last Admin: 12/30/17 09:35 Dose: 5,000 units Piperacillin Sod/Tazobactam (Sod 3.375 gm/ Sodium Chloride) 100 mls @ 200 mls/ hr IVPB Q8H [facility] PRN Reason: Protocol Last Admin: 12/30/17 17:18 Dose: 200 mls/hr Fat Emulsion Intravenous (Intralipid 20%) 500 mls @ 48 mls/hr IV MWF@1800 [facility] Stop: 01/03/18 18:01 Last Admin: 12/29/17 17:17 Dose: 48 mls/hr Chromium/Copper/Manganese/Zinc (1 ml/ Amino Acids) 1,001 mls @ 65 mls/hr IV .[id number] [facility] Stop: 12/31/17 00:53 Last Admin: 12/30/17 09:30 Dose: 65 mls/hr Linezolid (Zyvox 600mg/300ml D5w) 600 mg in 300 mls @ 200 mls/hr IVPB Q12H [facility] PRN Reason: Protocol Last Admin: 12/30/17 12:56 Dose: 200 mls/hr Multivitamins/Vitamin C 10 ml/Chromium/Copper/Manganese/Zinc 1 ml/ Amino Acids 1,011 mls @ 65 mls/hr IV .[id number] [facility] Stop: 12/31/17 09:33 Last Admin: 12/30/17 17:27 Dose: 65 mls/hr Chromium/Copper/Manganese/Zinc (1 ml/ Amino Acids) 1,001 mls @ 65 mls/hr IV .[id number] [facility] Stop: 01/01/18 00:53 Methylprednisolone (Solu-Medrol) 40 mg IVP DAILY [facility] Last Admin: 12/30/17 09:35 Dose: 40 mg Montelukast Sodium (Singulair) 10 mg PO HS [facility] Last Admin: 12/29/17 21:19 Dose: Not Given Nystatin (Nystatin Oral Susp) 5 ml PO QID [facility] Last Admin: 12/30/17 17:18 Dose: 5 ml Pantoprazole Sodium (Protonix Inj) 40 mg IVP DAILY [facility] Last Admin: 12/30/17 09:35 Dose: 40 mg - Labs Labs: 12/30/17 06:31 12/30/17 06:31 PT 14.2 SECONDS (9.7-12.2) H 12/21/17 20:23 INR 1.3 12/21/17 20:23 APTT 36 SECONDS (21-34) H 12/21/17 20:23 - Constitutional Appears: Cachectic - Head Exam Head Exam: NORMOCEPHALIC - Eye Exam Pupil Exam: NORMAL ACCOMODATION - ENT Exam ENT Exam: Normal Exam - Neck Exam Neck Exam: Normal Inspection - Respiratory Exam Respiratory Exam: Decreased Breath Sounds - Cardiovascular Exam Cardiovascular Exam: REGULAR RHYTHM - GI/Abdominal Exam GI & Abdominal Exam: Normal Bowel Sounds - Rectal Exam Rectal Exam: Deferred - Exam Exam: NORMAL INSPECTION - Extremities Exam Extremities Exam: Tenderness - Back Exam Back Exam: NORMAL INSPECTION - Neurological Exam Neurological Exam: Awake - Psychiatric Exam Psychiatric exam: Depressed - Skin Skin Exam: Dry Assessment and Plan (1) Acute pneumonia Status: Acute (2) Cachexia Status: Acute (3) Emphysema lung Status: Acute (4) Hypernatremia Status: Resolved (5) Prerenal azotemia Status: Resolved (6) Severe dehydration Status: Acute
[2017-12-31 00:06] LABS: ALBUMIN (PEP) 2.1 g/dL (3.8-4.8); ALPHA-1-GLOBULIN (PEP) 0.4 g/dL (0.2-0.3)
[2017-12-31] MEDS: Linezolid 600 mg in D5W 300 ml 600 MG/300 ML BAG IVPB SCH ×2 (01:00→12:29)
[2017-12-31] MEDS: Piperacillin/Tazobact 3.375 GM in Sodium Chloride 100 ML IVPB SCH ×3 (01:30→17:50)
[2017-12-31] MEDS: Acetylcysteine 20% Inhal Soln (4ml) INH SCH ×4 (01:47→19:38)
[2017-12-31] MEDS: Albuterol 0.083% Inhal Sol (2.5 mg/3 mL) UD INH SCH ×4 (01:47→19:37)
[2017-12-31 05:45] LABS: ABG ALLEN TEST POS; ARTERIAL BLOOD GAS HCO3 25.2 mmol/L (21-28); ARTERIAL BLOOD GAS HEMOGLOBIN 9.6 g/dL (11.7-17.4); ARTERIAL BLOOD GAS O2 SAT 98.8 % (95-98); ARTERIAL BLOOD GAS PCO2 22 mm/Hg (35-45); ARTERIAL BLOOD GAS PH 7.59 (7.35-7.45); ARTERIAL BLOOD GAS PO2 77 mm/Hg (80-100); ARTERIAL BLOOD GAS TCO2 21.8 mmol/L (22-28)
[2017-12-31 06:29] LABS: BASO % 0.2 % (0.0-2.0); EOS % 0.1 % (0.0-4.0); HEMOGLOBIN 10.3 g/dL (12.0-18.0); LYMPH # 0.4 K/uL (1.0-4.3); LYMPH % 4.4 % (20.0-40.0); MEAN CELL VOLUME 84.5 fL (80.0-94.0); MEAN CORPUSCULAR HEMOGLOBIN 28.8 pg (27.0-31.0); MEAN CORPUSCULAR HGB CONC 34.1 g/dL (33.0-37.0); MONO # 0.5 K/uL (0.0-0.8); MONO % 4.8 % (0.0-10.0); NEUT # 9.1 K/uL (1.8-7.0); NEUT % 90.5 % (50.0-75.0); PLATELET COUNT 231 K/uL (130-400); RBC 3.59 Mil/uL (4.40-5.90); WHITE BLOOD COUNT 10.1 K/uL (4.8-10.8)
--- NOTE | 2017-12-31 06:52 | PN ---
Copied To: Jaya Pettit MD Attending MD: Jaya Pettit MD DATE: 12/30/2017 SUBJECTIVE: The patient is in bed, family by his bedside. PHYSICAL EXAMINATION: GENERAL: The patient is alert and oriented, not in acute distress. VITAL SIGNS: He is afebrile with blood pressure 92/56, pulse 62, respirations 22, and hemoglobin oxygen saturation of 100%. HEART: Regular. There is no gallop rhythm. LUNGS: Diminished breath sounds over the lung bases, rhonchi decreased. ABDOMEN: Soft. EXTREMITIES: Legs, no edema. LABORATORY DATA: His white count is 12,200, hemoglobin 9.7, platelet count 196,000, and neutrophil count is 87%. His ABG on FiO2 of 30% shows pH of 7.50, PCO2 of 28, PO2 of 70, bicarbonate 24, and hemoglobin oxygen saturation of 98%. Serum sodium 136, potassium 2.3, chloride 107, bicarb 21, BUN 25, creatinine 0.7, and blood glucose 111. AST 74, ALT 79, serum albumin is 2.2. Chest x-ray shows bilateral emphysematous changes and bilateral lower zone perihilar infiltrates with lower zone interstitial changes consistent with aspiration pneumonia the original films when he was admitted did not show infiltrates of any significance. IMPRESSION: Respiratory insufficiency, sepsis, aspiration pneumonia, esophageal swallowing disorder, malnutrition, chronic obstructive pulmonary disease, emphysema, respiratory insufficiency, electrolyte disturbance and dehydration with renal insufficiency. PLAN: To continue with the current measures including bronchodilators, nutritional support, antibiotics, chest physiotherapy, and specialists' help for renal, esophageal, endocrinology, cardiology, and infectious disease. To continue with Mucomyst and albuterol as well as chest physiotherapy. Jaya Pettit MD
[2017-12-31 07:02] LABS: ALB/GLOB RATIO 0.7 (1.0-2.1); ALBUMIN 2.3 g/dL (3.5-5.0); ALT/SGPT 63 U/L (21-72); AST/SGOT 38 U/L (17-59); BLOOD UREA NITROGEN 22 mg/dL (9-20); CALCIUM 8.4 mg/dl (8.6-10.4); GFR AFRICAN-AMERICAN > 60; GFR NON-AFRICAN AMERICAN > 60
[2017-12-31] MEDS: Budesonide 0.5 mg/2 ml Inhal Susp UD INH SCH ×2 (07:21→19:37)
[2017-12-31] MEDS ORDERED: Potassium Phosphate 20 MMOLE in Sodium Chloride 0.9% 250 ML IV ONE (07:37)
--- NOTE | 2017-12-31 08:10 | RAD ---
Date of service: 12/31/2017 HISTORY: pneumonia, emphysema COMPARISON: Portable chest 12/30/2017. FINDINGS: Right upper extremity PICC unchanged in position. LUNGS: COPD changes are reiterated with mildly diminished infiltrate at the mid to inferior left lung zones, with borderline patchy density at the right base. PLEURA: Trace left pleural effusion remains. None is seen at the right. There is no pneumothorax bilaterally. CARDIOVASCULAR: Normal cardiac size. No pulmonary vascular congestion grossly evident. OSSEOUS STRUCTURES: No significant abnormalities. VISUALIZED UPPER ABDOMEN: Normal. OTHER FINDINGS: None. IMPRESSION: Limited improvement in mid to inferior left-sided pulmonary infiltrate with trace likely atelectasis in the right base. Trace of pleural effusion remains.
[2017-12-31 08:24] LABS: LYMPHOCYTE 6 % (20-40); MONOCYTE 4 % (0-10); NEUTROPHIL 90 % (50-75); PLATELET ESTIMATE NORMAL (NORMAL); TOTAL CELLS COUNTED 100
[2017-12-31 08:25] LABS: ANISOCYTOSIS SLIGHT; BURR CELLS SLIGHT; HYPOCHROMIC SLIGHT; OVALOCYTES SLIGHT; POIKILOCYTOSIS SLIGHT; TARGET CELLS SLIGHT; TEARDROP CELLS SLIGHT
[2017-12-31] MEDS: MethylPREDNISolone 40 mg Vial IVP SCH (09:28)
[2017-12-31] MEDS ORDERED: PPN #8 IV ONE (09:30)
[2017-12-31] MEDS: Nystatin 100,000 Units/ml Oral Susp 5 ml UD PO SCH ×5 (09:36→22:14)
--- NOTE | 2017-12-31 11:56 | CP.PCM.PN ---
Subjective - Date & Time of Evaluation Date of Evaluation: 12/31/17 Time of Evaluation: 10:00 - Subjective Subjective: THORACIC SURGERY PROGRESS NOTE FOR DR. MACIAS 87M seen and evaluated at bedside in the ICU. Pt has no complaints. No acute events overnight. Remains NPO on PPN. Objective - Vital Signs/Intake and Output Vital Signs (last 24 hours): Temp Pulse Resp BP Pulse Ox 98.1 F 52 L 32 H 110/65 100 12/31/17 08:00 12/31/17 11:00 12/31/17 11:00 12/31/17 08:22 12/31/17 11:00 Intake and Output: 12/31/17 12/31/17 06:59 18:59 Intake Total 1570 620 Output Total 900 1650 Balance 670 -1030 - Medications Medications: Current Medications Acetylcysteine (Acetylcysteine 20%) 4 ml INH RQ6 [facility] Last Admin: 12/31/17 07:22 Dose: Not Given Albuterol Sulfate (Albuterol 0.083% Inhal Martha (2.5 Mg/3 Ml) Ud) 2.5 mg INH RQ6 [facility] Last Admin: 12/31/17 07:21 Dose: 2.5 mg Budesonide (Pulmicort Respules) 0.5 mg INH RQ12 [facility] Last Admin: 12/31/17 07:21 Dose: 0.5 mg Heparin Sodium (Porcine) (Heparin) 5,000 units SC Q12 [facility] Last Admin: 12/31/17 09:29 Dose: 5,000 units Piperacillin Sod/Tazobactam (Sod 3.375 gm/ Sodium Chloride) 100 mls @ 200 mls/ hr IVPB Q8H [facility] PRN Reason: Protocol Last Admin: 12/31/17 09:29 Dose: 200 mls/hr Fat Emulsion Intravenous (Intralipid 20%) 500 mls @ 48 mls/hr IV MWF@1800 [facility] Stop: 01/03/18 18:01 Last Admin: 12/29/17 17:17 Dose: 48 mls/hr Linezolid (Zyvox 600mg/300ml D5w) 600 mg in 300 mls @ 200 mls/hr IVPB Q12H [facility] PRN Reason: Protocol Last Admin: 12/31/17 01:00 Dose: 200 mls/hr Chromium/Copper/Manganese/Zinc (1 ml/ Amino Acids) 1,001 mls @ 65 mls/hr IV .[id number] ONE Stop: 01/01/18 00:53 Last Admin: 12/31/17 09:31 Dose: 65 mls/hr Multivitamins/Vitamin C 10 ml/Chromium/Copper/Manganese/Zinc 1 ml/ Amino Acids 1,011 mls @ 65 mls/hr IV .[id number] ONE Stop: 01/01/18 09:33 Chromium/Copper/Manganese/Zinc (1 ml/ Amino Acids) 1,001 mls @ 65 mls/hr IV .[id number] ONE Stop: 01/02/18 00:53 Methylprednisolone (Solu-Medrol) 40 mg IVP DAILY [facility] Last Admin: 12/31/17 09:28 Dose: 40 mg Montelukast Sodium (Singulair) 10 mg PO HS [facility] Last Admin: 12/30/17 22:34 Dose: Not Given Nystatin (Nystatin Oral Susp) 5 ml PO QID [facility] Last Admin: 12/31/17 09:36 Dose: 5 ml Pantoprazole Sodium (Protonix Inj) 40 mg IVP DAILY [facility] Last Admin: 12/31/17 09:28 Dose: 40 mg - Labs Labs: 12/31/17 06:21 12/31/17 06:21 PT 14.2 SECONDS (9.7-12.2) H 12/21/17 20:23 INR 1.3 12/21/17 20:23 APTT 36 SECONDS (21-34) H 12/21/17 20:23 - Constitutional Appears: Non-toxic, No Acute Distress, Older Than Stated Age, Cachectic - Respiratory Exam Respiratory Exam: NORMAL BREATHING PATTERN. absent: Respiratory Distress - Cardiovascular Exam Cardiovascular Exam: +S1, +S2 - GI/Abdominal Exam GI & Abdominal Exam: Soft. absent: Tenderness - Neurological Exam Neurological Exam: Alert, Awake Assessment and Plan - Assessment and Plan (Free Text) Assessment: 87M w/ upper esophageal mass/stricture Plan: - Will continue to FU GI recs - Pt scheduled for open G-tube Friday - son has agreed to the procedure after speaking with Dr. Shea, GI, and palliative care - Further recs per Dr. Lili Bertrand PGY-4
--- NOTE | 2017-12-31 12:20 | CP.PCM.PN ---
Subjective - Date & Time of Evaluation Date of Evaluation: 12/31/17 Time of Evaluation: 12:18 - Subjective Subjective: Appears same UO-2000ml Kphos just given renal function stable likely for PEG in AM Objective - Vital Signs/Intake and Output Vital Signs (last 24 hours): Temp Pulse Resp BP Pulse Ox 98.1 F 59 L 20 111/72 100 12/31/17 12:00 12/31/17 12:00 12/31/17 12:00 12/31/17 11:22 12/31/17 12:00 Intake and Output: 12/31/17 12/31/17 06:59 18:59 Intake Total 1570 750 Output Total 900 1650 Balance 670 -900 - Medications Medications: Current Medications Acetylcysteine (Acetylcysteine 20%) 4 ml INH RQ6 [facility] Last Admin: 12/31/17 07:22 Dose: Not Given Albuterol Sulfate (Albuterol 0.083% Inhal Martha (2.5 Mg/3 Ml) Ud) 2.5 mg INH RQ6 [facility] Last Admin: 12/31/17 07:21 Dose: 2.5 mg Budesonide (Pulmicort Respules) 0.5 mg INH RQ12 [facility] Last Admin: 12/31/17 07:21 Dose: 0.5 mg Heparin Sodium (Porcine) (Heparin) 5,000 units SC Q12 [facility] Last Admin: 12/31/17 09:29 Dose: 5,000 units Piperacillin Sod/Tazobactam (Sod 3.375 gm/ Sodium Chloride) 100 mls @ 200 mls/ hr IVPB Q8H [facility] PRN Reason: Protocol Last Admin: 12/31/17 09:29 Dose: 200 mls/hr Fat Emulsion Intravenous (Intralipid 20%) 500 mls @ 48 mls/hr IV MWF@1800 [facility] Stop: 01/03/18 18:01 Last Admin: 12/29/17 17:17 Dose: 48 mls/hr Linezolid (Zyvox 600mg/300ml D5w) 600 mg in 300 mls @ 200 mls/hr IVPB Q12H [facility] PRN Reason: Protocol Last Admin: 12/31/17 01:00 Dose: 200 mls/hr Chromium/Copper/Manganese/Zinc (1 ml/ Amino Acids) 1,001 mls @ 65 mls/hr IV .[id number] ONE Stop: 01/01/18 00:53 Last Admin: 12/31/17 09:31 Dose: 65 mls/hr Multivitamins/Vitamin C 10 ml/Chromium/Copper/Manganese/Zinc 1 ml/ Amino Acids 1,011 mls @ 65 mls/hr IV .[id number] ONE Stop: 01/01/18 09:33 Chromium/Copper/Manganese/Zinc (1 ml/ Amino Acids) 1,001 mls @ 65 mls/hr IV .[id number] ONE Stop: 01/02/18 00:53 Methylprednisolone (Solu-Medrol) 40 mg IVP DAILY [facility] Last Admin: 12/31/17 09:28 Dose: 40 mg Montelukast Sodium (Singulair) 10 mg PO HS [facility] Last Admin: 12/30/17 22:34 Dose: Not Given Nystatin (Nystatin Oral Susp) 5 ml PO QID [facility] Last Admin: 12/31/17 09:36 Dose: 5 ml Pantoprazole Sodium (Protonix Inj) 40 mg IVP DAILY [facility] Last Admin: 12/31/17 09:28 Dose: 40 mg - Labs Labs: 12/31/17 06:21 12/31/17 06:21 PT 14.2 SECONDS (9.7-12.2) H 12/21/17 20:23 INR 1.3 12/21/17 20:23 APTT 36 SECONDS (21-34) H 12/21/17 20:23 - Constitutional Appears: No Acute Distress, Chronically Ill - Head Exam Head Exam: ATRAUMATIC, NORMAL INSPECTION - Eye Exam Eye Exam: EOMI, Normal appearance - Neck Exam Neck Exam: Normal Inspection. absent: Tenderness - Respiratory Exam Respiratory Exam: Clear to Ausculation Bilateral, NORMAL BREATHING PATTERN - Cardiovascular Exam Cardiovascular Exam: REGULAR RHYTHM, +S1 - GI/Abdominal Exam GI & Abdominal Exam: Soft. absent: Tenderness - Neurological Exam Neurological Exam: Alert, CN II-XII Intact - Skin Skin Exam: Dry, Warm Assessment and Plan (1) Emphysema lung Status: Acute (2) Prerenal azotemia Status: Resolved (3) Hypernatremia Status: Resolved (4) Pneumonia Status: Acute (5) Severe dehydration Status: Acute - Assessment and Plan (Free Text) Plan: follow up lytes closely agree with PEG plans
--- NOTE | 2017-12-31 15:39 | CP.PCM.PN ---
Subjective - Date & Time of Evaluation Date of Evaluation: 12/31/17 Time of Evaluation: 07:00 - Subjective Subjective: DISCUSSED ON ROUNDS IV RX IN PROGRESS FOR PEG IN AM Objective - Vital Signs/Intake and Output Vital Signs (last 24 hours): Temp Pulse Resp BP Pulse Ox 98.1 F 61 21 111/72 100 12/31/17 12:00 12/31/17 13:00 12/31/17 14:00 12/31/17 11:22 12/31/17 13:00 Intake and Output: 12/31/17 12/31/17 06:59 18:59 Intake Total 1570 1115 Output Total 900 1650 Balance 670 -535 - Medications Medications: Current Medications Acetylcysteine (Acetylcysteine 20%) 4 ml INH RQ6 [facility] Last Admin: 12/31/17 13:09 Dose: Not Given Albuterol Sulfate (Albuterol 0.083% Inhal Martha (2.5 Mg/3 Ml) Ud) 2.5 mg INH RQ6 [facility] Last Admin: 12/31/17 13:09 Dose: 2.5 mg Budesonide (Pulmicort Respules) 0.5 mg INH RQ12 [facility] Last Admin: 12/31/17 07:21 Dose: 0.5 mg Heparin Sodium (Porcine) (Heparin) 5,000 units SC Q12 [facility] Last Admin: 12/31/17 09:29 Dose: 5,000 units Piperacillin Sod/Tazobactam (Sod 3.375 gm/ Sodium Chloride) 100 mls @ 200 mls/ hr IVPB Q8H [facility] PRN Reason: Protocol Last Admin: 12/31/17 09:29 Dose: 200 mls/hr Fat Emulsion Intravenous (Intralipid 20%) 500 mls @ 48 mls/hr IV MWF@1800 [facility] Stop: 01/03/18 18:01 Last Admin: 12/29/17 17:17 Dose: 48 mls/hr Linezolid (Zyvox 600mg/300ml D5w) 600 mg in 300 mls @ 200 mls/hr IVPB Q12H [facility] PRN Reason: Protocol Last Admin: 12/31/17 12:29 Dose: 200 mls/hr Chromium/Copper/Manganese/Zinc (1 ml/ Amino Acids) 1,001 mls @ 65 mls/hr IV .[id number] ONE Stop: 01/01/18 00:53 Last Admin: 12/31/17 09:31 Dose: 65 mls/hr Multivitamins/Vitamin C 10 ml/Chromium/Copper/Manganese/Zinc 1 ml/ Amino Acids 1,011 mls @ 65 mls/hr IV .[id number] [facility] Stop: 01/01/18 09:33 Chromium/Copper/Manganese/Zinc (1 ml/ Amino Acids) 1,001 mls @ 65 mls/hr IV .[id number] ONE Stop: 01/02/18 00:53 Methylprednisolone (Solu-Medrol) 40 mg IVP DAILY [facility] Last Admin: 12/31/17 09:28 Dose: 40 mg Montelukast Sodium (Singulair) 10 mg PO HS [facility] Last Admin: 12/30/17 22:34 Dose: Not Given Nystatin (Nystatin Oral Susp) 5 ml PO QID [facility] Last Admin: 12/31/17 09:36 Dose: 5 ml Pantoprazole Sodium (Protonix Inj) 40 mg IVP DAILY [facility] Last Admin: 12/31/17 09:28 Dose: 40 mg - Labs Labs: 12/31/17 06:21 12/31/17 06:21 PT 14.2 SECONDS (9.7-12.2) H 12/21/17 20:23 INR 1.3 12/21/17 20:23 APTT 36 SECONDS (21-34) H 12/21/17 20:23 - Constitutional Appears: Chronically Ill - Head Exam Head Exam: NORMOCEPHALIC - Eye Exam Eye Exam: absent: Scleral icterus - ENT Exam ENT Exam: Mucous Membranes Dry - Neck Exam Neck Exam: absent: Lymphadenopathy - Respiratory Exam Respiratory Exam: Decreased Breath Sounds - Cardiovascular Exam Cardiovascular Exam: REGULAR RHYTHM - GI/Abdominal Exam GI & Abdominal Exam: Distended, Soft - Rectal Exam Rectal Exam: Deferred - Exam Exam: NORMAL INSPECTION - Extremities Exam Extremities Exam: absent: Pedal Edema - Back Exam Back Exam: absent: CVA tenderness (L), CVA tenderness (R) - Neurological Exam Neurological Exam: Alert, Awake Assessment and Plan (1) Acute pneumonia Status: Acute (2) Bullous emphysema Status: Acute (3) Cachexia Status: Acute (4) Emphysema lung Status: Acute (5) Hypernatremia Status: Resolved (6) Pneumonia Status: Acute (7) Prerenal azotemia Status: Resolved (8) Severe dehydration Status: Acute (9) MRSA (methicillin resistant staph aureus) culture positive Status: Acute
--- NOTE | 2017-12-31 15:40 | CP.PCM.PN ---
Subjective - Date & Time of Evaluation Date of Evaluation: 12/31/17 Time of Evaluation: 15:55 - Subjective Subjective: PGY-4 GI Fellow Prog Note Pt lying in bed, son at bedside. No complaints other than feels hungry. Eager for feeding tube placement. 5 point ROS negative other than stated above Objective - Vital Signs/Intake and Output Vital Signs (last 24 hours): Temp Pulse Resp BP Pulse Ox 98.1 F 61 21 111/72 100 12/31/17 12:00 12/31/17 13:00 12/31/17 14:00 12/31/17 11:22 12/31/17 13:00 Intake and Output: 12/31/17 12/31/17 06:59 18:59 Intake Total 1570 1115 Output Total 900 1650 Balance 670 -535 - Medications Medications: Current Medications Acetylcysteine (Acetylcysteine 20%) 4 ml INH RQ6 [facility] Last Admin: 12/31/17 13:09 Dose: Not Given Albuterol Sulfate (Albuterol 0.083% Inhal Martha (2.5 Mg/3 Ml) Ud) 2.5 mg INH RQ6 [facility] Last Admin: 12/31/17 13:09 Dose: 2.5 mg Budesonide (Pulmicort Respules) 0.5 mg INH RQ12 [facility] Last Admin: 12/31/17 07:21 Dose: 0.5 mg Heparin Sodium (Porcine) (Heparin) 5,000 units SC Q12 [facility] Last Admin: 12/31/17 09:29 Dose: 5,000 units Piperacillin Sod/Tazobactam (Sod 3.375 gm/ Sodium Chloride) 100 mls @ 200 mls/ hr IVPB Q8H [facility] PRN Reason: Protocol Last Admin: 12/31/17 09:29 Dose: 200 mls/hr Fat Emulsion Intravenous (Intralipid 20%) 500 mls @ 48 mls/hr IV MWF@1800 [facility] Stop: 01/03/18 18:01 Last Admin: 12/29/17 17:17 Dose: 48 mls/hr Linezolid (Zyvox 600mg/300ml D5w) 600 mg in 300 mls @ 200 mls/hr IVPB Q12H [facility] PRN Reason: Protocol Last Admin: 12/31/17 12:29 Dose: 200 mls/hr Chromium/Copper/Manganese/Zinc (1 ml/ Amino Acids) 1,001 mls @ 65 mls/hr IV .[id number] [facility] Stop: 01/01/18 00:53 Last Admin: 12/31/17 09:31 Dose: 65 mls/hr Multivitamins/Vitamin C 10 ml/Chromium/Copper/Manganese/Zinc 1 ml/ Amino Acids 1,011 mls @ 65 mls/hr IV .[id number] ONE Stop: 01/01/18 09:33 Chromium/Copper/Manganese/Zinc (1 ml/ Amino Acids) 1,001 mls @ 65 mls/hr IV .[id number] ONE Stop: 01/02/18 00:53 Methylprednisolone (Solu-Medrol) 40 mg IVP DAILY [facility] Last Admin: 12/31/17 09:28 Dose: 40 mg Montelukast Sodium (Singulair) 10 mg PO HS [facility] Last Admin: 12/30/17 22:34 Dose: Not Given Nystatin (Nystatin Oral Susp) 5 ml PO QID [facility] Last Admin: 12/31/17 09:36 Dose: 5 ml Pantoprazole Sodium (Protonix Inj) 40 mg IVP DAILY [facility] Last Admin: 12/31/17 09:28 Dose: 40 mg - Labs Labs: 12/31/17 06:21 12/31/17 06:21 PT 14.2 SECONDS (9.7-12.2) H 12/21/17 20:23 INR 1.3 12/21/17 20:23 APTT 36 SECONDS (21-34) H 12/21/17 20:23 Assessment and Plan - Assessment and Plan (Free Text) Assessment: 87M with history of COPD presenting with RLL PNA and progressive weightloss. #Weight loss - likely multifactorial (Esophageal stricture, ?underlying malignancy, median arcuate ligament syndrome?): CT abd/pelv noted for ?fecal impaction with dilated rectum and thickened wall. Also, ?arcuate ligament syndrome. Liver masses noted. No obvious pancreatic mass. #Esophageal stricture: CT imaging reviewed, noted diffuse thickening of distal esophagus. Unable to advance scope to area due to abnormal anatomy proximally. Flex laryngoscopy 12/25/17 did not show obvious mass, but secretion pooling observed. Barium swallow eval not tolerated by pt #Severe Malnutrition #RLL PNA, aspiration, MRSA PNA #Celiac artery stenosis #Fecal impaction #Liver mass, unspecified #COPD #Thrush Plan: -EGD 12/24 aborted due to significant upper esophageal stricture, unable to place PEG -> Plan for open G tube by Surgery on 01/01/18 -Continue supportive care -Concern for malignancy is high CEA mildly elevated [id number] [id number] -Nystatin swish and spit for thrush Pt to be discussed with Dr. Montanez, see his attestation for final recs/changes
[2017-12-31] MEDS ORDERED: PPN #9 IV ONE (18:00)
[2017-12-31] MEDS: Fat Emulsion 20% IV 500 ML IV SCH (18:11)
--- NOTE | 2017-12-31 19:51 | PN ---
Copied To: Jaya Pettit MD Attending MD: Jaya Pettit MD DATE: 12/31/2017 SUBJECTIVE: The patient is alert and oriented in bed. He is not in active distress. PHYSICAL EXAMINATION: VITAL SIGNS: He is afebrile with blood pressure 110/72, pulse 60, respirations 21, and hemoglobin oxygen saturation of 100%. HEART: Regular. There is no gallop rhythm. LUNGS: Diminished breath sounds over lung bases, rhonchi decreased. ABDOMEN: Soft. EXTREMITIES: Legs, no edema. LABORATORY DATA: White count 10,100, hemoglobin 10.3, and platelet count 231,000. His ABG shows FiO2 of 30%, pCO2 of 22, pO2 of 77, bicarb 25, pH 7.59, and hemoglobin oxygen saturation of 99%. Chest x-ray shows improvement in the lower lung infiltrates and . IMPRESSION: Respiratory insufficiency, chronic obstructive pulmonary disease exacerbation, bilateral pneumonia, acute aspiration pneumonia, dehydration, renal insufficiency, electrolyte imbalance, and dysphagia. PLAN: To continue with current medications and specialist followup. Continue with ordered. Jaya Pettit MD
--- NOTE | 2017-12-31 22:07 | CP.PCM.PN ---
Subjective - Date & Time of Evaluation Date of Evaluation: 12/31/17 Time of Evaluation: 19:20 - Subjective Subjective: Patient resting with no distress. Peg insertion in AM. Continue present supportive measures. Renal status stable. Objective - Vital Signs/Intake and Output Vital Signs (last 24 hours): Temp Pulse Resp BP Pulse Ox 98 F 64 20 108/64 99 12/31/17 16:17 12/31/17 16:17 12/31/17 16:17 12/31/17 16:17 12/31/17 16:17 Intake and Output: 12/31/17 01/01/18 18:59 06:59 Intake Total 1310 Output Total 1925 300 Balance -615 -300 - Medications Medications: Current Medications Acetylcysteine (Acetylcysteine 20%) 4 ml INH RQ6 [facility] Last Admin: 12/31/17 19:38 Dose: Not Given Albuterol Sulfate (Albuterol 0.083% Inhal Martha (2.5 Mg/3 Ml) Ud) 2.5 mg INH RQ6 [facility] Last Admin: 12/31/17 19:37 Dose: 2.5 mg Budesonide (Pulmicort Respules) 0.5 mg INH RQ12 [facility] Last Admin: 12/31/17 19:37 Dose: 0.5 mg Heparin Sodium (Porcine) (Heparin) 5,000 units SC Q12 [facility] Last Admin: 12/31/17 09:29 Dose: 5,000 units Linezolid (Zyvox 600mg/300ml D5w) 600 mg in 300 mls @ 200 mls/hr IVPB Q12H [facility] PRN Reason: Protocol Last Admin: 12/31/17 12:29 Dose: 200 mls/hr Chromium/Copper/Manganese/Zinc (1 ml/ Amino Acids) 1,001 mls @ 65 mls/hr IV .[id number] ONE Stop: 01/01/18 00:53 Last Admin: 12/31/17 09:31 Dose: 65 mls/hr Multivitamins/Vitamin C 10 ml/Chromium/Copper/Manganese/Zinc 1 ml/ Amino Acids 1,011 mls @ 65 mls/hr IV .[id number] ONE Stop: 01/01/18 09:33 Last Admin: 12/31/17 18:10 Dose: 65 mls/hr Chromium/Copper/Manganese/Zinc (1 ml/ Amino Acids) 1,001 mls @ 65 mls/hr IV .[id number] [facility] Stop: 01/02/18 00:53 Methylprednisolone (Solu-Medrol) 40 mg IVP DAILY [facility] Last Admin: 12/31/17 09:28 Dose: 40 mg Montelukast Sodium (Singulair) 10 mg PO HS [facility] Last Admin: 12/30/17 22:34 Dose: Not Given Nystatin (Nystatin Oral Susp) 5 ml PO QID [facility] Last Admin: 12/31/17 18:08 Dose: 5 ml Pantoprazole Sodium (Protonix Inj) 40 mg IVP DAILY [facility] Last Admin: 12/31/17 09:28 Dose: 40 mg - Labs Labs: 12/31/17 06:21 12/31/17 06:21 PT 14.2 SECONDS (9.7-12.2) H 12/21/17 20:23 INR 1.3 12/21/17 20:23 APTT 36 SECONDS (21-34) H 12/21/17 20:23 - Constitutional Appears: Cachectic - Head Exam Head Exam: NORMOCEPHALIC - Eye Exam Eye Exam: Normal appearance - ENT Exam ENT Exam: Normal Exam - Neck Exam Neck Exam: Normal Inspection - Respiratory Exam Respiratory Exam: Decreased Breath Sounds - Cardiovascular Exam Cardiovascular Exam: REGULAR RHYTHM - GI/Abdominal Exam GI & Abdominal Exam: Normal Bowel Sounds - Rectal Exam Rectal Exam: Deferred - Exam Exam: NORMAL INSPECTION - Extremities Exam Extremities Exam: Normal Inspection - Back Exam Back Exam: NORMAL INSPECTION - Neurological Exam Neurological Exam: Awake - Psychiatric Exam Psychiatric exam: Depressed - Skin Skin Exam: Dry Assessment and Plan (1) Acute pneumonia Status: Acute (2) Cachexia Status: Acute (3) Emphysema lung Status: Acute (4) Hypernatremia Status: Resolved (5) Prerenal azotemia Status: Resolved (6) Severe dehydration Status: Acute
[2018-01-01] MEDS: Albuterol 0.083% Inhal Sol (2.5 mg/3 mL) UD INH SCH ×2 (01:25→07:11)
[2018-01-01] MEDS: Acetylcysteine 20% Inhal Soln (4ml) INH SCH ×4 (01:26→19:46)
[2018-01-01] MEDS: Linezolid 600 mg in D5W 300 ml 600 MG/300 ML BAG IVPB SCH ×2 (02:00→13:32)
[2018-01-01 06:47] LABS: BASO % 0.3 % (0.0-2.0); EOS # 0.1 K/uL (0.0-0.7); EOS % 1.5 % (0.0-4.0); HEMOGLOBIN 10.6 g/dL (12.0-18.0); LYMPH # 0.5 K/uL (1.0-4.3); LYMPH % 5.3 % (20.0-40.0); MEAN CELL VOLUME 84.9 fL (80.0-94.0); MEAN CORPUSCULAR HEMOGLOBIN 28.6 pg (27.0-31.0); MEAN CORPUSCULAR HGB CONC 33.7 g/dL (33.0-37.0); MEAN PLATELET VOLUME 9.2 fL (7.2-11.7); MONO # 0.4 K/uL (0.0-0.8); NEUT # 8.3 K/uL (1.8-7.0); NEUT % 88.9 % (50.0-75.0); PLATELET COUNT 267 K/uL (130-400); RBC 3.72 Mil/uL (4.40-5.90); RED CELL DISTRIBUTION WIDTH 14.3 % (11.5-14.5); WHITE BLOOD COUNT 9.4 K/uL (4.8-10.8)
[2018-01-01 06:50] LABS: INR 1.3; PROTHROMBIN TIME 14.3 SECONDS (9.7-12.2)
[2018-01-01 07:01] LABS: ALB/GLOB RATIO 0.8 (1.0-2.1); ALBUMIN 2.5 g/dL (3.5-5.0); ALT/SGPT 60 U/L (21-72); AST/SGOT 39 U/L (17-59); BLOOD UREA NITROGEN 19 mg/dL (9-20); CALCIUM 8.5 mg/dl (8.6-10.4); GFR AFRICAN-AMERICAN > 60; GFR NON-AFRICAN AMERICAN > 60
[2018-01-01] MEDS: Budesonide 0.5 mg/2 ml Inhal Susp UD INH SCH ×2 (07:11→19:44)
--- NOTE | 2018-01-01 07:17 | CP.PCM.PN ---
Subjective - Date & Time of Evaluation Date of Evaluation: 01/01/18 Time of Evaluation: 07:16 - Subjective Subjective: Surgery: Dr. Pearson Pt seen and examined. Resting comfortably in bed. No complaints at this time. Objective - Vital Signs/Intake and Output Vital Signs (last 24 hours): Temp Pulse Resp BP Pulse Ox 97.7 F 54 L 18 111/70 98 01/01/18 00:00 01/01/18 00:00 01/01/18 05:27 01/01/18 00:00 01/01/18 00:00 Intake and Output: 01/01/18 01/01/18 06:59 18:59 Output Total 300 Balance -300 - Medications Medications: Current Medications Acetylcysteine (Acetylcysteine 20%) 4 ml INH RQ6 [facility] Last Admin: 01/01/18 07:11 Dose: 4 ml Albuterol Sulfate (Albuterol 0.083% Inhal Martha (2.5 Mg/3 Ml) Ud) 2.5 mg INH RQ6 [facility] Last Admin: 01/01/18 07:11 Dose: 2.5 mg Budesonide (Pulmicort Respules) 0.5 mg INH RQ12 [facility] Last Admin: 01/01/18 07:11 Dose: 0.5 mg Heparin Sodium (Porcine) (Heparin) 5,000 units SC Q12 [facility] Last Admin: 12/31/17 22:17 Dose: 5,000 units Linezolid (Zyvox 600mg/300ml D5w) 600 mg in 300 mls @ 200 mls/hr IVPB Q12H [facility] PRN Reason: Protocol Last Admin: 01/01/18 02:00 Dose: 200 mls/hr Multivitamins/Vitamin C 10 ml/Chromium/Copper/Manganese/Zinc 1 ml/ Amino Acids 1,011 mls @ 65 mls/hr IV .[id number] ONE Stop: 01/01/18 09:33 Last Admin: 12/31/17 18:10 Dose: 65 mls/hr Chromium/Copper/Manganese/Zinc (1 ml/ Amino Acids) 1,001 mls @ 65 mls/hr IV .[id number] ONE Stop: 01/02/18 00:53 Magnesium Sulfate/Dextrose (Magnesium Sulfate 1 Gm/100 Ml D5w) 1 gm in 100 mls @ 200 mls/hr IVPB ONCE ONE Stop: 01/01/18 07:43 Potassium Chloride (Potassium Chloride 20 Meq/100 Ml) 20 meq in 100 mls @ 50 mls/hr IVPB Q2 [facility] Stop: 01/01/18 15:59 Methylprednisolone (Solu-Medrol) 40 mg IVP DAILY [facility] Last Admin: 12/31/17 09:28 Dose: 40 mg Montelukast Sodium (Singulair) 10 mg PO HS [facility] Last Admin: 12/31/17 22:14 Dose: Not Given Nystatin (Nystatin Oral Susp) 5 ml PO QID [facility] Last Admin: 12/31/17 22:14 Dose: Not Given Pantoprazole Sodium (Protonix Inj) 40 mg IVP DAILY [facility] Last Admin: 12/31/17 09:28 Dose: 40 mg - Labs Labs: 01/01/18 06:34 01/01/18 06:34 PT 14.3 SECONDS (9.7-12.2) H 01/01/18 06:34 INR 1.3 01/01/18 06:34 APTT 34 SECONDS (21-34) 01/01/18 06:34 - Constitutional Appears: No Acute Distress, Cachectic, Chronically Ill - Head Exam Head Exam: ATRAUMATIC, NORMOCEPHALIC - Eye Exam Eye Exam: EOMI - ENT Exam ENT Exam: Mucous Membranes Dry - Neck Exam Neck Exam: Full ROM - Respiratory Exam Respiratory Exam: NORMAL BREATHING PATTERN. absent: Accessory Muscle Use, Respiratory Distress - GI/Abdominal Exam GI & Abdominal Exam: Soft. absent: Distended, Firm, Guarding, Rigid, Tenderness - Neurological Exam Neurological Exam: Alert, Awake, Oriented x3 Assessment and Plan - Assessment and Plan (Free Text) Assessment: 87M w. upper esophageal mass/stricture -OR tomorrow 01/02 for open G-Tube -Replete K and Mg, orders placed -Keep NPO -Hold heparin at midnight -d/w attending Zemaitis PGY4
[2018-01-01] MEDS ORDERED: Magnesium Sulfate 1 gm in D5W 1 GM/100 ML BAG IVPB ONE (08:00)
--- NOTE | 2018-01-01 08:38 | RAD ---
Date of service: 01/01/2018 HISTORY: pneumonia, emphysema COMPARISON: 12/31/2017. FINDINGS: The right PICC line terminates at the cavoatrial junction. LUNGS: The lungs are hyperinflated and there is peribronchial thickening with chronic changes in both lungs. Again seen are bullous changes in the right upper lobe. There are chronic fibrotic changes in the left lung. No focal consolidation. PLEURA: No significant pleural effusion identified, no pneumothorax apparent. CARDIOVASCULAR: Normal. OSSEOUS STRUCTURES: No significant abnormalities. VISUALIZED UPPER ABDOMEN: Normal. OTHER FINDINGS: None. IMPRESSION: No active pulmonary disease. COPD.
[2018-01-01 08:56] LABS: ANISOCYTOSIS SLIGHT; BANDS 1 % (0-2); EOSINOPHIL 1 % (0-4); LYMPHOCYTE 4 % (20-40); MONOCYTE 3 % (0-10); NEUTROPHIL 91 % (50-75); PLATELET ESTIMATE NORMAL (NORMAL); POIKILOCYTOSIS SLIGHT; TOTAL CELLS COUNTED 100
[2018-01-01 08:57] LABS: BURR CELLS SLIGHT; HYPOCHROMIC SLIGHT; TARGET CELLS SLIGHT
[2018-01-01] MEDS ORDERED: PPN #10 IV ONE (09:30)
--- NOTE | 2018-01-01 09:43 | CP.PCM.PN ---
Subjective - Date & Time of Evaluation Date of Evaluation: 01/01/18 Time of Evaluation: 09:41 - Subjective Subjective: remains with PPN Awaiting PEG K very low- being repleted phos also low- needs additional repletion awake, lethargic as before Objective - Vital Signs/Intake and Output Vital Signs (last 24 hours): Temp Pulse Resp BP Pulse Ox 97.7 F 68 20 96/60 L 96 01/01/18 08:07 01/01/18 08:07 01/01/18 08:07 01/01/18 08:07 01/01/18 08:07 Intake and Output: 01/01/18 01/01/18 06:59 18:59 Output Total 300 Balance -300 - Medications Medications: Current Medications Acetylcysteine (Acetylcysteine 20%) 4 ml INH RQ6 [facility] Last Admin: 01/01/18 07:11 Dose: 4 ml Budesonide (Pulmicort Respules) 0.5 mg INH RQ12 [facility] Last Admin: 01/01/18 07:11 Dose: 0.5 mg Heparin Sodium (Porcine) (Heparin) 5,000 units SC Q12 [facility] Last Admin: 12/31/17 22:17 Dose: 5,000 units Linezolid (Zyvox 600mg/300ml D5w) 600 mg in 300 mls @ 200 mls/hr IVPB Q12H [facility] PRN Reason: Protocol Last Admin: 01/01/18 02:00 Dose: 200 mls/hr Chromium/Copper/Manganese/Zinc (1 ml/ Amino Acids) 1,001 mls @ 65 mls/hr IV .[id number] ONE Stop: 01/02/18 00:53 Potassium Chloride (Potassium Chloride 20 Meq/100 Ml) 20 meq in 100 mls @ 50 mls/hr IVPB Q2 [facility] Stop: 01/01/18 15:59 Last Admin: 01/01/18 08:15 Dose: 50 mls/hr Multivitamins/Vitamin C 10 ml/Chromium/Copper/Manganese/Zinc 1 ml/ Amino Acids 1,011 mls @ 65 mls/hr IV .[id number] ONE Stop: 01/02/18 09:33 Chromium/Copper/Manganese/Zinc (1 ml/ Amino Acids) 1,001 mls @ 65 mls/hr IV .[id number] ONE Stop: 01/03/18 00:53 Methylprednisolone (Solu-Medrol) 40 mg IVP DAILY [facility] Last Admin: 12/31/17 09:28 Dose: 40 mg Montelukast Sodium (Singulair) 10 mg PO HS [facility] Last Admin: 12/31/17 22:14 Dose: Not Given Nystatin (Nystatin Oral Susp) 5 ml PO QID [facility] Last Admin: 12/31/17 22:14 Dose: Not Given Pantoprazole Sodium (Protonix Inj) 40 mg IVP DAILY [facility] Last Admin: 12/31/17 09:28 Dose: 40 mg - Labs Labs: 01/01/18 06:34 01/01/18 06:34 PT 14.3 SECONDS (9.7-12.2) H 01/01/18 06:34 INR 1.3 01/01/18 06:34 APTT 34 SECONDS (21-34) 01/01/18 06:34 - Constitutional Appears: Confused, Cachectic, Chronically Ill - Head Exam Head Exam: ATRAUMATIC, NORMAL INSPECTION - Eye Exam Eye Exam: EOMI, Normal appearance - Neck Exam Neck Exam: Normal Inspection. absent: Tenderness - Respiratory Exam Respiratory Exam: Clear to Ausculation Bilateral, NORMAL BREATHING PATTERN - Cardiovascular Exam Cardiovascular Exam: REGULAR RHYTHM, +S1 - GI/Abdominal Exam GI & Abdominal Exam: Soft. absent: Tenderness - Extremities Exam Extremities Exam: Normal Inspection. absent: Tenderness - Neurological Exam Neurological Exam: Awake, CN II-XII Intact - Skin Skin Exam: Dry, Warm Assessment and Plan (1) Emphysema lung Status: Acute (2) Prerenal azotemia Status: Resolved (3) Hypernatremia Status: Resolved (4) Pneumonia Status: Acute (5) Severe dehydration Status: Acute - Assessment and Plan (Free Text) Plan: K repletion also replete phos await PEG
[2018-01-01] MEDS: MethylPREDNISolone 40 mg Vial IVP SCH (09:47)
[2018-01-01] MEDS: Nystatin 100,000 Units/ml Oral Susp 5 ml UD PO SCH ×4 (09:49→21:35)
[2018-01-01] MEDS ORDERED: Potassium Phosphate 15 MMOLE in Sodium Chloride 0.9% 250 ML IV ONE (10:30)
--- NOTE | 2018-01-01 11:56 | CP.PCM.PN ---
Subjective - Date & Time of Evaluation Date of Evaluation: 01/01/18 Time of Evaluation: 11:55 - Subjective Subjective: Preop note: Pt s/e. vss. wbc-9k cxr-consistent with copd. For [facility] gastrostomy tomorrow. Procedure discussed with the pt. Risks, benifits, and alternatives discussed with the pt who accepted procedure without reservation. Consent obtained. Will discuss with his son tomorrow. Objective - Vital Signs/Intake and Output Vital Signs (last 24 hours): Temp Pulse Resp BP Pulse Ox 97.7 F 68 20 96/60 L 96 01/01/18 08:07 01/01/18 08:07 01/01/18 08:07 01/01/18 08:07 01/01/18 08:07 Intake and Output: 01/01/18 01/01/18 06:59 18:59 Output Total 300 Balance -300 - Medications Medications: Current Medications Acetylcysteine (Acetylcysteine 20%) 4 ml INH RQ6 [facility] Last Admin: 01/01/18 07:11 Dose: 4 ml Budesonide (Pulmicort Respules) 0.5 mg INH RQ12 [facility] Last Admin: 01/01/18 07:11 Dose: 0.5 mg Heparin Sodium (Porcine) (Heparin) 5,000 units SC Q12 [facility] Last Admin: 01/01/18 09:48 Dose: 5,000 units Linezolid (Zyvox 600mg/300ml D5w) 600 mg in 300 mls @ 200 mls/hr IVPB Q12H [facility] PRN Reason: Protocol Last Admin: 01/01/18 02:00 Dose: 200 mls/hr Chromium/Copper/Manganese/Zinc (1 ml/ Amino Acids) 1,001 mls @ 65 mls/hr IV .[id number] ONE Stop: 01/02/18 00:53 Last Admin: 01/01/18 09:49 Dose: 65 mls/hr Potassium Chloride (Potassium Chloride 20 Meq/100 Ml) 20 meq in 100 mls @ 50 mls/hr IVPB Q2 [facility] Stop: 01/01/18 13:59 Last Admin: 01/01/18 10:36 Dose: 50 mls/hr Multivitamins/Vitamin C 10 ml/Chromium/Copper/Manganese/Zinc 1 ml/ Amino Acids 1,011 mls @ 65 mls/hr IV .[id number] ONE Stop: 01/02/18 09:33 Chromium/Copper/Manganese/Zinc (1 ml/ Amino Acids) 1,001 mls @ 65 mls/hr IV .[id number] ONE Stop: 01/03/18 00:53 Potassium Phosphate 15 mmole/ (Sodium Chloride) 255 mls @ 63 mls/hr IV ONCE ONE Stop: 01/01/18 14:32 Methylprednisolone (Solu-Medrol) 40 mg IVP DAILY [facility] Last Admin: 01/01/18 09:47 Dose: 40 mg Montelukast Sodium (Singulair) 10 mg PO HS [facility] Last Admin: 12/31/17 22:14 Dose: Not Given Nystatin (Nystatin Oral Susp) 5 ml PO QID [facility] Last Admin: 01/01/18 09:49 Dose: Not Given Pantoprazole Sodium (Protonix Inj) 40 mg IVP DAILY [facility] Last Admin: 01/01/18 09:47 Dose: 40 mg - Labs Labs: 01/01/18 06:34 01/01/18 06:34 PT 14.3 SECONDS (9.7-12.2) H 01/01/18 06:34 INR 1.3 01/01/18 06:34 APTT 34 SECONDS (21-34) 01/01/18 06:34
--- NOTE | 2018-01-01 14:52 | CP.PCM.PN ---
Subjective - Date & Time of Evaluation Date of Evaluation: 01/01/18 Time of Evaluation: 14:00 - Subjective Subjective: PGY-4 GI Fellow Prog Note Pt sleepin in bed when seen this PM. Denies any complaints, eager for G tube tomorrow. 5 point ROS negative other than stated above Objective - Vital Signs/Intake and Output Vital Signs (last 24 hours): Temp Pulse Resp BP Pulse Ox 97.7 F 68 18 96/60 L 96 01/01/18 08:07 01/01/18 08:07 01/01/18 13:24 01/01/18 08:07 01/01/18 08:07 Intake and Output: 01/01/18 01/01/18 06:59 18:59 Output Total 300 Balance -300 - Medications Medications: Current Medications Acetylcysteine (Acetylcysteine 20%) 4 ml INH RQ6 [facility] Last Admin: 01/01/18 13:24 Dose: Not Given Budesonide (Pulmicort Respules) 0.5 mg INH RQ12 [facility] Last Admin: 01/01/18 07:11 Dose: 0.5 mg Heparin Sodium (Porcine) (Heparin) 5,000 units SC Q12 [facility] Last Admin: 01/01/18 09:48 Dose: 5,000 units Linezolid (Zyvox 600mg/300ml D5w) 600 mg in 300 mls @ 200 mls/hr IVPB Q12H [facility] PRN Reason: Protocol Last Admin: 01/01/18 13:32 Dose: 200 mls/hr Chromium/Copper/Manganese/Zinc (1 ml/ Amino Acids) 1,001 mls @ 65 mls/hr IV .[id number] ONE Stop: 01/02/18 00:53 Last Admin: 01/01/18 09:49 Dose: 65 mls/hr Multivitamins/Vitamin C 10 ml/Chromium/Copper/Manganese/Zinc 1 ml/ Amino Acids 1,011 mls @ 65 mls/hr IV .[id number] ONE Stop: 01/02/18 09:33 Chromium/Copper/Manganese/Zinc (1 ml/ Amino Acids) 1,001 mls @ 65 mls/hr IV .[id number] ONE Stop: 01/03/18 00:53 Methylprednisolone (Solu-Medrol) 40 mg IVP DAILY [facility] Last Admin: 01/01/18 09:47 Dose: 40 mg Montelukast Sodium (Singulair) 10 mg PO HS [facility] Last Admin: 12/31/17 22:14 Dose: Not Given Nystatin (Nystatin Oral Susp) 5 ml PO QID [facility] Last Admin: 01/01/18 13:15 Dose: Not Given Pantoprazole Sodium (Protonix Inj) 40 mg IVP DAILY [facility] Last Admin: 01/01/18 09:47 Dose: 40 mg - Labs Labs: 01/01/18 06:34 01/01/18 06:34 PT 14.3 SECONDS (9.7-12.2) H 01/01/18 06:34 INR 1.3 01/01/18 06:34 APTT 34 SECONDS (21-34) 01/01/18 06:34 - Constitutional Appears: No Acute Distress, Cachectic, Chronically Ill - Eye Exam Eye Exam: EOMI. absent: Conjunctival injection, Scleral icterus - ENT Exam ENT Exam: Mucous Membranes Dry, Normal External Ear Exam - Respiratory Exam Respiratory Exam: absent: Accessory Muscle Use, Wheezes, Respiratory Distress - GI/Abdominal Exam GI & Abdominal Exam: Soft. absent: Distended, Guarding, Rigid, Tenderness - Neurological Exam Neurological Exam: Alert, Awake - Psychiatric Exam Psychiatric exam: Normal Affect, Normal Mood - Skin Skin Exam: Normal Color Assessment and Plan - Assessment and Plan (Free Text) Assessment: 87M with history of COPD presenting with RLL PNA and progressive weightloss. #Weight loss - likely multifactorial (Esophageal stricture, ?underlying malignancy, median arcuate ligament syndrome?): CT abd/pelv noted for ?fecal impaction with dilated rectum and thickened wall. Also, ?arcuate ligament syndrome. Liver masses noted. No obvious pancreatic mass. #Esophageal stricture: CT imaging reviewed, noted diffuse thickening of distal esophagus. Unable to advance scope to area due to abnormal anatomy proximally. Flex laryngoscopy 12/25/17 did not show obvious mass, but secretion pooling observed. Barium swallow eval not tolerated by pt #Severe Malnutrition #RLL PNA, aspiration, MRSA PNA #Celiac artery stenosis #Fecal impaction #Liver mass, unspecified #COPD #Thrush Plan: -EGD 12/24 aborted due to significant upper esophageal stricture, unable to place PEG -> Plan for open G tube by Surgery on 01/02/18 -Continue supportive care -Concern for malignancy is high CEA mildly elevated [id number] -Nystatin swish and spit for thrush Pt to be discussed with Dr. Montanez, see his attestation for final recs/changes
--- NOTE | 2018-01-01 17:05 | PN ---
Copied To: Jaya Pettit MD Attending MD: Jaya Pettit MD DATE: 01/01/2018 SUBJECTIVE: The patient is in bed. PHYSICAL EXAMINATION: GENERAL: He is not in acute distress. He is alert, oriented, and comfortable lying down in bed. VITAL SIGNS: He is afebrile with blood pressure 90/60, pulse 68, respirations 20, and hemoglobin oxygen saturation of 96%. HEART: Regular. There is no gallop or rhythm. LUNGS: Diminished breath sounds over the lung bases. Rhonchi improved. ABDOMEN: Soft. EXTREMITIES: Legs, no edema. LABORATORY DATA: White count 9,400, hemoglobin 10.6, platelet count 267,000, neutrophils 89%. Sodium 136, potassium 2.8, chloride 106, carbon dioxide 21, BUN 19, and creatinine 0.7. Albumin 12.5. Sputum grows MRSA. Chest x-ray shows improvement. There is no focal consolidation now; however, chest film shows emphysematous and bullous changes as well as areas in the mid zones. IMPRESSION: Respiratory insufficiency, exacerbation of chronic obstructive pulmonary disease, emphysema, dehydration, malnutrition, electrolyte imbalance, sepsis, and pneumonitis. PLAN: To continue with the current medications, physiotherapy, antibiotics, bronchodilators, and other measures as ordered. Jaya Pettit MD
--- NOTE | 2018-01-01 17:14 | CP.PCM.PN ---
Subjective - Date & Time of Evaluation Date of Evaluation: 01/01/18 Time of Evaluation: 09:00 - Subjective Subjective: events noted severe esophageal stricture for GT by surgery cont iv antibiotics Objective - Vital Signs/Intake and Output Vital Signs (last 24 hours): Temp Pulse Resp BP Pulse Ox 98 F 62 20 90/53 L 98 01/01/18 16:00 01/01/18 16:00 01/01/18 16:00 01/01/18 16:00 01/01/18 16:00 Intake and Output: 01/01/18 01/01/18 06:59 18:59 Intake Total 250 Output Total 300 Balance -300 250 - Medications Medications: Current Medications Acetylcysteine (Acetylcysteine 20%) 4 ml INH RQ6 [facility] Last Admin: 01/01/18 13:24 Dose: Not Given Budesonide (Pulmicort Respules) 0.5 mg INH RQ12 [facility] Last Admin: 01/01/18 07:11 Dose: 0.5 mg Heparin Sodium (Porcine) (Heparin) 5,000 units SC Q12 [facility] Last Admin: 01/01/18 09:48 Dose: 5,000 units Linezolid (Zyvox 600mg/300ml D5w) 600 mg in 300 mls @ 200 mls/hr IVPB Q12H [facility] PRN Reason: Protocol Last Admin: 01/01/18 13:32 Dose: 200 mls/hr Chromium/Copper/Manganese/Zinc (1 ml/ Amino Acids) 1,001 mls @ 65 mls/hr IV .[id number] ONE Stop: 01/02/18 00:53 Last Admin: 01/01/18 09:49 Dose: 65 mls/hr Multivitamins/Vitamin C 10 ml/Chromium/Copper/Manganese/Zinc 1 ml/ Amino Acids 1,011 mls @ 65 mls/hr IV .[id number] ONE Stop: 01/02/18 09:33 Chromium/Copper/Manganese/Zinc (1 ml/ Amino Acids) 1,001 mls @ 65 mls/hr IV .[id number] ONE Stop: 01/03/18 00:53 Methylprednisolone (Solu-Medrol) 40 mg IVP DAILY [facility] Last Admin: 01/01/18 09:47 Dose: 40 mg Montelukast Sodium (Singulair) 10 mg PO HS [facility] Last Admin: 12/31/17 22:14 Dose: Not Given Nystatin (Nystatin Oral Susp) 5 ml PO QID [facility] Last Admin: 01/01/18 13:15 Dose: Not Given Pantoprazole Sodium (Protonix Inj) 40 mg IVP DAILY [facility] Last Admin: 01/01/18 09:47 Dose: 40 mg - Labs Labs: 01/01/18 06:34 01/01/18 06:34 PT 14.3 SECONDS (9.7-12.2) H 01/01/18 06:34 INR 1.3 01/01/18 06:34 APTT 34 SECONDS (21-34) 01/01/18 06:34 - Constitutional Appears: Non-toxic, Cachectic, Chronically Ill - Head Exam Head Exam: NORMOCEPHALIC - Eye Exam Eye Exam: PERRL - ENT Exam ENT Exam: Mucous Membranes Dry - Neck Exam Neck Exam: absent: Lymphadenopathy - Respiratory Exam Respiratory Exam: Decreased Breath Sounds - Cardiovascular Exam Cardiovascular Exam: REGULAR RHYTHM - GI/Abdominal Exam GI & Abdominal Exam: Distended - Rectal Exam Rectal Exam: Deferred - Exam Exam: NORMAL INSPECTION - Extremities Exam Extremities Exam: absent: Pedal Edema - Back Exam Back Exam: absent: CVA tenderness (L), CVA tenderness (R) - Neurological Exam Neurological Exam: Alert, Awake, CN II-XII Intact, Oriented x3 - Psychiatric Exam Psychiatric exam: Depressed Assessment and Plan (1) Acute pneumonia Status: Acute (2) Bullous emphysema Status: Acute (3) Cachexia Status: Acute (4) Emphysema lung Status: Acute (5) Hypernatremia Status: Resolved (6) Pneumonia Status: Acute (7) Prerenal azotemia Status: Resolved (8) Severe dehydration Status: Acute (9) MRSA (methicillin resistant staph aureus) culture positive Status: Acute - Assessment and Plan (Free Text) Assessment: severe esophageal stricture for GT by surgery cont iv antibiotics
[2018-01-01] MEDS ORDERED: PPN #11 IV ONE (18:00)
--- NOTE | 2018-01-01 22:23 | CP.PCM.PN ---
Subjective - Date & Time of Evaluation Date of Evaluation: 01/01/18 Time of Evaluation: 13:25 - Subjective Subjective: Patient more comfortable and alert. Hgb 10, and Hct 31. Patient has low K which was addressed. Mr Pierre has given consent for G tube insertion in AM. Objective - Vital Signs/Intake and Output Vital Signs (last 24 hours): Temp Pulse Resp BP Pulse Ox 97.5 F L 61 18 115/70 98 01/01/18 20:12 01/01/18 20:12 01/01/18 20:12 01/01/18 20:12 01/01/18 16:00 Intake and Output: 01/01/18 01/02/18 18:59 06:59 Intake Total 430 Balance 430 - Medications Medications: Current Medications Acetylcysteine (Acetylcysteine 20%) 4 ml INH RQ6 [facility] Last Admin: 01/01/18 19:46 Dose: Not Given Budesonide (Pulmicort Respules) 0.5 mg INH RQ12 [facility] Last Admin: 01/01/18 19:44 Dose: 0.5 mg Heparin Sodium (Porcine) (Heparin) 5,000 units SC Q12 [facility] Last Admin: 01/01/18 21:33 Dose: 5,000 units Linezolid (Zyvox 600mg/300ml D5w) 600 mg in 300 mls @ 200 mls/hr IVPB Q12H [facility] PRN Reason: Protocol Last Admin: 01/01/18 13:32 Dose: 200 mls/hr Chromium/Copper/Manganese/Zinc (1 ml/ Amino Acids) 1,001 mls @ 65 mls/hr IV .[id number] ONE Stop: 01/02/18 00:53 Last Admin: 01/01/18 09:49 Dose: 65 mls/hr Multivitamins/Vitamin C 10 ml/Chromium/Copper/Manganese/Zinc 1 ml/ Amino Acids 1,011 mls @ 65 mls/hr IV .[id number] ONE Stop: 01/02/18 09:33 Last Admin: 01/01/18 17:49 Dose: 65 mls/hr Chromium/Copper/Manganese/Zinc (1 ml/ Amino Acids) 1,001 mls @ 65 mls/hr IV .[id number] ONE Stop: 01/03/18 00:53 Methylprednisolone (Solu-Medrol) 40 mg IVP DAILY [facility] Last Admin: 01/01/18 09:47 Dose: 40 mg Montelukast Sodium (Singulair) 10 mg PO HS [facility] Last Admin: 01/01/18 21:35 Dose: 10 mg Nystatin (Nystatin Oral Susp) 5 ml PO QID [facility] Last Admin: 01/01/18 21:35 Dose: 5 ml Pantoprazole Sodium (Protonix Inj) 40 mg IVP DAILY [facility] Last Admin: 01/01/18 09:47 Dose: 40 mg - Labs Labs: 01/01/18 06:34 01/01/18 06:34 PT 14.3 SECONDS (9.7-12.2) H 01/01/18 06:34 INR 1.3 01/01/18 06:34 APTT 34 SECONDS (21-34) 01/01/18 06:34 - Constitutional Appears: Cachectic - Head Exam Head Exam: NORMOCEPHALIC - Eye Exam Eye Exam: Normal appearance - ENT Exam ENT Exam: Normal Exam - Neck Exam Neck Exam: Normal Inspection - Respiratory Exam Respiratory Exam: Decreased Breath Sounds - Cardiovascular Exam Cardiovascular Exam: REGULAR RHYTHM - GI/Abdominal Exam GI & Abdominal Exam: Normal Bowel Sounds - Rectal Exam Rectal Exam: Deferred - Exam Exam: NORMAL INSPECTION - Extremities Exam Extremities Exam: Normal Inspection - Back Exam Back Exam: NORMAL INSPECTION - Neurological Exam Neurological Exam: Alert - Psychiatric Exam Psychiatric exam: Depressed - Skin Skin Exam: Dry Assessment and Plan (1) Acute pneumonia Status: Acute (2) Cachexia Status: Acute (3) Emphysema lung Status: Acute (4) Hypernatremia Status: Resolved (5) Prerenal azotemia Status: Resolved (6) Severe dehydration Status: Acute
[2018-01-02] MEDS: Linezolid 600 mg in D5W 300 ml 600 MG/300 ML BAG IVPB SCH ×3 (00:06→13:28)
[2018-01-02] MEDS: Acetylcysteine 20% Inhal Soln (4ml) INH SCH ×3 (01:05→19:32)
[2018-01-02] MEDS: Budesonide 0.5 mg/2 ml Inhal Susp UD INH SCH ×2 (07:10→19:31)
[2018-01-02 07:56] LABS: BASO % 0.3 % (0.0-2.0); EOS # 0.1 K/uL (0.0-0.7); HEMOGLOBIN 10.5 g/dL (12.0-18.0); LYMPH # 0.5 K/uL (1.0-4.3); LYMPH % 6.3 % (20.0-40.0); MEAN CELL VOLUME 85.3 fL (80.0-94.0); MEAN CORPUSCULAR HEMOGLOBIN 28.4 pg (27.0-31.0); MEAN CORPUSCULAR HGB CONC 33.3 g/dL (33.0-37.0); MEAN PLATELET VOLUME 9.2 fL (7.2-11.7); MONO # 0.4 K/uL (0.0-0.8); MONO % 4.8 % (0.0-10.0); NEUT # 6.6 K/uL (1.8-7.0); NEUT % 87.6 % (50.0-75.0); PLATELET COUNT 295 K/uL (130-400); RED CELL DISTRIBUTION WIDTH 14.3 % (11.5-14.5); WHITE BLOOD COUNT 7.6 K/uL (4.8-10.8)
[2018-01-02 08:11] LABS: ALB/GLOB RATIO 0.8 (1.0-2.1); ALBUMIN 2.4 g/dL (3.5-5.0); ALT/SGPT 50 U/L (21-72); AST/SGOT 27 U/L (17-59); BLOOD UREA NITROGEN 21 mg/dL (9-20); CALCIUM 8.3 mg/dl (8.6-10.4); GFR AFRICAN-AMERICAN > 60; GFR NON-AFRICAN AMERICAN > 60
--- NOTE | 2018-01-02 08:32 | RAD ---
Date of service: 01/02/2018 HISTORY: pneumonia, emphysema COMPARISON: 01/01/2018 FINDINGS: The right PICC line terminates at the cavoatrial junction. LUNGS: The lungs are hyperinflated and there is peribronchial thickening with chronic changes in both lungs. Again seen are bullous changes in both upper lobes with a large bulla in the right upper lobe. There is persistent airspace disease in the right lower lobe. There is also patchy airspace disease in the left lower lobe. PLEURA: Small left pleural effusion versus thickening. No pneumothorax apparent. CARDIOVASCULAR: Normal. OSSEOUS STRUCTURES: No significant abnormalities. VISUALIZED UPPER ABDOMEN: Normal. OTHER FINDINGS: None. IMPRESSION: No change in airspace disease in the right lower lobe and left lower lobe which may represent chronic atelectasis, of or fibrosis however superimposed pneumonia cannot be excluded. COPD with bullous changes in the upper lobes.
[2018-01-02] MEDS: MethylPREDNISolone 40 mg Vial IVP SCH (09:11)
[2018-01-02] MEDS: Nystatin 100,000 Units/ml Oral Susp 5 ml UD PO SCH ×4 (09:12→21:05)
[2018-01-02] MEDS ORDERED: PPN #12 IV ONE (09:30)
[2018-01-02 10:27] LABS: BANDS 1 % (0-2); EOSINOPHIL 2 % (0-4); LYMPHOCYTE 6 % (20-40); MONOCYTE 3 % (0-10); NEUTROPHIL 88 % (50-75); PLATELET ESTIMATE NORMAL (NORMAL); TOTAL CELLS COUNTED 100
[2018-01-02 10:31] LABS: OVALOCYTES SLIGHT
[2018-01-02 11:36] LABS: ABG ALLEN TEST POS; ARTERIAL BLOOD GAS HEMOGLOBIN 11.1 g/dL (11.7-17.4); ARTERIAL BLOOD GAS O2 SAT 99.4 % (95-98); ARTERIAL BLOOD GAS PCO2 32 mm/Hg (35-45); ARTERIAL BLOOD GAS PH 7.43 (7.35-7.45); ARTERIAL BLOOD GAS PO2 85 mm/Hg (80-100); ARTERIAL BLOOD GAS TCO2 22.2 mmol/L (22-28)
[2018-01-02] MEDS ORDERED: Propofol 10 mg/ml Inj (20 ML) ONE (12:27)
[2018-01-02] MEDS ORDERED: Lactated Ringer's 1,000 ML IV ONE ×2 (12:35→15:43)
[2018-01-02] MEDS ORDERED: Lidocaine 2% MPF (5 ml) Inj ONE (12:36)
[2018-01-02] MEDS ORDERED: Sodium Chloride 0.9% 0 ML IV ONE (12:37)
--- NOTE | 2018-01-02 13:08 | CP.PCM.PN ---
Subjective - Date & Time of Evaluation Date of Evaluation: 01/02/18 Time of Evaluation: 13:05 - Subjective Subjective: for PEG now HTN stable K, mag repleted phos improved post repletion Objective - Vital Signs/Intake and Output Vital Signs (last 24 hours): Temp Pulse Resp BP Pulse Ox 97.5 F L 56 L 20 122/76 100 01/02/18 07:36 01/02/18 07:36 01/02/18 07:36 01/02/18 07:36 01/02/18 07:36 Intake and Output: 01/02/18 01/02/18 06:59 18:59 Intake Total 360 Output Total 200 Balance 160 - Medications Medications: Current Medications Acetylcysteine (Acetylcysteine 20%) 4 ml INH RQ6 [facility] Last Admin: 01/02/18 07:13 Dose: Not Given Budesonide (Pulmicort Respules) 0.5 mg INH RQ12 [facility] Last Admin: 01/02/18 07:10 Dose: 0.5 mg Heparin Sodium (Porcine) (Heparin) 5,000 units SC Q12 [facility] Last Admin: 01/01/18 21:33 Dose: 5,000 units Linezolid (Zyvox 600mg/300ml D5w) 600 mg in 300 mls @ 200 mls/hr IVPB Q12H [facility] PRN Reason: Protocol Last Admin: 01/02/18 00:06 Dose: 200 mls/hr Chromium/Copper/Manganese/Zinc (1 ml/ Amino Acids) 1,001 mls @ 65 mls/hr IV .[id number] ONE Stop: 01/03/18 00:53 Last Admin: 01/02/18 09:10 Dose: 65 mls/hr Multivitamins/Vitamin C 10 ml/Chromium/Copper/Manganese/Zinc 1 ml/ Amino Acids 1,011 mls @ 65 mls/hr IV .[id number] ONE Stop: 01/03/18 09:33 Chromium/Copper/Manganese/Zinc (1 ml/ Amino Acids) 1,001 mls @ 65 mls/hr IV .[id number] ONE Stop: 01/04/18 00:53 Methylprednisolone (Solu-Medrol) 40 mg IVP DAILY [facility] Last Admin: 01/02/18 09:11 Dose: 40 mg Montelukast Sodium (Singulair) 10 mg PO HS [facility] Last Admin: 01/01/18 21:35 Dose: 10 mg Nystatin (Nystatin Oral Susp) 5 ml PO QID [facility] Last Admin: 01/02/18 09:12 Dose: Not Given Pantoprazole Sodium (Protonix Inj) 40 mg IVP DAILY [facility] Last Admin: 01/02/18 09:11 Dose: 40 mg - Labs Labs: 01/02/18 07:44 01/02/18 07:44 PT 14.3 SECONDS (9.7-12.2) H 01/01/18 06:34 INR 1.3 01/01/18 06:34 APTT 34 SECONDS (21-34) 01/01/18 06:34 - Constitutional Appears: No Acute Distress, Chronically Ill - Head Exam Head Exam: ATRAUMATIC, NORMAL INSPECTION - Eye Exam Eye Exam: EOMI, Normal appearance - Neck Exam Neck Exam: Normal Inspection. absent: Tenderness - Cardiovascular Exam Cardiovascular Exam: REGULAR RHYTHM, +S1 - GI/Abdominal Exam GI & Abdominal Exam: Soft. absent: Tenderness - Extremities Exam Extremities Exam: Normal Inspection. absent: Tenderness - Neurological Exam Neurological Exam: Alert, CN II-XII Intact - Skin Skin Exam: Dry, Warm Assessment and Plan (1) Emphysema lung Status: Acute (2) Prerenal azotemia Status: Resolved (3) Hypernatremia Status: Resolved (4) Pneumonia Status: Acute (5) Severe dehydration Status: Acute - Assessment and Plan (Free Text) Plan: PEG now repeat chemistries in AM
[2018-01-02] MEDS ORDERED: Rocuronium 10 mg/ml (5 ml) ONE (13:10)
[2018-01-02] MEDS ORDERED: ePHEDrine 50 mg/ml Inj ONE (13:10)
--- NOTE | 2018-01-02 13:15 | CP.PCM.PN ---
Subjective - Date & Time of Evaluation Date of Evaluation: 01/02/18 Time of Evaluation: 09:00 - Subjective Subjective: afeb awake alert cqachectic IV rx in progress Objective - Vital Signs/Intake and Output Vital Signs (last 24 hours): Temp Pulse Resp BP Pulse Ox 97.5 F L 56 L 20 122/76 100 01/02/18 07:36 01/02/18 07:36 01/02/18 07:36 01/02/18 07:36 01/02/18 07:36 Intake and Output: 01/02/18 01/02/18 06:59 18:59 Intake Total 360 Output Total 200 Balance 160 - Medications Medications: Current Medications Acetylcysteine (Acetylcysteine 20%) 4 ml INH RQ6 [facility] Last Admin: 01/02/18 07:13 Dose: Not Given Budesonide (Pulmicort Respules) 0.5 mg INH RQ12 [facility] Last Admin: 01/02/18 07:10 Dose: 0.5 mg Heparin Sodium (Porcine) (Heparin) 5,000 units SC Q12 [facility] Last Admin: 01/01/18 21:33 Dose: 5,000 units Linezolid (Zyvox 600mg/300ml D5w) 600 mg in 300 mls @ 200 mls/hr IVPB Q12H [facility] PRN Reason: Protocol Last Admin: 01/02/18 00:06 Dose: 200 mls/hr Chromium/Copper/Manganese/Zinc (1 ml/ Amino Acids) 1,001 mls @ 65 mls/hr IV .[id number] ONE Stop: 01/03/18 00:53 Last Admin: 01/02/18 09:10 Dose: 65 mls/hr Multivitamins/Vitamin C 10 ml/Chromium/Copper/Manganese/Zinc 1 ml/ Amino Acids 1,011 mls @ 65 mls/hr IV .[id number] ONE Stop: 01/03/18 09:33 Chromium/Copper/Manganese/Zinc (1 ml/ Amino Acids) 1,001 mls @ 65 mls/hr IV .[id number] ONE Stop: 01/04/18 00:53 Methylprednisolone (Solu-Medrol) 40 mg IVP DAILY [facility] Last Admin: 01/02/18 09:11 Dose: 40 mg Montelukast Sodium (Singulair) 10 mg PO HS [facility] Last Admin: 01/01/18 21:35 Dose: 10 mg Nystatin (Nystatin Oral Susp) 5 ml PO QID [facility] Last Admin: 01/02/18 09:12 Dose: Not Given Pantoprazole Sodium (Protonix Inj) 40 mg IVP DAILY [facility] Last Admin: 01/02/18 09:11 Dose: 40 mg - Labs Labs: 01/02/18 07:44 01/02/18 07:44 PT 14.3 SECONDS (9.7-12.2) H 01/01/18 06:34 INR 1.3 01/01/18 06:34 APTT 34 SECONDS (21-34) 01/01/18 06:34 - Constitutional Appears: Cachectic, Chronically Ill - Head Exam Head Exam: NORMOCEPHALIC - Eye Exam Eye Exam: PERRL - ENT Exam ENT Exam: Mucous Membranes Dry - Neck Exam Neck Exam: absent: Lymphadenopathy - Respiratory Exam Respiratory Exam: Decreased Breath Sounds, Rhonchi - Cardiovascular Exam Cardiovascular Exam: REGULAR RHYTHM, +S1, +S2 - GI/Abdominal Exam GI & Abdominal Exam: Distended, Soft. absent: Tenderness - Rectal Exam Rectal Exam: Deferred - Exam Exam: NORMAL INSPECTION - Extremities Exam Extremities Exam: absent: Pedal Edema - Back Exam Back Exam: absent: CVA tenderness (L), CVA tenderness (R) - Neurological Exam Neurological Exam: Alert, Awake, Oriented x3 - Psychiatric Exam Psychiatric exam: Normal Mood - Skin Skin Exam: Dry Assessment and Plan (1) Acute pneumonia Status: Acute (2) Bullous emphysema Status: Acute (3) Cachexia Status: Acute (4) Emphysema lung Status: Acute (5) Hypernatremia Status: Resolved (6) Pneumonia Status: Acute (7) Prerenal azotemia Status: Resolved (8) Severe dehydration Status: Acute (9) MRSA (methicillin resistant staph aureus) culture positive Status: Acute - Assessment and Plan (Free Text) Assessment: iv rx renewed Dr Pettit on consult
[2018-01-02] MEDS ORDERED: Bacitracin Ointment 30 GM TUBE ONE (15:01)
--- NOTE | 2018-01-02 15:18 | PCM.SURG1 ---
Surgeon's Initial Post Op Note - Surgeon's Notes Surgeon: Dr. Pearson Medical Sonographer: Dr. Bertrand PGY4, Dr. Kirby PGY3, Favian Parker Type of Anesthesia: General Endo Pre-Operative Diagnosis: esophageal mass Operative Findings: see operative report Post-Operative Diagnosis: see op report Operation Performed: open gastrostomy tube Specimen/Specimens Removed: peritoneal fluid Estimated Blood Loss: EBL {In ML}: 15 Blood Products Given: N/A Drains Used: No Drains Post-Op Condition: Good Date of Surgery/Procedure: 01/02/18 Time of Surgery/Procedure: 13:15
[2018-01-02] MEDS ORDERED: HYDROmorphone 0.5 mg/0.5 ml ISec IVP PRN (15:32)
--- NOTE | 2018-01-02 16:04 | RAD ---
Date of service: 01/02/2018 HISTORY: s/p gtube placement COMPARISON: 2017 at 8:03 a.m. FINDINGS: LUNGS: Left perihilar and basilar opacity persists unchanged. Right basilar opacity persists unchanged. Suspect bilateral interstitial infiltrate. There is an air field cysts or pneumatoceles in the upper right lung laterally. There is bullous change suspected in the left apex. PLEURA: No significant pleural effusion identified, no pneumothorax apparent. CARDIOVASCULAR: Normal heart size. Right PICC catheter unchanged. No congestive change. OSSEOUS STRUCTURES: No significant abnormalities. VISUALIZED UPPER ABDOMEN: Normal. OTHER FINDINGS: None. IMPRESSION: Left perihilar and bibasilar opacities persist. Bullous change. Probable interstitial infiltrate.
[2018-01-02] MEDS: Lactated Ringer's 1,000 ML IV SCH (16:55)
[2018-01-02] MEDS ORDERED: PPN #13 IV ONE (18:00)
--- NOTE | 2018-01-02 20:31 | PN ---
Copied To: Jaya Pettit MD Attending MD: Jaya Pettit MD DATE: 01/02/2018 SUBJECTIVE: The patient is in bed with no acute distress. PHYSICAL EXAMINATION: VITAL SIGNS: Afebrile. Blood pressure 122/76, pulse 56, respirations 20, and hemoglobin oxygen saturation of 100%. HEART: Regular. There is no gallop rhythm. LUNGS: Diminished breath sounds over lung bases. ABDOMEN: Soft. EXTREMITIES: Legs, no edema. LABORATORY DATA: White count is 7600, hemoglobin 10.5, and platelet count 295,000. ABGs on FiO2 of 27% shows pH of 7.43, pCO2 of 32, pO2 of 85, and hemoglobin oxygen saturation of 99%. Chest x-ray shows improvement. There is no consolidation. IMPRESSION: Respiratory insufficiency, exacerbation of chronic obstructive pulmonary disease, sepsis, dehydration, renal insufficiency, electrolyte imbalance, and malnutrition. PLAN: To continue with the current measures and science consultant followup. Jaya Pettit MD
--- NOTE | 2018-01-02 22:34 | CP.PCM.PN ---
Subjective - Date & Time of Evaluation Date of Evaluation: 01/02/18 Time of Evaluation: 18:50 - Subjective Subjective: Patient had Peg insertion. Proceedure well tolerated by patient. Labs ordered in AM. Close watch of K level. Objective - Vital Signs/Intake and Output Vital Signs (last 24 hours): Temp Pulse Resp BP Pulse Ox 97.3 F L 74 20 116/81 100 01/02/18 16:42 01/02/18 16:42 01/02/18 16:42 01/02/18 16:42 01/02/18 16:42 Intake and Output: 01/02/18 01/03/18 18:59 06:59 Intake Total 390 Output Total 500 Balance -110 - Medications Medications: Current Medications Acetylcysteine (Acetylcysteine 20%) 4 ml INH RQ6 [facility] Last Admin: 01/02/18 19:32 Dose: Not Given Budesonide (Pulmicort Respules) 0.5 mg INH RQ12 [facility] Last Admin: 01/02/18 19:31 Dose: 0.5 mg Heparin Sodium (Porcine) (Heparin) 5,000 units SC Q12 [facility] Last Admin: 01/01/18 21:33 Dose: 5,000 units Linezolid (Zyvox 600mg/300ml D5w) 600 mg in 300 mls @ 200 mls/hr IVPB Q12H [facility] PRN Reason: Protocol Last Admin: 01/02/18 13:28 Dose: 300 mls Chromium/Copper/Manganese/Zinc (1 ml/ Amino Acids) 1,001 mls @ 65 mls/hr IV .[id number] ONE Stop: 01/03/18 00:53 Last Admin: 01/02/18 09:10 Dose: 65 mls/hr Multivitamins/Vitamin C 10 ml/Chromium/Copper/Manganese/Zinc 1 ml/ Amino Acids 1,011 mls @ 65 mls/hr IV .[id number] ONE Stop: 01/03/18 09:33 Last Admin: 01/02/18 18:06 Dose: 65 mls/hr Chromium/Copper/Manganese/Zinc (1 ml/ Amino Acids) 1,001 mls @ 65 mls/hr IV .[id number] ONE Stop: 01/04/18 00:53 Lactated Ringer's (Lactated Ringer's) 1,000 mls @ 100 mls/hr IV .Q10H [facility] Last Admin: 01/02/18 16:55 Dose: 100 mls/hr Methylprednisolone (Solu-Medrol) 40 mg IVP DAILY [facility] Last Admin: 01/02/18 09:11 Dose: 40 mg Montelukast Sodium (Singulair) 10 mg PO HS [facility] Last Admin: 01/02/18 21:05 Dose: Not Given Morphine Sulfate (Morphine) 2 mg IVP Q4 PRN PRN Reason: Pain, moderate (4-7) Last Admin: 01/02/18 22:04 Dose: 2 mg Nystatin (Nystatin Oral Susp) 5 ml PO QID [facility] Last Admin: 01/02/18 21:05 Dose: Not Given Ondansetron HCl (Zofran Inj) 4 mg IVP Q6 PRN PRN Reason: Nausea/Vomiting Last Admin: 01/02/18 18:14 Dose: 4 mg Pantoprazole Sodium (Protonix Inj) 40 mg IVP DAILY [facility] Last Admin: 01/02/18 09:11 Dose: 40 mg - Labs Labs: 01/02/18 07:44 01/02/18 07:44 PT 14.3 SECONDS (9.7-12.2) H 01/01/18 06:34 INR 1.3 01/01/18 06:34 APTT 34 SECONDS (21-34) 01/01/18 06:34 - Constitutional Appears: No Acute Distress - Head Exam Head Exam: NORMOCEPHALIC - Eye Exam Eye Exam: Normal appearance Pupil Exam: NORMAL ACCOMODATION - ENT Exam ENT Exam: Normal Exam - Neck Exam Neck Exam: Normal Inspection - Respiratory Exam Respiratory Exam: Decreased Breath Sounds - Cardiovascular Exam Cardiovascular Exam: REGULAR RHYTHM - GI/Abdominal Exam GI & Abdominal Exam: Normal Bowel Sounds - Rectal Exam Rectal Exam: Deferred - Exam Exam: NORMAL INSPECTION - Extremities Exam Extremities Exam: Normal Inspection - Neurological Exam Neurological Exam: Awake - Psychiatric Exam Psychiatric exam: Depressed - Skin Skin Exam: Dry Assessment and Plan (1) Acute pneumonia Status: Acute (2) Cachexia Status: Acute (3) Emphysema lung Status: Acute (4) Hypernatremia Status: Resolved (5) Prerenal azotemia Status: Resolved (6) Severe dehydration Status: Acute
[2018-01-03] MEDS: Linezolid 600 mg in D5W 300 ml 600 MG/300 ML BAG IVPB SCH ×2 (00:55→13:46)
[2018-01-03] MEDS: Acetylcysteine 20% Inhal Soln (4ml) INH SCH ×4 (01:44→20:39)
[2018-01-03] MEDS: Lactated Ringer's 1,000 ML IV SCH ×2 (01:45→06:46)
[2018-01-03 05:12] LABS: BASO % 0.3 % (0.0-2.0); EOS % 0.1 % (0.0-4.0); HEMOGLOBIN 9.2 g/dL (12.0-18.0); LYMPH # 0.3 K/uL (1.0-4.3); LYMPH % 2.4 % (20.0-40.0); MEAN CELL VOLUME 85.8 fL (80.0-94.0); MEAN CORPUSCULAR HGB CONC 32.6 g/dL (33.0-37.0); MEAN PLATELET VOLUME 8.1 fL (7.2-11.7); MONO # 0.5 K/uL (0.0-0.8); MONO % 3.6 % (0.0-10.0); NEUT # 12.5 K/uL (1.8-7.0); NEUT % 93.6 % (50.0-75.0); PLATELET COUNT 268 K/uL (130-400); RBC 3.29 Mil/uL (4.40-5.90); RED CELL DISTRIBUTION WIDTH 14.5 % (11.5-14.5); WHITE BLOOD COUNT 13.3 K/uL (4.8-10.8)
[2018-01-03 06:11] LABS: BANDS 1 % (0-2); LYMPHOCYTE 2 % (20-40); MONOCYTE 3 % (0-10); NEUTROPHIL 94 % (50-75); PLATELET ESTIMATE NORMAL (NORMAL); TOTAL CELLS COUNTED 100
[2018-01-03 06:15] LABS: ALB/GLOB RATIO 0.7 (1.0-2.1); ALBUMIN 1.8 g/dL (3.5-5.0); ALT/SGPT 39 U/L (21-72); AST/SGOT 14 U/L (17-59); BLOOD UREA NITROGEN 17 mg/dL (9-20); CALCIUM 7.8 mg/dl (8.6-10.4); GFR AFRICAN-AMERICAN > 60; GFR NON-AFRICAN AMERICAN > 60
[2018-01-03] MEDS: Budesonide 0.5 mg/2 ml Inhal Susp UD INH SCH ×2 (08:58→20:39)
[2018-01-03] MEDS ORDERED: PPN #14 IV ONE ×2 (09:30→10:15)
[2018-01-03] MEDS: MethylPREDNISolone 40 mg Vial IVP SCH ×2 (09:52→18:01)
[2018-01-03] MEDS ORDERED: POTASSIUM PHOSPHATE IV ONE (10:07)
[2018-01-03] MEDS ORDERED: SODIUM CHLORIDE IV ONE (10:07)
--- NOTE | 2018-01-03 10:07 | CP.PCM.PN ---
Subjective - Date & Time of Evaluation Date of Evaluation: 01/03/18 Time of Evaluation: 10:04 - Subjective Subjective: s/p PEG insertion; await start PEG feeds phos decreased again will replete phos, mag alert, appears same Objective - Vital Signs/Intake and Output Vital Signs (last 24 hours): Temp Pulse Resp BP Pulse Ox 97.4 F L 73 20 106/66 100 01/03/18 07:00 01/03/18 07:00 01/03/18 07:00 01/03/18 07:00 01/03/18 07:00 Intake and Output: 01/03/18 01/03/18 06:59 18:59 Intake Total 925 520 Output Total 900 Balance 25 520 - Medications Medications: Current Medications Acetylcysteine (Acetylcysteine 20%) 4 ml INH RQ6 [facility] Last Admin: 01/03/18 08:58 Dose: Not Given Budesonide (Pulmicort Respules) 0.5 mg INH RQ12 [facility] Last Admin: 01/03/18 08:58 Dose: 0.5 mg Heparin Sodium (Porcine) (Heparin) 5,000 units SC Q12 [facility] Last Admin: 01/03/18 09:53 Dose: Not Given Linezolid (Zyvox 600mg/300ml D5w) 600 mg in 300 mls @ 200 mls/hr IVPB Q12H [facility] PRN Reason: Protocol Last Admin: 01/03/18 00:55 Dose: 200 mls/hr Chromium/Copper/Manganese/Zinc (1 ml/ Amino Acids) 1,001 mls @ 65 mls/hr IV .[id number] ONE Stop: 01/04/18 00:53 Lactated Ringer's (Lactated Ringer's) 1,000 mls @ 100 mls/hr IV .Q10H [facility] Last Admin: 01/03/18 06:46 Dose: 100 mls/hr Methylprednisolone (Solu-Medrol) 40 mg IVP DAILY [facility] Last Admin: 01/03/18 09:52 Dose: 40 mg Montelukast Sodium (Singulair) 10 mg PO HS [facility] Last Admin: 01/02/18 21:05 Dose: Not Given Morphine Sulfate (Morphine) 2 mg IVP Q4 PRN PRN Reason: Pain, moderate (4-7) Last Admin: 01/03/18 07:04 Dose: 2 mg Nystatin (Nystatin Oral Susp) 5 ml PO QID [facility] Last Admin: 01/02/18 21:05 Dose: Not Given Ondansetron HCl (Zofran Inj) 4 mg IVP Q6 PRN PRN Reason: Nausea/Vomiting Last Admin: 01/02/18 18:14 Dose: 4 mg Pantoprazole Sodium (Protonix Inj) 40 mg IVP DAILY [facility] Last Admin: 01/03/18 09:52 Dose: 40 mg - Labs Labs: 01/03/18 05:07 01/03/18 05:07 PT 14.3 SECONDS (9.7-12.2) H 01/01/18 06:34 INR 1.3 01/01/18 06:34 APTT 34 SECONDS (21-34) 01/01/18 06:34 - Constitutional Appears: No Acute Distress, Cachectic, Chronically Ill - Head Exam Head Exam: ATRAUMATIC, NORMAL INSPECTION - Eye Exam Eye Exam: EOMI, Normal appearance - Neck Exam Neck Exam: Normal Inspection. absent: Tenderness - Respiratory Exam Respiratory Exam: Clear to Ausculation Bilateral, NORMAL BREATHING PATTERN - Cardiovascular Exam Cardiovascular Exam: REGULAR RHYTHM, +S1 - GI/Abdominal Exam GI & Abdominal Exam: Soft. absent: Tenderness - Extremities Exam Extremities Exam: Normal Inspection, Tenderness - Neurological Exam Neurological Exam: Awake, CN II-XII Intact - Skin Skin Exam: Dry, Warm Assessment and Plan (1) Emphysema lung Status: Acute (2) Prerenal azotemia Status: Resolved (3) Hypernatremia Status: Resolved (4) Pneumonia Status: Acute (5) Severe dehydration Status: Acute - Assessment and Plan (Free Text) Plan: replete phos, mag await PEG feeds
[2018-01-03] MEDS: Nystatin 100,000 Units/ml Oral Susp 5 ml UD PO SCH ×4 (10:13→21:38)
[2018-01-03] MEDS: Magnesium Sulfate 1 gm in D5W 1 GM/100 ML BAG IVPB SCH ×2 (10:52→12:50)
--- NOTE | 2018-01-03 13:37 | PN ---
Copied To: Vasquez Orourke MD Attending MD: Vasquez Orourke MD DATE: 01/03/2018 LOCATION 555. SUBJECTIVE: This is an 87-year-old male seen and examined in rounds without reported significant changes or reported chest pain, palpitation, or significant evidence of active bleeding but with a complaint of generalized weakness and malaise. The entire chart is reviewed including but not limited to the most recent lab and radiology study results, current and the previous medication list, current and the previous medical events. Case discussed with the staff at length. The patient is status post gastrostomy tube insertion done surgically. Most recent lab results showed leukocytosis of 13.3, hemoglobin 9.2, hematocrit 28.3 with normal platelet count with CO2 content 21 indicative of metabolic acidosis, creatinine 0.5, calcium 7.8, phosphorus 1.5 with total protein 4.5, albumin 1.8. Most recent chest x-ray done yesterday, official report and film seen indicative of left perihilar and bibasilar opacity, probable interstitial infiltrate. PHYSICAL EXAMINATION: GENERAL: An 87-year-old male. VITAL SIGNS: Afebrile with pulse of 72, respiratory rate 20 to 22, blood pressure 110/56. HEENT: Showed pale, dry oral mucous membrane. Nonicteric sclerae. LUNGS: A few scattered crepitation. Decreased air entry at bases. HEART: Positive S1 and S2. ABDOMEN: Soft with slight generalized tenderness. Gastrostomy tube is in place and no evidence of anterior abdominal wall cellulitis. No mass or organomegaly. EXTREMITIES: With evidence of muscle wasting syndrome but no reported edematous changes. NEUROLOGIC: No reported new neurological deficits, sensory or motor. IMPRESSION: 1. Esophageal upper stricture. 2. Malnutrition with hypoalbuminemia, hypoproteinemia. 3. Status post gastrostomy tube insertion. 4. Elevated CEA level and CA19-9 raising possibility of gastrointestinal occult malignancy. 5. Pneumonia, most likely aspiration pneumonia, by recent history. 6. Dysphagia secondary to above. 7. Reported history of fecal impaction by radiology study results. SUGGESTIONS: 1. Continue current management. 2. Start tube feeding. 3. Subsequent increase of the rate, then the frequency of the tube feeding to be 6 hours on and 2 hours off. 4. Sectional abdominal and pelvic CAT scan to be repeated. 5. Colace 1 tablet 3 times a day through the feeding tube. Further recommendation to follow and no further aggressive GI workup in the meantime until the patient is more stable clinically. We will follow up closely with you. Vasquez Orourke MD
--- NOTE | 2018-01-03 16:05 | CP.PCM.PN ---
Subjective - Date & Time of Evaluation Date of Evaluation: 01/03/18 Time of Evaluation: 16:04 - Subjective Subjective: CT surgery progress note for Dr. Winston Valero, PGY-2 Pt S & E at bedside at 1600 Pt reports mild discomfort at G -tube insertion site. Denies N & V, F & C, abdominal pain, BM, chest pain, SOB. Objective - Vital Signs/Intake and Output Vital Signs (last 24 hours): Temp Pulse Resp BP Pulse Ox 98.0 F 57 L 18 93/53 L 100 01/03/18 15:00 01/03/18 15:00 01/03/18 15:00 01/03/18 15:00 01/03/18 15:00 Intake and Output: 01/03/18 01/03/18 06:59 18:59 Intake Total 925 520 Output Total 900 Balance 25 520 - Medications Medications: Current Medications Acetylcysteine (Acetylcysteine 20%) 4 ml INH RQ6 [facility] Last Admin: 01/03/18 13:24 Dose: Not Given Budesonide (Pulmicort Respules) 0.5 mg INH RQ12 [facility] Last Admin: 01/03/18 08:58 Dose: 0.5 mg Heparin Sodium (Porcine) (Heparin) 5,000 units SC Q12 [facility] Last Admin: 01/03/18 09:53 Dose: Not Given Linezolid (Zyvox 600mg/300ml D5w) 600 mg in 300 mls @ 200 mls/hr IVPB Q12H [facility] PRN Reason: Protocol Last Admin: 01/03/18 13:46 Dose: 200 mls/hr Chromium/Copper/Manganese/Zinc (1 ml/ Amino Acids) 1,001 mls @ 65 mls/hr IV .[id number] ONE Stop: 01/04/18 00:53 Last Admin: 01/03/18 10:52 Dose: 65 mls/hr Lactated Ringer's (Lactated Ringer's) 1,000 mls @ 100 mls/hr IV .Q10H [facility] Last Admin: 01/03/18 06:46 Dose: 100 mls/hr Multivitamins/Vitamin C 10 ml/Chromium/Copper/Manganese/Zinc 1 ml/ Amino Acids 1,011 mls @ 65 mls/hr IV .[id number] ONE Stop: 01/04/18 01:48 Last Admin: 01/03/18 10:53 Dose: Not Given Methylprednisolone (Solu-Medrol) 20 mg IVP Q12H [facility] Montelukast Sodium (Singulair) 10 mg PO HS [facility] Last Admin: 01/02/18 21:05 Dose: Not Given Morphine Sulfate (Morphine) 2 mg IVP Q4 PRN PRN Reason: Pain, moderate (4-7) Last Admin: 01/03/18 13:52 Dose: 2 mg Nystatin (Nystatin Oral Susp) 5 ml PO QID [facility] Last Admin: 01/03/18 10:13 Dose: Not Given Ondansetron HCl (Zofran Inj) 4 mg IVP Q6 PRN PRN Reason: Nausea/Vomiting Last Admin: 01/02/18 18:14 Dose: 4 mg Pantoprazole Sodium (Protonix Inj) 40 mg IVP DAILY [facility] Last Admin: 01/03/18 09:52 Dose: 40 mg - Labs Labs: 01/03/18 05:07 01/03/18 05:07 PT 14.3 SECONDS (9.7-12.2) H 01/01/18 06:34 INR 1.3 01/01/18 06:34 APTT 34 SECONDS (21-34) 01/01/18 06:34 - Constitutional Appears: Non-toxic, No Acute Distress, Cachectic - Head Exam Head Exam: ATRAUMATIC, NORMAL INSPECTION, NORMOCEPHALIC - Eye Exam Eye Exam: EOMI, Normal appearance - ENT Exam ENT Exam: Mucous Membranes Moist, Normal Exam - Neck Exam Neck Exam: Full ROM, Normal Inspection - Respiratory Exam Respiratory Exam: Clear to Ausculation Bilateral, NORMAL BREATHING PATTERN - Cardiovascular Exam Cardiovascular Exam: REGULAR RHYTHM, +S1, +S2 - GI/Abdominal Exam GI & Abdominal Exam: Soft. absent: Distended, Firm, Guarding, Tenderness Additional comments: Dressing with scant serosanguinous strike through at G tube insertion site, non tender to palpation - Extremities Exam Extremities Exam: Normal Inspection - Neurological Exam Neurological Exam: Alert, Awake, CN II-XII Intact, Oriented x3 - Psychiatric Exam Psychiatric exam: Normal Affect, Normal Mood - Skin Skin Exam: Dry, Intact, Normal Color, Warm Assessment and Plan - Assessment and Plan (Free Text) Assessment: 87M POD #1 s/p open G- tube insertion Plan: G-tube to gravity Pain control PRN Cont PPN Monitor labs Replace electrolytes PRN Further mgmt as per primary team Will THOMAS attending Marylu, PGY-2
--- NOTE | 2018-01-03 19:04 | CP.PCM.PN ---
Subjective - Date & Time of Evaluation Date of Evaluation: 01/03/18 Time of Evaluation: 09:00 - Subjective Subjective: improving alert afebrile abd soft nad Objective - Vital Signs/Intake and Output Vital Signs (last 24 hours): Temp Pulse Resp BP Pulse Ox 98.0 F 57 L 18 93/53 L 100 01/03/18 15:00 01/03/18 15:00 01/03/18 15:00 01/03/18 15:00 01/03/18 15:00 Intake and Output: 01/03/18 01/04/18 18:59 06:59 Intake Total 520 Output Total 850 Balance -330 - Medications Medications: Current Medications Acetylcysteine (Acetylcysteine 20%) 4 ml INH RQ6 [facility] Last Admin: 01/03/18 13:24 Dose: Not Given Albuterol Sulfate (Albuterol 0.083% Inhal Martha (2.5 Mg/3 Ml) Ud) 2.5 mg INH RQ6 [facility] Budesonide (Pulmicort Respules) 0.5 mg INH RQ12 [facility] Last Admin: 01/03/18 08:58 Dose: 0.5 mg Heparin Sodium (Porcine) (Heparin) 5,000 units SC Q12 [facility] Last Admin: 01/03/18 09:53 Dose: Not Given Linezolid (Zyvox 600mg/300ml D5w) 600 mg in 300 mls @ 200 mls/hr IVPB Q12H [facility] PRN Reason: Protocol Last Admin: 01/03/18 13:46 Dose: 200 mls/hr Chromium/Copper/Manganese/Zinc (1 ml/ Amino Acids) 1,001 mls @ 65 mls/hr IV .[id number] ONE Stop: 01/04/18 00:53 Last Admin: 01/03/18 10:52 Dose: 65 mls/hr Lactated Ringer's (Lactated Ringer's) 1,000 mls @ 100 mls/hr IV .Q10H [facility] Last Admin: 01/03/18 06:46 Dose: 100 mls/hr Multivitamins/Vitamin C 10 ml/Chromium/Copper/Manganese/Zinc 1 ml/ Amino Acids 1,011 mls @ 65 mls/hr IV .[id number] ONE Stop: 01/04/18 01:48 Last Admin: 01/03/18 10:53 Dose: Not Given Methylprednisolone (Solu-Medrol) 20 mg IVP Q12H [facility] Last Admin: 01/03/18 18:01 Dose: 20 mg Montelukast Sodium (Singulair) 10 mg PO HS [facility] Last Admin: 01/02/18 21:05 Dose: Not Given Morphine Sulfate (Morphine) 2 mg IVP Q4 PRN PRN Reason: Pain, moderate (4-7) Last Admin: 01/03/18 13:52 Dose: 2 mg Nystatin (Nystatin Oral Susp) 5 ml PO QID [facility] Last Admin: 01/03/18 18:38 Dose: Not Given Ondansetron HCl (Zofran Inj) 4 mg IVP Q6 PRN PRN Reason: Nausea/Vomiting Last Admin: 01/02/18 18:14 Dose: 4 mg Pantoprazole Sodium (Protonix Inj) 40 mg IVP DAILY [facility] Last Admin: 01/03/18 09:52 Dose: 40 mg - Labs Labs: 01/03/18 05:07 01/03/18 05:07 PT 14.3 SECONDS (9.7-12.2) H 01/01/18 06:34 INR 1.3 01/01/18 06:34 APTT 34 SECONDS (21-34) 01/01/18 06:34 Assessment and Plan (1) Acute pneumonia Status: Acute (2) Bullous emphysema Status: Acute (3) Cachexia Status: Acute (4) Emphysema lung Status: Acute (5) Hypernatremia Status: Resolved (6) Pneumonia Status: Acute (7) Prerenal azotemia Status: Resolved (8) Severe dehydration Status: Acute (9) MRSA (methicillin resistant staph aureus) culture positive Status: Acute
--- NOTE | 2018-01-03 19:19 | CP.PCM.PN ---
Subjective - Date & Time of Evaluation Date of Evaluation: 01/03/18 Time of Evaluation: 16:05 - Subjective Subjective: Patient resting comfortably. Mild pain this AM. Peg insertion in place. Abdomen soft and non tender. Patient states he is hungry. Objective - Vital Signs/Intake and Output Vital Signs (last 24 hours): Temp Pulse Resp BP Pulse Ox 98.0 F 57 L 18 93/53 L 100 01/03/18 15:00 01/03/18 15:00 01/03/18 15:00 01/03/18 15:00 01/03/18 15:00 Intake and Output: 01/03/18 01/04/18 18:59 06:59 Intake Total 520 Output Total 850 Balance -330 - Medications Medications: Current Medications Acetylcysteine (Acetylcysteine 20%) 4 ml INH RQ6 [facility] Last Admin: 01/03/18 13:24 Dose: Not Given Albuterol Sulfate (Albuterol 0.083% Inhal Martha (2.5 Mg/3 Ml) Ud) 2.5 mg INH RQ6 [facility] Budesonide (Pulmicort Respules) 0.5 mg INH RQ12 [facility] Last Admin: 01/03/18 08:58 Dose: 0.5 mg Heparin Sodium (Porcine) (Heparin) 5,000 units SC Q12 [facility] Last Admin: 01/03/18 09:53 Dose: Not Given Linezolid (Zyvox 600mg/300ml D5w) 600 mg in 300 mls @ 200 mls/hr IVPB Q12H [facility] PRN Reason: Protocol Last Admin: 01/03/18 13:46 Dose: 200 mls/hr Chromium/Copper/Manganese/Zinc (1 ml/ Amino Acids) 1,001 mls @ 65 mls/hr IV .[id number] ONE Stop: 01/04/18 00:53 Last Admin: 01/03/18 10:52 Dose: 65 mls/hr Lactated Ringer's (Lactated Ringer's) 1,000 mls @ 100 mls/hr IV .Q10H [facility] Last Admin: 01/03/18 06:46 Dose: 100 mls/hr Multivitamins/Vitamin C 10 ml/Chromium/Copper/Manganese/Zinc 1 ml/ Amino Acids 1,011 mls @ 65 mls/hr IV .[id number] [facility] Stop: 01/04/18 01:48 Last Admin: 01/03/18 10:53 Dose: Not Given Methylprednisolone (Solu-Medrol) 20 mg IVP Q12H [facility] Last Admin: 01/03/18 18:01 Dose: 20 mg Montelukast Sodium (Singulair) 10 mg PO HS [facility] Last Admin: 01/02/18 21:05 Dose: Not Given Morphine Sulfate (Morphine) 2 mg IVP Q4 PRN PRN Reason: Pain, moderate (4-7) Last Admin: 01/03/18 13:52 Dose: 2 mg Nystatin (Nystatin Oral Susp) 5 ml PO QID [facility] Last Admin: 01/03/18 18:38 Dose: Not Given Ondansetron HCl (Zofran Inj) 4 mg IVP Q6 PRN PRN Reason: Nausea/Vomiting Last Admin: 01/02/18 18:14 Dose: 4 mg Pantoprazole Sodium (Protonix Inj) 40 mg IVP DAILY [facility] Last Admin: 01/03/18 09:52 Dose: 40 mg - Labs Labs: 01/03/18 05:07 01/03/18 05:07 PT 14.3 SECONDS (9.7-12.2) H 01/01/18 06:34 INR 1.3 01/01/18 06:34 APTT 34 SECONDS (21-34) 01/01/18 06:34 - Constitutional Appears: Cachectic - Head Exam Head Exam: NORMOCEPHALIC - Eye Exam Eye Exam: Normal appearance Pupil Exam: NORMAL ACCOMODATION - ENT Exam ENT Exam: Normal Exam - Neck Exam Neck Exam: Normal Inspection - Respiratory Exam Respiratory Exam: Decreased Breath Sounds - Cardiovascular Exam Cardiovascular Exam: REGULAR RHYTHM - GI/Abdominal Exam GI & Abdominal Exam: Normal Bowel Sounds - Rectal Exam Rectal Exam: Deferred - Exam Exam: NORMAL INSPECTION External exam: NORMAL EXTERNAL EXAM - Extremities Exam Extremities Exam: Normal Inspection - Back Exam Back Exam: NORMAL INSPECTION - Neurological Exam Neurological Exam: Awake - Psychiatric Exam Psychiatric exam: Depressed - Skin Skin Exam: Dry Assessment and Plan (1) Acute pneumonia Status: Acute (2) Cachexia Status: Acute (3) Emphysema lung Status: Acute (4) Hypernatremia Status: Resolved (5) Prerenal azotemia Status: Resolved (6) Severe dehydration Status: Acute
[2018-01-03] MEDS: Albuterol 0.083% Inhal Sol (2.5 mg/3 mL) UD INH SCH (20:39)
[2018-01-04] MEDS: Linezolid 600 mg in D5W 300 ml 600 MG/300 ML BAG IVPB SCH ×2 (01:01→13:19)
[2018-01-04] MEDS: Lactated Ringer's 1,000 ML IV SCH ×2 (01:01→16:47)
[2018-01-04] MEDS: Acetylcysteine 20% Inhal Soln (4ml) INH SCH ×4 (02:50→19:51)
[2018-01-04] MEDS: Albuterol 0.083% Inhal Sol (2.5 mg/3 mL) UD INH SCH ×4 (02:51→19:51)
[2018-01-04] MEDS: MethylPREDNISolone 40 mg Vial IVP SCH ×2 (05:53→16:40)
[2018-01-04] MEDS: Budesonide 0.5 mg/2 ml Inhal Susp UD INH SCH ×2 (07:20→19:51)
[2018-01-04 08:29] LABS: BASO % 0.3 % (0.0-2.0); EOS % 0.2 % (0.0-4.0); HEMOGLOBIN 10.8 g/dL (12.0-18.0); LYMPH # 0.4 K/uL (1.0-4.3); MEAN CELL VOLUME 85.3 fL (80.0-94.0); MEAN CORPUSCULAR HEMOGLOBIN 28.5 pg (27.0-31.0); MEAN CORPUSCULAR HGB CONC 33.3 g/dL (33.0-37.0); MEAN PLATELET VOLUME 8.5 fL (7.2-11.7); MONO # 0.4 K/uL (0.0-0.8); MONO % 3.3 % (0.0-10.0); NEUT # 11.9 K/uL (1.8-7.0); NEUT % 93.2 % (50.0-75.0); NRBC % 0.1 % (0.0-2.0); PLATELET COUNT 336 K/uL (130-400); RBC 3.81 Mil/uL (4.40-5.90); RED CELL DISTRIBUTION WIDTH 14.5 % (11.5-14.5); WHITE BLOOD COUNT 12.8 K/uL (4.8-10.8)
[2018-01-04 08:41] LABS: ALB/GLOB RATIO 0.8 (1.0-2.1); ALBUMIN 2.4 g/dL (3.5-5.0); ALT/SGPT 30 U/L (21-72); AST/SGOT 24 U/L (17-59); BLOOD UREA NITROGEN 20 mg/dL (9-20); CALCIUM 8.4 mg/dl (8.6-10.4); GFR AFRICAN-AMERICAN > 60; GFR NON-AFRICAN AMERICAN > 60
[2018-01-04 09:14] LABS: ANISOCYTOSIS SLIGHT; LYMPHOCYTE 4 % (20-40); MONOCYTE 2 % (0-10); NEUTROPHIL 94 % (50-75); PLATELET ESTIMATE NORMAL (NORMAL); TOTAL CELLS COUNTED 100
[2018-01-04 09:15] LABS: GIANT PLATELETS PRESENT; LARGE PLATELETS PRESENT; OVALOCYTES SLIGHT; POIKILOCYTOSIS SLIGHT
[2018-01-04 09:16] LABS: BURR CELLS SLIGHT; SCHISTOCYTES SLIGHT; TEARDROP CELLS SLIGHT
--- NOTE | 2018-01-04 09:17 | CP.PCM.PN ---
Subjective - Date & Time of Evaluation Date of Evaluation: 01/04/18 Time of Evaluation: 07:00 - Subjective Subjective: THORACIC SURGERY PROGRESS NOTE FOR DR. MACIAS Patient seen and examined at bedside. He reports that he is hungry and wants to eat. Reports his abdomen is "sore". The gastrostomy tube is in place to gravity. Objective - Vital Signs/Intake and Output Vital Signs (last 24 hours): Temp Pulse Resp BP Pulse Ox 98.0 F 61 20 114/70 97 01/04/18 08:13 01/04/18 08:13 01/04/18 08:13 01/04/18 08:13 01/04/18 08:13 Intake and Output: 01/04/18 01/04/18 06:59 18:59 Output Total 1080 20 Balance -1080 -20 - Medications Medications: Current Medications Acetylcysteine (Acetylcysteine 20%) 4 ml INH RQ6 [facility] Last Admin: 01/04/18 07:20 Dose: 4 ml Albuterol Sulfate (Albuterol 0.083% Inhal Martha (2.5 Mg/3 Ml) Ud) 2.5 mg INH RQ6 [facility] Last Admin: 01/04/18 07:20 Dose: 2.5 mg Budesonide (Pulmicort Respules) 0.5 mg INH RQ12 [facility] Last Admin: 01/04/18 07:20 Dose: 0.5 mg Heparin Sodium (Porcine) (Heparin) 5,000 units SC Q12 [facility] Last Admin: 01/03/18 21:35 Dose: 5,000 units Linezolid (Zyvox 600mg/300ml D5w) 600 mg in 300 mls @ 200 mls/hr IVPB Q12H [facility] PRN Reason: Protocol Last Admin: 01/04/18 01:01 Dose: 200 mls/hr Lactated Ringer's (Lactated Ringer's) 1,000 mls @ 100 mls/hr IV .Q10H [facility] Last Admin: 01/04/18 01:01 Dose: 100 mls/hr Methylprednisolone (Solu-Medrol) 20 mg IVP Q12H [facility] Last Admin: 01/04/18 05:53 Dose: 20 mg Montelukast Sodium (Singulair) 10 mg PO HS [facility] Last Admin: 01/03/18 21:38 Dose: Not Given Morphine Sulfate (Morphine) 2 mg IVP Q4 PRN PRN Reason: Pain, moderate (4-7) Last Admin: 01/03/18 13:52 Dose: 2 mg Nystatin (Nystatin Oral Susp) 5 ml PO QID [facility] Last Admin: 01/03/18 21:38 Dose: Not Given Ondansetron HCl (Zofran Inj) 4 mg IVP Q6 PRN PRN Reason: Nausea/Vomiting Last Admin: 01/02/18 18:14 Dose: 4 mg Pantoprazole Sodium (Protonix Inj) 40 mg IVP DAILY [facility] Last Admin: 01/03/18 09:52 Dose: 40 mg - Labs Labs: 01/04/18 08:07 01/04/18 08:07 PT 14.3 SECONDS (9.7-12.2) H 01/01/18 06:34 INR 1.3 01/01/18 06:34 APTT 34 SECONDS (21-34) 01/01/18 06:34 - Constitutional Appears: Well, Non-toxic, No Acute Distress - Respiratory Exam Respiratory Exam: NORMAL BREATHING PATTERN. absent: Respiratory Distress - Cardiovascular Exam Cardiovascular Exam: +S1, +S2 - GI/Abdominal Exam GI & Abdominal Exam: Soft, Tenderness (mild tenderness gilda-incisional). absent : Distended, Firm, Guarding, Rigid, Rebound Additional comments: Dressing removed. Elsa in place Gastrostomy tube in place to gravity with 50cc output over past 24 hours - Neurological Exam Neurological Exam: Alert, Awake - Psychiatric Exam Psychiatric exam: Normal Affect, Normal Mood Assessment and Plan - Assessment and Plan (Free Text) Assessment: 87M with esophageal mass/stricture now POD #2 s/p open Gastrostomy tube insertion Plan: - Ordered tube study to confirm tube position - no extravasation of contrast - May start D5W 100cc at a time flushes, checking for residuals after (for a total of 4x over 4 hours). After that, increase amount to 150cc D5W every 2 hours, for an additional 4 doses. - If pt tolerates well, may start tube feeds tomorrow at low rate - Cont PPN - Replace electrolytes PRN - Further mgmt as per primary team - Discussed plan with Dr. Lili Bertrand PGY-4
[2018-01-04] MEDS ORDERED: Iohexol 240 (50 ml) ONE ×2 (09:38→09:45)
--- NOTE | 2018-01-04 09:59 | RAD ---
Date of service: 01/04/2018 HISTORY: pneumonia, new G tube COMPARISON: Portable chest 01/02/2018. FINDINGS: LUNGS: Extensive COPD changes are reiterated with persistent airspace disease seen at the mid right lung zone and borderline at the right base. PLEURA: No significant pleural effusion identified, no pneumothorax apparent. CARDIOVASCULAR: Normal. OSSEOUS STRUCTURES: No significant abnormalities. VISUALIZED UPPER ABDOMEN: Normal. OTHER FINDINGS: Right PICC unchanged in position. IMPRESSION: Persistent limited airspace disease mid left lung zone and minimally at the right base with stable appearing COPD evident as well. No interval acute cardiopulmonary findings.
--- NOTE | 2018-01-04 10:11 | RAD ---
Date of service: 01/04/2018 HISTORY: Gastrostomy tube study COMPARISON: Abdomen and pelvis CT 12/24/2017. FINDINGS: BOWEL: Preliminary radiograph demonstrates oral contrast retained in the distal greater than proximal large bowel segments. Skin david are identified in the midline upper abdomen. Nonobstructive bowel gas pattern. Two be seen in the left valencia abdomen terminating at the epigastric region centrally. Subsequent images demonstrate oral contrast opacification of the gastric viscus viral contrast which is an did which enters into the did duodenum. A gastric tube is identified placed with the bulb localizing to the region of the antrum. No extravasated oral contrast material identified. BONES: Normal. OTHER FINDINGS: None. IMPRESSION: As above.
[2018-01-04] MEDS: Nystatin 100,000 Units/ml Oral Susp 5 ml UD PO SCH (10:34)
[2018-01-04] MEDS ORDERED: PPN #15 IV ONE (18:00)
--- NOTE | 2018-01-04 18:25 | CP.PCM.PN ---
Subjective - Date & Time of Evaluation Date of Evaluation: 01/04/18 Time of Evaluation: 16:35 - Subjective Subjective: Patient sleeping comfortably. He complains of mild abdominal soreness. Peg in place. evaluation in AM for tube feedings Objective - Vital Signs/Intake and Output Vital Signs (last 24 hours): Temp Pulse Resp BP Pulse Ox 97.7 F 71 20 93/52 L 99 01/04/18 15:46 01/04/18 15:46 01/04/18 15:46 01/04/18 15:46 01/04/18 15:46 Intake and Output: 01/04/18 01/04/18 06:59 18:59 Output Total 1080 60 Balance -1080 -60 - Medications Medications: Current Medications Acetylcysteine (Acetylcysteine 20%) 4 ml INH RQ6 [facility] Last Admin: 01/04/18 13:25 Dose: 4 ml Albuterol Sulfate (Albuterol 0.083% Inhal Martha (2.5 Mg/3 Ml) Ud) 2.5 mg INH RQ6 [facility] Last Admin: 01/04/18 13:25 Dose: 2.5 mg Budesonide (Pulmicort Respules) 0.5 mg INH RQ12 [facility] Last Admin: 01/04/18 07:20 Dose: 0.5 mg Heparin Sodium (Porcine) (Heparin) 5,000 units SC Q12 [facility] Last Admin: 01/04/18 10:54 Dose: 5,000 units Linezolid (Zyvox 600mg/300ml D5w) 600 mg in 300 mls @ 200 mls/hr IVPB Q12H [facility] PRN Reason: Protocol Last Admin: 01/04/18 13:19 Dose: 200 mls/hr Lactated Ringer's (Lactated Ringer's) 1,000 mls @ 100 mls/hr IV .Q10H [facility] Last Admin: 01/04/18 16:47 Dose: 100 mls/hr Potassium Phosphate 15 mmole/Chromium/Copper/Manganese/Zinc 1 ml/ Amino Acids 1 ,006 mls @ 65 mls/hr IV .[id number] [facility] Stop: 01/05/18 09:28 Last Admin: 01/04/18 17:38 Dose: 65 mls/hr Potassium Phosphate 15 mmole/Chromium/Copper/Manganese/Zinc 1 ml/ Amino Acids 1 ,006 mls @ 65 mls/hr IV .[id number] [facility] Stop: 01/05/18 17:59 Fat Emulsion Intravenous (Intralipid 20%) 500 mls @ 48 mls/hr IV MWF [facility] Stop: 01/10/18 09:01 Methylprednisolone (Solu-Medrol) 20 mg IVP Q12H [facility] Last Admin: 01/04/18 16:40 Dose: 20 mg Montelukast Sodium (Singulair) 10 mg PO HS [facility] Last Admin: 01/03/18 21:38 Dose: Not Given Morphine Sulfate (Morphine) 2 mg IVP Q4 PRN PRN Reason: Pain, moderate (4-7) Last Admin: 01/04/18 10:54 Dose: 2 mg Ondansetron HCl (Zofran Inj) 4 mg IVP Q6 PRN PRN Reason: Nausea/Vomiting Last Admin: 01/02/18 18:14 Dose: 4 mg Pantoprazole Sodium (Protonix Inj) 40 mg IVP DAILY [facility] Last Admin: 01/04/18 10:54 Dose: 40 mg - Labs Labs: 01/04/18 08:07 01/04/18 08:07 PT 14.3 SECONDS (9.7-12.2) H 01/01/18 06:34 INR 1.3 01/01/18 06:34 APTT 34 SECONDS (21-34) 01/01/18 06:34 - Constitutional Appears: Cachectic - Head Exam Head Exam: NORMAL INSPECTION - Eye Exam Eye Exam: Normal appearance Pupil Exam: NORMAL ACCOMODATION - ENT Exam ENT Exam: Normal Exam - Neck Exam Neck Exam: Normal Inspection - Respiratory Exam Respiratory Exam: Decreased Breath Sounds - Cardiovascular Exam Cardiovascular Exam: REGULAR RHYTHM - GI/Abdominal Exam GI & Abdominal Exam: Normal Bowel Sounds - Rectal Exam Rectal Exam: Deferred - Exam Exam: NORMAL INSPECTION - Extremities Exam Extremities Exam: Normal Inspection - Neurological Exam Neurological Exam: Oriented x3 - Psychiatric Exam Psychiatric exam: Depressed - Skin Skin Exam: Dry Assessment and Plan (1) Acute pneumonia Status: Acute (2) Cachexia Status: Acute (3) Emphysema lung Status: Acute (4) Hypernatremia Status: Resolved (5) Prerenal azotemia Status: Resolved (6) Severe dehydration Status: Acute
[2018-01-05] MEDS: Linezolid 600 mg in D5W 300 ml 600 MG/300 ML BAG IVPB SCH (01:00)
[2018-01-05] MEDS: Albuterol 0.083% Inhal Sol (2.5 mg/3 mL) UD INH SCH ×4 (02:51→20:17)
[2018-01-05] MEDS: Acetylcysteine 20% Inhal Soln (4ml) INH SCH ×4 (02:51→20:19)
[2018-01-05] MEDS: MethylPREDNISolone 40 mg Vial IVP SCH ×2 (03:24→17:41)
[2018-01-05] MEDS: Lactated Ringer's 1,000 ML IV SCH ×3 (03:25→14:35)
[2018-01-05] MEDS: Budesonide 0.5 mg/2 ml Inhal Susp UD INH SCH ×2 (07:49→20:17)
[2018-01-05] MEDS ORDERED: Fat Emulsion 20% IV 500 ML IV SCH (09:00)
[2018-01-05] MEDS ORDERED: PPN #16 IV SCH (09:29)
--- NOTE | 2018-01-05 11:00 | CP.PCM.PN ---
Subjective - Date & Time of Evaluation Date of Evaluation: 01/05/18 Time of Evaluation: 08:00 - Subjective Subjective: events noted cxr with ppersistent infiltrate IV rx renewed Objective - Vital Signs/Intake and Output Vital Signs (last 24 hours): Temp Pulse Resp BP Pulse Ox 97.3 F L 58 L 20 132/79 97 01/05/18 07:00 01/05/18 07:00 01/05/18 07:00 01/05/18 07:00 01/05/18 07:00 Intake and Output: 01/05/18 01/05/18 06:59 18:59 Intake Total 1100 Output Total 100 Balance 1000 - Medications Medications: Current Medications Acetylcysteine (Acetylcysteine 20%) 4 ml INH RQ6 [facility] Last Admin: 01/05/18 07:49 Dose: 4 ml Albuterol Sulfate (Albuterol 0.083% Inhal Martha (2.5 Mg/3 Ml) Ud) 2.5 mg INH RQ6 [facility] Last Admin: 01/05/18 07:49 Dose: 2.5 mg Budesonide (Pulmicort Respules) 0.5 mg INH RQ12 [facility] Last Admin: 01/05/18 07:49 Dose: 0.5 mg Heparin Sodium (Porcine) (Heparin) 5,000 units SC Q12 [facility] Last Admin: 01/05/18 10:50 Dose: 5,000 units Linezolid (Zyvox 600mg/300ml D5w) 600 mg in 300 mls @ 200 mls/hr IVPB Q12H [facility] PRN Reason: Protocol Last Admin: 01/05/18 01:00 Dose: 200 mls/hr Lactated Ringer's (Lactated Ringer's) 1,000 mls @ 100 mls/hr IV .Q10H [facility] Last Admin: 01/05/18 03:45 Dose: Not Given Potassium Phosphate 15 mmole/Chromium/Copper/Manganese/Zinc 1 ml/ Amino Acids 1 ,006 mls @ 65 mls/hr IV .[id number] [facility] Stop: 01/05/18 17:59 Last Admin: 01/05/18 10:51 Dose: 65 mls/hr Fat Emulsion Intravenous (Intralipid 20%) 500 mls @ 48 mls/hr IV MWF [facility] Stop: 01/10/18 09:01 Last Admin: 01/05/18 10:50 Dose: 48 mls/hr Multivitamins/Vitamin C 10 ml/Chromium/Copper/Manganese/Zinc 1 ml/ Potassium Phosphate 15 mmole/ Amino Acids 1,016 mls @ 65 mls/hr IV .[id number] [facility] Stop: 01/06/18 09:37 Chromium/Copper/Manganese/Zinc 1 ml/ Potassium Phosphate 15 mmole/ Amino Acids 1,006 mls @ 65 mls/hr IV .[id number] [facility] Stop: 01/07/18 00:58 Methylprednisolone (Solu-Medrol) 20 mg IVP Q12H [facility] Last Admin: 01/05/18 03:24 Dose: 20 mg Montelukast Sodium (Singulair) 10 mg PO HS [facility] Last Admin: 01/04/18 21:34 Dose: Not Given Morphine Sulfate (Morphine) 2 mg IVP Q4 PRN PRN Reason: Pain, moderate (4-7) Last Admin: 01/04/18 19:31 Dose: 2 mg Ondansetron HCl (Zofran Inj) 4 mg IVP Q6 PRN PRN Reason: Nausea/Vomiting Last Admin: 01/02/18 18:14 Dose: 4 mg Pantoprazole Sodium (Protonix Inj) 40 mg IVP DAILY [facility] Last Admin: 01/05/18 10:50 Dose: 40 mg - Labs Labs: 01/04/18 08:07 01/04/18 08:07 PT 14.3 SECONDS (9.7-12.2) H 01/01/18 06:34 INR 1.3 01/01/18 06:34 APTT 34 SECONDS (21-34) 01/01/18 06:34 Assessment and Plan (1) Acute pneumonia Status: Acute (2) Bullous emphysema Status: Acute (3) Cachexia Status: Acute (4) Emphysema lung Status: Acute (5) Hypernatremia Status: Resolved (6) Pneumonia Status: Acute (7) Prerenal azotemia Status: Resolved (8) Severe dehydration Status: Acute (9) MRSA (methicillin resistant staph aureus) culture positive Status: Acute
--- NOTE | 2018-01-05 12:45 | CP.PCM.PN ---
Subjective - Date & Time of Evaluation Date of Evaluation: 01/05/18 Time of Evaluation: 12:42 - Subjective Subjective: PPN, lipid infusion in place phos decreased; otherwise labs acceptable awaiting start PEG feeds Objective - Vital Signs/Intake and Output Vital Signs (last 24 hours): Temp Pulse Resp BP Pulse Ox 97.3 F L 58 L 20 132/79 97 01/05/18 07:00 01/05/18 07:00 01/05/18 07:00 01/05/18 07:00 01/05/18 07:00 Intake and Output: 01/05/18 01/05/18 06:59 18:59 Intake Total 1100 Output Total 100 Balance 1000 - Medications Medications: Current Medications Acetylcysteine (Acetylcysteine 20%) 4 ml INH RQ6 [facility] Last Admin: 01/05/18 07:49 Dose: 4 ml Albuterol Sulfate (Albuterol 0.083% Inhal Martha (2.5 Mg/3 Ml) Ud) 2.5 mg INH RQ6 [facility] Last Admin: 01/05/18 07:49 Dose: 2.5 mg Budesonide (Pulmicort Respules) 0.5 mg INH RQ12 [facility] Last Admin: 01/05/18 07:49 Dose: 0.5 mg Heparin Sodium (Porcine) (Heparin) 5,000 units SC Q12 [facility] Last Admin: 01/05/18 10:50 Dose: 5,000 units Linezolid (Zyvox 600mg/300ml D5w) 600 mg in 300 mls @ 200 mls/hr IVPB Q12H [facility] PRN Reason: Protocol Last Admin: 01/05/18 01:00 Dose: 200 mls/hr Lactated Ringer's (Lactated Ringer's) 1,000 mls @ 100 mls/hr IV .Q10H [facility] Last Admin: 01/05/18 03:45 Dose: Not Given Potassium Phosphate 15 mmole/Chromium/Copper/Manganese/Zinc 1 ml/ Amino Acids 1 ,006 mls @ 65 mls/hr IV .[id number] [facility] Stop: 01/05/18 17:59 Last Admin: 01/05/18 10:51 Dose: 65 mls/hr Fat Emulsion Intravenous (Intralipid 20%) 500 mls @ 48 mls/hr IV MWF [facility] Stop: 01/10/18 09:01 Last Admin: 01/05/18 10:50 Dose: 48 mls/hr Multivitamins/Vitamin C 10 ml/Chromium/Copper/Manganese/Zinc 1 ml/ Potassium Phosphate 15 mmole/ Amino Acids 1,016 mls @ 65 mls/hr IV .[id number] [facility] Stop: 01/06/18 09:37 Chromium/Copper/Manganese/Zinc 1 ml/ Potassium Phosphate 15 mmole/ Amino Acids 1,006 mls @ 65 mls/hr IV .[id number] [facility] Stop: 01/07/18 00:58 Methylprednisolone (Solu-Medrol) 20 mg IVP Q12H [facility] Last Admin: 01/05/18 03:24 Dose: 20 mg Montelukast Sodium (Singulair) 10 mg PO HS [facility] Last Admin: 01/04/18 21:34 Dose: Not Given Morphine Sulfate (Morphine) 2 mg IVP Q4 PRN PRN Reason: Pain, moderate (4-7) Last Admin: 01/04/18 19:31 Dose: 2 mg Ondansetron HCl (Zofran Inj) 4 mg IVP Q6 PRN PRN Reason: Nausea/Vomiting Last Admin: 01/02/18 18:14 Dose: 4 mg Pantoprazole Sodium (Protonix Inj) 40 mg IVP DAILY [facility] Last Admin: 01/05/18 10:50 Dose: 40 mg - Labs Labs: 01/04/18 08:07 01/04/18 08:07 PT 14.3 SECONDS (9.7-12.2) H 01/01/18 06:34 INR 1.3 01/01/18 06:34 APTT 34 SECONDS (21-34) 01/01/18 06:34 - Constitutional Appears: No Acute Distress, Chronically Ill - Head Exam Head Exam: ATRAUMATIC, NORMAL INSPECTION - Eye Exam Eye Exam: EOMI, Normal appearance - Neck Exam Neck Exam: Normal Inspection. absent: Tenderness - Respiratory Exam Respiratory Exam: Clear to Ausculation Bilateral, NORMAL BREATHING PATTERN - Cardiovascular Exam Cardiovascular Exam: REGULAR RHYTHM, +S1 - GI/Abdominal Exam GI & Abdominal Exam: Soft. absent: Tenderness - Extremities Exam Extremities Exam: Normal Inspection. absent: Tenderness - Neurological Exam Neurological Exam: Awake, CN II-XII Intact - Skin Skin Exam: Dry, Warm Assessment and Plan (1) Emphysema lung Status: Acute (2) Prerenal azotemia Status: Resolved (3) Hypernatremia Status: Resolved (4) Pneumonia Status: Acute (5) Severe dehydration Status: Acute - Assessment and Plan (Free Text) Plan: replete phos await PEG feeds follow up chemistries
[2018-01-05] MEDS ORDERED: POTASSIUM PHOSPHATE IV ONE (13:30)
[2018-01-05] MEDS ORDERED: SODIUM CHLORIDE IV ONE (13:30)
[2018-01-05] MEDS: Vancomycin 1 gm/NS 200 ml 1 GM/200 ML BAG IVPB SCH (14:35)
--- NOTE | 2018-01-05 16:25 | PN ---
Copied To: Vasquez Orourke MD Attending MD: Vasquez Orourke MD DATE: 01/05/2018 LOCATION: 555. SUBJECTIVE: This is an 87-year-old male seen and examined in rounds without significant clinical changes or reported active bleeding as per the staff. The gastrostomy tube is in place and the patient tolerating feeding process well. No reported active bleeding, chest pain, palpitation, significant shortness of breath, chills, or fever so far. The entire chart is reviewed including but not limited to most recent lab and radiology study results, current and the previous medication list, current and the previous medical events. Today's lab showed blood glucose level of 104; however, the patient still has low calcium, low phosphorus, and low albumin with low hemoglobin and hematocrit, but leukocytosis of 10.8 and hematocrit 32.5 as per yesterday's workup. The patient had abdominal x-ray yesterday, official report is seen. PHYSICAL EXAMINATION: GENERAL: An 87-year-old male. VITAL SIGNS: Afebrile with pulse of 60, respiratory rate of 20-22, blood pressure 120/74. HEENT: Showed pale, dry oral mucous membrane. Nonicteric sclerae. LUNGS: Few scattered crepitation. Decreased air entry at bases. HEART: Positive S1 and S2. ABDOMEN: With gastrostomy tube in place without evidence of anterior abdominal wall cellulitis. EXTREMITIES: Without significant clubbing, cyanosis or edema, but evidence of muscle wasting syndrome. NEUROLOGIC: No reported new neurological deficits, sensory or motor. IMPRESSION: 1. Malnutrition with hypoalbuminemia and hypoproteinemia. 2. Status post gastrostomy tube insertion. 3. 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 4. Anemia, most likely secondary to above with elevated carcinoembryonic antigen level. 5. Fecal impaction by radiology study results. 6. Elevated carcinoembryonic antigen level, possibility of lower gastrointestinal tract neoplastic lesion was raised. SUGGESTIONS: 1. Agree with your plan. 2. Correct any underlying electrolyte imbalance. 3. The patient may need colonoscopy versus barium enema when he is more stable clinically. 4. Subsequent increase rate of tube feeding as tolerated. Further recommendation to follow. Vasquez Orourke MD [facility] # [id number]
[2018-01-05] MEDS ORDERED: PPN #17 IV ONE (18:00)
--- NOTE | 2018-01-05 18:34 | CP.PCM.PN ---
Subjective - Date & Time of Evaluation Date of Evaluation: 01/05/18 Time of Evaluation: 07:00 - Subjective Subjective: THORACIC SURGERY PROGRESS NOTE FOR DR. MACIAS Patient seen and examined at bedside. Reports his abdomen is "sore". The gastrostomy tube is in place to gravity. Objective - Vital Signs/Intake and Output Vital Signs (last 24 hours): Temp Pulse Resp BP Pulse Ox 97.9 F 71 20 116/69 98 01/05/18 16:00 01/05/18 16:00 01/05/18 16:00 01/05/18 16:00 01/05/18 16:00 Intake and Output: 01/05/18 01/05/18 06:59 18:59 Intake Total 1100 Output Total 100 Balance 1000 - Medications Medications: Current Medications Acetylcysteine (Acetylcysteine 20%) 4 ml INH RQ6 [facility] Last Admin: 01/05/18 13:17 Dose: 4 ml Albuterol Sulfate (Albuterol 0.083% Inhal Martha (2.5 Mg/3 Ml) Ud) 2.5 mg INH RQ6 [facility] Last Admin: 01/05/18 13:17 Dose: 2.5 mg Budesonide (Pulmicort Respules) 0.5 mg INH RQ12 [facility] Last Admin: 01/05/18 07:49 Dose: 0.5 mg Heparin Sodium (Porcine) (Heparin) 5,000 units SC Q12 [facility] Last Admin: 01/05/18 10:50 Dose: 5,000 units Lactated Ringer's (Lactated Ringer's) 1,000 mls @ 100 mls/hr IV .Q10H [facility] Last Admin: 01/05/18 14:35 Dose: 100 mls/hr Vancomycin/Sodium Chloride (Vancomycin 1 Gm/Ns 200 Ml) 1 gm in 200 mls @ 133.333 mls/hr IVPB Q12H [facility] Stop: 01/10/18 14:01 Last Admin: 01/05/18 14:35 Dose: 133.333 mls/hr Methylprednisolone (Solu-Medrol) 20 mg IVP Q12H [facility] Last Admin: 01/05/18 17:41 Dose: 20 mg Montelukast Sodium (Singulair) 10 mg PO HS [facility] Last Admin: 01/04/18 21:34 Dose: Not Given Morphine Sulfate (Morphine) 2 mg IVP Q4 PRN PRN Reason: Pain, moderate (4-7) Last Admin: 01/04/18 19:31 Dose: 2 mg Ondansetron HCl (Zofran Inj) 4 mg IVP Q6 PRN PRN Reason: Nausea/Vomiting Last Admin: 01/02/18 18:14 Dose: 4 mg Pantoprazole Sodium (Protonix Inj) 40 mg IVP DAILY [facility] Last Admin: 01/05/18 10:50 Dose: 40 mg - Labs Labs: 01/04/18 08:07 01/04/18 08:07 PT 14.3 SECONDS (9.7-12.2) H 01/01/18 06:34 INR 1.3 01/01/18 06:34 APTT 34 SECONDS (21-34) 01/01/18 06:34 - Constitutional Appears: Non-toxic, No Acute Distress, Cachectic, Chronically Ill - Respiratory Exam Respiratory Exam: NORMAL BREATHING PATTERN. absent: Respiratory Distress - Cardiovascular Exam Cardiovascular Exam: +S1, +S2 - GI/Abdominal Exam GI & Abdominal Exam: Soft, Tenderness (mild tenderness around incision ). absent: Distended, Firm, Guarding, Rigid Additional comments: Dressing removed. Elsa in place Gastrostomy tube in place to gravity with 60cc output over past 24 hours - Neurological Exam Neurological Exam: Alert, Awake - Psychiatric Exam Psychiatric exam: Normal Affect, Normal Mood - Skin Skin Exam: Dry, Normal Color, Warm Assessment and Plan - Assessment and Plan (Free Text) Assessment: 87M with esophageal mass/stricture now POD #3 s/p open Gastrostomy tube insertion Plan: - May start tube feeds tomorrow at low rate - Cont PPN - Further mgmt as per primary team - Discussed plan with Dr. Lili Bertrand PGY-4
--- NOTE | 2018-01-05 19:25 | CP.PCM.PN ---
Subjective - Date & Time of Evaluation Date of Evaluation: 01/05/18 Time of Evaluation: 16:35 - Subjective Subjective: Patient denies pain or shortness of breath. PPN infusing with no problems. Patient states he is hungry. Objective - Vital Signs/Intake and Output Vital Signs (last 24 hours): Temp Pulse Resp BP Pulse Ox 97.9 F 71 20 116/69 98 01/05/18 16:00 01/05/18 16:00 01/05/18 16:00 01/05/18 16:00 01/05/18 16:00 - Medications Medications: Current Medications Acetylcysteine (Acetylcysteine 20%) 4 ml INH RQ6 [facility] Last Admin: 01/05/18 13:17 Dose: 4 ml Albuterol Sulfate (Albuterol 0.083% Inhal Martha (2.5 Mg/3 Ml) Ud) 2.5 mg INH RQ6 [facility] Last Admin: 01/05/18 13:17 Dose: 2.5 mg Budesonide (Pulmicort Respules) 0.5 mg INH RQ12 [facility] Last Admin: 01/05/18 07:49 Dose: 0.5 mg Heparin Sodium (Porcine) (Heparin) 5,000 units SC Q12 [facility] Last Admin: 01/05/18 10:50 Dose: 5,000 units Lactated Ringer's (Lactated Ringer's) 1,000 mls @ 100 mls/hr IV .Q10H [facility] Last Admin: 01/05/18 14:35 Dose: 100 mls/hr Vancomycin/Sodium Chloride (Vancomycin 1 Gm/Ns 200 Ml) 1 gm in 200 mls @ 133.333 mls/hr IVPB Q12H [facility] Stop: 01/10/18 14:01 Last Admin: 01/05/18 14:35 Dose: 133.333 mls/hr Methylprednisolone (Solu-Medrol) 20 mg IVP Q12H [facility] Last Admin: 01/05/18 17:41 Dose: 20 mg Montelukast Sodium (Singulair) 10 mg PO HS [facility] Last Admin: 01/04/18 21:34 Dose: Not Given Morphine Sulfate (Morphine) 2 mg IVP Q4 PRN PRN Reason: Pain, moderate (4-7) Last Admin: 01/04/18 19:31 Dose: 2 mg Ondansetron HCl (Zofran Inj) 4 mg IVP Q6 PRN PRN Reason: Nausea/Vomiting Last Admin: 01/02/18 18:14 Dose: 4 mg Pantoprazole Sodium (Protonix Inj) 40 mg IVP DAILY [facility] Last Admin: 01/05/18 10:50 Dose: 40 mg - Labs Labs: 01/04/18 08:07 01/04/18 08:07 PT 14.3 SECONDS (9.7-12.2) H 01/01/18 06:34 INR 1.3 01/01/18 06:34 APTT 34 SECONDS (21-34) 01/01/18 06:34 - Constitutional Appears: No Acute Distress - Head Exam Head Exam: NORMOCEPHALIC - Eye Exam Eye Exam: Normal appearance Pupil Exam: NORMAL ACCOMODATION - Neck Exam Neck Exam: Normal Inspection - Respiratory Exam Respiratory Exam: Decreased Breath Sounds - Cardiovascular Exam Cardiovascular Exam: REGULAR RHYTHM - GI/Abdominal Exam GI & Abdominal Exam: Normal Bowel Sounds - Rectal Exam Rectal Exam: Deferred - Exam Exam: NORMAL INSPECTION - Extremities Exam Extremities Exam: Normal Inspection - Back Exam Back Exam: NORMAL INSPECTION - Neurological Exam Neurological Exam: Awake - Psychiatric Exam Psychiatric exam: Depressed - Skin Skin Exam: Dry Assessment and Plan (1) Acute pneumonia Status: Acute (2) Cachexia Status: Acute (3) Emphysema lung Status: Acute (4) Hypernatremia Status: Resolved (5) Prerenal azotemia Status: Resolved (6) Severe dehydration Status: Acute
[2018-01-06] MEDS: Vancomycin 1 gm/NS 200 ml 1 GM/200 ML BAG IVPB SCH ×2 (01:49→13:59)
[2018-01-06] MEDS: Albuterol 0.083% Inhal Sol (2.5 mg/3 mL) UD INH SCH ×4 (03:08→19:47)
[2018-01-06] MEDS: Acetylcysteine 20% Inhal Soln (4ml) INH SCH ×4 (03:08→19:47)
[2018-01-06] MEDS: MethylPREDNISolone 40 mg Vial IVP SCH ×2 (04:59→15:38)
[2018-01-06] MEDS: Budesonide 0.5 mg/2 ml Inhal Susp UD INH SCH ×2 (07:17→19:47)
[2018-01-06 07:33] LABS: ALB/GLOB RATIO 0.8 (1.0-2.1); ALT/SGPT 54 U/L (21-72); AST/SGOT 42 U/L (17-59); BLOOD UREA NITROGEN 14 mg/dL (9-20); GFR AFRICAN-AMERICAN > 60; GFR NON-AFRICAN AMERICAN > 60
--- NOTE | 2018-01-06 07:50 | CP.PCM.PN ---
Subjective - Date & Time of Evaluation Date of Evaluation: 01/06/18 Time of Evaluation: 06:30 - Subjective Subjective: THORACIC SURGERY PROGRESS NOTE FOR DR. MACIAS Patient seen and examined at bedside. Denies any pain. The gastrostomy tube is in place with Jevity 1.5 running @45cc/hr (Goal is 70). Pt reports passing flatus. No nausea or vomiting. Objective - Vital Signs/Intake and Output Vital Signs (last 24 hours): Temp Pulse Resp BP Pulse Ox 97.9 F 71 20 116/69 98 01/05/18 16:00 01/05/18 16:00 01/05/18 16:00 01/05/18 16:00 01/05/18 16:00 Intake and Output: 01/06/18 01/06/18 06:59 18:59 Intake Total 2630 Balance 2630 - Medications Medications: Current Medications Acetylcysteine (Acetylcysteine 20%) 4 ml INH RQ6 [facility] Last Admin: 01/06/18 07:17 Dose: 4 ml Albuterol Sulfate (Albuterol 0.083% Inhal Martha (2.5 Mg/3 Ml) Ud) 2.5 mg INH RQ6 [facility] Last Admin: 01/06/18 07:17 Dose: 2.5 mg Budesonide (Pulmicort Respules) 0.5 mg INH RQ12 [facility] Last Admin: 01/06/18 07:17 Dose: 0.5 mg Heparin Sodium (Porcine) (Heparin) 5,000 units SC Q12 [facility] Last Admin: 01/05/18 21:34 Dose: 5,000 units Lactated Ringer's (Lactated Ringer's) 1,000 mls @ 100 mls/hr IV .Q10H [facility] Last Admin: 01/05/18 14:35 Dose: 100 mls/hr Vancomycin/Sodium Chloride (Vancomycin 1 Gm/Ns 200 Ml) 1 gm in 200 mls @ 133.333 mls/hr IVPB Q12H [facility] Stop: 01/10/18 14:01 Last Admin: 01/06/18 01:49 Dose: 133.333 mls/hr Methylprednisolone (Solu-Medrol) 20 mg IVP Q12H [facility] Last Admin: 01/06/18 04:59 Dose: 20 mg Montelukast Sodium (Singulair) 10 mg PO HS [facility] Last Admin: 01/05/18 21:42 Dose: 10 mg Morphine Sulfate (Morphine) 2 mg IVP Q4 PRN PRN Reason: Pain, moderate (4-7) Last Admin: 01/04/18 19:31 Dose: 2 mg Ondansetron HCl (Zofran Inj) 4 mg IVP Q6 PRN PRN Reason: Nausea/Vomiting Last Admin: 01/02/18 18:14 Dose: 4 mg Pantoprazole Sodium (Protonix Inj) 40 mg IVP DAILY [facility] Last Admin: 01/05/18 10:50 Dose: 40 mg - Labs Labs: 01/04/18 08:07 01/06/18 06:52 PT 14.3 SECONDS (9.7-12.2) H 01/01/18 06:34 INR 1.3 01/01/18 06:34 APTT 34 SECONDS (21-34) 01/01/18 06:34 - Constitutional Appears: No Acute Distress, Cachectic, Chronically Ill - Respiratory Exam Respiratory Exam: NORMAL BREATHING PATTERN. absent: Respiratory Distress - Cardiovascular Exam Cardiovascular Exam: +S1, +S2 - GI/Abdominal Exam GI & Abdominal Exam: Soft. 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 Lili Bertrand PGY-4
[2018-01-06] MEDS ORDERED: PPN IV ONE (09:30)
[2018-01-06] MEDS: Lactated Ringer's 1,000 ML IV SCH ×3 (09:38→19:57)
--- NOTE | 2018-01-06 10:02 | CP.PCM.PN ---
Subjective - Date & Time of Evaluation Date of Evaluation: 01/06/18 Time of Evaluation: 10:01 - Subjective Subjective: s/p G tube, ongoing tube feeds tolerating well no diarrhea minimal residuals Objective - Vital Signs/Intake and Output Vital Signs (last 24 hours): Temp Pulse Resp BP Pulse Ox 98.0 F 67 18 130/78 97 01/06/18 07:00 01/06/18 07:00 01/06/18 07:00 01/06/18 07:00 01/06/18 07:00 Intake and Output: 01/06/18 01/06/18 06:59 18:59 Intake Total 2630 Balance 2630 - Medications Medications: Current Medications Acetylcysteine (Acetylcysteine 20%) 4 ml INH RQ6 [facility] Last Admin: 01/06/18 07:17 Dose: 4 ml Albuterol Sulfate (Albuterol 0.083% Inhal Martha (2.5 Mg/3 Ml) Ud) 2.5 mg INH RQ6 [facility] Last Admin: 01/06/18 07:17 Dose: 2.5 mg Budesonide (Pulmicort Respules) 0.5 mg INH RQ12 [facility] Last Admin: 01/06/18 07:17 Dose: 0.5 mg Heparin Sodium (Porcine) (Heparin) 5,000 units SC Q12 [facility] Last Admin: 01/06/18 09:39 Dose: 5,000 units Lactated Ringer's (Lactated Ringer's) 1,000 mls @ 100 mls/hr IV .Q10H [facility] Last Admin: 01/06/18 09:38 Dose: Not Given Vancomycin/Sodium Chloride (Vancomycin 1 Gm/Ns 200 Ml) 1 gm in 200 mls @ 133.333 mls/hr IVPB Q12H [facility] Stop: 01/10/18 14:01 Last Admin: 01/06/18 01:49 Dose: 133.333 mls/hr Methylprednisolone (Solu-Medrol) 20 mg IVP Q12H [facility] Last Admin: 01/06/18 04:59 Dose: 20 mg Montelukast Sodium (Singulair) 10 mg PO HS [facility] Last Admin: 01/05/18 21:42 Dose: 10 mg Morphine Sulfate (Morphine) 2 mg IVP Q4 PRN PRN Reason: Pain, moderate (4-7) Last Admin: 01/06/18 08:19 Dose: 2 mg Ondansetron HCl (Zofran Inj) 4 mg IVP Q6 PRN PRN Reason: Nausea/Vomiting Last Admin: 01/02/18 18:14 Dose: 4 mg Pantoprazole Sodium (Protonix Inj) 40 mg IVP DAILY [facility] Last Admin: 01/06/18 09:35 Dose: 40 mg - Labs Labs: 01/04/18 08:07 01/06/18 06:52 PT 14.3 SECONDS (9.7-12.2) H 01/01/18 06:34 INR 1.3 01/01/18 06:34 APTT 34 SECONDS (21-34) 01/01/18 06:34 - Constitutional Appears: No Acute Distress, Cachectic, Chronically Ill - Head Exam Head Exam: NORMAL INSPECTION, NORMOCEPHALIC - Eye Exam Eye Exam: Normal appearance, PERRL - ENT Exam ENT Exam: Mucous Membranes Dry - Neck Exam Neck Exam: Normal Inspection - Respiratory Exam Respiratory Exam: Clear to Ausculation Bilateral, NORMAL BREATHING PATTERN - Cardiovascular Exam Cardiovascular Exam: REGULAR RHYTHM, RRR - GI/Abdominal Exam GI & Abdominal Exam: Soft (peg) - Extremities Exam Extremities Exam: Normal Inspection - Neurological Exam Neurological Exam: Alert, Awake - Skin Skin Exam: Dry, Intact Assessment and Plan (1) Acute pneumonia Status: Acute (2) Hypernatremia Status: Resolved (3) Prerenal azotemia Status: Resolved (4) Severe dehydration Status: Acute - Assessment and Plan (Free Text) Assessment: stable electrolytes watch na level increase TF rate as tolerated dc ppn
[2018-01-06 11:57] LABS: HEMOGLOBIN 10.2 g/dL (12.0-18.0); LYMPH # 0.2 K/uL (1.0-4.3); LYMPH % 1.6 % (20.0-40.0); MEAN CELL VOLUME 85.4 fL (80.0-94.0); MEAN CORPUSCULAR HEMOGLOBIN 27.9 pg (27.0-31.0); MEAN CORPUSCULAR HGB CONC 32.6 g/dL (33.0-37.0); MEAN PLATELET VOLUME 8.1 fL (7.2-11.7); MONO # 0.3 K/uL (0.0-0.8); MONO % 2.5 % (0.0-10.0); NEUT # 10.6 K/uL (1.8-7.0); NEUT % 95.9 % (50.0-75.0); PLATELET COUNT 309 K/uL (130-400); RBC 3.65 Mil/uL (4.40-5.90); RED CELL DISTRIBUTION WIDTH 14.5 % (11.5-14.5); WHITE BLOOD COUNT 11.1 K/uL (4.8-10.8)
[2018-01-06 12:21] LABS: LYMPHOCYTE 1 % (20-40); MONOCYTE 1 % (0-10); NEUTROPHIL 98 % (50-75); PLATELET ESTIMATE NORMAL (NORMAL); TOTAL CELLS COUNTED 100
[2018-01-06 12:22] LABS: HYPOCHROMIC SLIGHT; OVALOCYTES SLIGHT; POLYCHROMIC SLIGHT
--- NOTE | 2018-01-06 12:23 | PN ---
Copied To: Jaya Pettit MD Attending MD: Jaya Pettit MD DATE: 01/05/2018 SUBJECTIVE: The patient is alert, oriented, and comfortable in bed. PHYSICAL EXAMINATION: VITAL SIGNS: He is afebrile with blood pressure 118/68, pulse 70, respirations 20 per minute, and hemoglobin oxygen saturation is 98%. MOUTH: He is status post gastrostomy tube placement for feeding. HEART: Regular. There is no gallop rhythm. LUNGS: Diminished breath sounds over the lung bases with rhonchi decreased. ABDOMEN: Soft. EXTREMITIES: Legs, no edema. LABORATORY DATA: His white count is 12,800, hemoglobin 10.8, and platelet count 336,000. Serum sodium 135, potassium 3.9, chloride 103, BUN 20, creatinine 0.6, phosphorous 2, magnesium 2.2, albumin was 2.4. Chest x-ray showed emphysematous changes and prominent bronchovascular markings. The patient was also seen by renal as well as flag signaler. IMPRESSION: Respiratory insufficiency, chronic obstructive pulmonary disease exacerbations, pneumonitis, renal insufficiency, and dysphagia. PLAN: To continue with current medications including bronchodilators, antibiotics. Gastroenterology and renal followup. Jaya Pettit MD
[2018-01-06 12:26] LABS: BLOOD UREA NITROGEN 15 mg/dL (9-20); CALCIUM 8.2 mg/dl (8.6-10.4); GFR AFRICAN-AMERICAN > 60; GFR NON-AFRICAN AMERICAN > 60
--- NOTE | 2018-01-06 14:11 | CP.PCM.PN ---
Subjective - Date & Time of Evaluation Date of Evaluation: 01/06/18 Time of Evaluation: 14:09 - Subjective Subjective: Pt s/e. Tolerating tube feeding 45cc/hr.well. Wound-no erythem or drainage. a/p: Increase tube feeding as tolerated. Wound care. Objective - Vital Signs/Intake and Output Vital Signs (last 24 hours): Temp Pulse Resp BP Pulse Ox 98.0 F 67 18 130/78 97 01/06/18 07:00 01/06/18 07:00 01/06/18 07:00 01/06/18 07:00 01/06/18 07:00 Intake and Output: 01/06/18 01/06/18 06:59 18:59 Intake Total 2630 Balance 2630 - Medications Medications: Current Medications Acetylcysteine (Acetylcysteine 20%) 4 ml INH RQ6 [facility] Last Admin: 01/06/18 13:07 Dose: 4 ml Albuterol Sulfate (Albuterol 0.083% Inhal Martha (2.5 Mg/3 Ml) Ud) 2.5 mg INH RQ6 [facility] Last Admin: 01/06/18 13:07 Dose: 2.5 mg Budesonide (Pulmicort Respules) 0.5 mg INH RQ12 [facility] Last Admin: 01/06/18 07:17 Dose: 0.5 mg Heparin Sodium (Porcine) (Heparin) 5,000 units SC Q12 [facility] Last Admin: 01/06/18 09:39 Dose: 5,000 units Lactated Ringer's (Lactated Ringer's) 1,000 mls @ 100 mls/hr IV .Q10H [facility] Last Admin: 01/06/18 13:52 Dose: 100 mls/hr Vancomycin/Sodium Chloride (Vancomycin 1 Gm/Ns 200 Ml) 1 gm in 200 mls @ 133.333 mls/hr IVPB Q12H [facility] Stop: 01/10/18 14:01 Last Admin: 01/06/18 13:59 Dose: 133.333 mls/hr Methylprednisolone (Solu-Medrol) 20 mg IVP Q12H [facility] Last Admin: 01/06/18 04:59 Dose: 20 mg Montelukast Sodium (Singulair) 10 mg PO HS [facility] Last Admin: 01/05/18 21:42 Dose: 10 mg Morphine Sulfate (Morphine) 2 mg IVP Q4 PRN PRN Reason: Pain, moderate (4-7) Last Admin: 01/06/18 08:19 Dose: 2 mg Ondansetron HCl (Zofran Inj) 4 mg IVP Q6 PRN PRN Reason: Nausea/Vomiting Last Admin: 01/02/18 18:14 Dose: 4 mg Pantoprazole Sodium (Protonix Inj) 40 mg IVP DAILY [facility] Last Admin: 01/06/18 09:35 Dose: 40 mg - Labs Labs: 01/06/18 11:48 01/06/18 11:48 PT 14.3 SECONDS (9.7-12.2) H 01/01/18 06:34 INR 1.3 01/01/18 06:34 APTT 34 SECONDS (21-34) 01/01/18 06:34
--- NOTE | 2018-01-06 18:43 | PN ---
Copied To: Vasquez Orourke MD Attending MD: Vasquez Orourke MD DATE: 01/06/2018 LOCATION: 555. SUBJECTIVE: This is an 87-year-old male seen and examined in rounds today without any significant clinical changes, tolerating gastrostomy tube, feeding well without any resistant bleeding or residual. No reported chest pain, palpitation or significant shortness of breath. No chills or fever. The entire chart is reviewed including but not limited to the most recent lab and radiology study results, current and the previous medication list, current and the previous medical events. LABORATORY DATA: Today's lab showed white blood cells of 11.1, hemoglobin 10.2, hematocrit 31.2 with normal platelet count, but blood glucose level of 122, calcium 8.2 with previously reported low albumin 2, low total protein 4.7. PHYSICAL EXAMINATION: GENERAL: An 87-year-old male, afebrile, awake, alert. VITAL SIGNS: With respiratory rate of 18-20, pulse of 74 with blood pressure 126/76. HEENT: Showed pale, dry oral mucous membrane. Nonicteric sclerae. LUNGS: Few scattered crepitation. Decreased air entry at bases. HEART: Positive S1 and S2. ABDOMEN: Soft with mild generalized tenderness. Gastrostomy tube is in place. EXTREMITIES: With evidence of muscle wasting syndrome with mild lower edematous changes. No clubbing or cyanosis. 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 IMPRESSION: 1. Malnutrition. 2. 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 3. Malnutrition with hypoalbuminemia and hypoproteinemia. 4. Status post gastrostomy tube insertion done surgically. 5. Anemia, most likely secondary to above. 6. Poorly-controlled diabetes mellitus. 7. Reported fecal impaction before by radiology study results. 8. Elevated carcinoembryonic antigen level raising the question of possible lower gastrointestinal tract neoplastic lesion. SUGGESTIONS: 1. Continue current management. 2. Increase rate of feeding as tolerated. 3. The patient may require colonoscopy after aggressive preparation when he is more stable clinically, otherwise close observation to follow. Vasquez Orourke MD [facility] # [id number]
--- NOTE | 2018-01-06 22:33 | CP.PCM.PN ---
Subjective - Date & Time of Evaluation Date of Evaluation: 01/06/18 Time of Evaluation: 13:25 - Subjective Subjective: Patient is alert and tolerating tube feedings with noo problems. Rate to be increased slowly as tolerated. will repeat labs in AM. Objective - Vital Signs/Intake and Output Vital Signs (last 24 hours): Temp Pulse Resp BP Pulse Ox 98.1 F 53 L 18 115/76 95 01/06/18 19:22 01/06/18 19:22 01/06/18 19:22 01/06/18 19:22 01/06/18 15:00 Intake and Output: 01/06/18 01/07/18 18:59 06:59 Intake Total 825 450 Output Total 200 Balance 825 250 - Medications Medications: Current Medications Acetylcysteine (Acetylcysteine 20%) 4 ml INH RQ6 [facility] Last Admin: 01/06/18 19:47 Dose: 4 ml Albuterol Sulfate (Albuterol 0.083% Inhal Martha (2.5 Mg/3 Ml) Ud) 2.5 mg INH RQ6 [facility] Last Admin: 01/06/18 19:47 Dose: 2.5 mg Budesonide (Pulmicort Respules) 0.5 mg INH RQ12 [facility] Last Admin: 01/06/18 19:47 Dose: 0.5 mg Heparin Sodium (Porcine) (Heparin) 5,000 units SC Q12 [facility] Last Admin: 01/06/18 21:46 Dose: 5,000 units Lactated Ringer's (Lactated Ringer's) 1,000 mls @ 100 mls/hr IV .Q10H [facility] Last Admin: 01/06/18 19:57 Dose: 100 mls/hr Vancomycin/Sodium Chloride (Vancomycin 1 Gm/Ns 200 Ml) 1 gm in 200 mls @ 133.333 mls/hr IVPB Q12H [facility] Stop: 01/10/18 14:01 Last Admin: 01/06/18 13:59 Dose: 133.333 mls/hr Methylprednisolone (Solu-Medrol) 20 mg IVP Q12H [facility] Last Admin: 01/06/18 15:38 Dose: 20 mg Montelukast Sodium (Singulair) 10 mg PO HS [facility] Last Admin: 01/06/18 21:46 Dose: 10 mg Morphine Sulfate (Morphine) 2 mg IVP Q4 PRN PRN Reason: Pain, moderate (4-7) Last Admin: 01/06/18 14:59 Dose: 2 mg Ondansetron HCl (Zofran Inj) 4 mg IVP Q6 PRN PRN Reason: Nausea/Vomiting Last Admin: 01/02/18 18:14 Dose: 4 mg Pantoprazole Sodium (Protonix Susp) 40 mg PO DAILY [facility] - Labs Labs: 01/06/18 11:48 01/06/18 11:48 PT 14.3 SECONDS (9.7-12.2) H 01/01/18 06:34 INR 1.3 01/01/18 06:34 APTT 34 SECONDS (21-34) 01/01/18 06:34 - Constitutional Appears: Cachectic - Head Exam Head Exam: NORMOCEPHALIC - Eye Exam Eye Exam: Normal appearance Pupil Exam: NORMAL ACCOMODATION - ENT Exam ENT Exam: Normal Exam - Neck Exam Neck Exam: Normal Inspection - Respiratory Exam Respiratory Exam: Decreased Breath Sounds - Cardiovascular Exam Cardiovascular Exam: REGULAR RHYTHM - Rectal Exam Rectal Exam: Deferred - Exam Exam: NORMAL INSPECTION - Extremities Exam Extremities Exam: Normal Inspection - Back Exam Back Exam: NORMAL INSPECTION - Neurological Exam Neurological Exam: Awake - Psychiatric Exam Psychiatric exam: Depressed - Skin Skin Exam: Dry Assessment and Plan (1) Acute pneumonia Status: Acute (2) Cachexia Status: Acute (3) Emphysema lung Status: Acute (4) Hypernatremia Status: Resolved (5) Prerenal azotemia Status: Resolved (6) Severe dehydration Status: Acute
[2018-01-07] MEDS: Vancomycin 1 gm/NS 200 ml 1 GM/200 ML BAG IVPB SCH (01:23)
[2018-01-07] MEDS: Acetylcysteine 20% Inhal Soln (4ml) INH SCH ×3 (02:09→13:48)
[2018-01-07] MEDS: Albuterol 0.083% Inhal Sol (2.5 mg/3 mL) UD INH SCH ×3 (02:09→13:48)
[2018-01-07] MEDS: MethylPREDNISolone 40 mg Vial IVP SCH ×2 (03:59→17:00)
[2018-01-07 07:45] VITALS: RESP 20
[2018-01-07 07:48] LABS: BASO % 0.1 % (0.0-2.0); EOS # 0.1 K/uL (0.0-0.7); EOS % 0.5 % (0.0-4.0); HEMOGLOBIN 9.5 g/dL (12.0-18.0); LYMPH # 0.2 K/uL (1.0-4.3); MEAN CELL VOLUME 85.4 fL (80.0-94.0); MEAN CORPUSCULAR HEMOGLOBIN 28.4 pg (27.0-31.0); MEAN CORPUSCULAR HGB CONC 33.2 g/dL (33.0-37.0); MEAN PLATELET VOLUME 8.5 fL (7.2-11.7); MONO # 0.5 K/uL (0.0-0.8); MONO % 4.3 % (0.0-10.0); NEUT # 10.9 K/uL (1.8-7.0); NEUT % 93.1 % (50.0-75.0); PLATELET COUNT 268 K/uL (130-400); RBC 3.37 Mil/uL (4.40-5.90); RED CELL DISTRIBUTION WIDTH 14.2 % (11.5-14.5); WHITE BLOOD COUNT 11.7 K/uL (4.8-10.8)
[2018-01-07] MEDS: Budesonide 0.5 mg/2 ml Inhal Susp UD INH SCH (08:01)
[2018-01-07 09:09] LABS: LYMPHOCYTE 2 % (20-40); MONOCYTE 2 % (0-10); NEUTROPHIL 96 % (50-75); PLATELET ESTIMATE NORMAL (NORMAL); TOTAL CELLS COUNTED 100
[2018-01-07 09:10] LABS: HYPOCHROMIC SLIGHT; POLYCHROMIC SLIGHT
[2018-01-07] MEDS ORDERED: Pantoprazole 40 mg Susp UD PO SCH (10:00)
[2018-01-07] MEDS: Lactated Ringer's 1,000 ML IV SCH (10:18)
--- NOTE | 2018-01-07 12:57 | CP.PCM.PN ---
Subjective - Date & Time of Evaluation Date of Evaluation: 01/07/18 Time of Evaluation: 12:56 - Subjective Subjective: alert; tolerating PEG feeds lytes acceptable Bp controlled Objective - Vital Signs/Intake and Output Vital Signs (last 24 hours): Temp Pulse Resp BP Pulse Ox 97.2 F L 56 L 20 110/68 98 01/07/18 07:00 01/07/18 07:00 01/07/18 07:00 01/07/18 07:00 01/07/18 07:00 Intake and Output: 01/07/18 01/07/18 06:59 18:59 Intake Total 2670 Output Total 200 Balance 2470 - Medications Medications: Current Medications Acetylcysteine (Acetylcysteine 20%) 4 ml INH RQ6 [facility] Last Admin: 01/07/18 08:01 Dose: 4 ml Albuterol Sulfate (Albuterol 0.083% Inhal Martha (2.5 Mg/3 Ml) Ud) 2.5 mg INH RQ6 [facility] Last Admin: 01/07/18 08:01 Dose: 2.5 mg Budesonide (Pulmicort Respules) 0.5 mg INH RQ12 [facility] Last Admin: 01/07/18 08:01 Dose: 0.5 mg Heparin Sodium (Porcine) (Heparin) 5,000 units SC Q12 [facility] Last Admin: 01/07/18 10:19 Dose: 5,000 units Vancomycin/Sodium Chloride (Vancomycin 1 Gm/Ns 200 Ml) 1 gm in 200 mls @ 133.333 mls/hr IVPB Q12H [facility] Stop: 01/10/18 14:01 Last Admin: 01/07/18 01:23 Dose: 133.333 mls/hr Methylprednisolone (Solu-Medrol) 20 mg IVP Q12H [facility] Last Admin: 01/07/18 03:59 Dose: 20 mg Montelukast Sodium (Singulair) 10 mg PO HS [facility] Last Admin: 01/06/18 21:46 Dose: 10 mg Morphine Sulfate (Morphine) 2 mg IVP Q4 PRN PRN Reason: Pain, moderate (4-7) Last Admin: 01/06/18 14:59 Dose: 2 mg Ondansetron HCl (Zofran Inj) 4 mg IVP Q6 PRN PRN Reason: Nausea/Vomiting Last Admin: 01/02/18 18:14 Dose: 4 mg Pantoprazole Sodium (Protonix Susp) 40 mg PO DAILY [facility] Last Admin: 01/07/18 10:19 Dose: 40 mg - Labs Labs: 01/07/18 07:34 01/07/18 07:34 PT 14.3 SECONDS (9.7-12.2) H 01/01/18 06:34 INR 1.3 01/01/18 06:34 APTT 34 SECONDS (21-34) 01/01/18 06:34 - Constitutional Appears: No Acute Distress, Cachectic, Chronically Ill - Head Exam Head Exam: ATRAUMATIC, NORMAL INSPECTION - Eye Exam Eye Exam: EOMI, Normal appearance - Neck Exam Neck Exam: Normal Inspection. absent: Tenderness - Respiratory Exam Respiratory Exam: Clear to Ausculation Bilateral, NORMAL BREATHING PATTERN - Cardiovascular Exam Cardiovascular Exam: REGULAR RHYTHM, +S1 - GI/Abdominal Exam GI & Abdominal Exam: Soft. absent: Tenderness - Extremities Exam Extremities Exam: Normal Inspection. absent: Tenderness - Neurological Exam Neurological Exam: Alert, CN II-XII Intact - Skin Skin Exam: Dry, Warm Assessment and Plan (1) Emphysema lung Status: Acute (2) Prerenal azotemia Status: Resolved (3) Hypernatremia Status: Resolved (4) Pneumonia Status: Acute (5) Severe dehydration Status: Acute - Assessment and Plan (Free Text) Plan: check lytes periodically monitor PEG feeds
[2018-01-07 15:43] VITALS: BP 93/46; PULSE 79; TEMP 97.8; O2SAT 96
--- NOTE | 2018-01-07 15:45 | CP.PCM.PN ---
Subjective - Date & Time of Evaluation Date of Evaluation: 01/07/18 Time of Evaluation: 09:00 - Subjective Subjective: improving alert afebrile for fountains Objective - Vital Signs/Intake and Output Vital Signs (last 24 hours): Temp Pulse Resp BP Pulse Ox 97.8 F 79 20 93/46 L 96 01/07/18 15:42 01/07/18 15:42 01/07/18 15:42 01/07/18 15:42 01/07/18 15:42 Intake and Output: 01/07/18 01/07/18 06:59 18:59 Intake Total 2670 Output Total 200 Balance 2470 - Medications Medications: Current Medications Acetylcysteine (Acetylcysteine 20%) 4 ml INH RQ6 [facility] Last Admin: 01/07/18 13:48 Dose: 4 ml Albuterol Sulfate (Albuterol 0.083% Inhal Martha (2.5 Mg/3 Ml) Ud) 2.5 mg INH RQ6 [facility] Last Admin: 01/07/18 13:48 Dose: 2.5 mg Budesonide (Pulmicort Respules) 0.5 mg INH RQ12 [facility] Last Admin: 01/07/18 08:01 Dose: 0.5 mg Heparin Sodium (Porcine) (Heparin) 5,000 units SC Q12 [facility] Last Admin: 01/07/18 10:19 Dose: 5,000 units Vancomycin/Sodium Chloride (Vancomycin 1 Gm/Ns 200 Ml) 1 gm in 200 mls @ 133.333 mls/hr IVPB Q12H [facility] Stop: 01/10/18 14:01 Last Admin: 01/07/18 01:23 Dose: 133.333 mls/hr Methylprednisolone (Solu-Medrol) 20 mg IVP Q12H [facility] Last Admin: 01/07/18 03:59 Dose: 20 mg Montelukast Sodium (Singulair) 10 mg PO HS [facility] Last Admin: 01/06/18 21:46 Dose: 10 mg Morphine Sulfate (Morphine) 2 mg IVP Q4 PRN PRN Reason: Pain, moderate (4-7) Last Admin: 01/06/18 14:59 Dose: 2 mg Ondansetron HCl (Zofran Inj) 4 mg IVP Q6 PRN PRN Reason: Nausea/Vomiting Last Admin: 01/02/18 18:14 Dose: 4 mg Pantoprazole Sodium (Protonix Susp) 40 mg PO DAILY [facility] Last Admin: 01/07/18 10:19 Dose: 40 mg - Labs Labs: 01/07/18 07:34 01/07/18 07:34 PT 14.3 SECONDS (9.7-12.2) H 01/01/18 06:34 INR 1.3 01/01/18 06:34 APTT 34 SECONDS (21-34) 01/01/18 06:34 - Constitutional Appears: Cachectic - Head Exam Head Exam: NORMOCEPHALIC - Eye Exam Eye Exam: PERRL - ENT Exam ENT Exam: Mucous Membranes Dry - Neck Exam Neck Exam: absent: Lymphadenopathy - Respiratory Exam Respiratory Exam: Decreased Breath Sounds - Cardiovascular Exam Cardiovascular Exam: REGULAR RHYTHM - GI/Abdominal Exam GI & Abdominal Exam: Distended - Rectal Exam Rectal Exam: Deferred Assessment and Plan (1) Acute pneumonia Status: Acute (2) Bullous emphysema Status: Acute (3) Cachexia Status: Acute (4) Emphysema lung Status: Acute (5) Hypernatremia Status: Resolved (6) Pneumonia Status: Acute (7) Prerenal azotemia Status: Resolved (8) Severe dehydration Status: Acute (9) MRSA (methicillin resistant staph aureus) culture positive Status: Acute
--- NOTE | 2018-01-07 17:13 | CP.PCM.PN ---
Subjective - Date & Time of Evaluation Date of Evaluation: 01/07/18 Time of Evaluation: 14:00 - Subjective Subjective: awake, alert, has some confusion, no agitation, no distress. Objective - Vital Signs/Intake and Output Vital Signs (last 24 hours): Temp Pulse Resp BP Pulse Ox 97.8 F 79 20 93/46 L 96 01/07/18 15:42 01/07/18 15:42 01/07/18 15:42 01/07/18 15:42 01/07/18 15:42 Intake and Output: 01/07/18 01/07/18 06:59 18:59 Intake Total 2670 960 Output Total 200 Balance 2470 960 - Medications Medications: Current Medications Acetylcysteine (Acetylcysteine 20%) 4 ml INH RQ6 [facility] Last Admin: 01/07/18 13:48 Dose: 4 ml Albuterol Sulfate (Albuterol 0.083% Inhal Martha (2.5 Mg/3 Ml) Ud) 2.5 mg INH RQ6 [facility] Last Admin: 01/07/18 13:48 Dose: 2.5 mg Budesonide (Pulmicort Respules) 0.5 mg INH RQ12 [facility] Last Admin: 01/07/18 08:01 Dose: 0.5 mg Heparin Sodium (Porcine) (Heparin) 5,000 units SC Q12 [facility] Last Admin: 01/07/18 10:19 Dose: 5,000 units Vancomycin/Sodium Chloride (Vancomycin 1 Gm/Ns 200 Ml) 1 gm in 200 mls @ 133.333 mls/hr IVPB Q12H [facility] Stop: 01/10/18 14:01 Last Admin: 01/07/18 01:23 Dose: 133.333 mls/hr Methylprednisolone (Solu-Medrol) 20 mg IVP Q12H [facility] Last Admin: 01/07/18 03:59 Dose: 20 mg Montelukast Sodium (Singulair) 10 mg PO HS [facility] Last Admin: 01/06/18 21:46 Dose: 10 mg Morphine Sulfate (Morphine) 2 mg IVP Q4 PRN PRN Reason: Pain, moderate (4-7) Last Admin: 01/06/18 14:59 Dose: 2 mg Ondansetron HCl (Zofran Inj) 4 mg IVP Q6 PRN PRN Reason: Nausea/Vomiting Last Admin: 01/02/18 18:14 Dose: 4 mg Pantoprazole Sodium (Protonix Susp) 40 mg PO DAILY [facility] Last Admin: 01/07/18 10:19 Dose: 40 mg - Labs Labs: 01/07/18 07:34 01/07/18 07:34 PT 14.3 SECONDS (9.7-12.2) H 01/01/18 06:34 INR 1.3 01/01/18 06:34 APTT 34 SECONDS (21-34) 01/01/18 06:34 Assessment and Plan - Assessment and Plan (Free Text) Assessment: 87 year ol male with bilateral crebral dysfunction, dehydration, poor eating, seen and examined. Awake, confused but follows commands. Tolerating PEG tube feeding well. vitals stable, afebrile. Discussed with DR Shea, and DR Olivo, plan to discharge to [facility] under DR Shea service. iv vancomycin to continue for 5 more days.
--- NOTE | 2018-01-07 22:21 | CP.PCM.DIS ---
Provider - Provider Date of Admission: 12/21/17 21:32 Attending physician: Jesus Shea MD Time Spent in preparation of Discharge (in minutes): 24 Diagnosis - Discharge Diagnosis (1) Acute pneumonia Status: Acute (2) Cachexia Status: Acute (3) Emphysema lung Status: Acute (4) Severe dehydration Status: Acute Hospital Course - Lab Results Lab Results: Micro Results 01/02/18 15:53 Peritoneal Fluid Gram Stain - Final 01/02/18 15:53 Peritoneal Fluid Body Fluid Culture - Final No growth. 12/31/17 16:31 Naris MRSA Culture - Final MRSA DETECTED 12/27/17 Unknown Nose MRSA Culture (Admit) - Final MRSA DETECTED 12/26/17 08:46 Sputum Gram Stain - Final 12/26/17 08:46 Sputum Sputum Culture - Final Methicillin Resistant S Aureus 12/22/17 06:20 Blood Blood Culture - Final NO GROWTH AFTER 5 DAYS 12/22/17 06:20 Blood Gram Stain - Final TEST NOT PERFORMED 12/22/17 06:20 Blood Blood Culture - Final NO GROWTH AFTER 5 DAYS 12/22/17 06:20 Blood Gram Stain - Final TEST NOT PERFORMED Most Recent Lab Values WBC 11.7 K/uL (4.8-10.8) H 01/07/18 07:34 RBC 3.37 Mil/uL (4.40-5.90) L 01/07/18 07:34 Hgb 9.5 g/dL (12.0-18.0) L 01/07/18 07:34 Hct 28.8 % (35.0-51.0) L 01/07/18 07:34 MCV 85.4 fL (80.0-94.0) 01/07/18 07:34 MCH 28.4 pg (27.0-31.0) 01/07/18 07:34 MCHC 33.2 g/dL (33.0-37.0) 01/07/18 07:34 RDW 14.2 % (11.5-14.5) 01/07/18 07:34 Plt Count 268 K/uL (130-400) 01/07/18 07:34 MPV 8.5 fL (7.2-11.7) 01/07/18 07:34 Neut % (Auto) 93.1 % (50.0-75.0) H 01/07/18 07:34 Lymph % (Auto) 2.0 % (20.0-40.0) L 01/07/18 07:34 Tucker % (Auto) 4.3 % (0.0-10.0) 01/07/18 07:34 Eos % (Auto) 0.5 % (0.0-4.0) 01/07/18 07:34 Baso % (Auto) 0.1 % (0.0-2.0) 01/07/18 07:34 Neut # (Auto) 10.9 K/uL (1.8-7.0) H 01/07/18 07:34 Lymph # (Auto) 0.2 K/uL (1.0-4.3) L 01/07/18 07:34 Tucker # (Auto) 0.5 K/uL (0.0-0.8) 01/07/18 07:34 Eos # (Auto) 0.1 K/uL (0.0-0.7) 01/07/18 07:34 Baso # (Auto) 0.0 K/uL (0.0-0.2) 01/07/18 07:34 Neutrophils % (Manual) 96 % (50-75) H 01/07/18 07:34 Band Neutrophils % 1 % (0-2) 01/03/18 05:07 Lymphocytes % (Manual) 2 % (20-40) L 01/07/18 07:34 Monocytes % (Manual) 2 % (0-10) 01/07/18 07:34 Eosinophils % (Manual) 2 % (0-4) 01/02/18 07:44 Basophils % (Manual) 1 % (0-2) 12/24/17 06:34 Metamyelocytes % 1 % (0-0) H 12/30/17 06:31 Toxic Granulation Present 12/27/17 06:46 Platelet Estimate Normal (NORMAL) 01/07/18 07:34 Large Platelets Present 01/04/18 08:07 Giant Platelets Present 01/04/18 08:07 RBC Morphology Normal 12/25/17 07:20 Polychromasia Slight 01/07/18 07:34 Hypochromasia (manual) Slight 01/07/18 07:34 Poikilocytosis (manual Slight 01/04/18 08:07 Anisocytosis (manual) Slight 01/04/18 08:07 Target Cells Slight 01/01/18 06:34 Tear Drop Cells Slight 01/04/18 08:07 Ovalocytes Slight 01/06/18 11:48 Marcial Cells Slight 01/04/18 08:07 Schistocytes Slight 01/04/18 08:07 ESR 47 mm/hr (0-15) H 12/25/17 07:20 PT 14.3 SECONDS (9.7-12.2) H 01/01/18 06:34 INR 1.3 01/01/18 06:34 APTT 34 SECONDS (21-34) 01/01/18 06:34 Puncture Site Rr 01/02/18 11:30 pCO2 32 mm/Hg (35-45) L 01/02/18 11:30 pO2 85 mm/Hg (80-100) 01/02/18 11:30 HCO3 23.0 mmol/L (21-28) 01/02/18 11:30 ABG pH 7.43 (7.35-7.45) 01/02/18 11:30 ABG Total CO2 22.2 mmol/L (22-28) 01/02/18 11:30 ABG O2 Saturation 99.4 % (95-98) H 01/02/18 11:30 ABG Base Excess -2.4 mmol/L (-2.0-3.0) L 01/02/18 11:30 ABG Hemoglobin 11.1 g/dL (11.7-17.4) L 01/02/18 11:30 ABG Carboxyhemoglobin 1.9 % (0.5-1.5) H 01/02/18 11:30 POC ABG HHb (Measured) 0.6 % (0.0-5.0) 01/02/18 11:30 ABG Methemoglobin 1.2 % (0.0-3.0) 01/02/18 11:30 Jakob Test Pos 01/02/18 11:30 ABG Potassium 3.7 mmol/L (3.6-5.2) 12/27/17 15:57 VBG pH 7.40 (7.32-7.43) 12/21/17 19:50 VBG pCO2 47 mmHg (40-60) 12/21/17 19:50 VBG HCO3 26.0 mmol/L 12/21/17 19:50 VBG Total CO2 30.5 mmol/L (22-28) H 12/21/17 19:50 VBG O2 Sat (Calc) 35.2 % (40-65) L 12/21/17 19:50 VBG Base Excess 3.5 mmol/L (0.0-2.0) H 12/21/17 19:50 VBG Potassium 5.4 mmol/L (3.6-5.2) H 12/21/17 19:50 A-a O2 Difference 68.0 mm/Hg 01/02/18 11:30 Respiratory Index 0.8 01/02/18 11:30 Hgb O2 Saturation 96.3 % (95.0-98.0) 01/02/18 11:30 Sodium 139.0 mmol/l (132-148) 12/27/17 15:57 Chloride 107.0 mmol/L (98-107) 12/27/17 15:57 Glucose 91 mg/dl (75-110) 12/27/17 15:57 Lactate 1.4 mmol/L (0.7-2.1) 12/27/17 15:57 Liter Flow 2.0 01/02/18 11:30 FiO2 27.0 % 01/02/18 11:30 Crit Value Called To Dr marcos 12/27/17 15:57 Crit Value Called By Chauncey 12/27/17 15:57 Crit Value Read Back Y 12/27/17 15:57 Blood Gas Notified Time 1556 12/27/17 15:57 Sodium 135 mmol/L (132-148) 01/07/18 07:34 Potassium 4.1 mmol/L (3.6-5.2) 01/07/18 07:34 Chloride 101 mmol/L (98-107) 01/07/18 07:34 Carbon Dioxide 29 mmol/L (22-30) 01/07/18 07:34 Anion Gap 10 (10-20) 01/06/18 11:48 BUN 16 mg/dL (9-20) 01/07/18 07:34 Creatinine 0.6 mg/dL (0.8-1.5) L 01/06/18 11:48 Est GFR ( Amer) > 60 01/06/18 11:48 Est GFR (Non-Af Amer) > 60 01/06/18 11:48 POC Glucose (mg/dL) 126 mg/dL (65-110) H 01/07/18 16:36 Random Glucose 114 mg/dL (75-110) H 01/06/18 11:48 Hemoglobin A1c 6.0 % (4.2-6.5) 12/23/17 06:24 Uric Acid 3.7 mg/dL (3.5-8.5) 12/27/17 06:46 Calcium 8.2 mg/dl (8.6-10.4) L 01/06/18 11:48 Phosphorus 1.9 mg/dL (2.5-4.5) L 01/06/18 06:52 Magnesium 1.6 mg/dL (1.6-2.3) 01/06/18 06:52 Total Bilirubin 0.4 mg/dL (0.2-1.3) 01/06/18 06:52 Direct Bilirubin 0.4 mg/dL (0.0-0.4) 12/28/17 06:37 AST 42 U/L (17-59) 01/06/18 06:52 ALT 54 U/L (21-72) 01/06/18 06:52 Alkaline Phosphatase 65 U/L (38-126) 01/06/18 06:52 Ammonia < 9 umol/L (9-33) L 12/23/17 11:27 NT-Pro-B Natriuret Pep 478 pg/mL (0-900) 12/21/17 19:56 Total Protein 4.7 g/dL (6.3-8.3) L 01/06/18 06:52 Total Protein (PEP) 5.7 g/dL (6.1-8.1) L 12/26/17 06:36 Albumin 2.0 g/dL (3.5-5.0) L 01/06/18 06:52 Albumin (PEP) 2.1 g/dL (3.8-4.8) L 12/26/17 06:36 Globulin 2.7 gm/dL (2.2-3.9) 01/06/18 06:52 Albumin/Globulin Ratio 0.8 (1.0-2.1) L 01/06/18 06:52 Mrjwn-8-Lwcrymljb 0.4 g/dL (0.2-0.3) H 12/26/17 06:36 Lytag-4-Bcyumqoax 0.7 g/dL (0.5-0.9) 12/26/17 06:36 Rvcx-1-Cnmumcqf 0.3 g/dL (0.4-0.6) L 12/26/17 06:36 Ptau-5-Vvmdrlix 0.5 g/dL (0.2-0.5) 12/26/17 06:36 Gamma Globulins 1.6 g/dL (0.8-1.7) 12/26/17 06:36 Abnorm Protein Band 1 TEST NOT PERFORMED 12/26/17 06:36 Abnorm Protein Band 2 TEST NOT PERFORMED 12/26/17 06:36 Abnorm Protein Band 3 TEST NOT PERFORMED 12/26/17 06:36 Alpha Fetoprotein < 0.8 ng/mL (0.0-7.5) 12/24/17 06:34 Carcinoembryonic Ag 3.5 ng/mL (0-3.0) H 12/23/17 11:27 CA 19-9 Antigen 55.8 U/mL (0-37) H 12/24/17 06:34 Prostate Specific Ag 2.01 ng/mL (0.00-4.0) 12/23/17 11:27 Homocysteine 9.1 umol/L (6.6-14.8) 12/23/17 11:27 Free T4 1.38 ng/dL (0.78-2.19) 12/26/17 11:46 TSH 3rd Generation 1.05 mIU/L (0.46-4.68) 12/26/17 11:46 Prolactin 8.8 ng/mL (3.7-17.9) 12/23/17 11:27 PTH Intact Whole Molec 22 pg/mL (14-64) 12/23/17 07:04 Arterial Blood Potassium 3.7 mmol/L (3.6-5.2) 12/27/17 15:57 Venous Blood Potassium 5.4 mmol/L (3.6-5.2) H 12/21/17 19:50 Urine Color Yellow (YELLOW) 12/22/17 21:26 Urine Clarity Hazy (Clear) 12/22/17 21:26 Urine pH 5.0 (5.0-8.0) 12/22/17 21:26 Ur Specific [place] 1.018 (1.003-1.030) 12/22/17 21:26 Urine Protein Negative mg/dL (NEGATIVE) 12/22/17 21:26 Urine Glucose (UA) Normal mg/dL (Normal) 12/22/17 21:26 Urine Ketones Negative mg/dL (NEGATIVE) 12/22/17 21:26 Urine Blood Negative (NEGATIVE) 12/22/17 21: Urine Nitrate Negative (NEGATIVE) 12/22/17 21: Urine Bilirubin Negative (NEGATIVE) 12/22/17 21: Urine Urobilinogen Normal mg/dL (0.2-1.0) 12/22/17 21:26 Ur Leukocyte Esterase Neg Ned/uL (Negative) 12/22/17 21: Urine WBC (Auto) 1 /hpf (0-5) 12/22/17 21: Urine RBC (Auto) 3 /hpf (0-3) 12/22/17 21:26 Ur Random Sodium 20 mmol/L 12/23/17 22:47 Urine Chloride 31 mmol/L (32-290) L 12/23/17 15:02 Vancomycin Peak 20.7 ug/mL (30.0-40.0) L 12/29/17 09:27 Vancomycin Trough 23.9 ug/mL (5.0-10.0) H 01/07/18 07:34 JEREL & SPEP Interp See note 12/26/17 06:36 Serum Immunofixation Not detected (Not Detected) 12/23/17 11:27 Rheumatoid Arth Interp Negative (NEGATIVE) 12/25/17 07:20 Complement C3 90.0 mg/dL (88.0-165.0) 12/25/17 07:20 Complement C4 32.1 mg/dL (14.0-44.0) 12/25/17 07:20 RPR Nonreactive (NONREACTIVE) 12/23/17 11:27 Hepatitis A IgM Ab Negative (NEGATIVE) 12/23/17 12:52 Hep Bs Antigen Negative (NEGATIVE) 12/23/17 12:52 Hep B Core IgM Ab Negative (NEGATIVE) 12/23/17 12:52 Hepatitis C Antibody Negative (NEGATIVE) 12/23/17 12:52 HIV 1&2 Antibody Screen Negative (NEGATIVE) 07/24/18 12:52 Ur L.pneumophila Ag Negative (NEGATIVE) 12/25/17 05:19 Discharge Exam - Head Exam Head Exam: NORMOCEPHALIC - Eye Exam Eye Exam: Normal appearance Pupil Exam: NORMAL ACCOMODATION - ENT Exam ENT Exam: Mucous Membranes Dry - Neck Exam Neck exam: Normal Inspection - Respiratory Exam Respiratory Exam: Decreased Breath Sounds - Cardiovascular Exam Cardiovascular Exam: REGULAR RHYTHM - GI/Abdominal Exam GI & Abdominal Exam: Normal Bowel Sounds - Rectal Exam Rectal Exam: Deferred - Exam Exam: NORMAL INSPECTION - Extremities Exam Extremities exam: tenderness - Back Exam Back exam: NORMAL INSPECTION - Neurological Exam Neurological exam: Alert - Psychiatric Exam Psychiatric exam: Depressed - Skin Skin Exam: Dry Discharge Plan - Discharge Medications Prescriptions: Vancomycin 1 GM [Vancomycin 1GM in Normal Saline Addvantage] 1 gm IVPB DAILY 5 Days bag - Follow Up Plan Condition: GUARDED Disposition: REHAB FACILITY/REHAB UNIT Instructions: COPD Including Emphysema (DC), Dehydration, Adult (DC), Pneumonia , Adult (DC), Dysphagia (DC) Additional Instructions: Discharge to [facility] under DR Shea service Vancomycin 1gm IV daily as per Dr Olivo for pneumonia PT/OT as tolerated PEG feeding as tolerated, please apply abdominal binder to prevent pulling of the tube. Referrals: Anjel Llanos MD [Staff Provider] - Cipriano Pearson MD [Staff Provider] - Sudarshan Wilson MD [Staff Provider] - Vasquez Montanez [Staff Provider] - Jesus Shea MD [Staff Provider] - Elian Kyle MD [Staff Provider] - Won Olivo MD [Staff Provider] - Lars Byrnes MD [Staff Provider] - Jaya Pettit MD [Staff Provider] -
--- NOTE | 2018-01-08 08:11 | OP ---
Copied To: Cipriano Pearson MD Attending MD: Cipriano Pearson MD PROCEDURE DATE: 01/02/2018 PREOPERATIVE DIAGNOSES: 1. Obstructing esophageal mass. 2. Dysphagia. 3. Weight loss. POSTOPERATIVE DIAGNOSES: 1. Obstructing esophageal mass. 2. Dysphagia. 3. Weight loss. OPERATION PERFORMED: 1. Feeding gastrostomy, Chase. 2. Exploratory laparotomy and lysis of adhesions. 3. Collection of ascites for cytology and C and S. SURGEON: Cipriano Pearson MD ASSISTANTS: Elyssa Bertrand DO and Erich Kirby DO ANESTHESIOLOGIST: Los Rojas MD ANESTHESIA: Endotracheal general anesthesia. DESCRIPTION OF PROCEDURE: The patient was taken to the operating room where under satisfactory endotracheal general anesthesia, the operative field was prepared and draped in sterile fashion. Surgery was started out through upper midline incision, and the abdominal cavity was entered. Bleeding points were electrocauterized. At this time, omental adhesions were encountered which was further lysed in the usual manner and bleeding points were secured with 2-0 Vicryl. Next, abdomen was explored and fundus of the stomach was brought out to the operative field, and in the distal fundus in the area of the greater curvature, 3-0 silk pursestring suture was placed. After bringing in 20-Surinamese Acosta catheter, a stab wound in the upper left quadrant abdominal wall, gastrostomy was made with hot cautery and was enlarged with mosquito clamps and catheter tip was inserted and pursestring suture was tied in inverting fashion. Balloon at this time was inflated with saline to 20 cm, and patency was confirmed by installing normal saline through the distal Acosta catheter. At this time, another pursestring suture with 3-0 silk was placed approximately 1.5 cm from the catheter and once again tied as an inverting pursestring suture. Next, 3-0 silk was placed between the anterior wall of the abdomen to the stomach in 5 corners or around the catheter in a star fashion, and these sutures were tied after interposing omentum between the stomach and anterior wall of the abdomen which wrapped around the catheter. These star stitches were tied while Acosta catheter was brought to the abdominal wall tightly. At this time, using , ascitic fluid of the abdomen was collected from the posterior gutter of the abdomen and was sent out for cytology as well as C and S. Abdominal wall was finally closed in layers, continuous #1 Maxon and subcutaneous fascia with continuous 2-0 Vicryl and skin with skin david. Sterile dressings were applied and taped in the usual manner. The patient tolerated the procedure well and was transferred to the recovery room, extubated, awake with good vital signs. Estimated blood loss was minimum. Sponge, needle, and instrument counts were correct. Cipriano Pearson MD
== END 2018-01-07 19:20 | DRG 853 ==
LOC: C.ER 18:23 → C.3T 21:32 → C.9I 12-27 20:08 → C.5S 12-31 16:14
PROVIDERS: ADMIT Internal Medicine; ATTEND Internal Medicine
PROC: 5A09457 Assistance with Respiratory Ventilation, 24-96 Consecutive Hours, Continuous Positive Airway Pressure (ICD-10-PCS; 2017-12-21)
PROC: 0DJ08ZZ Inspection of Upper Intestinal Tract, Via Natural or Artificial Opening Endoscopic (ICD-10-PCS; principal; 2017-12-24 10:20)
PROC: 02HV33Z Insertion of Infusion Device into Superior Vena Cava, Percutaneous Approach (ICD-10-PCS; 2017-12-26)
PROC: 0DH60UZ Insertion of Feeding Device into Stomach, Open Approach (ICD-10-PCS; 2018-01-02)
DX: A41.9 Sepsis, unspecified organism (principal); E43 Unspecified severe protein-calorie malnutrition; J15.212 Pneumonia due to Methicillin resistant Staphylococcus aureus; J69.0 Pneumonitis due to inhalation of food and vomit; J96.01 Acute respiratory failure with hypoxia; E87.0 Hyperosmolality and hypernatremia; J44.0 Chronic obstructive pulmonary disease with (acute) lower respiratory infection; J98.11 Atelectasis; R18.8 Other ascites; R64 Cachexia; Z68.1 Body mass index [BMI] 19.9 or less, adult; E11.65 Type 2 diabetes mellitus with hyperglycemia; D64.9 Anemia, unspecified; E86.0 Dehydration; E77.8 Other disorders of glycoprotein metabolism; F01.50 Vascular dementia, unspecified severity, without behavioral disturbance, psychotic disturbance, mood disturbance, and anxiety; I10 Essential (primary) hypertension; I25.10 Atherosclerotic heart disease of native coronary artery without angina pectoris; I95.89 Other hypotension; K22.2 Esophageal obstruction; K56.41 Fecal impaction; Z51.5 Encounter for palliative care; Z86.711 Personal history of pulmonary embolism; F17.210 Nicotine dependence, cigarettes, uncomplicated; B37.9 Candidiasis, unspecified